=== PATIENT | female | born 1960 | race Caucasian/White ===

== ENCOUNTER 2016-05-11 08:02 | Emergency (ER) | payer BC ==
--- NOTE | 2016-05-11 08:39 | ED ---
Neck Injury/Pain HPI - General Chief Complaint: Neck Pain/Injury Stated Complaint: head injury Time Seen by Provider: 05/11/16 08:32 Source: RN notes reviewed Mode of arrival: ambulatory Limitations: no limitations - History of Present Illness Initial Comments: 55-year-old female presents to the emergency department with a chief complaint of head and neck pain. Patient states that she was getting into her trunk and she went up and hit the back of her head. Patient states that a few days ago she's getting worsening headache and worsening neck pain from this. Patient states that last day just seem to really be bothering her so she thought that she should be seen. Patient states that she hasn't had a fever chills with this. Patient states that she recently had a headache just hurts where she hit it. Patient states her neck just feels stiff to movement and it is tender to touch. Patient states that she has no other injuries in the incident. Patient denies any recent fever, chills, shortness of breath, chest pain, back pain, abdominal pain, nausea vomiting, numbness or tingling, dysuria or hematuria, constipation or diarrhea, visual changes, or any other current symptoms. - Related Data Home Medications Medication Instructions Recorded Confirmed Ascorbic Acid [Vitamin C] 500 mg PO DAILY 05/11/16 05/11/16 Aspirin 325 mg PO DAILY 05/11/16 05/11/16 Atorvastatin Calcium [Lipitor] 40 mg PO HS 05/11/16 05/11/16 Calcium Carbonate [Calcium] 600 mg PO DAILY 05/11/16 05/11/16 Cinnamon Bark [Cinnamon] 500 mg PO DAILY 05/11/16 05/11/16 Ferrous Sulfate [Feosol] 325 mg PO DAILY 05/11/16 05/11/16 Fluticasone Nasal [place] [Flonase 1 spray EA NOSTRIL DAILY PRN 05/11/16 05/11/16 Nasal [place]] Garlic 1 tab PO DAILY 05/11/16 05/11/16 Magnesium 200 mg PO DAILY 05/11/16 05/11/16 Multivitamins, Thera [Multivitamin] 1 tab PO DAILY 05/11/16 05/11/16 [place]-3 Fatty Acids/Fish Oil [Fish 1 cap PO DAILY 05/11/16 05/11/16 Oil 1,000 mg Softgel] Pioglitazone HCl/Metformin HCl 1 tab PO BID 05/11/16 05/11/16 [Pioglitazone-Metformin 15-500] Spironolact/Hydrochlorothiazid 1 tab PO DAILY 05/11/16 05/11/16 [Aldactazide 25-25 MG] Vitamin B Complex 1 cap PO DAILY 05/11/16 05/11/16 Allergies Allergy/AdvReac Type Severity Reaction Status Date / Time No Known Allergies Allergy Verified 05/11/16 08:43 Review of Systems ROS Statement: Those systems with pertinent positive or pertinent negative responses have been documented in the HPI. ROS Other: All systems not noted in ROS Statement are negative. Past Medical History Past Medical History: Diabetes Mellitus, Hyperlipidemia, Hypertension History of Any Multi-Drug Resistant Organisms: None Reported Past Surgical History: Breast Surgery, Orthopedic Surgery Past Psychological History: No Psychological Hx Reported Smoking Status: Former smoker Past Alcohol Use History: None Reported Past Drug Use History: None Reported General Exam Limitations: no limitations General appearance: alert, in no apparent distress Head exam: Present: atraumatic, normocephalic, normal inspection Eye exam: Present: normal appearance, PERRL, EOMI. Absent: scleral icterus, conjunctival injection, periorbital swelling ENT exam: Present: normal exam, mucous membranes moist Neck exam: Present: normal inspection, tenderness (Along the left lateral aspect ), full ROM. Absent: meningismus, lymphadenopathy Respiratory exam: Present: normal lung sounds bilaterally. Absent: respiratory distress, wheezes, rales, rhonchi, stridor Cardiovascular Exam: Present: regular rate, normal rhythm, normal heart sounds. Absent: systolic murmur, diastolic murmur, rubs, gallop, clicks Neurological exam: Present: alert, oriented X3, CN II-XII intact. Absent: motor sensory deficit Psychiatric exam: Present: normal affect, normal mood Skin exam: Present: warm, dry, intact, normal color. Absent: rash Course Vital Signs 05/11/16 08:29 Temperature 97.8 F Pulse Rate 73 Respiratory 20 Rate Blood Pressure 159/70 O2 Sat by Pulse 98 Oximetry Medical Decision Making - Medical Decision Making 55-year-old female presents to emergency department chief complaint of headache neck pain after hitting her head. And today she states that her pain seems to be worsening. This time CAT scans are reviewed that do not show any acute process. We discussed the case he OFF PAIN CONTROL. WE DISCUSSED RETURN PARAMETERS AND FOLLOW-UP. PATIENT STATED THAT SHE UNDERSTOOD SHE IS IN AGREEMENT PLAN ALL QUESTIONS HAVE BEEN ANSWERED. SHE WILL BE DISCHARGED. Disposition Clinical Impression: Cervical strain, acute, Contusion of head Disposition: HOME SELF-CARE Condition: Stable Instructions: Cervical Strain (ED) Additional Instructions: Please use medication as discussed. Please follow up with family doctor if symptoms have not improved over the next two days. Please return to the emergency room if your symptoms increase or worsen or for any other concerns. Referrals: Oliva Morales MD [Primary Care Provider] - 1-2 days Time of Disposition: 09:22
--- NOTE | 2016-05-11 09:15 | CT ---
EXAMINATION TYPE: CT brain cspine wo con DATE OF EXAM: 05/11/2016 9:09 AM COMPARISON: NONE HISTORY: Pt hit Lt Occipital region on trunk of car 2 days ago. Today c/o headache with Lt posterior neck pain CT DLP: Brain 1072.3, Cervical 941 mGycm. Automated Exposure Control for Dose Reduction was Utilized. TECHNIQUE: CT scan of the head and cervical spine are performed without contrast. FINDINGS: There is no acute intracranial hemorrhage or midline shift identified. There is ventricul ar and sulcal prominence consistent with mild age-related cerebral atrophy. The calvarium is intact. The globes are intact and the visualized sinuses are clear. Cervical spine is visualized in its entirety from C1 through upper thoracic levels and demonstrates s atisfactory alignment without evidence of acute fracture or dislocation. Prevertebral soft tissue ap pears within normal limits. The C1-C2 articulation is within normal limits on the coronal images. Vertebral body heights and disc space heights are maintained. No large posterior disc herniations are present on axial or sagittal images. Thyroid gland is felt within normal limits. Visualized lung api nisreen are clear. IMPRESSION: 1. There is no acute fracture or dislocation evident in the cervical spine. 2. No acute intracranial hemorrhage, mass effect, or midline shift is seen.
[2016-05-11 09:29] VITALS: BP 160/79; PULSE 68; RESP 18; TEMP 97.4
== END 2016-05-11 09:30 | disposition home or self-care (01) ==
LOC: EC 08:02
DX: S16.1XXA Strain of muscle, fascia and tendon at neck level, initial encounter (principal); S00.93XA Contusion of unspecified part of head, initial encounter; W22.09XA Striking against other stationary object, initial encounter; I10 Essential (primary) hypertension; E78.5 Hyperlipidemia, unspecified; E11.9 Type 2 diabetes mellitus without complications; Z79.82 Long term (current) use of aspirin; Z87.891 Personal history of nicotine dependence; Z79.899 Other long term (current) drug therapy; Z79.84 Long term (current) use of oral hypoglycemic drugs
CPT/HCPCS: 70450; 72125; 99283

== ENCOUNTER 2016-10-23 21:11 | Emergency (ER) | payer BC ==
[2016-10-23 21:40] VITALS: RESP 18; TEMP 96.6
--- NOTE | 2016-10-23 22:02 | ED ---
Wound/Laceration HPI - General Chief Complaint: Wound/Laceration Stated Complaint: Rt middle finger lac Time Seen by Provider: 10/23/16 21:38 Source: patient Mode of arrival: ambulatory Limitations: no limitations - History of Present Illness Initial Comments: Patient is a right-handed 55-year-old female presenting to the emergency department with chief complaint of laceration to the distal tip of her right middle finger. Onset of injury approximately 30 minutes prior to arrival. Patient states she was washing dishes when she cut herself on a broken piece of glass. Patient applied pressure to wound prior to arrival. No history of recent illness, fevers, nausea, vomiting, shortness of breath, chest pain, abdominal pain, numbness or tingling. - Related Data Home Medications Medication Instructions Recorded Confirmed Ascorbic Acid [Vitamin C] 500 mg PO DAILY 05/11/16 05/11/16 Aspirin 325 mg PO DAILY 05/11/16 05/11/16 Atorvastatin Calcium [Lipitor] 40 mg PO HS 05/11/16 05/11/16 Calcium Carbonate [Calcium] 600 mg PO DAILY 05/11/16 05/11/16 Cinnamon Bark [Cinnamon] 500 mg PO DAILY 05/11/16 05/11/16 Ferrous Sulfate [Feosol] 325 mg PO DAILY 05/11/16 05/11/16 Fluticasone Nasal [place] [Flonase 1 spray EA NOSTRIL DAILY PRN 05/11/16 05/11/16 Nasal [place]] Garlic 1 tab PO DAILY 05/11/16 05/11/16 Magnesium 200 mg PO DAILY 05/11/16 05/11/16 Multivitamins, Thera [Multivitamin] 1 tab PO DAILY 05/11/16 05/11/16 [place]-3 Fatty Acids/Fish Oil [Fish 1 cap PO DAILY 05/11/16 05/11/16 Oil 1,000 mg Softgel] Pioglitazone HCl/Metformin HCl 1 tab PO BID 05/11/16 05/11/16 [Pioglitazone-Metformin 15-500] Spironolact/Hydrochlorothiazid 1 tab PO DAILY 05/11/16 05/11/16 [Aldactazide 25-25 MG] Vitamin B Complex 1 cap PO DAILY 05/11/16 05/11/16 Allergies Allergy/AdvReac Type Severity Reaction Status Date / Time No Known Allergies Allergy Verified 10/23/16 21:40 Review of Systems ROS Statement: Those systems with pertinent positive or pertinent negative responses have been documented in the HPI. ROS Other: All systems not noted in ROS Statement are negative. Past Medical History Past Medical History: Diabetes Mellitus, Hyperlipidemia, Hypertension History of Any Multi-Drug Resistant Organisms: None Reported Past Surgical History: Breast Surgery, Orthopedic Surgery Past Psychological History: No Psychological Hx Reported Smoking Status: Former smoker Past Alcohol Use History: None Reported Past Drug Use History: None Reported General Exam Limitations: no limitations General appearance: alert, in no apparent distress Head exam: Present: atraumatic, normocephalic, normal inspection Eye exam: Present: normal appearance ENT exam: Present: normal exam, mucous membranes moist Neck exam: Present: normal inspection Respiratory exam: Present: normal lung sounds bilaterally. Absent: respiratory distress, wheezes, rales, rhonchi Cardiovascular Exam: Present: regular rate, normal rhythm, normal heart sounds. Absent: systolic murmur Extremities exam: Present: normal inspection, full ROM, normal capillary refill Back exam: Present: normal inspection Neurological exam: Present: alert, oriented X3, normal gait Psychiatric exam: Present: normal affect, normal mood Skin exam: Present: warm, dry, intact, normal color Expanded Type of lesion: Present: laceration (0.5 cm laceration to tip of third middle finger on right hand palmar side) Course Vital Signs 10/23/16 10/23/16 21:38 22:09 Temperature 96.6 F L Pulse Rate 72 78 Respiratory 18 18 Rate Blood Pressure 196/87 158/70 O2 Sat by Pulse 97 97 Oximetry Procedures - Laceration Laceration #1 Consent Obtained: verbal consent Indication: laceration Site: upper extremity (Right middle finger distal tip palmar surface 0.5 cm in length.) Description: linear Depth: simple, single layer Pre-repair: wound explored, irrigated extensively, deep structures intact Technique: other (Dermabond applied) Patient Tolerated Procedure: well, no complications Medical Decision Making - Medical Decision Making 0.5 cm laceration to distal tip of right middle finger. X-ray of right middle finger with no evidence of fracture or foreign body. Laceration irrigated extensively with sterile saline and repaired with Dermabond. Patient tolerated procedure well. Patient instructed to follow-up with primary care physician as needed. Discharge instructions and return parameters reviewed. - Radiology Data Radiology results: report reviewed X-ray of right middle finger: Mild spurring. No fracture seen. No sign of foreign body. Disposition Clinical Impression: Laceration Disposition: HOME SELF-CARE Condition: Good Instructions: Laceration (ED), Skin Adhesive Care (ED) Additional Instructions: Postop wound care: Monitor for signs and symptoms of infection such as increased redness, increased pain, red streaks going up your hand. Do not put antibiotic ointment or any type of medication on top of Dermabond. Follow-up with primary care physician for wound check. Please return to the emergency department with any new or worsening symptoms. Referrals: Cdae Elliott MD [Primary Care Provider] - 1-2 days Time of Disposition: 22:22
--- NOTE | 2016-10-23 22:03 | XR ---
History laceration. Comparison none. Technique 3 views. FINDINGS: I see no fracture nor dislocation. There is mild spurring at the PIP joint. There is no sign of a rad iopaque foreign body. CONCLUSION: Mild spurring. No fracture seen. No sign of a foreign body.
[2016-10-23] MEDS ORDERED: TOPICAL SKIN ADHESIVE 1 EACH AMP TOPICAL ONE (22:07)
[2016-10-23 22:09] VITALS: BP 158/70; PULSE 78
[2016-10-23] MEDS ORDERED: DIPH,PERTUS(ACELL)TETVAC-LF 0.5 ML VIAL IM ONE (22:13)
== END 2016-10-23 22:45 | disposition home or self-care (01) ==
LOC: EC 21:11
DX: S61.212A Laceration without foreign body of right middle finger without damage to nail, initial encounter (principal); E11.9 Type 2 diabetes mellitus without complications; E78.5 Hyperlipidemia, unspecified; I10 Essential (primary) hypertension; Z23 Encounter for immunization; Z79.82 Long term (current) use of aspirin; Z79.84 Long term (current) use of oral hypoglycemic drugs; Z79.899 Other long term (current) drug therapy; Z87.891 Personal history of nicotine dependence; W25.XXXA Contact with sharp glass, initial encounter
CPT/HCPCS: 12001; 90471; 90715; 99283

== ENCOUNTER 2017-08-29 14:27 | Observation (INO) | payer BC ==
[2017-08-29] MEDS ORDERED: MORPHINE SULFATE 4 MG/ML SYRINGE IV STA (14:38)
[2017-08-29] MEDS ORDERED: NITROGLYCERIN OINT 1 INCH/GM PACKET TOPICAL STA (14:38)
[2017-08-29] MEDS ORDERED: ONDANSETRON 4 MG/2 ML VIAL IVP STA (14:38)
[2017-08-29 14:49] LABS: Basophils % (A) 0 %; Eosinophils # (A) 0.2 k/uL (0-0.7); Eosinophils % (A) 2 %; HGB 14.6 gm/dL (11.4-16.0); Lymphocytes # (A) 1.3 k/uL (1.0-4.8); Lymphocytes % (A) 19 %; MCH 30.6 pg (25.0-35.0); MCHC 32.5 g/dL (31.0-37.0); MCV 94.1 fL (80.0-100.0); Mean Platelet Volume 7.6; Monocytes # (A) 0.3 k/uL (0-1.0); Monocytes % (A) 5 %; Neutrophils % (A) 73 %; Platelet Count 205 k/uL (150-450); RBC 4.78 m/uL (3.80-5.40); RDW 13.9 % (11.5-15.5); WBC 6.9 k/uL (3.8-10.6)
[2017-08-29 14:58] LABS: ALT 40 U/L (9-52); AST 23 U/L (14-36); Alkaline Phosphatase 65 U/L (38-126); Anion Gap 13 mmol/L; Blood Urea Nitrogen 22 mg/dL (7-17); Calcium 9.5 mg/dL (8.4-10.2); Carbon Dioxide 29 mmol/L (22-30); Chloride 102 mmol/L (98-107); Glucose 105 mg/dL (74-99); Magnesium 1.9 mg/dL (1.6-2.3); Potassium 4.2 mmol/L (3.5-5.1); Sodium 144 mmol/L (137-145); Total Bilirubin 0.6 mg/dL (0.2-1.3); Total Protein 6.3 g/dL (6.3-8.2)
[2017-08-29 14:59] LABS: Partial Thromboplastin Time 23.6 sec (22.0-30.0); Prothrombin Time 10.1 sec (9.0-12.0)
[2017-08-29 15:07] LABS: Creatine Kinase 118 U/L (30-135)
[2017-08-29 15:20] LABS: Creatine Kinase MB 1.3 ng/mL (0.0-2.4); Troponin I <0.012 ng/mL (0.000-0.034)
--- NOTE | 2017-08-29 16:02 | XR ---
EXAMINATION TYPE: XR chest 2V DATE OF EXAM: 08/29/2017 COMPARISON: 03/01/2011 INDICATION: Chest pain TECHNIQUE: Frontal and lateral views of the chest are obtained. FINDINGS: The heart size is normal. The pulmonary vasculature is normal. The lungs are clear. IMPRESSION: 1. No acute pulmonary process.
[2017-08-29] MEDS ORDERED: NITROGLYCERIN SL TABS 0.4 MG TAB SUBLINGUAL PRN (16:41)
[2017-08-29] MEDS ORDERED: MORPHINE SULFATE 4 MG/ML SYRINGE IV PRN (16:41)
--- NOTE | 2017-08-29 16:41 | ED ---
Chest Pain HPI - General Chief Complaint: Chest Pain Stated Complaint: Chest Pain Time Seen by Provider: 08/29/17 14:31 Source: patient, EMS Mode of arrival: EMS Limitations: no limitations - History of Present Illness Initial Comments: JULIETTE years O diabetic hypertensive had a palpitation yesterday evening then she had some chest pain last night he didn't last long then she had another episode of chest pain this morning and then one this afternoon she still has a chest pain on arrival to the ER and it's 06/12 she denies any shortness of breath there is no worsening of the chest pain with deep breaths she got nitro and she got aspirin area that did help her I denies any fever no chills no abdominal pain no frequency urgency dysuria no symptoms of TIA or CVA - Related Data Home Medications Medication Instructions Recorded Confirmed Ascorbic Acid [Vitamin C] 500 mg PO DAILY 05/11/16 08/29/17 Aspirin 325 mg PO DAILY 05/11/16 08/29/17 Atorvastatin Calcium [Lipitor] 40 mg PO HS 05/11/16 08/29/17 Calcium Carbonate [Calcium] 600 mg PO DAILY 05/11/16 08/29/17 Ferrous Sulfate [Feosol] 325 mg PO DAILY 05/11/16 08/29/17 Fluticasone Nasal [place] [Flonase 1 spray EA NOSTRIL DAILY PRN 05/11/16 08/29/17 Nasal [place]] Garlic 1 tab PO DAILY 05/11/16 08/29/17 Magnesium 200 mg PO DAILY 05/11/16 08/29/17 [place]-3 Fatty Acids/Fish Oil [Fish 1 cap PO DAILY 05/11/16 08/29/17 Oil 1,000 mg Softgel] Pioglitazone HCl/Metformin HCl 1 tab PO BID 05/11/16 08/29/17 [Pioglitazone-Metformin 15-500] Spironolact/Hydrochlorothiazid 1 tab PO DAILY 05/11/16 08/29/17 [Aldactazide 25-25 MG] Vitamin B Complex 1 cap PO DAILY 05/11/16 08/29/17 Allergies Allergy/AdvReac Type Severity Reaction Status Date / Time No Known Allergies Allergy Verified 10/23/16 21:40 Review of Systems ROS Statement: Those systems with pertinent positive or pertinent negative responses have been documented in the HPI. ROS Other: All systems not noted in ROS Statement are negative. EKG Findings - EKG Comments: EKG Findings:: EKG is normal sinus rhythm ventricular rate is 65 DE interval is 190 0 QRS duration is 86 QT/QTc is 436/453 review cc EKG does not reveal any ST elevation or ST depression Past Medical History Past Medical History: Diabetes Mellitus, Hyperlipidemia, Hypertension Additional Past Medical History / Comment(s): Heart murmur History of Any Multi-Drug Resistant Organisms: None Reported Past Surgical History: Breast Surgery, Orthopedic Surgery Past Psychological History: No Psychological Hx Reported Smoking Status: Former smoker Past Alcohol Use History: Rare Past Drug Use History: None Reported General Exam - General Exam Comments Initial Comments: General: The patient is awake and alert, in no distress, and does not appear acutely ill. Skin: Skin is warm and dry and no rashes or lesions are noted. Eye: Pupils are equal, round and reactive to light, extra-ocular movements are intact; there is normal conjunctiva bilaterally. Ears, nose, mouth and throat: There are moist mucous membranes and no oral lesions. Neck: The neck is supple, there is no tenderness or JVD. Cardiovascular: There is a regular rate and rhythm. No murmur, rub or gallop is appreciated. Respiratory: To auscultation bilateral, no wheezing no rhonchi no distress respiratory [place] noticed Gastrointestinal: Soft, non-distended, non-tender abdomen without masses or organomegaly noted. There is no rebound or guarding present. Bowel sounds are unremarkable. Back: There is no tenderness to palpation in the midline. There is no obvious deformity. Musculoskeletal: Normal ROM, no tenderness, There is no pedal edema. There is no calf tenderness or swelling. No cords were appreciated. Neurological: CN II-XII intact, Cranial nerves III through XII are intact. There are no obvious motor or sensory deficits. Coordination appears grossly intact. Speech is normal. Psychiatric: Cooperative, appropriate mood & affect, normal judgment. Limitations: no limitations Course Vital Signs 08/29/17 14:30 Temperature 98.4 F Pulse Rate 72 Respiratory 19 Rate Blood Pressure 176/76 O2 Sat by Pulse 96 Oximetry Upon reassessment noticed EKG is unremarkable her blood pressure is bit elevated 168 systolic CBC, INR, compressive metabolic panel, troponin, chest x- ray are unremarkable considering that her BMI is 56, she is diabetic, she is hypertensive and she has a 5 episodes lasting 10-15 minutes of chest pain since yesterday on admit observation consult cardiology she be admitted to Dr. Villa service Disposition Clinical Impression: Chest pain Disposition: ADMITTED IP TO THIS HOSP Condition: Good Referrals: Cade Elliott MD [Primary Care Provider] - 1-2 days
[2017-08-29] MEDS ORDERED: FLUTICASONE 50MCG/SPRAY NASAL 16GM EA NOSTRIL PRN (16:46)
[2017-08-29 17:45] VITALS: BMI 55.7
--- NOTE | 2017-08-29 20:59 | HP ---
HISTORY AND PHYSICAL DATE OF SERVICE: 08/29/2017 CHIEF COMPLAINTS: Chest pain and palpitations. SUMMARY OF HISTORY OF PRESENT ILLNESS: This 56-year-old woman with a past medical history of multiple medical problems, including diabetes mellitus, hypertension, hyperlipidemia, heart murmur, breast surgery being followed by Dr. Elliott in the outpatient setting had palpitations and chest pain last night. Patient had fluttering feeling and felt some some pain in the anterior part of the upper chest. Patient came to [facility], admitted for further evaluation and treatment. The basic labs were negative and the chest x- ray did not show any acute abnormality and EKG on admission showed normal sinus rhythm and the patient admitted for further evaluation and treatment. There is no history of fever, rigors. No history of headache, loss of consciousness or seizures. PAST MEDICAL HISTORY: History of diabetes, hypertension, hyperlipidemia, history of heart murmur. MEDICATIONS: Medications prior to admission include: 1. Meloxicam 50 mg p.o. daily. 2. Lipitor 40 mg q.h.s. 3. Aldactazide 20/25 p.o. daily. 4. 50/500 1 p.o. b.i.d. 5. [place]-3 fatty acids 1 p.o. daily. 6. Magnesium 200 mg. 7. Glucosamine chondroitin 500/400 1 p.o. daily. 8. Garlic 1 tab p.o. daily. 9. Flonase 1 spray daily p.r.n. 10.Iron sulfate 320 mg daily. 11.Vitamin D3 1000 daily. 12.Calcium 600 mg p.o. daily. 13.Aspirin 320 mg. 14.Vitamin C 500 mg p.o. daily. ALLERGIES: None. FAMILY HISTORY: History of leukemia, heart issues. SOCIAL HISTORY: Previous history of smoking. No history of current smoking. No alcohol intake. REVIEW OF SYSTEMS: ENT: No diminished vision. No diminished hearing. Cardiovascular system: As mentioned earlier. Respiratory: As mentioned earlier. GI no nausea or vomiting. no dysuria or hematuria. Nervous system: No numbness or weakness. ALLERGY/IMMUNOLOGY: No asthma or hayfever. Musculoskeletal: As mentioned earlier. Hematology/Oncology: No history of anemia. Endocrine: Diabetes. Constitutional : As mentioned earlier. Dermatology: Negative. Rheumatology: Negative. Psychiatry: As mentioned earlier. PHYSICAL EXAM: GENERAL: Patient is alert, oriented x3. VITAL SIGNS: Pulse 65, blood pressure 181/79, respiration 18, temp 98 degrees, pulse ox 97% on 2 L. HEENT: Conjunctivae normal. Oral mucosa moist. NECK is no jugular venous distention. No carotid bruit. No lymph node enlargement. CARDIOVASCULAR: S1, S2. RESPIRATORY: Breath sounds diminished in the bases. No rhonchi. No crackles. ABDOMEN: Soft, nontender. No mass palpable. LEGS no edema no swelling. NERVOUS SYSTEM: Higher functions as mentioned earlier. Moves all four limbs. No focal deficits. LYMPHATICS: No lymph nodes palpable in the neck, axillae or groin. SKIN: No ulcer, rash or bleeding. LAB STUDIES: CBC within normal limits. Glucose 105. Troponins are negative. EKG and chest x-ray noted. ASSESSMENT: 1. Chest pain possible unstable angina. 2. Diabetes mellitus Type 2. 3. Hypertension. 4. Hyperlipidemia. 5. Remote history of nicotine dependence. RECOMMENDATIONS AND DISCUSSION: This 56-year-old woman who presented with multiple complex medical issues, we will monitor the patient closely, continue the current medications, management and symptomatic treatment. Unstable angina protocol. Cardiology consultation. Resume the home medication. Monitor blood sugars closely. The patient possible stress test. Otherwise, guarded prognosis because of multiple complex medical issues and further recommendations to follow. Copy of dictation being forwarded to Dr. Elliott who is the primary physician. OLIVIA / JAMMIE: [id number] / MTDD
[2017-08-29] MEDS ORDERED: METFORMIN HCL PO SCH (21:00)
[2017-08-29] MEDS ORDERED: [UNRECOGNIZED DRUG - OTHER] PO SCH (21:00)
[2017-08-29] MEDS ORDERED: PIOGLITAZONE HCL PO SCH (21:00)
[2017-08-29 21:30] LABS: Creatine Kinase 108 U/L (30-135)
[2017-08-29 21:42] LABS: Creatine Kinase MB 1.2 ng/mL (0.0-2.4); Troponin I <0.012 ng/mL (0.000-0.034)
[2017-08-29 21:47] LABS: Glucose,Whole Blood 138 mg/dL (75-99)
[2017-08-29] MEDS: metFORMIN 500 MG TAB PO SCH (21:47)
[2017-08-29] MEDS: ATORVASTATIN 40 MG TAB PO SCH (21:47)
[2017-08-29] MEDS: PIOGLITAZONE 15 MG TAB PO SCH (21:47)
[2017-08-29] MEDS: INSULIN ASPART 100 UNIT/ML 1 ML 10 ML VIAL SQ SCH (21:51)
[2017-08-29 22:25] LABS: Appearance,Urine Clear (Clear); Bilirubin,Urine Negative (Negative); Blood,Urine Negative (Negative); Color,Urine Yellow; Glucose,Urine (UA) Negative (Negative); Ketones,Urine Negative (Negative); Leukocyte Esterase,Urine Negative (Negative); Nitrite,Urine Negative (Negative); PH, Urine 6.5 (5.0-8.0); Protein,Urine Negative (Negative); Urobilinogen,Urine <2.0 mg/dL (<2.0)
[2017-08-30 02:18] LABS: Basophils % (A) 0 %; Eosinophils # (A) 0.1 k/uL (0-0.7); Eosinophils % (A) 2 %; HCT 43.9 % (34.0-46.0); HGB 13.9 gm/dL (11.4-16.0); Lymphocytes # (A) 1.2 k/uL (1.0-4.8); Lymphocytes % (A) 19 %; MCH 30.5 pg (25.0-35.0); MCHC 31.7 g/dL (31.0-37.0); MCV 96.3 fL (80.0-100.0); Mean Platelet Volume 7.5; Monocytes # (A) 0.3 k/uL (0-1.0); Monocytes % (A) 5 %; Neutrophils # (A) 4.7 k/uL (1.3-7.7); Neutrophils % (A) 73 %; Platelet Count 188 k/uL (150-450); RBC 4.56 m/uL (3.80-5.40); RDW 13.9 % (11.5-15.5); WBC 6.4 k/uL (3.8-10.6)
[2017-08-30 02:28] LABS: Creatine Kinase 96 U/L (30-135)
[2017-08-30 02:37] LABS: Anion Gap 11 mmol/L; Blood Urea Nitrogen 20 mg/dL (7-17); Calcium 8.9 mg/dL (8.4-10.2); Carbon Dioxide 30 mmol/L (22-30); Chloride 100 mmol/L (98-107); Cholesterol 107 mg/dL (<200); Glucose 92 mg/dL (74-99); HDL Cholesterol 41 mg/dL (40-60); LDL Cholesterol,Calculated 53 mg/dL (0-99); Potassium 4.1 mmol/L (3.5-5.1); Sodium 141 mmol/L (137-145); Triglycerides 64 mg/dL (<150)
[2017-08-30 02:39] LABS: Creatine Kinase MB 0.9 ng/mL (0.0-2.4); Troponin I <0.012 ng/mL (0.000-0.034)
[2017-08-30 06:11] LABS: Glucose,Whole Blood 95 mg/dL (75-99)
[2017-08-30] MEDS: INSULIN ASPART 100 UNIT/ML 1 ML 10 ML VIAL SQ SCH ×4 (06:16→22:29)
[2017-08-30] MEDS ORDERED: METOPROLOL TARTRATE 25 MG TAB PO SCH (09:00)
[2017-08-30] MEDS ORDERED: NON-FORMULARY DRUG (Omega-3 Fatty Acids/Fish Oil [Fish Oil 1,000 Mg Softgel] 1 CAP) PO SCH (09:00)
[2017-08-30] MEDS ORDERED: NON-FORMULARY DRUG (Glucosamine-Chondr 500-400mg 1 TAB) PO SCH (09:00)
[2017-08-30] MEDS ORDERED: ASPIRIN 325 MG TAB PO SCH ×2 (09:00)
[2017-08-30] MEDS ORDERED: MELOXICAM 7.5 MG TAB PO SCH ×2 (09:00→21:00)
[2017-08-30] MEDS: metFORMIN 500 MG TAB PO SCH ×2 (09:24→22:29)
[2017-08-30] MEDS: PIOGLITAZONE 15 MG TAB PO SCH ×2 (09:24→22:29)
[2017-08-30] MEDS ORDERED: ASPIRIN 325 MG TAB PO STA ×2 (09:26→09:30)
[2017-08-30] MEDS: ASPIRIN 81 MG PO SCH (09:27)
[2017-08-30] MEDS: METOPROLOL TARTRATE 25 MG TAB PO SCH ×2 (09:33→22:30)
[2017-08-30] MEDS: SPIRONOLACTONE-HCTZ 25-25MG 1 EACH TAB PO SCH (09:35)
[2017-08-30] MEDS: SODIUM CHLORIDE 0.9% 1,000 ML IV SCH ×2 (10:00→14:28)
[2017-08-30 11:32] VITALS: RESP 16
[2017-08-30 11:46] LABS: Glucose,Whole Blood 103 mg/dL (75-99)
[2017-08-30] MEDS ORDERED: HEPARIN SODIUM 1,000 UN/ML (10ML VL) ONE (13:00)
[2017-08-30] MEDS ORDERED: diphenhydrAMINE 50 MG/ML 1 ML VIAL ONE (13:00)
[2017-08-30] MEDS ORDERED: LIDOCAINE 2% INJ 20 MG/ML (20 ML MDV) ONE (13:00)
[2017-08-30] MEDS ORDERED: VERAPAMIL 2.5 MG/ML 2 ML AMP ONE (13:00)
[2017-08-30] MEDS ORDERED: MIDAZOLAM 2 MG/2 ML VIAL ONE (13:00)
[2017-08-30] MEDS ORDERED: diphenhydrAMINE 50 MG/ML 1 ML VIAL IVP ONE (13:19)
[2017-08-30] MEDS ORDERED: MIDAZOLAM 2 MG/2 ML VIAL IVP ONE ×2 (13:19)
[2017-08-30] MEDS ORDERED: IV FLUID CONTINUATION 800 ML IV ONE (13:20)
[2017-08-30] MEDS ORDERED: LIDOCAINE 2% INJ 20 MG/ML SQ ONE (13:27)
[2017-08-30] MEDS: VERAPAMIL SYRINGE (5 MG/10 ML) INTRAARTER ONE ×2 (13:28→13:47)
[2017-08-30] MEDS ORDERED: HEPARIN SODIUM 1,000 UN/ML (10ML VL) IV ONE ×2 (13:31)
[2017-08-30] MEDS ORDERED: IOPAMIDOL-370 100ML BTL INJ ONE (13:47)
[2017-08-30] MEDS ORDERED: NITROGLYCERIN SL TABS 0.4 MG TAB SUBLINGUAL ONE ×2 (13:50→13:52)
[2017-08-30] MEDS ORDERED: RX INFO: IV CONTRAST WAS GIVEN 1 EACH MISC MISCELLANE PRN (14:05)
--- NOTE | 2017-08-30 15:39 | CONS ---
CONSULTATION HISTORY OF PRESENT ILLNESS: Aimee Schultz is an obese lady with a history of hypertension, type 2 diabetes and hyperlipidemia who sees Dr. Fredy Elliott in the primary care setting and also sees Dr. Arana. She apparently had a stress test more than 2 years ago and it was unremarkable. Her overall lifestyle does not reflect much activity. She does not exercise on a regular basis. However, yesterday she went to [place] and tried to walk up hill and as she walked uphill, she felt heavy pressure in the chest and shortness of breath, felt concerned, rested for a while and felt better, went home. After she went home, she had 2 such episodes, 1 of which occurred at rest and she came into the hospital and was admitted to the hospital with unstable angina. She had troponins are normal. She has had at least 1 additional episode of shortness of breath and heavy chest pressure. In view of her ongoing symptoms, she was advised coronary angiography. Risks, benefits, options and rationale were explained to the patient. She understands and wishes to proceed with the procedure. PAST MEDICAL HISTORY: 1. Type 2 diabetes mellitus. 2. Hyperlipidemia. 3. Hypertension. 4. Obesity. MEDICATIONS: At home include: Atorvastatin 40 mg daily, Aldactazide 25/25 1 tablet daily, metformin pioglitazone combination 515/500 1 tab b.i.d. She takes some nasal spray and Aspirin 325 mg daily. LABORATORY DATA: Suggested her troponins were normal. There were no other significant abnormalities. PHYSICAL EXAMINATION: On examination her blood pressure was 140/70, pulse rate was 68 per minute and regular. HEENT: Unremarkable. Fundus was not examined by me. NECK is supple. There is no JVD. I do not hear a carotid bruit. HEART exam reveals S1, S2 with somewhat distant heart sounds. No rub, murmur or gallop. LUNGS are clear. ABDOMEN is soft, nontender. EXTREMITIES: Lower extremities reveal diminished chronic diminished pulses and some chronic changes on her legs. She has had previous orthopedic surgery. EKG revealed sinus mechanism without any acute changes. IMPRESSION: 1. Chest pain syndrome, recurrent with exertion and also at rest suggestive of unstable angina. 2. Type 2 diabetes mellitus. 3. Hypertension. 4. Hyperlipidemia. 5. Obesity. RECOMMENDATIONS: I am recommending that we add a beta jack, reduce aspirin 81 mg daily. Perform coronary angiography and if this is normal, we can discharge the patient in 24 hours. However, given her symptoms of ongoing chest pressure and shortness of breath both with activity and at rest, I feel coronary angiography is advised. I explained to the patient the risks, benefits and options and she wishes to proceed. OLIVIA / JAMMIE: [id number] /
[2017-08-30 16:32] LABS: Glucose,Whole Blood 120 mg/dL (75-99)
[2017-08-30] MEDS: CALCIUM CARBONATE 500 MG CHEWABLE PO SCH (17:03)
[2017-08-30] MEDS: B COMPLEX-VIT C-VIT E-ZINC 1 EACH TAB PO SCH (17:04)
[2017-08-30] MEDS: ASCORBIC ACID 500 MG TAB PO SCH (17:04)
[2017-08-30] MEDS: MAGNESIUM OXIDE 400 MG TAB PO SCH (17:04)
[2017-08-30] MEDS: FERROUS SULFATE 325 MG TAB PO SCH (17:04)
[2017-08-30] MEDS: CHOLECALCIFEROL 1,000 UNIT TAB PO SCH (17:04)
--- NOTE | 2017-08-30 19:39 | PN ---
PROGRESS NOTE DATE OF SERVICE: 08/30/2017 This 56-year-old woman was admitted with chest pain as well as palpitation. Scheduled to have a cardiac cath by Dr. Casandra Cortez. No chest pain. No palpitations. No fever. EXAM: Alert and oriented x3. Pulse 66, blood pressure 140/60, respirations 16, temp is normal, pulse ox 94% on room air. HEENT: Conjunctivae normal. NECK: No JVD. CARDIAC: S1, S2. RESPIRATORY: Diminished breath sounds at the bases. No rhonchi, no crackles. ABDOMEN: Soft, nontender. LEGS: No swelling. NERVOUS SYSTEM: No focal deficits. LABS: CBC within normal. Accu-Cheks 103, 120. ASSESSMENT: 1. Chest pain, possible unstable angina. 2. Diabetes type 2. 3. Hypertension. 4. Hyperlipidemia. RECOMMENDATIONS: Recommend to continue current management and symptomatic treatment. Otherwise, we will continue with continue with cardiac cath. Guarded prognosis because of multiple complex medical issues. Further recommendations follow. MMODL / IJN: [id number] / MTDD
[2017-08-30 20:27] LABS: Glucose,Whole Blood 89 mg/dL (75-99)
--- NOTE | 2017-08-30 21:06 | CC ---
CARDIAC CATHETERIZATION REPORT DATE OF SERVICE: 08/30/2017 PROCEDURE: Left heart catheterization, coronary angiography and left ventriculography. PERFORMED BY: Dr. Casandra Cortez. ANESTHESIA: Moderate conscious sedation time was 24 minutes. Patient was administered Versed and Benadryl and her oxygen saturation, hemodynamics and EKG were monitored closely. CLINICAL INFORMATION: This patient is a 56-year-old lady with a known history of obesity, hypertension hypercholesterolemia and type 2 diabetes mellitus, who came into the hospital with increasing chest discomfort as she was walking up hill in [place]. These symptoms got better when she rested and when she went home the symptoms again persisted at least on 2 occasions and she came into the emergency room. I was called by the emergency room doctor regarding her symptoms. They seem to occur only with exertion, but the last episode occurred even at rest when she felt heaviness and pressure in the chest and shortness of breath. She has significant risk factors. Her troponins were negative. An EKG did not reveal any acute changes, but given her symptomatology, I recommended coronary angiography. Risks, benefits, options and rationale were explained. PROCEDURE NOTE: Under local anesthesia and strict aseptic precautions, a 6-Ukrainian introducer was placed in the right radial artery. Using an Ultimate 1 catheter, I performed selective coronary angiography of the left coronary artery. A 3.5 curve right Jonathan catheter was used to perform selective coronary angiography of the RCA. I then used a pigtail catheter to check LV gram. The sheath was taken out and TR band applied as per protocol. Saturation in the fingers of the right hand was 93%. The results were then discussed with the patient and family. There was no significant obstructive CAD noted. The patient received 2000 units of heparin intravenously. CARDIAC CATHETERIZATION FINDINGS: The left ventricle end-diastolic pressure was about 13 mmHg without any change after LV- gram. There was no gradient across aortic valve. CORONARY ANGIOGRAPHY FINDINGS: RIGHT CORONARY ARTERY: Technically this is a nondominant vessel, gives off an acute marginal distend immediately bifurcates into 2 small branches. Starts off as a good caliber vessel that has 3 small branches. No significant disease. Minor irregularities noted. LEFT MAIN CORONARY ARTERY: This is a short patent vessel free of significant disease that bifurcates into LAD and circumflex. LEFT ANTERIOR DESCENDING CORONARY ARTERY: Good caliber vessel extends along the anterior wall, supplies a sizable amount of myocardium. There is no significant disease in the LAD. Gives off septal branch and a fair sized diagonal branch in the midportion, runs all the way to the apex supplying a sizable amount of myocardium. No significant disease in the LAD system. LEFT POSTERIOR CIRCUMFLEX CORONARY ARTERY: Technically dominant vessel, gives off 2 or 3 small obtuse marginal branches, distally bifurcates into a large PDA and PLV, both of which supply a sizable amount of myocardium. No significant disease in the dominant circumflex. LEFT VENTRICULOGRAM: This was performed in 30 degree DE projection and revealed left ventricle which is of normal size with good systolic function. Ejection fraction is about 55% to 60% without mitral regurgitation. There was some ventricular ectopy noted. FINAL IMPRESSION: This patient has a left dominant system. Normal filling pressures. Good systolic function. No significant CAD. RECOMMENDATIONS: Findings were explained to the patient and her family including her brother. I agree continued medical therapy with risk factor modification including weight reduction was advised. The patient will be discharged tomorrow if she remains stable. Medications were resumed. MMTANK / IJN: [id number] /
--- NOTE | 2017-08-30 21:12 | LTR ---
DATE OF SERVICE: 08/30/[address] Elliott: Thank you for the opportunity to participate in the care of Mrs. Aimee Quintero. I am pleased to report to you that she does not have any obstructive CAD. She presented with unstable angina and because of risk factors and continued chest pain, she underwent cardiac cath, which revealed no obstructive CAD and normal systolic function with left dominant system. Continued medical therapy with risk factor modification was advised. Thank you for your referral and please call for questions. With kindest regards, Sincerely, OLIVIA / JAMMIE: [id number] /
[2017-08-30] MEDS: ATORVASTATIN 40 MG TAB PO SCH (22:29)
[2017-08-31 05:38] LABS: Glucose,Whole Blood 90 mg/dL (75-99)
[2017-08-31] MEDS: SODIUM CHLORIDE 0.9% 1,000 ML IV SCH ×3 (05:38→12:20)
[2017-08-31 06:21] LABS: Basophils % (A) 0 %; Eosinophils # (A) 0.1 k/uL (0-0.7); Eosinophils % (A) 2 %; HCT 43.2 % (34.0-46.0); HGB 13.8 gm/dL (11.4-16.0); Lymphocytes # (A) 1.3 k/uL (1.0-4.8); Lymphocytes % (A) 23 %; MCH 31.1 pg (25.0-35.0); MCHC 31.9 g/dL (31.0-37.0); MCV 97.5 fL (80.0-100.0); Mean Platelet Volume 7.1; Monocytes # (A) 0.3 k/uL (0-1.0); Monocytes % (A) 5 %; Neutrophils # (A) 3.9 k/uL (1.3-7.7); Neutrophils % (A) 69 %; Platelet Count 149 k/uL (150-450); RBC 4.43 m/uL (3.80-5.40); RDW 14.4 % (11.5-15.5); WBC 5.6 k/uL (3.8-10.6)
[2017-08-31] MEDS: INSULIN ASPART 100 UNIT/ML 1 ML 10 ML VIAL SQ SCH ×2 (06:31→12:19)
[2017-08-31 06:39] LABS: Anion Gap 8 mmol/L; Blood Urea Nitrogen 17 mg/dL (7-17); Calcium 8.9 mg/dL (8.4-10.2); Carbon Dioxide 29 mmol/L (22-30); Chloride 104 mmol/L (98-107); Glucose 92 mg/dL (74-99); Sodium 141 mmol/L (137-145)
[2017-08-31] MEDS: metFORMIN 500 MG TAB PO SCH (09:37)
[2017-08-31] MEDS: METOPROLOL TARTRATE 25 MG TAB PO SCH (09:37)
[2017-08-31] MEDS: ASPIRIN 81 MG PO SCH (09:37)
[2017-08-31] MEDS: PIOGLITAZONE 15 MG TAB PO SCH (09:38)
[2017-08-31] MEDS: SPIRONOLACTONE-HCTZ 25-25MG 1 EACH TAB PO SCH (09:38)
[2017-08-31 12:09] LABS: Glucose,Whole Blood 93 mg/dL (75-99)
[2017-08-31] MEDS: ASCORBIC ACID 500 MG TAB PO SCH (12:20)
[2017-08-31] MEDS: B COMPLEX-VIT C-VIT E-ZINC 1 EACH TAB PO SCH (12:20)
[2017-08-31] MEDS: CHOLECALCIFEROL 1,000 UNIT TAB PO SCH (12:20)
[2017-08-31] MEDS: MAGNESIUM OXIDE 400 MG TAB PO SCH (12:20)
[2017-08-31] MEDS: CALCIUM CARBONATE 500 MG CHEWABLE PO SCH (12:20)
[2017-08-31] MEDS: FERROUS SULFATE 325 MG TAB PO SCH (12:20)
[2017-08-31 13:05] VITALS: BP 148/65; PULSE 60; TEMP 96.7
[2017-08-31 13:06] LABS: Hemoglobin A1C 5.7 % (4.0-6.0)
--- NOTE | 2017-08-31 15:43 | P.PN ---
Subjective Progress Note Date: 08/31/17 Principal diagnosis: Chest pain This is a 56-year-old female with history of hypertension, diabetes, hyperlipidemia, who follows with Dr. Arana in the office. She presented to the hospital with chest heaviness and pressure and for this reason was taken to the cardiac catheterization lab by Dr. Trenton Cortez. Cardiac catheterization did not reveal any significant obstructive coronary artery disease. She was seen and examined this morning, feels well, denies any chest pain or difficulty in breathing. Right radial site is clean and dry, good distal pulse. Objective - Vital Signs Vital signs: Vital Signs Temp 96.7 F L 08/31/17 12:05 Pulse 60 08/31/17 12:05 Resp 16 08/31/17 12:05 BP 148/65 08/31/17 12:05 Pulse Ox 95 08/31/17 12:05 Intake & Output 08/30/17 08/31/17 08/31/17 18:59 06:59 18:59 Intake Total 640 600 Balance 640 600 Weight 133.1 kg Intake: IV 400 600 IV Fluid Continuation 800 300 ml As IV .STK-MED ONE Rx #:[id number] Sodium Chloride 0.9% 1, 600 000 ml @ 75 mls/hr IV . [id number] ANKUR Rx#:[id number] Oral 240 Other: Voiding Method Toilet Toilet # Voids 1 1 2 - Exam PHYSICAL EXAMINATION: GENERAL: HEENT: Head is atraumatic, normocephalic. Pupils equal, round. Sclera anicteric. Conjunctiva are clear. Mucous membranes of the mouth are moist. Neck is supple. There is no elevated jugular venous pressure.] bruit is heard. HEART EXAMINATION: Heart S1, S2 normal. No murmur or gallop heard. CHEST EXAMINATION: Lungs are clear to auscultation and precussion. No chest wall tenderness is noted on palpation or with deep breathing. ABDOMEN: Soft, obese, nontender. Bowel sounds are heard. No organomegaly noted. EXTREMITIES: 2+ peripheral pulses with no evidence of peripheral edema and no calf tenderness noted. Right radial site clean and dry, good distal pulse. NEUROLOGIC patient is awake, alert and oriented -3. . - Labs CBC & Chem 7: 08/31/17 06:02 08/31/17 06:02 Labs: Abnormal Lab Results - Last 24 Hours (Table) 08/30/17 08/31/17 Range/Units 16:28 06:02 Plt Count 149 L (150-450) k/uL POC Glucose (mg/dL) 120 H (75-99) mg/dL Assessment and Plan Plan: Assessment and plan #1 chest pain, status post cardiac catheterization which did not reveal any significant obstructive coronary artery disease. #2 hypertension #3 diabetes #4 hyperlipidemia Number 5 obesity Plan From cardiology's perspective, patient be able to be discharged home today. We will make her a follow-up appointment to see Dr. Arana in the office in one week post discharge. DNP note has been reviewed, I agree with a documented findings and plan of care. Patient was seen and examined.
[2017-08-31 17:15] LABS: Glucose,Whole Blood 95 mg/dL (75-99)
--- NOTE | 2017-09-01 07:28 | DS ---
DISCHARGE SUMMARY DATE OF ADMISSION: 08/29/2017 DATE OF DISCHARGE: 08/31/2017 FINAL DIAGNOSES: 1. Left anterior chest wall pain, could be musculoskeletal. 2. Essential hypertension. 3. Hyperlipidemia. 4. Diabetes mellitus type 2 on oral hypoglycemic. 5. Morbid obesity, body mass index 52.0. CONSULTATION: Dr. Casandra Cortez. HOSPITAL COURSE: This patient presented with chest pain. Troponins were negative. EKG is unremarkable. Did undergo cardiac catheterization by Dr. Casandra Cortez showing minimal disease. The patient is feeling well at the time of discharge. The patient had also noticed some fluttering of the chest when she had come in. If she has more symptoms, she may be considered for an outpatient event monitor. PHYSICAL EXAMINATION: On examination, lungs are clear. CARDIOVASCULAR: First and second sounds normal. DISCHARGE MEDICATIONS: 1. Vitamin C 500 mg p.o. daily. 2. Lipitor 40 mg at bedtime. 3. Iron 325 p.o. daily. 4. Magnesium 200 mg p.o. daily. 5. Actos/metformin 15/500 one tablet p.o. b.i.d. 6. Aldactazide 25/25 one tab p.o. daily. 7. Vitamin D3, 1000 units p.o. daily. 8. Glucosamine chondroitin 500/400 one tablet p.o. daily. 9. Meloxicam 15 mg p.o. daily. 10.Aspirin 81 mg p.o. daily. 11.Lopressor 25 mg p.o. b.i.d., is new. Follow up with Dr. Elliott in [facility] 09/03/[address] Arana on 09/09/2017. The patient may return to work on that is 2 days from today. MMODL / IJN: [id number] /
== END 2017-08-31 17:16 | disposition home or self-care (01) ==
LOC: EC 14:27 → 6SEL 16:41
PROVIDERS: ADMIT Hospitalist; ATTEND Hospitalist
DX: R07.89 Other chest pain (principal); I10 Essential (primary) hypertension; E78.5 Hyperlipidemia, unspecified; E11.9 Type 2 diabetes mellitus without complications; Z79.84 Long term (current) use of oral hypoglycemic drugs; Z68.43 Body mass index [BMI] 50.0-59.9, adult; E66.01 Morbid (severe) obesity due to excess calories; I49.8 Other specified cardiac arrhythmias; R00.2 Palpitations; R06.02 Shortness of breath; R01.1 Cardiac murmur, unspecified; Z79.899 Other long term (current) drug therapy; Z79.82 Long term (current) use of aspirin; Z82.49 Family history of ischemic heart disease and other diseases of the circulatory system; Z80.6 Family history of leukemia; Z87.891 Personal history of nicotine dependence
CPT/HCPCS: 99285; 96374 ×2; 96375 ×2; 96361; 36415; 93005; 93458; 85379; 80061; 80053; 80048 ×2; 82550 ×2; 82553 ×2; 83735; 84484 ×2; 85025 ×3; 85610; 85730; 81003; 83036; 71046; G0378 ×3; C1769; C1894; J2001; J2250; J2270; J1200; J2405; J1644; Q9967

== ENCOUNTER 2017-09-06 08:16 | Emergency (ER) | payer BC ==
[2017-09-06 08:20] VITALS: PULSE 55
[2017-09-06] MEDS ORDERED: NITROGLYCERIN OINT 1 INCH/GM PACKET TOPICAL STA (08:37)
[2017-09-06] MEDS ORDERED: ASPIRIN 81 MG PO STA (08:37)
[2017-09-06 08:38] VITALS: RESP 16
[2017-09-06 08:57] LABS: Basophils % (A) 0 %; Eosinophils # (A) 0.1 k/uL (0-0.7); Eosinophils % (A) 2 %; HCT 46.4 % (34.0-46.0); HGB 15.5 gm/dL (11.4-16.0); Lymphocytes # (A) 1.1 k/uL (1.0-4.8); Lymphocytes % (A) 22 %; MCH 31.1 pg (25.0-35.0); MCHC 33.4 g/dL (31.0-37.0); MCV 93.1 fL (80.0-100.0); Mean Platelet Volume 8.5; Monocytes # (A) 0.3 k/uL (0-1.0); Monocytes % (A) 6 %; Neutrophils # (A) 3.4 k/uL (1.3-7.7); Neutrophils % (A) 68 %; Platelet Count 156 k/uL (150-450); RBC 4.98 m/uL (3.80-5.40); RDW 13.5 % (11.5-15.5); WBC 5.1 k/uL (3.8-10.6)
--- NOTE | 2017-09-06 08:59 | XR ---
EXAMINATION TYPE: XR chest 2V DATE OF EXAM: 09/06/2017 COMPARISON: 08/22/1717 HISTORY: Chest pain. TECHNIQUE: Frontal and lateral views of the chest are obtained. FINDINGS: There is no focal air space opacity, pleural effusion, or pneumothorax seen. The cardiac silhouette size is within normal limits. The osseous structures are intact. Mild multilevel degener ative changes of the thoracic spine and acromioclavicular arthropathy are present. IMPRESSION: No acute cardiopulmonary process.
[2017-09-06 09:04] LABS: ALT 39 U/L (9-52); AST 31 U/L (14-36); Albumin 4.2 g/dL (3.5-5.0); Alkaline Phosphatase 63 U/L (38-126); Anion Gap 12 mmol/L; Blood Urea Nitrogen 22 mg/dL (7-17); Calcium 9.4 mg/dL (8.4-10.2); Carbon Dioxide 28 mmol/L (22-30); Chloride 100 mmol/L (98-107); Glucose 134 mg/dL (74-99); Magnesium 1.9 mg/dL (1.6-2.3); Potassium 3.7 mmol/L (3.5-5.1); Sodium 140 mmol/L (137-145); Total Bilirubin 0.9 mg/dL (0.2-1.3); Total Protein 6.6 g/dL (6.3-8.2)
[2017-09-06 09:05] LABS: INR 1.1 (<1.2); Partial Thromboplastin Time 24.6 sec (22.0-30.0); Prothrombin Time 10.9 sec (9.0-12.0)
--- NOTE | 2017-09-06 09:11 | ED ---
Chest Pain HPI - General Chief Complaint: Chest Pain Stated Complaint: chest pain Time Seen by Provider: 09/06/17 08:20 Source: patient, RN notes reviewed Mode of arrival: wheelchair Limitations: no limitations - History of Present Illness Initial Comments: This a 56-year-old female presents emergency Department complaining of chest pain patient states started last night and she also was having some jaw pain and neck pain. Patient denies any difficulty breathing however she states it was making her little bit nauseous. Patient denies any diaphoretic episodes. Patient states she recently had a catheterization and it was completely normal. Patient denies any recent fever chills or cough. Patient denies lightheadedness dizziness or near syncopal episode. Patient denies headache patient denies numbness weakness. Patient denies any abdominal pain patient denies any vomiting or diarrhea. Patient denies any recent injury. - Related Data Home Medications Medication Instructions Recorded Confirmed Ascorbic Acid [Vitamin C] 500 mg PO DAILY 05/11/16 09/09/17 Atorvastatin Calcium [Lipitor] 40 mg PO HS 05/11/16 09/09/17 Calcium Carbonate [Calcium] 600 mg PO DAILY 05/11/16 09/09/17 Ferrous Sulfate [Iron (65 MG 325 mg PO DAILY 05/11/16 09/09/17 Elemental)] Fluticasone Nasal [place] [Flonase 1 spray EA NOSTRIL DAILY PRN 05/11/16 09/09/17 Nasal [place]] Garlic 1 tab PO DAILY 05/11/16 09/09/17 Magnesium 200 mg PO DAILY 05/11/16 09/09/17 Pioglitazone HCl/Metformin HCl 1 tab PO BID 05/11/16 09/09/17 [Pioglitazone-Metformin 15-500] Spironolact/Hydrochlorothiazid 1 tab PO DAILY 05/11/16 09/09/17 [Aldactazide 25-25 MG] Cholecalciferol [Vitamin D3] 1,000 unit PO DAILY 08/29/17 09/09/17 Glucosamine-Chondr 500-400Mg 1 tab PO DAILY 08/29/17 09/09/17 Meloxicam 15 mg PO DAILY 08/29/17 09/09/17 Turmeric Root Extract [Turmeric] 500 mg PO DAILY 09/06/17 09/09/17 Previous Rx's Medication Instructions Recorded Aspirin 81 mg PO DAILY chew 08/31/17 Metoprolol Tartrate [Lopressor] 25 mg PO BID #60 tab 08/31/17 Allergies Allergy/AdvReac Type Severity Reaction Status Date / Time No Known Allergies Allergy Verified 09/06/17 09:11 Review of Systems ROS Statement: Those systems with pertinent positive or pertinent negative responses have been documented in the HPI. ROS Other: All systems not noted in ROS Statement are negative. Past Medical History Past Medical History: Diabetes Mellitus, Hyperlipidemia, Hypertension Additional Past Medical History / Comment(s): Heart murmur History of Any Multi-Drug Resistant Organisms: None Reported Past Surgical History: Breast Surgery, Heart Catheterization, Orthopedic Surgery Additional Past Surgical History / Comment(s): Breast biopsy, broken Finger, [place] Past Psychological History: No Psychological Hx Reported Smoking Status: Former smoker Past Alcohol Use History: Rare Past Drug Use History: None Reported - Past Family History Father Additional Family Medical History / Comment(s): Had leukemia and "heart issues" Mother Additional Family Medical History / Comment(s): Mother of an infection at the age of 89yrs. General Exam - General Exam Comments Initial Comments: GENERAL: Patient is well-developed and well-nourished. Patient is nontoxic and well- hydrated and is in mild distress. ENT: Neck is soft and supple. No significant lymphadenopathy is noted. Oropharynx is clear. Moist mucous membranes. Neck has full range of motion without eliciting any pain. EYES: The sclera were anicteric and conjunctiva were pink and moist. Extraocular movements were intact and pupils were equal round and reactive to light. Eyelids were unremarkable. PULMONARY: Unlabored respirations. Good breath sounds bilaterally. No audible rales rhonchi or wheezing was noted. CARDIOVASCULAR: There is a regular rate and rhythm without any murmurs gallops or rubs. ABDOMEN: Soft and nontender with normal bowel sounds. No palpable organomegaly was noted. There is no palpable pulsatile mass. SKIN: Skin is clear with no lesions or rashes and otherwise unremarkable. NEUROLOGIC: Patient is alert and oriented x3. Cranial nerves II through XII are grossly intact. Motor and sensory are also intact. Normal speech, volume and content. Symmetrical smile. MUSCULOSKELETAL: Normal extremities with adequate strength and full range of motion. No lower extremity swelling or edema. No calf tenderness. LYMPHATICS: No significant lymphadenopathy is noted PSYCHIATRIC: Normal psychiatric evaluation. Normal interpersonal interactions appears functionally intact in deals appropriately with others. No signs of depression. No signs of anxiety. Limitations: no limitations Course Vital Signs 09/06/17 09/06/17 09/06/17 08:18 08:37 12:20 Temperature 98.2 F 97.9 F Pulse Rate 55 L 55 L 55 L Respiratory 18 16 16 Rate Blood Pressure 202/90 171/72 157/70 O2 Sat by Pulse 98 97 97 Oximetry Chest Pain MDM - MDM EKG shows sinus bradycardia 54 bpm AR interval is 202 QRS is 88 QT interval 448 QTC is 424. Patient's EKG shows no ST segment elevation or depression or T wave abnormalities are noted. Chest x-ray shows no acute abnormality. CT of the chest showed no PE and no thoracic aneurysm. I spoke with Dr. Junior he did not think the patient needed to be admitted this time he wanted the patient to follow-up with outpatient. I spoke with Dr. Cortez the sales support consultant and he was in agreement with this plan. Disposition Clinical Impression: Chest pain Disposition: HOME SELF-CARE Instructions: Chest Pain (ED) Is patient prescribed a controlled substance at d/c from ED?: No Referrals: Cade Elliott MD [Primary Care Provider] - 1-2 days Time of Disposition: 12:20
[2017-09-06 09:28] LABS: Creatine Kinase MB 1.8 ng/mL (0.0-2.4); Troponin I 0.014 ng/mL (0.000-0.034)
[2017-09-06] MEDS ORDERED: NITROGLYCERIN SL TABS 0.4 MG TAB SUBLINGUAL PRN (09:45)
[2017-09-06] MEDS ORDERED: metFORMIN 500 MG TAB PO SCH (11:30)
[2017-09-06] MEDS ORDERED: SPIRONOLACTONE-HCTZ 25-25MG 1 EACH TAB PO SCH (11:30)
[2017-09-06] MEDS ORDERED: METOPROLOL TARTRATE 25 MG TAB PO SCH (11:30)
[2017-09-06] MEDS ORDERED: MAGNESIUM OXIDE 400 MG TAB PO SCH (11:30)
[2017-09-06] MEDS ORDERED: MELOXICAM 7.5 MG TAB PO SCH (11:30)
[2017-09-06] MEDS ORDERED: PIOGLITAZONE 15 MG TAB PO SCH (11:30)
[2017-09-06] MEDS ORDERED: FERROUS SULFATE 325 MG TAB PO SCH (11:30)
[2017-09-06] MEDS ORDERED: ASPIRIN 81 MG PO SCH (11:30)
[2017-09-06] MEDS ORDERED: ASCORBIC ACID 500 MG TAB PO SCH (11:30)
--- NOTE | 2017-09-06 11:38 | CT ---
EXAMINATION TYPE: CT chest angio for PE DATE OF EXAM: 09/06/2017 COMPARISON: NONE HISTORY: Chest pain today. Post op heart cath [address] DLP: 624 mGycm CONTRAST: CT chest with contrast and 3D reconstruction with MIP imaging is performed with IV Contrast, patient injected with 75 mL of Isovue 370. Contrast-enhanced CT of the chest was performed through the course of the pulmonary arteries with alexy g and mediastinal window settings submitted. 3D reconstruction with MIP imaging was also performed. PULMONARY ARTERIES: The pulmonary arteries and their major tributaries are patent. I do not see perez dence for sizable filling defect to suggest pulmonary embolic process. LUNGS: The lungs are clear and free of infiltrate. No evidence for atelectasis. No pulmonary nodule or mass is detected. No pleural effusion. MEDIASTINUM: Ascending thoracic aortic aneurysm measuring 4.1 cm. No evidence for dissection or compl icating factor at this time. Aortic arch and descending thoracic aorta are of normal caliber. The hea rt is mildly enlarged. No evidence for mediastinal mass. No mediastinal lymph nodes greater than 1cm . HILAR STRUCTURES: No evidence for mass. No hilar lymph nodes greater than 1 cm. UPPER ABDOMEN: No significant abnormality is seen. IMPRESSION: 1. No evidence for Pulmonary embolism at this time. 2. Uncomplicated ascending thoracic aortic aneurysm.
[2017-09-06] MEDS ORDERED: NITROGLYCERIN OINT 1 INCH/GM PACKET TOPICAL SCH (12:00)
[2017-09-06 12:24] VITALS: BP 157/70; TEMP 97.9
[2017-09-06] MEDS ORDERED: ATORVASTATIN 40 MG TAB PO SCH (21:00)
[2017-09-07] MEDS ORDERED: ASPIRIN 325 MG TAB PO SCH (09:00)
== END 2017-09-06 12:33 | disposition home or self-care (01) ==
LOC: EC 08:16 → 6SEL 09:45 → UNDOADMOB 09:45 → 6SEL 11:13 → EC 12:33
DX: R07.9 Chest pain, unspecified (principal); R68.84 Jaw pain; M54.2 Cervicalgia; E11.9 Type 2 diabetes mellitus without complications; E78.5 Hyperlipidemia, unspecified; I10 Essential (primary) hypertension; Z95.818 Presence of other cardiac implants and grafts; Z87.891 Personal history of nicotine dependence; Z79.51 Long term (current) use of inhaled steroids; Z79.84 Long term (current) use of oral hypoglycemic drugs; Z79.1 Long term (current) use of non-steroidal anti-inflammatories (NSAID); Z79.899 Other long term (current) drug therapy
CPT/HCPCS: 36415; 93005; 80053; 82550; 82553; 83735; 84484; 85025; 85610; 85730; 71046; 71275; 99285; Q9967

== ENCOUNTER 2017-09-09 05:04 | Emergency (ER) | payer BC ==
[2017-09-09 05:10] VITALS: TEMP 98.9
[2017-09-09] MEDS ORDERED: ENALAPRILAT 1.25 MG/ML 1 ML VIAL IVP STA (05:41)
[2017-09-09] MEDS ORDERED: LORazepam 1 MG TAB PO STA (05:42)
[2017-09-09 06:00] VITALS: RESP 16
[2017-09-09 06:06] LABS: Basophils % (A) 1 %; Eosinophils # (A) 0.1 k/uL (0-0.7); Eosinophils % (A) 2 %; HCT 46.1 % (34.0-46.0); HGB 15.5 gm/dL (11.4-16.0); Lymphocytes % (A) 20 %; MCH 31.2 pg (25.0-35.0); MCHC 33.5 g/dL (31.0-37.0); Mean Platelet Volume 8.8; Monocytes # (A) 0.3 k/uL (0-1.0); Monocytes % (A) 6 %; Neutrophils # (A) 3.6 k/uL (1.3-7.7); Neutrophils % (A) 70 %; Platelet Count 177 k/uL (150-450); RBC 4.95 m/uL (3.80-5.40); RDW 13.5 % (11.5-15.5); WBC 5.2 k/uL (3.8-10.6)
--- NOTE | 2017-09-09 06:11 | ED ---
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 No abdominal pain no frequency urgency dysuria no symptoms of TIA CVA - Related Data Home Medications Medication Instructions Recorded Confirmed Ascorbic Acid [Vitamin C] 500 mg PO DAILY 05/11/16 09/09/17 Atorvastatin Calcium [Lipitor] 40 mg PO HS 05/11/16 09/09/17 Calcium Carbonate [Calcium] 600 mg PO DAILY 05/11/16 09/09/17 Ferrous Sulfate [Iron (65 MG 325 mg PO DAILY 05/11/16 09/09/17 Elemental)] Fluticasone Nasal [place] [Flonase 1 spray EA NOSTRIL DAILY PRN 05/11/16 09/09/17 Nasal [place]] Garlic 1 tab PO DAILY 05/11/16 09/09/17 Magnesium 200 mg PO DAILY 05/11/16 09/09/17 Pioglitazone HCl/Metformin HCl 1 tab PO BID 05/11/16 09/09/17 [Pioglitazone-Metformin 15-500] Spironolact/Hydrochlorothiazid 1 tab PO DAILY 05/11/16 09/09/17 [Aldactazide 25-25 MG] Cholecalciferol [Vitamin D3] 1,000 unit PO DAILY 08/29/17 09/09/17 Glucosamine-Chondr 500-400Mg 1 tab PO DAILY 08/29/17 09/09/17 Meloxicam 15 mg PO DAILY 08/29/17 09/09/17 Turmeric Root Extract [Turmeric] 500 mg PO DAILY 09/06/17 09/09/17 Previous Rx's Medication Instructions Recorded Aspirin 81 mg PO DAILY chew 08/31/17 Metoprolol Tartrate [Lopressor] 25 mg PO BID #60 tab 08/31/17 Allergies Allergy/AdvReac Type Severity Reaction Status Date / Time No Known Allergies Allergy Verified 09/06/17 09:11 Review of Systems ROS Statement: Those systems with pertinent positive or pertinent negative responses have been documented in the HPI. ROS Other: All systems not noted in ROS Statement are negative. Past Medical History Past Medical History: Diabetes Mellitus, Hyperlipidemia, Hypertension Additional Past Medical History / Comment(s): Heart murmur History of Any Multi-Drug Resistant Organisms: None Reported Past Surgical History: Breast Surgery, Heart Catheterization, Orthopedic Surgery Additional Past Surgical History / Comment(s): Breast biopsy, broken Finger, Coloy Past Anesthesia/Blood Transfusion Reactions: No Reported Reaction Past Psychological History: No Psychological Hx Reported Smoking Status: Former smoker Past Alcohol Use History: Rare Past Drug Use History: None Reported - Past Family History Father Additional Family Medical History / Comment(s): Had leukemia and "heart issues" Mother Additional Family Medical History / Comment(s): Mother of an infection at the age of 89yrs. General Exam - General Exam Comments Initial Comments: General: The patient is awake and alert, in no distress, and does not appear acutely ill. She was not more relaxed blood pressure down to 140 systolic and she is laughing Skin: Skin is warm and dry and no rashes or lesions are noted. Eye: Pupils are equal, round and reactive to light, extra-ocular movements are intact; there is normal conjunctiva bilaterally. Ears, nose, mouth and throat: There are moist mucous membranes and no oral lesions. Neck: The neck is supple, there is no tenderness or JVD. Cardiovascular: There is a regular rate and rhythm. No murmur, rub or gallop is appreciated. Respiratory: To auscultation bilateral, no wheezing no rhonchi no distress respiratory [place] noticed Gastrointestinal: Soft, non-distended, non-tender abdomen without masses or organomegaly noted. There is no rebound or guarding present. Bowel sounds are unremarkable. Back: There is no tenderness to palpation in the midline. There is no obvious deformity. Musculoskeletal: Normal ROM, no tenderness, There is no pedal edema. There is no calf tenderness or swelling. No cords were appreciated. Neurological: CN II-XII intact, Cranial nerves III through XII are intact. There are no obvious motor or sensory deficits. Coordination appears grossly intact. Speech is normal. Psychiatric: Cooperative, appropriate mood & affect, normal judgment. Limitations: no limitations Course Vital Signs 09/09/17 09/09/17 09/09/17 05:07 05:10 05:59 Temperature 98.9 F Pulse Rate 66 59 L 66 Respiratory 20 16 Rate Blood Pressure 189/77 148/79 143/67 O2 Sat by Pulse 96 96 95 Oximetry 09/09/17 09/09/17 06:47 07:32 Temperature Pulse Rate 58 L 70 Respiratory 16 16 Rate Blood Pressure 147/66 149/71 O2 Sat by Pulse 98 99 Oximetry I had initially ordered the Vasotec considering her high blood pressure she was not a candidate for any beta blockers because she does take beta blockers at home and heart rate was only 60 but does about the timing mouth with reassessed her blood pressure was like 142 systolic is well-developed Vasotec EKG is normal sinus rhythm ventricular rate is 60 [place] interval is 178 QRS duration is 90 QT/QTc is 44 /444 review of this EKG does not reveal any ST elevation or ST depression, labs reviewed the labs CBC, INR, compressive metabolic, troponin, chest x-ray are all unremarkable 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 Pressure is fine now and she is comfortable going home Medical Decision Making - Lab Data Result diagrams: 09/09/17 05:21 09/09/17 05:21 Lab Results 09/09/17 09/09/17 09/09/17 Range/Units 05:21 05:21 05:21 WBC 5.2 (3.8-10.6) k/uL RBC 4.95 (3.80-5.40) m/uL Hgb 15.5 (11.4-16.0) gm/dL Hct 46.1 H (34.0-46.0) % MCV 93.0 (80.0-100.0) fL MCH 31.2 (25.0-35.0) pg MCHC 33.5 (31.0-37.0) g/dL RDW 13.5 (11.5-15.5) % Plt Count 177 (150-450) k/uL Neutrophils % 70 % Lymphocytes % 20 % Monocytes % 6 % Eosinophils % 2 % Basophils % 1 % Neutrophils # 3.6 (1.3-7.7) k/uL Lymphocytes # 1.0 (1.0-4.8) k/uL Monocytes # 0.3 (0-1.0) k/uL Eosinophils # 0.1 (0-0.7) k/uL Basophils # 0.0 (0-0.2) k/uL PT (9.0-12.0) sec INR (<1.2) APTT (22.0-30.0) sec Sodium 140 (137-145) mmol/L Potassium 3.7 (3.5-5.1) mmol/L Chloride 99 (98-107) mmol/L Carbon Dioxide 29 (22-30) mmol/L Anion Gap 12 mmol/L BUN 25 H (7-17) mg/dL Creatinine 0.68 (0.52-1.04) mg/dL Est GFR (CKD-EPI)AfAm >90 (>60 ml/min/1.73 sqM) Est GFR (CKD-EPI)NonAf >90 (>60 ml/min/1.73 sqM) Glucose 113 H (74-99) mg/dL Calcium 9.4 (8.4-10.2) mg/dL Magnesium 1.7 (1.6-2.3) mg/dL Total Bilirubin 0.9 (0.2-1.3) mg/dL AST 30 (14-36) U/L ALT 41 (9-52) U/L Alkaline Phosphatase 60 (38-126) U/L Total Creatine Kinase 142 H (30-135) U/L CK-MB (CK-2) 1.4 (0.0-2.4) ng/mL CK-MB (CK-2) Rel Index 1.0 Troponin I <0.012 (0.000-0.034) ng/mL Total Protein 6.4 (6.3-8.2) g/dL Albumin 4.1 (3.5-5.0) g/dL 09/09/17 Range/Units 05:21 WBC (3.8-10.6) k/uL RBC (3.80-5.40) m/uL Hgb (11.4-16.0) gm/dL Hct (34.0-46.0) % MCV (80.0-100.0) fL MCH (25.0-35.0) pg MCHC (31.0-37.0) g/dL RDW (11.5-15.5) % Plt Count (150-450) k/uL Neutrophils % % Lymphocytes % % Monocytes % % Eosinophils % % Basophils % % Neutrophils # (1.3-7.7) k/uL Lymphocytes # (1.0-4.8) k/uL Monocytes # (0-1.0) k/uL Eosinophils # (0-0.7) k/uL Basophils # (0-0.2) k/uL PT 10.6 (9.0-12.0) sec INR 1.1 (<1.2) APTT 23.9 (22.0-30.0) sec Sodium (137-145) mmol/L Potassium (3.5-5.1) mmol/L Chloride (98-107) mmol/L Carbon Dioxide (22-30) mmol/L Anion Gap mmol/L BUN (7-17) mg/dL Creatinine (0.52-1.04) mg/dL Est GFR (CKD-EPI)AfAm (>60 ml/min/1.73 sqM) Est GFR (CKD-EPI)NonAf (>60 ml/min/1.73 sqM) Glucose (74-99) mg/dL Calcium (8.4-10.2) mg/dL Magnesium (1.6-2.3) mg/dL Total Bilirubin (0.2-1.3) mg/dL AST (14-36) U/L ALT (9-52) U/L Alkaline Phosphatase (38-126) U/L Total Creatine Kinase (30-135) U/L CK-MB (CK-2) (0.0-2.4) ng/mL CK-MB (CK-2) Rel Index Troponin I (0.000-0.034) ng/mL Total Protein (6.3-8.2) g/dL Albumin (3.5-5.0) g/dL Disposition Clinical Impression: Hypertension Disposition: HOME SELF-CARE Condition: Good Is patient prescribed a controlled substance at d/c from ED?: No Referrals: Cade Elliott MD [Primary Care Provider] - 1-2 days
[2017-09-09 06:17] LABS: ALT 41 U/L (9-52); AST 30 U/L (14-36); Albumin 4.1 g/dL (3.5-5.0); Alkaline Phosphatase 60 U/L (38-126); Anion Gap 12 mmol/L; Blood Urea Nitrogen 25 mg/dL (7-17); Calcium 9.4 mg/dL (8.4-10.2); Carbon Dioxide 29 mmol/L (22-30); Chloride 99 mmol/L (98-107); Glucose 113 mg/dL (74-99); Magnesium 1.7 mg/dL (1.6-2.3); Potassium 3.7 mmol/L (3.5-5.1); Sodium 140 mmol/L (137-145); Total Bilirubin 0.9 mg/dL (0.2-1.3); Total Protein 6.4 g/dL (6.3-8.2)
[2017-09-09 06:22] LABS: INR 1.1 (<1.2); Partial Thromboplastin Time 23.9 sec (22.0-30.0); Prothrombin Time 10.6 sec (9.0-12.0)
[2017-09-09 06:32] LABS: Creatine Kinase 142 U/L (30-135)
[2017-09-09 06:45] LABS: Creatine Kinase MB 1.4 ng/mL (0.0-2.4); Troponin I <0.012 ng/mL (0.000-0.034)
--- NOTE | 2017-09-09 07:27 | XR ---
EXAM: XR Chest, 2 Views CLINICAL HISTORY: ITS.REASON XR Reason: Chest Pain TECHNIQUE: Frontal and lateral views of the chest. COMPARISON: Chest x-ray dated 09/06/2017. FINDINGS: Lungs: Unremarkable. The lungs are clear. Pleural space: Unremarkable. No pneumothorax. Heart: Mild cardiomegaly. Mediastinum: Unremarkable. Bones/joints: Unremarkable. IMPRESSION: No acute findings.
[2017-09-09 07:33] VITALS: BP 149/71; PULSE 70
== END 2017-09-09 08:01 | disposition home or self-care (01) ==
LOC: EC 05:04
DX: I10 Essential (primary) hypertension (principal); E11.9 Type 2 diabetes mellitus without complications; E78.5 Hyperlipidemia, unspecified; I25.3 Aneurysm of heart; Z87.891 Personal history of nicotine dependence; Z98.890 Other specified postprocedural states; Z79.1 Long term (current) use of non-steroidal anti-inflammatories (NSAID); Z79.84 Long term (current) use of oral hypoglycemic drugs; Z79.899 Other long term (current) drug therapy
CPT/HCPCS: 36415; 71046; 80053; 82550; 82553; 83735; 84484; 85025; 85610; 85730; 93005; 99284

== ENCOUNTER 2017-09-19 00:47 | Observation (INO) | payer BC ==
[2017-09-19] MEDS ORDERED: NITROGLYCERIN OINT 1 INCH/GM PACKET TOPICAL STA (01:01)
[2017-09-19] MEDS ORDERED: ASPIRIN 81 MG PO STA (01:01)
--- NOTE | 2017-09-19 01:04 | ED ---
General Adult HPI - General Chief complaint: Chest Pain Stated complaint: High BP, Chest Pain Time Seen by Provider: 09/19/17 00:50 Source: patient, RN notes reviewed Mode of arrival: wheelchair Limitations: no limitations - History of Present Illness Initial comments: This is a 56-year-old female presents emergency Department complaining of chest pain times one hour. Patient states she has diabetes high blood pressure and high cholesterol. Patient states she is mildly short of breath and felt pretty hot at home but was not diaphoretic. Patient denies any nausea vomiting. Patient denies radiation of the pain. Patient states she is post have a stress test in October because of previous chest pain episodes. Patient also states that she is a 4.1 thoracic aorta. Patient denies any abdominal pain. Patient denies any lightheadedness dizziness or near syncopal episode. Patient denies any numbness or weakness. Patient denies any increase in leg swelling or calf tenderness. - Related Data Home Medications Medication Instructions Recorded Confirmed Ascorbic Acid [Vitamin C] 500 mg PO DAILY 05/11/16 09/09/17 Atorvastatin Calcium [Lipitor] 40 mg PO HS 05/11/16 09/09/17 Calcium Carbonate [Calcium] 600 mg PO DAILY 05/11/16 09/09/17 Ferrous Sulfate [Iron (65 MG 325 mg PO DAILY 05/11/16 09/09/17 Elemental)] Fluticasone Nasal [place] [Flonase 1 spray EA NOSTRIL DAILY PRN 05/11/16 09/09/17 Nasal [place]] Garlic 1 tab PO DAILY 05/11/16 09/09/17 Magnesium 200 mg PO DAILY 05/11/16 09/09/17 Pioglitazone HCl/Metformin HCl 1 tab PO BID 05/11/16 09/09/17 [Pioglitazone-Metformin 15-500] Spironolact/Hydrochlorothiazid 1 tab PO DAILY 05/11/16 09/09/17 [Aldactazide 25-25 MG] Cholecalciferol [Vitamin D3] 1,000 unit PO DAILY 08/29/17 09/09/17 Glucosamine-Chondr 500-400Mg 1 tab PO DAILY 08/29/17 09/09/17 Meloxicam 15 mg PO DAILY 08/29/17 09/09/17 Turmeric Root Extract [Turmeric] 500 mg PO DAILY 06/04/18 06/07/18 Previous Rx's Medication Instructions Recorded Aspirin 81 mg PO DAILY chew 08/31/17 Metoprolol Tartrate [Lopressor] 25 mg PO BID #60 tab 08/31/17 Allergies Allergy/AdvReac Type Severity Reaction Status Date / Time No Known Allergies Allergy Verified 09/19/17 00:53 Review of Systems ROS Statement: Those systems with pertinent positive or pertinent negative responses have been documented in the HPI. ROS Other: All systems not noted in ROS Statement are negative. 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 History of Any Multi-Drug Resistant Organisms: None Reported Past Surgical History: Breast Surgery, Heart Catheterization, Orthopedic Surgery Additional Past Surgical History / Comment(s): Breast biopsy, broken Finger, Coloy Past Anesthesia/Blood Transfusion Reactions: No Reported Reaction Past Psychological History: No Psychological Hx Reported Smoking Status: Former smoker Past Alcohol Use History: Rare Past Drug Use History: None Reported - Past Family History Father Additional Family Medical History / Comment(s): Had leukemia and "heart issues" Mother Additional Family Medical History / Comment(s): Mother of an infection at the age of 89yrs. General Exam - General Exam Comments Initial Comments: GENERAL: Patient is well-developed and well-nourished. Patient is nontoxic and well- hydrated and is in mild distress. ENT: Neck is soft and supple. No significant lymphadenopathy is noted. Oropharynx is clear. Moist mucous membranes. Neck has full range of motion without eliciting any pain. EYES: The sclera were anicteric and conjunctiva were pink and moist. Extraocular movements were intact and pupils were equal round and reactive to light. Eyelids were unremarkable. PULMONARY: Unlabored respirations. Good breath sounds bilaterally. No audible rales rhonchi or wheezing was noted. CARDIOVASCULAR: There is a regular rate and rhythm without any murmurs gallops or rubs. ABDOMEN: Soft and nontender with normal bowel sounds. No palpable organomegaly was noted. There is no palpable pulsatile mass. SKIN: Skin is clear with no lesions or rashes and otherwise unremarkable. NEUROLOGIC: Patient is alert and oriented x3. Cranial nerves II through XII are grossly intact. Motor and sensory are also intact. Normal speech, volume and content. Symmetrical smile. MUSCULOSKELETAL: Normal extremities with adequate strength and full range of motion. No lower extremity swelling or edema. No calf tenderness. LYMPHATICS: No significant lymphadenopathy is noted PSYCHIATRIC: Normal psychiatric evaluation. Limitations: no limitations Course Vital Signs 09/19/17 09/19/17 00:50 00:57 Temperature 98.7 F Pulse Rate 68 Pulse Rate [ 76 Technical Spec ] Respiratory 18 Rate Blood Pressure 126/56 O2 Sat by Pulse 98 Oximetry Medical Decision Making - Medical Decision Making EKG had a very poor quality V5 however the risks EKG shows normal sinus rhythm at 60 bpm TX interval stool for QRS is 90 QT interval 396 QTC is 421. Patient' s EKG shows no ST segment elevation or depression or T wave abnormalities are noted. Disposition Referrals: Cade Elliott MD [Primary Care Provider] - 1-2 days
[2017-09-19 01:16] LABS: Basophils % (A) 1 %; Eosinophils # (A) 0.2 k/uL (0-0.7); Eosinophils % (A) 2 %; HGB 14.6 gm/dL (11.4-16.0); Lymphocytes # (A) 1.7 k/uL (1.0-4.8); Lymphocytes % (A) 25 %; MCH 30.7 pg (25.0-35.0); MCHC 33.3 g/dL (31.0-37.0); MCV 92.2 fL (80.0-100.0); Mean Platelet Volume 8.6; Monocytes # (A) 0.4 k/uL (0-1.0); Monocytes % (A) 5 %; Neutrophils # (A) 4.5 k/uL (1.3-7.7); Neutrophils % (A) 66 %; Platelet Count 174 k/uL (150-450); RBC 4.77 m/uL (3.80-5.40); RDW 13.4 % (11.5-15.5); WBC 6.9 k/uL (3.8-10.6)
[2017-09-19 01:26] LABS: INR 1.1 (<1.2); Partial Thromboplastin Time 23.5 sec (22.0-30.0); Prothrombin Time 10.5 sec (9.0-12.0)
[2017-09-19 01:28] LABS: Albumin 4.1 g/dL (3.5-5.0); Calcium 9.5 mg/dL (8.4-10.2); Magnesium 1.7 mg/dL (1.6-2.3); Potassium 4.6 mmol/L (3.5-5.1); Total Bilirubin 0.7 mg/dL (0.2-1.3); Total Protein 6.3 g/dL (6.3-8.2)
--- NOTE | 2017-09-19 01:35 | XR ---
EXAMINATION TYPE: XR chest 2V DATE OF EXAM: 09/19/2017 COMPARISON: 09/09/2017 HISTORY: Chest pain TECHNIQUE: Frontal and lateral views of the chest are obtained. FINDINGS: Heart and mediastinum are normal. Lungs are clear. Diaphragm is normal. There are chest le ads. Bony thorax is intact. IMPRESSION: Normal chest. No change.
[2017-09-19 01:44] LABS: Creatine Kinase 170 U/L (30-135)
[2017-09-19 01:57] LABS: Creatine Kinase MB 2.1 ng/mL (0.0-2.4); Troponin I <0.012 ng/mL (0.000-0.034)
[2017-09-19] MEDS ORDERED: HEPARIN SODIUM,PORCINE 5,000 UNIT/ML 1 ML VIAL IV ONE (02:05)
[2017-09-19] MEDS ORDERED: NITROGLYCERIN SL TABS 0.4 MG TAB SUBLINGUAL PRN (02:06)
[2017-09-19] MEDS ORDERED: HEPARIN SODIUM,PORCINE/D5W PMX 25,000 UNIT in DEXTROSE/WATER 1 500ML.BAG IV SCH (02:15)
[2017-09-19 03:35] VITALS: RESP 18; BMI 49.2
[2017-09-19] MEDS ORDERED: NITROGLYCERIN OINT 1 INCH/GM PACKET TOPICAL SCH (06:00)
[2017-09-19 07:44] LABS: Glucose,Whole Blood 101 mg/dL (75-99)
[2017-09-19 08:14] LABS: Creatine Kinase 137 U/L (30-135)
[2017-09-19 08:26] LABS: Creatine Kinase MB 1.4 ng/mL (0.0-2.4); Troponin I <0.012 ng/mL (0.000-0.034)
--- NOTE | 2017-09-19 10:19 | P.CRDCN ---
History of Present Illness History of present illness: Patient interviewed and examined. Admitted with atypical chest discomfort. Normal coronary arteries recently. She is scheduled for a stress test in the office we should be canceled. She does have a dilated aorta and blood pressure is mildly elevated 147 mmHg systolic. We are adding angiotensin receptor blockers in the evening and she will continue diuretics. She'll follow-up with Dr. Arana as scheduled. She may go home from a cardiac standpoint Past Medical History Past Medical History: Diabetes Mellitus, GERD/Reflux, Hyperlipidemia, Hypertension, Osteoarthritis (OA) Additional Past Medical History / Comment(s): Heart murmur, thoracic aortic anuresym on the ascending aorta, unbilical hernia History of Any Multi-Drug Resistant Organisms: None Reported Past Surgical History: Breast Surgery, Heart Catheterization, Orthopedic Surgery Additional Past Surgical History / Comment(s): Breast biopsy, broken Finger, Colonoscopy, recent tooth extraction Past Anesthesia/Blood Transfusion Reactions: No Reported Reaction Past Psychological History: No Psychological Hx Reported Additional Psychological History / Comment(s): Pt resides alone. She is independent. 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 Smoking Status: Former smoker Past Alcohol Use History: Rare Additional Past Alcohol Use History / Comment(s): Pt started smoking as a teen and quit in 1987. Past Drug Use History: None Reported - Past Family History Father Additional Family Medical History / Comment(s): Had leukemia and "heart issues" Mother Additional Family Medical History / Comment(s): Mother of an infection at the age of 89yrs. Medications and Allergies Home Medications Medication Instructions Recorded Confirmed Type Ascorbic Acid [Vitamin C] 500 mg PO DAILY 05/11/16 09/19/17 History Atorvastatin Calcium [Lipitor] 40 mg PO HS 05/11/16 09/19/17 History Calcium Carbonate [Calcium] 600 mg PO DAILY 05/11/16 09/19/17 History Ferrous Sulfate [Iron (65 MG 325 mg PO DAILY 05/11/16 09/19/17 History Elemental)] Fluticasone Nasal [place] [Flonase 1 spray EA NOSTRIL DAILY PRN 05/11/16 09/19/17 History Nasal [place]] Garlic 1 tab PO DAILY 05/11/16 09/19/17 History Magnesium 200 mg PO DAILY 05/11/16 09/19/17 History Pioglitazone HCl/Metformin HCl 1 tab PO BID 05/11/16 09/19/17 History [Pioglitazone-Metformin 15-500] Spironolact/Hydrochlorothiazid 1 tab PO DAILY 05/11/16 09/19/17 History [Aldactazide 25-25 MG] Cholecalciferol [Vitamin D3] 1,000 unit PO DAILY 08/29/17 09/19/17 History Glucosamine-Chondr 500-400Mg 1 tab PO DAILY 08/29/17 09/19/17 History Meloxicam 15 mg PO DAILY 08/29/17 09/19/17 History Aspirin 81 mg PO DAILY chew 08/31/17 09/19/17 Rx Metoprolol Tartrate [Lopressor] 25 mg PO BID #60 tab 08/31/17 09/19/17 Rx Turmeric Root Extract [Turmeric] 500 mg PO DAILY 09/06/17 09/19/17 History Allergies Allergy/AdvReac Type Severity Reaction Status Date / Time No Known Allergies Allergy Verified 09/19/17 03:18 Physical Exam Vitals: Vital Signs Temp Pulse Pulse Pulse Resp BP BP 09/19/17 08:00 18 09/19/17 07:55 97.7 F 72 18 147/67 09/19/17 04:00 62 18 09/19/17 02:39 98 F 68 18 136/60 09/19/17 02:00 67 20 118/56 09/19/17 00:57 76 09/19/17 00:50 98.7 F 68 18 126/56 Pulse Ox 09/19/17 08:00 09/19/17 07:55 98 09/19/17 04:00 09/19/17 02:39 98 09/19/17 02:00 98 09/19/17 00:57 09/19/17 00:50 98 Intake and Output 09/18/17 09/19/17 09/19/17 22:59 06:59 14:59 Intake Total 360 Balance 360 Intake: Amount of Fluid Infused ( 30 ml) Intake, IV Titration 80 Amount Heparin Sodium,Porcine/ 80 D5w Pmx 25,000 unit In Dextrose/Water 1 500ml. bag @ 8 UNITS/KG/HR 20.17 mls/hr IV .Q24H [facility] Rx#: [id number] Oral 250 Other: Voiding Method Toilet Toilet # Voids 1 Weight 126.099 kg Results 09/19/17 01:00 09/19/17 01:00 Cardiac Enzymes 09/19/17 09/19/17 09/19/17 Range/Units 01:00 01:00 07:29 AST 28 (14-36) U/L CK-MB (CK-2) 2.1 1.4 (0.0-2.4) ng/mL Troponin I <0.012 <0.012 (0.000-0.034) ng/mL Coagulation 09/19/17 09/19/17 Range/Units 01:00 07:29 PT 10.5 (9.0-12.0) sec APTT 23.5 41.2 H (22.0-30.0) sec CBC 09/19/17 Range/Units 01:00 WBC 6.9 (3.8-10.6) k/uL RBC 4.77 (3.80-5.40) m/uL Hgb 14.6 (11.4-16.0) gm/dL Hct 44.0 (34.0-46.0) % Plt Count 174 (150-450) k/uL Comprehensive Metabolic Panel 09/19/17 Range/Units 01:00 Sodium 137 (137-145) mmol/L Potassium 4.6 (3.5-5.1) mmol/L Chloride 102 (98-107) mmol/L Carbon Dioxide 24 (22-30) mmol/L BUN 48 H (7-17) mg/dL Creatinine 0.90 (0.52-1.04) mg/dL Glucose 107 H (74-99) mg/dL Calcium 9.5 (8.4-10.2) mg/dL AST 28 (14-36) U/L ALT 42 (9-52) U/L Alkaline Phosphatase 69 (38-126) U/L Total Protein 6.3 (6.3-8.2) g/dL Albumin 4.1 (3.5-5.0) g/dL Current Medications Generic Name Dose Route Start Last Admin Trade Name Freq PRN Reason Stop Dose Admin Aspirin 81 mg 09/20/17 09:00 Aspirin PO DAILY ANKUR Losartan Potassium 25 mg 09/19/17 21:00 Cozaar PO HS ANKUR Nitroglycerin 0.4 mg 09/19/17 02:06 Nitrostat SUBLINGUAL Q5M PRN Chest Pain Intake and Output 0609/19/17 09/19/17 22:59 06:59 14:59 Intake Total 360 Balance 360 Intake: Amount of Fluid Infused ( 30 ml) Intake, IV Titration 80 Amount Heparin Sodium,Porcine/ 80 D5w Pmx 25,000 unit In Dextrose/Water 1 500ml. bag @ 8 UNITS/KG/HR 20.17 mls/hr IV .Q24H [facility] Rx#: [id number] Oral 250 Other: Voiding Method Toilet Toilet # Voids 1 Weight 126.099 kg 09/19/17 01:00 09/19/17 01:00
--- NOTE | 2017-09-19 10:19 | P.CRDCN ---
History of Present Illness History of present illness: This is a pleasant 56-year-old female past medical history significant for diabetes mellitus, gastroesophageal reflux disease, dyslipidemia , hypertension and thoracic aortic aneurysm. She follows with Dr. Arana in the office. We have been asked to see her in consultation for complaints of chest discomfort. She recently went underwent heart catheterization per Dr. Cortez 08/30/2017 which revealed normal coronary artery disease with ejection fraction 55%. She states last night she started feeling really flushed and was turning very red in the face and felt a her blood pressure was elevated. She did not check her blood pressure at home when she arrived to the hospital her blood pressure was 126/56 with a heart rate of 68. She felt a mild discomfort in her chest that was described as a tight sensation. This is very intermittent in nature and not associated with any radiation to the arms, back, neck or jaw. She felt a she was mildly short of breath with exertion and felt her heart racing. She denies symptoms of nausea, vomiting, diaphoresis or dizziness. EKG shows sinus mechanism with no acute ST or T-wave abnormalities. Telemetry tracings have been unremarkable. Chest x-ray negative for an acute cardiopulmonary process. Laboratory data reviewed, hemoglobin 14.6, platelets 174, sodium 137, potassium 4.6, magnesium 1.7, cardiac enzymes negative 2. Current cardiac medications include spironolactone/hydrochlorothiazide 25/25 mg daily, Lopressor 25 mg twice a day, magnesium supplementation, aspirin 81 mg daily and atorvastatin 40 mg daily. She also takes vitamin C, vitamin D, iron supplementation, Flonase, meloxicam, metformin and pioglitazone. Most recent CT of the chest performed earlier this month reveals a stable ascending thoracic aortic aneurysm 4.1 cm. At the time of my exam: CONSTITUTIONAL: Denies fever. Denies chills. EYES: Denies blurred vision. Denies vision changes. Denies eye pain. EARS, NOSE, MOUTH & THROAT: Denies headache. Denies sore throat. Denies ear pain. CARDIOVASCULAR: Denies chest pain. Denies shortness of breath. Denies orthopnea. Denies PND. Denies palpitations. RESPIRATORY: Denies cough. GASTROINTESTINAL: Denies abdominal pain. Denies diarrhea. Denies constipation. Denies nausea. Denies vomiting. MUSCULOSKELETAL: Denies myalgias. INTEGUMENTARY: Denies pruitis. Denies rash. NEUROLOGIC: Denies numbness. Denies tingling. Denies weakness. PSYCHIATRIC: Denies anxiety. Denies depression. ENDOCRINE: Denies fatigue. Denies weight change. Denies polydipsia. Denies polyurina. GENITOURINARY: Denies burning, hematuria or urgency with micturation. HEMATOLOGIC: Denies history of anemia. Denies bleeding. Blood pressure 147/67 heart rate 72 afebrile maintaining oxygen saturation on room air GENERAL: This is a 56-year-old female in no apparent distress at the time of my examination. Obese. HEENT: Head is atraumatic, normocephalic. Pupils are equal, round. Sclerae anicteric. Conjunctivae are clear. Mucous membranes of the mouth are moist. Neck is supple. There is no jugular venous distention. No carotid bruit is heard. LUNGS: Clear to auscultation no wheezes, rales or rhonchi. No chest wall tenderness is noted on palpation or with deep breathing. HEART: Regular rate and rhythm with systolic ejection murmur at the base, no rubs or gallops. S1 and S2 heard. ABDOMEN: Soft, nontender. Bowel sounds are heard. No organomegaly noted. EXTREMITIES: No evidence of peripheral edema and no calf tenderness noted. VASCULAR: Radial and dorsalis pedis pulses palpated, no evidence of clubbing. NEUROLOGIC: Patient is awake, alert and oriented x3. ASSESSMENT 1. Chest pain, atypical. An acute coronary event has been ruled out with no EKG evidence of ischemia and normal cardiac enzymes. She also had a normal recent cardiac catheterization with no evidence of obstructive coronary artery disease. 2. Hypertension, controlled 3. Dyslipidemia 4. Diabetes mellitus 5. Ascending thoracic aortic aneurysm, 4.1 cm PLAN Discontinue heparin infusion. Add losartan 25 mg at HS. No further cardiac evaluation with normal cardiac catheterization in August. Follow up with Dr. Cevallos in 2-3 weeks. Thank you kindly for this consultation. Nurse Practitioner note has been reviewed, I agree with a documented findings and plan of care. Patient was seen and examined. Past Medical History Past Medical History: Diabetes Mellitus, GERD/Reflux, Hyperlipidemia, Hypertension, Osteoarthritis (OA) Additional Past Medical History / Comment(s): Heart murmur, thoracic aortic anuresym on the ascending aorta, unbilical hernia History of Any Multi-Drug Resistant Organisms: None Reported Past Surgical History: Breast Surgery, Heart Catheterization, Orthopedic Surgery Additional Past Surgical History / Comment(s): Breast biopsy, broken Finger, Colonoscopy, recent tooth extraction Past Anesthesia/Blood Transfusion Reactions: No Reported Reaction Past Psychological History: No Psychological Hx Reported Additional Psychological History / Comment(s): Pt resides alone. She is independent. 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 Smoking Status: Former smoker Past Alcohol Use History: Rare Additional Past Alcohol Use History / Comment(s): Pt started smoking as a teen and quit in 1987. Past Drug Use History: None Reported - Past Family History Father Additional Family Medical History / Comment(s): Had leukemia and "heart issues" Mother Additional Family Medical History / Comment(s): Mother of an infection at the age of 89yrs. Medications and Allergies Home Medications Medication Instructions Recorded Confirmed Type Ascorbic Acid [Vitamin C] 500 mg PO DAILY 05/11/16 09/19/17 History Atorvastatin Calcium [Lipitor] 40 mg PO HS 05/11/16 09/19/17 History Calcium Carbonate [Calcium] 600 mg PO DAILY 05/11/16 09/19/17 History Ferrous Sulfate [Iron (65 MG 325 mg PO DAILY 05/11/16 09/19/17 History Elemental)] Fluticasone Nasal [place] [Flonase 1 spray EA NOSTRIL DAILY PRN 05/11/16 09/19/17 History Nasal Neligh] Garlic 1 tab PO DAILY 05/11/16 09/19/17 History Magnesium 200 mg PO DAILY 05/11/16 09/19/17 History Pioglitazone HCl/Metformin HCl 1 tab PO BID 05/11/16 09/19/17 History [Pioglitazone-Metformin 15-500] Spironolact/Hydrochlorothiazid 1 tab PO DAILY 05/11/16 09/19/17 History [Aldactazide 25-25 MG] Cholecalciferol [Vitamin D3] 1,000 unit PO DAILY 08/29/17 09/19/17 History Glucosamine-Chondr 500-400Mg 1 tab PO DAILY 08/29/17 09/19/17 History Meloxicam 15 mg PO DAILY 08/29/17 09/19/17 History Aspirin 81 mg PO DAILY chew 08/31/17 09/19/17 Rx Metoprolol Tartrate [Lopressor] 25 mg PO BID #60 tab 08/31/17 09/19/17 Rx Turmeric Root Extract [Turmeric] 500 mg PO DAILY 09/06/17 09/19/17 History Allergies Allergy/AdvReac Type Severity Reaction Status Date / Time No Known Allergies Allergy Verified 09/19/17 03:18 Physical Exam Vitals: Vital Signs Temp Pulse Pulse Pulse Resp BP BP 09/19/17 07:55 97.7 F 72 18 147/67 09/19/17 04:00 62 18 09/19/17 02:39 98 F 68 18 136/60 09/19/17 02:00 67 20 118/56 09/19/17 00:57 76 09/19/17 00:50 98.7 F 68 18 126/56 Pulse Ox 09/19/17 07:55 98 09/19/17 04:00 09/19/17 02:39 98 09/19/17 02:00 98 09/19/17 00:57 09/19/17 00:50 98 Intake and Output 09/18/17 09/19/17 09/19/17 22:59 06:59 14:59 Intake Total 360 Balance 360 Intake: Amount of Fluid Infused ( 30 ml) Intake, IV Titration 80 Amount Heparin Sodium,Porcine/ 80 D5w Pmx 25,000 unit In Dextrose/Water 1 500ml. bag @ 8 UNITS/KG/HR 20.17 mls/hr IV .Q[facility]H [facility] Rx#: [id number] Oral 250 Other: Voiding Method Toilet # Voids 1 Weight 126.099 kg Results 09/19/17 01:00 09/19/17 01:00 Cardiac Enzymes 09/19/17 09/19/17 09/19/17 Range/Units 01:00 01:00 07:29 AST 28 (14-36) U/L CK-MB (CK-2) 2.1 1.4 (0.0-2.4) ng/mL Troponin I <0.012 <0.012 (0.000-0.034) ng/mL Coagulation 09/19/17 09/19/17 Range/Units 01:00 07:29 PT 10.5 (9.0-12.0) sec APTT 23.5 41.2 H (22.0-30.0) sec CBC 09/19/17 Range/Units 01:00 WBC 6.9 (3.8-10.6) k/uL RBC 4.77 (3.80-5.40) m/uL Hgb 14.6 (11.4-16.0) gm/dL Hct 44.0 (34.0-46.0) % Plt Count 174 (150-450) k/uL Comprehensive Metabolic Panel 09/19/17 Range/Units 01:00 Sodium 137 (137-145) mmol/L Potassium 4.6 (3.5-5.1) mmol/L Chloride 102 (98-107) mmol/L Carbon Dioxide 24 (22-30) mmol/L BUN 48 H (7-17) mg/dL Creatinine 0.90 (0.52-1.04) mg/dL Glucose 107 H (74-99) mg/dL Calcium 9.5 (8.4-10.2) mg/dL AST 28 (14-36) U/L ALT 42 (9-52) U/L Alkaline Phosphatase 69 (38-126) U/L Total Protein 6.3 (6.3-8.2) g/dL Albumin 4.1 (3.5-5.0) g/dL Current Medications Generic Name Dose Route Start Last Admin Trade Name Freq PRN Reason Stop Dose Admin Aspirin 325 mg 09/20/17 09:00 Aspirin PO DAILY [facility] Heparin Sodium/Dextrose 25,000 500 mls @ 20.17 mls/hr 09/19/17 02:15 02:22 unit/ IV Solution IV 7.93 units/kg/hr .Q24H [facility] 19.99 mls/hr Protocol Administration 8 UNITS/KG/HR Nitroglycerin 1 inch 09/19/17 06:00 Nitro-Bid Oint TOPICAL Q6HR [facility] Nitroglycerin 0.4 mg 09/19/17 02:06 Nitrostat SUBLINGUAL Q5M PRN Chest Pain Intake and Output 09/18/17 09/19/17 09/19/17 22:59 06:59 14:59 Intake Total 360 Balance 360 Intake: Amount of Fluid Infused ( 30 ml) Intake, IV Titration 80 Amount Heparin Sodium,Porcine/ 80 D5w Pmx 25,000 unit In Dextrose/Water 1 500ml. bag @ 8 UNITS/KG/HR 20.17 mls/hr IV .Q24H [facility] Rx#: [id number] Oral 250 Other: Voiding Method Toilet # Voids 1 Weight 126.099 kg 09/19/17 01:00 09/19/17 01:00
[2017-09-19 11:26] VITALS: BP 142/58; PULSE 68; TEMP 98
[2017-09-19] MEDS ORDERED: METOPROLOL TARTRATE 25 MG TAB PO SCH (11:30)
[2017-09-19] MEDS ORDERED: SPIRONOLACTONE-HCTZ 25-25MG 1 EACH TAB PO SCH (11:30)
[2017-09-19] MEDS ORDERED: MAGNESIUM OXIDE 400 MG TAB PO SCH (11:30)
[2017-09-19] MEDS ORDERED: PIOGLITAZONE 15 MG TAB PO SCH (11:30)
[2017-09-19] MEDS ORDERED: ASCORBIC ACID 500 MG TAB PO SCH (11:30)
[2017-09-19] MEDS ORDERED: metFORMIN 500 MG TAB PO SCH (11:30)
[2017-09-19 11:55] LABS: Glucose,Whole Blood 102 mg/dL (75-99)
[2017-09-19 13:15] LABS: Creatine Kinase 130 U/L (30-135)
[2017-09-19 13:28] LABS: Creatine Kinase MB 1.4 ng/mL (0.0-2.4); Troponin I <0.012 ng/mL (0.000-0.034)
[2017-09-19] MEDS ORDERED: LOSARTAN 25 MG TAB PO SCH (21:00)
[2017-09-19] MEDS ORDERED: ATORVASTATIN 40 MG TAB PO SCH (21:00)
--- NOTE | 2017-09-19 21:24 | DS ---
DISCHARGE SUMMARY HISTORY PHYSICAL AND DISCHARGE SUMMARY: DATE OF ADMISSION: September 19, 2017. DATE OF DISCHARGE: September 19, 2017. PRESENTING COMPLAINT: Chest discomfort, feeling hot. HISTORY OF PRESENTING COMPLAINT: This is a 56-year-old patient of Dr. Elliott who was here in the hospital about 3 weeks ago and had chest pain, did undergo cardiac catheterization by Dr. Casandra Evangelista Diego was found to have minimal disease. The patient's chronic stable medical conditions include hypertension, hyperlipidemia, diabetes mellitus type 2, and morbid obesity. Last night around midnight, she felt hot all over, slight discomfort in the chest for a very short time. There was no radiation, no shortness of breath. No dizziness. No lightheadedness. The upstairs of the house is rather hot and patient decided to come in to rule out a cardiac cause. Otherwise she is rather active. REVIEW OF SYSTEMS: CONSTITUTIONAL: Reva hot. HEENT: None. RESPIRATORY: None. CARDIOVASCULAR: As above. GASTROINTESTINAL: None. MUSCULOSKELETAL: None. DERMATOLOGICAL: None. HEMATOLOGIC: None. LYMPHATIC: None. PSYCHIATRY none. NEUROLOGICAL none. PAST MEDICAL HISTORY: Morbid obesity, diabetes type 2, hyperlipidemia, hypertension, thoracic aortic aneurysm on ascending aorta, umbilical hernia. PAST SURGICAL HISTORY: Breast surgery, cardiac cath with minimal disease, orthopedic surgery, breast biopsy, broken finger, recent tooth extraction. 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 The patient started smoking as a teen, quit in 1987, alcohol rarely. FAMILY HISTORY: Leukemia and heart disease. HOME MEDICATIONS: 1. Turmeric 500 mg p.o. daily. 2. Aldactazide 20/25 1 tab p.o. daily. 3. Pioglitazone/Metformin 50/500 1 tab p.o. b.i.d. 4. Lopressor 25 mg p.o. b.i.d. 5. Meloxicam 50 mg p.o. daily. 6. Magnesium 200 mg p.o. daily. 7. Cozaar 25 mg p.o. q.h.s. 8. Glucosamine chondroitin 500/100 one tablet p.o. daily. 9. Garlic 1 tablet p.o. daily. 10.Iron 325 p.o. daily. 11.Vitamin D3 1000 units p.o. daily. 12.Calcium 600 mg p.o. daily. 13.Lipitor 40 mg q.h.s. 14.Aspirin 81 mg p.o. daily. 15.Vitamin C 500 mg p.o. daily. ALLERGIES: None. PHYSICAL EXAMINATION: VITAL SIGNS: Temperature 98, pulse 62, respiratory 18, blood pressure 142/58, pulse ox 98% on room air. GENERAL APPEARANCE: Well built, BMI 49.2, lying in bed comfortable. EYES: Pupils equal. Conjunctivae normal. HEENT: External appearance of nose and ears normal. NECK: JVD not raised. Mass not palpable. RESPIRATORY: Effort normal. LUNGS: Fair air entry. CARDIOVASCULAR: First and second sounds normal. No edema. ABDOMEN: Soft, nontender. Liver and spleen not palpable. LYMPHATICS: No lymph nodes palpable in neck or axillae. PSYCHIATRY: Alert and oriented x3. Mood and affect normal. NEUROLOGICAL: Pupils equal. Cranial nerves grossly intact. Power and sensation grossly intact. INVESTIGATIONS: White count 6.9, hemoglobin 14.6, potassium 4.6, BUN 42, creatinine 0.90, troponin times 3 negative. EKG normal sinus rhythm. IMPRESSION: 1. Episode of feeling severely hot, perspiration, could be autonomic dysfunction from diabetes, doubt cardiac cause. 2. Gastroesophageal reflux disease. 3. Hyperlipidemia. 4. Essential hypertension. 5. Primary osteoarthritis. 6. Morbid obesity BMI 49.2. PLAN: Cardiology was consulted. Seen by Dr. Morris who okayed the patient to be discharged. I told patient that presentation was not really compatible with cardiac, likely from diabetes. The patient should follow with the family doctor. Follow up with Dr. Fredy Elliott in 2 days. Follow up with Dr. Arana in 2 weeks. This is a history and physical and discharge summary. Copy to Dr. Elliott . MMODL / IJN: [id number] /
[2017-09-20] MEDS ORDERED: ASPIRIN 81 MG PO SCH (09:00)
[2017-09-20] MEDS ORDERED: ASPIRIN 325 MG TAB PO SCH (09:00)
[2017-09-20] MEDS ORDERED: NON-FORMULARY DRUG (Glucosamine-Chondr 500-400mg 1 TAB) PO SCH (09:00)
[2017-09-20 10:40] LABS: Hemoglobin A1C 5.7 % (4.0-6.0)
== END 2017-09-19 15:17 | disposition home or self-care (01) ==
LOC: EC 00:47 → 3SUR 02:06
PROVIDERS: ADMIT Hospitalist; ATTEND Hospitalist
DX: R07.89 Other chest pain (principal); I10 Essential (primary) hypertension; E78.5 Hyperlipidemia, unspecified; E11.9 Type 2 diabetes mellitus without complications; E66.01 Morbid (severe) obesity due to excess calories; Z68.42 Body mass index [BMI] 45.0-49.9, adult; I71.2 Thoracic aortic aneurysm, without rupture; K21.9 Gastro-esophageal reflux disease without esophagitis; M19.91 Primary osteoarthritis, unspecified site; R01.1 Cardiac murmur, unspecified; R23.2 Flushing; R06.02 Shortness of breath; R00.0 Tachycardia, unspecified; Z82.49 Family history of ischemic heart disease and other diseases of the circulatory system; Z80.6 Family history of leukemia; Z87.891 Personal history of nicotine dependence; Z79.84 Long term (current) use of oral hypoglycemic drugs; Z79.899 Other long term (current) drug therapy; Z79.82 Long term (current) use of aspirin
CPT/HCPCS: 99285; 96376 ×2; 96365 ×2; 96366; 36415; 93005; 85379; 80053; 82550; 82553; 83735; 84484; 85025; 85610; 85730; 83036; 71046; G0378; J1644 ×2

== ENCOUNTER → 2017-10-14 | Outpatient (CLI) | payer BC ==
--- NOTE | 2017-10-15 10:34 | MM ---
Reason for exam: screening (asymptomatic). Last mammogram was performed 2 years and 1 month ago. History: Patient is postmenopausal and is nulliparous. Family history of breast cancer in paternal aunt at age 70, breast cancer in maternal cousin at age 40, and breast cancer in maternal aunt at age 45. Benign right mammotome panel of the right breast, October 15, 2010. Took hormonal contraceptives for 5 years beginning at age 18. Physical Findings: A clinical breast exam by your physician is recommended on an annual basis and results should be correlated with mammographic findings. MG 3D Screening Mammo W/Cad Bilateral CC and MLO view(s) were taken. Prior study comparison: September 13, 2015, bilateral MG screening mammo w CAD. May 28, 2014, bilateral MG screening mammo w CAD. There are scattered fibroglandular densities. There is no discrete abnormality. No significant changes when compared with prior studies. ASSESSMENT: Negative, BI-RAD 1 RECOMMENDATION: Routine screening mammogram of both breasts in 1 year.
== END | disposition home or self-care (01) ==
LOC: RADMAMWWP 10:46
PROVIDERS: ATTEND Family Medicine
DX: Z12.31 Encounter for screening mammogram for malignant neoplasm of breast (principal)
CPT/HCPCS: 77063; 77067

== ENCOUNTER 2017-11-01 02:27 | Emergency (ER) | payer BC ==
[2017-11-01 03:00] LABS: Basophils % (A) 0 %; Eosinophils # (A) 0.2 k/uL (0-0.7); Eosinophils % (A) 3 %; HCT 39.6 % (34.0-46.0); HGB 12.9 gm/dL (11.4-16.0); Lymphocytes # (A) 0.8 k/uL (1.0-4.8); Lymphocytes % (A) 16 %; MCH 30.5 pg (25.0-35.0); MCHC 32.7 g/dL (31.0-37.0); MCV 93.4 fL (80.0-100.0); Mean Platelet Volume 8.7; Monocytes # (A) 0.2 k/uL (0-1.0); Monocytes % (A) 4 %; Neutrophils % (A) 75 %; Platelet Count 142 k/uL (150-450); RBC 4.24 m/uL (3.80-5.40); RDW 13.9 % (11.5-15.5); WBC 5.3 k/uL (3.8-10.6)
--- NOTE | 2017-11-01 03:16 | XR ---
EXAMINATION TYPE: XR chest 1V portable DATE OF EXAM: 11/01/2017 COMPARISON: 09/19/2017 HISTORY: Heart murmur. Hypertension TECHNIQUE: Single frontal view of the chest is obtained. FINDINGS: There is no heart failure nor confluent pneumonic infiltrate. Costophrenic angles are sandra r. There are chest leads. IMPRESSION: No active cardiopulmonary disease. No change.
[2017-11-01 03:17] LABS: ALT 35 U/L (9-52); AST 24 U/L (14-36); Albumin 3.9 g/dL (3.5-5.0); Alkaline Phosphatase 66 U/L (38-126); Amylase 135 U/L (30-110); Anion Gap 9 mmol/L; Blood Urea Nitrogen 25 mg/dL (7-17); Calcium 9.2 mg/dL (8.4-10.2); Carbon Dioxide 25 mmol/L (22-30); Chloride 104 mmol/L (98-107); Glucose 112 mg/dL (74-99); Lipase 1146 U/L (23-300); Magnesium 1.7 mg/dL (1.6-2.3); Potassium 4.1 mmol/L (3.5-5.1); Sodium 138 mmol/L (137-145); Total Bilirubin 0.6 mg/dL (0.2-1.3); Total Protein 6.2 g/dL (6.3-8.2)
[2017-11-01 03:21] LABS: Creatine Kinase 78 U/L (30-135)
[2017-11-01 03:26] LABS: INR 1.1 (<1.2); Partial Thromboplastin Time 23.8 sec (22.0-30.0); Prothrombin Time 10.9 sec (9.0-12.0)
[2017-11-01 03:35] LABS: Creatine Kinase MB 0.6 ng/mL (0.0-2.4); Troponin I <0.012 ng/mL (0.000-0.034)
--- NOTE | 2017-11-01 03:36 | ED ---
Chest Pain HPI - General Chief Complaint: Chest Pain Stated Complaint: Chest Pain Time Seen by Provider: 11/01/17 02:39 Source: patient Mode of arrival: wheelchair Limitations: no limitations - History of Present Illness Initial Comments: This patient is a 56-year-old woman who presents to be evaluated for epigastric pain. She states that she was in her usual state of health until yesterday in the morning when she started having vomiting and diarrhea. She relates that she thought she had some food poisoning after she had eaten what she felt was a bad egg. She states that later in the evening started having some epigastric pain. She describes as feeling "like there is a baby kicking." She does note that it has improved somewhat. She also feels like the diarrhea has resolved. MD Complaint: chest pain -: hour(s) Onset: during rest Pain Location: epigastric Pain Radiation: none Severity: moderate Quality: other (Like the baby is in there kicking) Consistency: intermittent, now resolved Improves With: nothing Worsens With: nothing - Related Data Home Medications Medication Instructions Recorded Confirmed Ascorbic Acid [Vitamin C] 500 mg PO DAILY 05/11/16 11/01/17 Atorvastatin Calcium [Lipitor] 40 mg PO HS 05/11/16 11/01/17 Calcium Carbonate [Calcium] 600 mg PO DAILY 05/11/16 11/01/17 Ferrous Sulfate [Iron (65 MG 325 mg PO DAILY 05/11/16 11/01/17 Elemental)] Garlic 1 tab PO DAILY 05/11/16 11/01/17 Magnesium 200 mg PO DAILY 05/11/16 11/01/17 Pioglitazone HCl/Metformin HCl 1 tab PO BID 05/11/16 11/01/17 [Pioglitazone-Metformin 15-500] Spironolact/Hydrochlorothiazid 1 tab PO DAILY 05/11/16 11/01/17 [Aldactazide 25-25 MG] Cholecalciferol [Vitamin D3] 1,000 unit PO DAILY 08/29/17 11/01/17 Glucosamine-Chondr 500-400Mg 1 tab PO DAILY 08/29/17 11/01/17 Meloxicam 15 mg PO DAILY 08/29/17 11/01/17 Turmeric Root Extract [Turmeric] 500 mg PO DAILY 09/06/17 11/01/17 Previous Rx's Medication Instructions Recorded Aspirin 81 mg PO DAILY chew 08/31/17 Metoprolol Tartrate [Lopressor] 25 mg PO BID #60 tab 08/31/17 Allergies Allergy/AdvReac Type Severity Reaction Status Date / Time No Known Allergies Allergy Verified 11/01/17 02:37 Review of Systems ROS Statement: Those systems with pertinent positive or pertinent negative responses have been documented in the HPI. ROS Other: All systems not noted in ROS Statement are negative. Constitutional: Denies: fever, chills, weakness Respiratory: Denies: cough, dyspnea Cardiovascular: Reports: chest pain. Denies: palpitations, edema, syncope Gastrointestinal: Reports: nausea, diarrhea. Denies: abdominal pain, vomiting, melena, hematochezia Genitourinary: Denies: dysuria, hematuria Musculoskeletal: Denies: back pain Skin: Denies: rash Neurological: Denies: headache EKG Findings - EKG Results: EKG: interpreted by ANATOLIY, sinus rhythm (Rate 60 bpm), normal axis, normal QRS, normal ST/T, no acute changes 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 History of Any Multi-Drug Resistant Organisms: None Reported Past Surgical History: Breast Surgery, Heart Catheterization, Orthopedic Surgery Additional Past Surgical History / Comment(s): Breast biopsy, broken Finger, [place] Past Anesthesia/Blood Transfusion Reactions: No Reported Reaction Past Psychological History: No Psychological Hx Reported Smoking Status: Former smoker Past Alcohol Use History: Rare Past Drug Use History: None Reported - Past Family History Father Additional Family Medical History / Comment(s): Had leukemia and "heart issues" Mother Additional Family Medical History / Comment(s): Mother of an infection at the age of 89yrs. General Exam Limitations: no limitations General appearance: alert, in no apparent distress, obese Head exam: Present: atraumatic, normocephalic Eye exam: Present: normal appearance. Absent: scleral icterus, conjunctival injection ENT exam: Present: normal oropharynx Respiratory exam: Present: normal lung sounds bilaterally. Absent: respiratory distress, wheezes, rales, rhonchi, stridor Cardiovascular Exam: Present: regular rate, normal rhythm, normal heart sounds. Absent: systolic murmur, diastolic murmur, rubs, gallop GI/Abdominal exam: Present: soft, normal bowel sounds. Absent: distended, tenderness, guarding, rebound, rigid, mass Extremities exam: Present: normal inspection, normal capillary refill. Absent: pedal edema, calf tenderness Back exam: Present: normal inspection. Absent: CVA tenderness (R), CVA tenderness (L) Skin exam: Present: warm, dry, intact, normal color. Absent: rash Course Vital Signs 11/01/17 11/01/17 02:35 03:50 Temperature 98.5 F Pulse Rate 67 61 Respiratory 16 18 Rate Blood Pressure 121/76 109/53 O2 Sat by Pulse 97 100 Oximetry Disposition Clinical Impression: Pancreatitis Disposition: HOME SELF-CARE Condition: Good Instructions: Pancreatitis (ED) Is patient prescribed a controlled substance at d/c from ED?: No Referrals: Cade Elliott MD [Primary Care Provider] - 1-2 days Justine Santiago MD [STAFF PHYSICIAN] - 1-2 days
[2017-11-01 03:45] LABS: D-Dimer 0.69 mg/L FEU (<0.60)
--- NOTE | 2017-11-01 06:45 | CT ---
EXAM: CT Abdomen and Pelvis Without Intravenous Contrast CLINICAL HISTORY: Reason: Pain TECHNIQUE: Axial computed tomography images of the abdomen and pelvis without intravenous contrast. CTDI is 33 mGy and DLP is 1618.9 mGy-cm. This CT exam was performed using one or more of the following dose reduction techniques: automated exposure control, adjustment of the mA and/or kV according to patient size, and/or use of iterative reconstruction technique. Coronal and sagittal reformatted images were created and reviewed. COMPARISON: No relevant prior studies available. FINDINGS: Lung bases: Unremarkable. No mass. No consolidation. Mediastinum: Small hiatal hernia. ABDOMEN: Liver: Unremarkable. Gallbladder and bile ducts: Unremarkable. No calcified stones. No ductal dilation. Pancreas: Unremarkable. No ductal dilation. Spleen: Unremarkable. No splenomegaly. Adrenals: Left adrenal 9 mm nodule, possible adenoma. Kidneys and ureters: Unremarkable. No obstructing stones. No hydronephrosis. Stomach and bowel: No evidence of bowel obstruction or colitis. PELVIS: Appendix: Appendix is not visualized. Bladder: Unremarkable. No stones. Reproductive: Unremarkable as visualized. ABDOMEN and PELVIS: Intraperitoneal space: Unremarkable. No free air. No significant fluid collection. Bones/joints: Bilateral facet disease of the lower lumbar spine. No acute fracture. No dislocation. Soft tissues: Unremarkable. Vasculature: Unremarkable. No abdominal aortic aneurysm. Lymph nodes: Multiple small lymph nodes are seen adjacent to the right cecum and descending colon measuring up to 11.8 mm. IMPRESSION: 1. No evidence of bowel obstruction or colitis. 2. Left adrenal 9 mm nodule, possible adenoma. 3. Multiple small lymph nodes are seen adjacent to the right cecum and descending colon measuring up to 11.8 mm.
[2017-11-01 07:44] VITALS: BP 115/69; PULSE 56; RESP 20; TEMP 97.2
== END 2017-11-01 07:44 | disposition home or self-care (01) ==
LOC: EC 02:27
DX: K85.90 Acute pancreatitis without necrosis or infection, unspecified (principal); E11.9 Type 2 diabetes mellitus without complications; E78.5 Hyperlipidemia, unspecified; Z87.891 Personal history of nicotine dependence; Z98.890 Other specified postprocedural states; Z79.1 Long term (current) use of non-steroidal anti-inflammatories (NSAID); Z79.84 Long term (current) use of oral hypoglycemic drugs; Z79.899 Other long term (current) drug therapy
CPT/HCPCS: 36415; 71045; 74176; 80053; 82150; 82550; 82553; 83690; 83735; 84484; 85025; 85379; 85610; 85730; 93005; 99285

== ENCOUNTER 2017-11-12 20:11 | Observation (INO) | payer BC ==
--- NOTE | 2017-11-12 20:57 | ED ---
General Adult HPI - General Chief complaint: Chest Pain Stated complaint: Chest Pain Time Seen by Provider: 11/12/17 20:20 Source: patient, RN notes reviewed, old records reviewed Mode of arrival: ambulatory Limitations: no limitations - History of Present Illness Initial comments: 56-year-old female presenting for evaluation of intermittent upper chest pain. Pain was associated with some right arm pain as well. Patient denies any diaphoresis. Denies nausea vomiting. She has no known history of coronary artery disease. She is a nonsmoker. She does have history diabetes. Denies abdominal pain. Denies nausea vomiting. She has history of thoracic aortic aneurysm which is being followed as an outpatient. This has not been operated on yet. States her pain was quite mild in nature. She has no pain at the time of my evaluation. - Related Data Home Medications Medication Instructions Recorded Confirmed Ascorbic Acid [Vitamin C] 500 mg PO DAILY 05/11/16 11/12/17 Atorvastatin Calcium [Lipitor] 40 mg PO HS 05/11/16 11/12/17 Calcium Carbonate [Calcium] 600 mg PO DAILY 05/11/16 11/12/17 Ferrous Sulfate [Iron (65 MG 325 mg PO DAILY 05/11/16 11/12/17 Elemental)] Garlic 1 tab PO DAILY 05/11/16 11/12/17 Magnesium 200 mg PO DAILY 05/11/16 11/12/17 Pioglitazone HCl/Metformin HCl 1 tab PO BID 05/11/16 11/12/17 [Pioglitazone-Metformin 15-500] Spironolact/Hydrochlorothiazid 1 tab PO DAILY 05/11/16 11/12/17 [Aldactazide 25-25 MG] Cholecalciferol [Vitamin D3] 1,000 unit PO DAILY 08/29/17 11/12/17 Glucosamine-Chondr 500-400Mg 1 tab PO DAILY 08/29/17 11/12/17 Meloxicam 15 mg PO DAILY 08/29/17 11/12/17 Turmeric Root Extract [Turmeric] 500 mg PO DAILY 09/06/17 11/12/17 Fluticasone Nasal [place] [Flonase 2 spr EA NOSTRIL DAILY 11/12/17 11/12/17 Nasal [place]] Lisinopril [Zestril] 10 mg PO DAILY 11/12/17 11/12/17 [place]-3 Fatty Acids [[place]-3] 1,000 mg PO DAILY 11/12/17 11/12/17 Previous Rx's Medication Instructions Recorded Aspirin 81 mg PO DAILY chew 08/31/17 Metoprolol Tartrate [Lopressor] 25 mg PO BID #60 tab 08/31/17 Allergies Allergy/AdvReac Type Severity Reaction Status Date / Time No Known Allergies Allergy Verified 11/12/17 20:40 Review of Systems ROS Statement: Those systems with pertinent positive or pertinent negative responses have been documented in the HPI. ROS Other: All systems not noted in ROS Statement are negative. 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 History of Any Multi-Drug Resistant Organisms: None Reported Past Surgical History: Breast Surgery, Heart Catheterization, Orthopedic Surgery Additional Past Surgical History / Comment(s): Breast biopsy, broken Finger, Coloy Past Anesthesia/Blood Transfusion Reactions: No Reported Reaction Past Psychological History: No Psychological Hx Reported Smoking Status: Former smoker Past Alcohol Use History: Rare Past Drug Use History: None Reported - Past Family History Father Additional Family Medical History / Comment(s): Had leukemia and "heart issues" Mother Additional Family Medical History / Comment(s): Mother of an infection at the age of 89yrs. General Exam Limitations: no limitations General appearance: alert, in no apparent distress Head exam: Present: atraumatic, normocephalic Eye exam: Present: normal appearance, PERRL ENT exam: Present: normal exam Neck exam: Present: normal inspection. Absent: tenderness, meningismus Respiratory exam: Present: normal lung sounds bilaterally. Absent: respiratory distress, wheezes Cardiovascular Exam: Present: regular rate, normal rhythm GI/Abdominal exam: Present: soft. Absent: distended, tenderness Extremities exam: Present: normal inspection, normal capillary refill. Absent: pedal edema Back exam: Present: normal inspection, full ROM Neurological exam: Present: alert, oriented X3, CN II-XII intact. Absent: motor sensory deficit Psychiatric exam: Present: normal affect, normal mood Skin exam: Present: warm, dry, intact. Absent: cyanosis, diaphoretic Course Vital Signs 11/12/17 11/12/17 11/12/17 20:27 21:27 22:40 Temperature 97.5 F L Pulse Rate 69 59 L 66 Respiratory 18 18 18 Rate Blood Pressure 153/68 93/51 115/54 O2 Sat by Pulse 96 99 100 Oximetry EKG Findings - EKG Comments: EKG Findings:: EKG: Normal sinus rhythm, rate of 70, NH interval 172, QRS duration 88, QTC 419 Medical Decision Making - Medical Decision Making 56-year-old female presenting with mild upper chest pain. Patient is chest pain -free at the time my evaluation. EKG is nonischemic. Chest x-ray obtained shows no acute cardiothoracic process. Patient has history of a thoracic aneurysm. CT from previous evaluation on September 06 shows 4.1 cm aneurysm with no complication. Patient is found on laboratory studies have a creatinine 1.29 from baseline of 0.8. Troponin is negative. She isgiven IV hydration, she will be kept in observation for serial cardiac enzymes. If patient's pain increases or worsens she may require repeat CT of chest for evaluation of her aneurysm. Cardiology will be placed on consult. Case discussed with Dr. Calderón who will accept admission. - Lab Data Result diagrams: 11/12/17 20:41 11/12/17 20:41 Lab Results 11/12/17 11/12/17 11/12/17 Range/Units 20:41 20:41 20:41 WBC 7.1 (3.8-10.6) k/uL RBC 4.07 (3.80-5.40) m/uL Hgb 12.7 (11.4-16.0) gm/dL Hct 37.6 (34.0-46.0) % MCV 92.4 (80.0-100.0) fL MCH 31.3 (25.0-35.0) pg MCHC 33.9 (31.0-37.0) g/dL RDW 13.6 (11.5-15.5) % Plt Count 232 (150-450) k/uL Neutrophils % 66 % Lymphocytes % 25 % Monocytes % 5 % Eosinophils % 3 % Basophils % 0 % Neutrophils # 4.7 (1.3-7.7) k/uL Lymphocytes # 1.8 (1.0-4.8) k/uL Monocytes # 0.4 (0-1.0) k/uL Eosinophils # 0.2 (0-0.7) k/uL Basophils # 0.0 (0-0.2) k/uL PT (9.0-12.0) sec INR (<1.2) APTT (22.0-30.0) sec Sodium 135 L (137-145) mmol/L Potassium 4.9 (3.5-5.1) mmol/L Chloride 100 (98-107) mmol/L Carbon Dioxide 25 (22-30) mmol/L Anion Gap 10 mmol/L BUN 62 H (7-17) mg/dL Creatinine 1.29 H (0.52-1.04) mg/dL Est GFR (CKD-EPI)AfAm 53 (>60 ml/min/1.73 sqM) Est GFR (CKD-EPI)NonAf 46 (>60 ml/min/1.73 sqM) Glucose 141 H (74-99) mg/dL Calcium 9.6 (8.4-10.2) mg/dL Magnesium 2.0 (1.6-2.3) mg/dL Total Bilirubin 0.5 (0.2-1.3) mg/dL AST 24 (14-36) U/L ALT 33 (9-52) U/L Alkaline Phosphatase 59 (38-126) U/L Total Creatine Kinase 97 (30-135) U/L CK-MB (CK-2) 0.8 (0.0-2.4) ng/mL CK-MB (CK-2) Rel Index 0.8 Troponin I <0.012 (0.000-0.034) ng/mL NT-Pro-B Natriuret Pep pg/mL Total Protein 6.2 L (6.3-8.2) g/dL Albumin 4.0 (3.5-5.0) g/dL 11/12/17 11/12/17 Range/Units 20:41 20:41 WBC (3.8-10.6) k/uL RBC (3.80-5.40) m/uL Hgb (11.4-16.0) gm/dL Hct (34.0-46.0) % MCV (80.0-100.0) fL MCH (25.0-35.0) pg MCHC (31.0-37.0) g/dL RDW (11.5-15.5) % Plt Count (150-450) k/uL Neutrophils % % Lymphocytes % % Monocytes % % Eosinophils % % Basophils % % Neutrophils # (1.3-7.7) k/uL Lymphocytes # (1.0-4.8) k/uL Monocytes # (0-1.0) k/uL Eosinophils # (0-0.7) k/uL Basophils # (0-0.2) k/uL PT 10.4 (9.0-12.0) sec INR 1.1 (<1.2) APTT 23.0 (22.0-30.0) sec Sodium (137-145) mmol/L Potassium (3.5-5.1) mmol/L Chloride (98-107) mmol/L Carbon Dioxide (22-30) mmol/L Anion Gap mmol/L BUN (7-17) mg/dL Creatinine (0.52-1.04) mg/dL Est GFR (CKD-EPI)AfAm (>60 ml/min/1.73 sqM) Est GFR (CKD-EPI)NonAf (>60 ml/min/1.73 sqM) Glucose (74-99) mg/dL Calcium (8.4-10.2) mg/dL Magnesium (1.6-2.3) mg/dL Total Bilirubin (0.2-1.3) mg/dL AST (14-36) U/L ALT (9-52) U/L Alkaline Phosphatase (38-126) U/L Total Creatine Kinase (30-135) U/L CK-MB (CK-2) (0.0-2.4) ng/mL CK-MB (CK-2) Rel Index Troponin I (0.000-0.034) ng/mL NT-Pro-B Natriuret Pep 391 pg/mL Total Protein (6.3-8.2) g/dL Albumin (3.5-5.0) g/dL Disposition Clinical Impression: Chest pain Disposition: ADMITTED IP TO THIS [facility] Condition: Stable Is patient prescribed a controlled substance at d/c from ED?: No Referrals: Cade Elliott MD [Primary Care Provider] - 1-2 days Time of Disposition: 22:46 Decision to Admit Reason: Admit from EC Decision Date: 11/12/17 Decision Time: 22:46
[2017-11-12 21:00] LABS: Basophils % (A) 0 %; Eosinophils # (A) 0.2 k/uL (0-0.7); Eosinophils % (A) 3 %; HCT 37.6 % (34.0-46.0); HGB 12.7 gm/dL (11.4-16.0); Lymphocytes # (A) 1.8 k/uL (1.0-4.8); Lymphocytes % (A) 25 %; MCH 31.3 pg (25.0-35.0); MCHC 33.9 g/dL (31.0-37.0); MCV 92.4 fL (80.0-100.0); Mean Platelet Volume 8.4; Monocytes # (A) 0.4 k/uL (0-1.0); Monocytes % (A) 5 %; Neutrophils # (A) 4.7 k/uL (1.3-7.7); Neutrophils % (A) 66 %; Platelet Count 232 k/uL (150-450); RBC 4.07 m/uL (3.80-5.40); RDW 13.6 % (11.5-15.5); WBC 7.1 k/uL (3.8-10.6)
[2017-11-12 21:08] LABS: INR 1.1 (<1.2); Prothrombin Time 10.4 sec (9.0-12.0)
[2017-11-12 21:11] LABS: Calcium 9.6 mg/dL (8.4-10.2); Potassium 4.9 mmol/L (3.5-5.1); Total Bilirubin 0.5 mg/dL (0.2-1.3); Total Protein 6.2 g/dL (6.3-8.2)
[2017-11-12 21:17] LABS: Creatine Kinase 97 U/L (30-135)
--- NOTE | 2017-11-12 21:17 | XR ---
EXAMINATION TYPE: XR chest 2V DATE OF EXAM: 11/12/2017 COMPARISON: 11/01/2017 HISTORY: Chest pain TECHNIQUE: Frontal and lateral views of the chest are obtained. FINDINGS: Heart and mediastinum are normal. Lungs are clear of consolidation. There is some widening of the mediastinum related to lipomatosis. There is no pleural effusion. Bony thorax is intact. IMPRESSION: No active cardiopulmonary disease. No change.
[2017-11-12] MEDS ORDERED: SODIUM CHLORIDE 0.9% 500 ML IV ONE ×2 (21:29→22:17)
[2017-11-12 21:30] LABS: Creatine Kinase MB 0.8 ng/mL (0.0-2.4); Troponin I <0.012 ng/mL (0.000-0.034)
[2017-11-12] MEDS: SODIUM CHLORIDE 0.9% 1,000 ML IV SCH (21:39)
[2017-11-12] MEDS ORDERED: ACETAMINOPHEN TAB 325 MG TAB PO PRN (22:40)
[2017-11-12] MEDS ORDERED: NALOXONE 0.4 MG/ML 1 ML VIAL IV PRN (22:40)
[2017-11-13 00:02] VITALS: BMI 46.0
--- NOTE | 2017-11-13 00:08 | P.HPIM ---
History of Present Illness H&P Date: 11/12/17 Chief Complaint: Chest pain heart racing The patient is a obese 56-year-old female with a past medical history of type 2 diabetes with peripheral neuropathy, GERD, essential hypertension dyslipidemia and a thoracic aortic aneurysm who presents to the ER with chief complaint of chest discomfort. Apparently the patient was shopping in a department store and began having chest discomfort and feeling like her heart was racing, she reported the pain as mild on the left side of her chest with some noted radiation into her left upper extremity, the patient denied any associated nausea vomiting diaphoresis or shortness of breath. The patient denies any coughing, URI symptoms or lower extremity swelling, or lightheadedness or dizziness. The patient denies starting any new medications other than lisinopril that was started approximately 2 months ago. In the ER the patient received a comprehensive workup and was noted to be in acute kidney injury with a serum creatinine of 1.3, EKG showed sinus mechanism without any suggestion of ischemia and her troponin was less than 0.012. Review of her records indicates that CT in September shows a 4.1 cm aneurysm with no complication. It also appears that the patient had a left heart catheterization 08/[address] Cortez that showed normal coronaries with ejection fraction of 55%. 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 History of Any Multi-Drug Resistant Organisms: None Reported Past Surgical History: Breast Surgery, Heart Catheterization, Orthopedic Surgery Additional Past Surgical History / Comment(s): Breast biopsy, broken Finger, Coloy Past Anesthesia/Blood Transfusion Reactions: No Reported Reaction Past Psychological History: No Psychological Hx Reported Smoking Status: Former smoker Past Alcohol Use History: Rare Past Drug Use History: None Reported - Past Family History Father Additional Family Medical History / Comment(s): Had leukemia and "heart issues" Mother Additional Family Medical History / Comment(s): Mother of an infection at the age of 89yrs. Medications and Allergies Home Medications Medication Instructions Recorded Confirmed Type Ascorbic Acid [Vitamin C] 500 mg PO DAILY 05/11/16 11/12/17 History Atorvastatin Calcium [Lipitor] 40 mg PO HS 05/11/16 11/12/17 History Calcium Carbonate [Calcium] 600 mg PO DAILY 05/11/16 11/12/17 History Ferrous Sulfate [Iron (65 MG 325 mg PO DAILY 05/11/16 11/12/17 History Elemental)] Garlic 1 tab PO DAILY 05/11/16 11/12/17 History Magnesium 200 mg PO DAILY 05/11/16 11/12/17 History Pioglitazone HCl/Metformin HCl 1 tab PO BID 05/11/16 11/12/17 History [Pioglitazone-Metformin 15-500] Spironolact/Hydrochlorothiazid 1 tab PO DAILY 05/11/16 11/12/17 History [Aldactazide 25-25 MG] Cholecalciferol [Vitamin D3] 1,000 unit PO DAILY 08/29/17 11/12/17 History Glucosamine-Chondr 500-400Mg 1 tab PO DAILY 08/29/17 11/12/17 History Meloxicam 15 mg PO DAILY 08/29/17 11/12/17 History Aspirin 81 mg PO DAILY chew 08/31/17 11/12/17 Rx Metoprolol Tartrate [Lopressor] 25 mg PO BID #60 tab 08/31/17 11/12/17 Rx Turmeric Root Extract [Turmeric] 500 mg PO DAILY 09/06/17 11/12/17 History Fluticasone Nasal [place] [Flonase 2 spr EA NOSTRIL DAILY 11/12/17 11/12/17 History Nasal [place]] Lisinopril [Zestril] 10 mg PO DAILY 11/12/17 11/12/17 History Norman-3 Fatty Acids [Norman-3] 1,000 mg PO DAILY 11/12/17 11/12/17 History Allergies Allergy/AdvReac Type Severity Reaction Status Date / Time No Known Allergies Allergy Verified 11/12/17 20:40 Physical Exam Vitals: Vital Signs Temp Pulse Pulse Resp BP BP Pulse Ox 11/12/17 23:20 97.6 F 64 16 129/56 99 11/12/17 23:01 97.9 F 11/12/17 22:40 66 18 115/54 100 11/12/17 21:27 59 L 18 93/51 99 11/12/17 20:27 97.5 F L 69 18 153/68 96 Intake and Output 11/12/17 11/12/17 11/13/17 14:59 22:59 06:59 Other: Weight 117.934 kg 120 kg Constitutional: No acute distress, conversant, pleasant Eyes: Anicteric sclerae, moist conjunctiva, no lid-lag, PERRLA ENMT: NC/AT,Oropharynx clear, no erythema, exudates, dry mucous membranes Neck:Supple, FROM, no masses, or JVD, No carotid bruits; No thyromegaly Lungs: Clear to auscultation, Clear to percussion, Normal respiratory effort, no accessory muscle use Cardiovascular: Heart regular in rate and rhythm with systolic ejection murmur at base, No murmurs, gallops, or rubs no peripheral edema Abdominal: Soft Nontender, nom distended, no guarding, no rebound or rigidity, Normoactive bowel sounds No hepatomegaly, No splenomegaly, No palpable mass No abdominal wall hernia noted Skin: Normal temperature, tone, texture, turgor, No induration No subcutaneous nodules, No rash, lesions, No ulcers Extremities:No digital cyanosis No clubbing, Pedal pulses intact and symmetrical Radial pulses intact and symmetrical Normal gait and station, No calf tenderness Psychiatric: Alert and oriented to person, place and time, Appropriate affect Intact judgement Neuro: Muscles Strength 5/5 in all 4 extremities, Sensation to light touch grossly present throughout, Cranial nerves II-XII grossly intact. No focal sensory deficits Results CBC & Chem 7: 11/12/17 20:41 11/12/17 20:41 Labs: Abnormal Lab Results - Last 24 Hours (Table) 11/12/17 Range/Units 20:41 Sodium 135 L (137-145) mmol/L BUN 62 H (7-17) mg/dL Creatinine 1.29 H (0.52-1.04) mg/dL Glucose 141 H (74-99) mg/dL Total Protein 6.2 L (6.3-8.2) g/dL Assessment and Plan Assessment: Chronic medical conditions Thoracic aortic aneurysm 4.1 cm and stable on CT in (1) Chest pain Current Visit: Yes Status: Acute Code(s): R07.9 - CHEST PAIN, UNSPECIFIED SNOMED Code(s): 30329231 (2) Acute kidney injury Current Visit: Yes Status: Acute Code(s): N17.9 - ACUTE KIDNEY FAILURE, UNSPECIFIED SNOMED Code(s): 95813508 (3) Type 2 diabetes mellitus with peripheral neuropathy Current Visit: Yes Status: Acute Code(s): E11.42 - TYPE 2 DIABETES MELLITUS WITH DIABETIC POLYNEUROPATHY SNOMED Code(s): 6226965236304 (4) Dyslipidemia Current Visit: Yes Status: Acute Code(s): E78.5 - HYPERLIPIDEMIA, UNSPECIFIED SNOMED Code(s): 292096451 Plan: The patient is placed in observation anticipate a less than 2 midnight stay with chest pain with ongoing coronary risk factors and recent negative ( catheterization in August 2017. EKG and troponins are negative for any suggestion of acute ischemia, she is continued on routine chest pain orders, home beta blockers, aspirin and statin therapy is continued. In light of her acute kidney injury all nephrotoxic medications are held including lisinopril, NSAIDs meloxicam, diuretics spironolactone/HCTZ and diabetic medications metformin/ Actos. Agree with hydrating other patient and continue to monitor her kidney function. Cardiology is consulted from the ER for further recommendations. We' ll check her A1c and initiated correctional scale insulin per protocol. We'll continue to follow her clinical course. The patient is initiated on renally dosed Lovenox for DVT prophylaxis
[2017-11-13 03:45] LABS: Basophils % (A) 0 %; Eosinophils # (A) 0.2 k/uL (0-0.7); Eosinophils % (A) 3 %; HCT 35.6 % (34.0-46.0); HGB 11.7 gm/dL (11.4-16.0); Lymphocytes # (A) 1.8 k/uL (1.0-4.8); Lymphocytes % (A) 29 %; MCH 30.8 pg (25.0-35.0); MCHC 32.7 g/dL (31.0-37.0); MCV 94.2 fL (80.0-100.0); Mean Platelet Volume 8.5; Monocytes # (A) 0.3 k/uL (0-1.0); Monocytes % (A) 5 %; Neutrophils # (A) 3.8 k/uL (1.3-7.7); Neutrophils % (A) 61 %; Platelet Count 180 k/uL (150-450); RBC 3.78 m/uL (3.80-5.40); RDW 13.6 % (11.5-15.5); WBC 6.3 k/uL (3.8-10.6)
[2017-11-13 03:51] LABS: Albumin 3.2 g/dL (3.5-5.0); Calcium 8.8 mg/dL (8.4-10.2); Potassium 4.9 mmol/L (3.5-5.1); Total Bilirubin 0.2 mg/dL (0.2-1.3); Total Protein 5.2 g/dL (6.3-8.2)
[2017-11-13 04:02] LABS: Creatine Kinase 86 U/L (30-135)
[2017-11-13 04:15] LABS: Creatine Kinase MB 0.7 ng/mL (0.0-2.4); Troponin I <0.012 ng/mL (0.000-0.034)
[2017-11-13 07:25] LABS: Glucose,Whole Blood 99 mg/dL (75-99)
[2017-11-13 08:29] LABS: Creatine Kinase 78 U/L (30-135)
[2017-11-13 08:30] VITALS: RESP 18
[2017-11-13 08:42] LABS: Creatine Kinase MB 0.8 ng/mL (0.0-2.4); Troponin I <0.012 ng/mL (0.000-0.034)
[2017-11-13] MEDS ORDERED: MAGNESIUM OXIDE 400 MG TAB PO SCH (09:00)
[2017-11-13] MEDS ORDERED: CHOLECALCIFEROL 1,000 UNIT TAB PO SCH (09:00)
[2017-11-13] MEDS ORDERED: FERROUS SULFATE 325 MG TAB PO SCH (09:00)
[2017-11-13] MEDS ORDERED: FLUTICASONE 50MCG/SPRAY NASAL 16GM EA NOSTRIL SCH (09:00)
[2017-11-13] MEDS ORDERED: METOPROLOL TARTRATE 25 MG TAB PO SCH (09:00)
[2017-11-13] MEDS ORDERED: CALCIUM CARBONATE 500 MG CHEWABLE PO SCH (09:00)
[2017-11-13] MEDS ORDERED: NON-FORMULARY DRUG (Omega-3 Fatty Acids [Omega-3] 1,000 MG) PO SCH (09:00)
[2017-11-13] MEDS ORDERED: ENOXAPARIN 30 MG/0.3 ML SYRINGE SQ SCH (09:00)
[2017-11-13] MEDS: INSULIN ASPART 100 UNIT/ML 1 ML 10 ML VIAL SQ SCH ×2 (09:36→13:03)
--- NOTE | 2017-11-13 09:53 | P.PN ---
Subjective Progress Note Date: 11/13/17 Principal diagnosis: Chest pain rule out ACS. 56 year old F with PMH of DM, GERD, HTN, HLDA, thoracic AAA presents to the ED for chest pain and palpitations. She is admitted for chest pain, rule out acute coronary syndrome. A review of her chart shows CTA Chest 09/2017 shows 4.1 cm thoracic AAA. Coronary cath in 08/2017 shows no CAD and EF of 55%. Troponins < 0.012 x 3 with EKG showing NSR. Morning labs show a BUN of 56. Patient was seen and examined. No acute events overnight. No currently chest pain. No SOB or palpitations. States it started on , weird feeling BL chest with RUE radiation as she was walking. Lasted for 30-40 minutes, intermittent, throbbing in nature. Endorses 3-4 block exercise endurance without and orthopnea or LE edema. Objective - Vital Signs Vital signs: Vital Signs Temp 97.8 F 11/13/17 08:00 Pulse 56 L 11/13/17 08:00 Resp 18 11/13/17 08:00 BP 105/69 11/13/17 08:00 Pulse Ox 99 11/13/17 08:00 Intake & Output 11/12/17 11/13/17 11/13/17 18:59 06:59 18:59 Weight 120 kg Other: Voiding Method Toilet # Voids 1 - Exam General: non toxic, no distress, appears at stated age Derm: warm, dry Head: atraumatic, normocephalic, symmetric Eyes: EOMI, no lid lag, anicteric sclera Mouth: no lip lesion, mucus membranes moist Cardiovascular: S1S2 reg, + systolic murmur, positive posterior tibial pulse bilateral, no JVD Lungs: CTA bilateral, no rhonchi, no rales , no accessory muscle use Abdominal: soft, nontender to palpation, no guarding, no appreciable organomegaly Ext: no gross muscle atrophy, no LE edema, no contractures Neuro: CN II-XI grossly intact, no focal neuro deficits Psych: Alert, oriented, appropriate affect - Labs CBC & Chem 7: 11/13/17 03:08 11/13/17 03:08 Labs: Abnormal Lab Results - Last 24 Hours (Table) 11/12/17 11/13/17 11/13/17 Range/Units 20:41 03:08 03:08 RBC 3.78 L (3.80-5.40) m/uL Sodium 135 L 136 L (137-145) mmol/L BUN 62 H 56 H (7-17) mg/dL Creatinine 1.29 H (0.52-1.04) mg/dL Glucose 141 H 105 H (74-99) mg/dL Total Protein 6.2 L 5.2 L (6.3-8.2) g/dL Albumin 3.2 L (3.5-5.0) g/dL Assessment and Plan Assessment: Assessment 56 year old F with PMH of DM, GERD, HTN, HLDA, thoracic AAA presents to the ED for chest pain and palpitations. She is admitted for chest pain, rule out acute coronary syndrome. Plan Active 1. Chest pain: Non pleuritic, non tender. Atypical but + risk factors for ACS. CXR negative. RUQ US negative. Tylenol PRN for pain. Trop < 0.012 x 3, EKG shows NSR. Cath 08/[address] Cardiology [address]. Helotn, no further cardiac workup, cleared from cardiac perspective. 2. Pre-renal azotemia: Likely from dehydration, ACEi and HCTZ. BUN 56 Cr 1.00. LEON resolved, will restart ACEi + HCTZ. Encourage PO hydration. FU BMP in 1 week with PCP. Stable 3. Thoracic AAA: Seen on CTA in 09/2017. States she sees CT Sx outPT with yearly follow-up. Continue Metoprolol. Continue to monitor. 4. DM: POC glucose 105. A1c 5.7 09/2017. ISS. Hypoglycemic precautions with accuchecks QID. DC Pioglizaone-Metformin on discharge. 5. HTN: BP 129/56. Continue Metoprolol 25 mg PO BID. Restart Lisinopril 10 mg PO QD, Aldactone/HCTZ 20-25 mg PO QD. Monitor vitals, adjust medications as necessary. 6. HLDA: Lipid panel unremarkable 08/2017. Continue Lipitor 40 mg PO QHS. 7. GERD: Tums PRN. 8. DVT/GI Prophylaxis: Lovenox 30mg SUBCUT QD, Tums PRN.
--- NOTE | 2017-11-13 11:25 | CONS ---
CONSULTATION Mrs. Quintero is a 56-year-old female who is admitted through the emergency room with complaint of palpitations and vague chest discomfort. The patient gives a history that she was shopping in [place] and she felt that she was having some palpitations and then she felt that her heart was racing and she had a mild chest discomfort on the left side. The patient denied any nausea or vomiting. This patient was recently in the emergency room with abdominal pain. Patient had a CT scan of the abdomen done which did not show any abnormality however patient's lipase was elevated suggestive of acute pancreatitis. The patient had a cardiac catheterization done in August which did not reveal any significant coronary artery disease. This patient has a known history of heart murmur and minimal aneurysm of the ascending aorta measuring 4.1 cm. PAST MEDICAL HISTORY: Past medical history includes heart catheterization, orthopedic surgery, breast surgery, history of a heart murmur. Patient recently had a stress test and echocardiogram done in our office, which was normal. MEDICATIONS: Patient's home medications include vitamin C, Lipitor 40 mg daily, calcium, ferrous sulfate once a day, magnesium, metformin and pioglitazone, spironolactone, Aldactazide once a day, Lopressor 25 mg b.i.d. and omega-3. PHYSICAL EXAMINATION: Physical examination at present reveals a 56-year-old, obesely built female who does not appear to be in any acute distress. Patient's heart rate is 66 per minute, blood pressure is 115/54 mmHg. Head/ENT examination is negative. Neck is supple. There is no increase in jugular venous pressure. Both the carotid pulses are felt. There is no bruit. Chest is symmetrical. HEART: The PMI is not felt. First and second heart sounds are normal. There is a grade 3/6 ejection systolic murmur noted over the left sternal border. Lungs are clinically clear to auscultation and percussion. Abdomen is negative. EXTREMITIES: Peripheral pulsations are 2+. EKG shows normal sinus rhythm without any acute ischemic changes. The patient's BUN is 62, and creatinine is 1.29. Cardiac enzymes are normal. FINAL IMPRESSION: This patient is admitted with atypical chest pain. Her EKGs and cardiac enzymes are normal. The patient has evidence of acute kidney injury with an initial BUN of 62 and creatinine 1.9, which this could be secondary to recent pancreatitis and CAT scan. The patient's recent stress test and echocardiogram were normal. In view of that, the patient does not need further cardiac workup. I would recommend to continue the patient on hydration until the BUN improves and a ultrasound of the gallbladder may be done because patient's lipase was elevated during the previous admission. OLIVIA / JAMMIE: [id number] /
[2017-11-13 11:52] LABS: Glucose,Whole Blood 96 mg/dL (75-99)
[2017-11-13 12:31] LABS: Hemoglobin A1C 5.9 % (4.0-6.0)
--- NOTE | 2017-11-13 12:50 | US ---
EXAMINATION TYPE: US gallbladder DATE OF EXAM: 11/13/2017 COMPARISON: NONE CLINICAL HISTORY: epigastric pain. EXAM MEASUREMENTS: Liver Length: 18.0 cm Gallbladder Wall: 0.2 cm CBD: 0.4 cm Right Kidney: 12.0 x 4.6 x 5.1 cm Limited due to bowel gas and pt ability to hold breathe. Pancreas: Tail obscured by overlying bowel gas Liver: Increased attenuation Gallbladder: wnl Evidence for sonographic Arango's sign: No CBD: wnl Right Kidney: wnl Limited views of the pancreas are unremarkable. The liver is mildly prominent measuring 18 cm. It is echogenic and may be fatty infiltrated. The gallbladder is unremarkable without evidence of cholelithiasis. The gallbladder wall is not thick ened measuring 2 mm. The distal common hepatic duct measures 4 mm. There is no sonographic Arango's s ign. The right kidney is normal. IMPRESSION: Mild hepatomegaly and fatty infiltration of the liver.
[2017-11-13] MEDS: SODIUM CHLORIDE 0.9% 1,000 ML IV SCH (13:02)
[2017-11-13 13:03] VITALS: BP 138/79; PULSE 61; TEMP 97.6
[2017-11-13] MEDS ORDERED: ATORVASTATIN 40 MG TAB PO SCH (21:00)
[2017-11-14] MEDS ORDERED: LISINOPRIL 10 MG TAB PO SCH (09:00)
== END 2017-11-13 14:30 | disposition home or self-care (01) ==
LOC: EC 20:11 → 3OBS 22:41
PROVIDERS: ADMIT Family Medicine; ATTEND Family Medicine
DX: R07.89 Other chest pain (principal); I71.2 Thoracic aortic aneurysm, without rupture; N17.9 Acute kidney failure, unspecified; E11.42 Type 2 diabetes mellitus with diabetic polyneuropathy; K21.9 Gastro-esophageal reflux disease without esophagitis; I10 Essential (primary) hypertension; E78.5 Hyperlipidemia, unspecified; R00.2 Palpitations; R79.89 Other specified abnormal findings of blood chemistry; E66.9 Obesity, unspecified; Z68.42 Body mass index [BMI] 45.0-49.9, adult; K76.0 Fatty (change of) liver, not elsewhere classified; R01.1 Cardiac murmur, unspecified; Z79.82 Long term (current) use of aspirin; Z79.1 Long term (current) use of non-steroidal anti-inflammatories (NSAID); Z79.84 Long term (current) use of oral hypoglycemic drugs; Z79.51 Long term (current) use of inhaled steroids; Z79.899 Other long term (current) drug therapy; Z83.1 Family history of other infectious and parasitic diseases; Z87.891 Personal history of nicotine dependence; Z80.6 Family history of leukemia; Z82.49 Family history of ischemic heart disease and other diseases of the circulatory system
CPT/HCPCS: 99285 ×2; 96360 ×2; 96361; 96372; 36415; 93005; 83880; 80053 ×2; 82550 ×2; 82553 ×2; 83735; 84484 ×2; 85025 ×2; 85610; 85730; 83036; 71046; 76705; G0378 ×2; J1650

== ENCOUNTER 2018-01-28 06:46 | Day surgery (SDC) | payer BC ==
[2018-01-26 13:26] VITALS: BMI 43.5
[~2018-01-28 06:46] MED LIST: LACTATED RINGERS 1,000 ML IV SCH; LIDOCAINE 1% 20 ML VIAL (10MG/ML) FOR IV START INTRADERMA PRN
[2018-01-28 07:09] VITALS: RESP 18; TEMP 98.4
[2018-01-28] MEDS ORDERED: LACTATED RINGERS 1,000 ML IV ONE ×2 (07:13)
[2018-01-28 07:30] LABS: Glucose,Whole Blood 108 mg/dL (75-99)
[2018-01-28] MEDS ORDERED: PROPOFOL 10 MG/ML 20 ML VIAL IV ONE (07:33)
--- NOTE | 2018-01-28 08:04 | P.PCN ---
Date of Procedure: 01/28/18 Procedure(s) Performed: BRIEF HISTORY: Patient is a 57-year-old pleasant white female , scheduled for an elective colonoscopy as a part of screening for colonic neoplasia. PROCEDURE PERFORMED: Colonoscopy. PREOPERATIVE DIAGNOSIS: Screening for colon cancer. IV sedation per Anesthesia. PROCEDURE: After informed consent was obtained, the patient, was brought into the endoscopy unit. IV sedation was administered by Anesthesia under continuous monitoring. Digital rectal examination was normal. Initially the Olympus CF- 160 flexible video colonoscope was then inserted in the rectum, gradually advanced into the cecum without any difficulty. Careful examination was performed as the scope was gradually being withdrawn. Ileocecal valve and the appendiceal orifice were visualized and appeared normal. Prep was excellent. Mucosa of the cecum, ascending colon, transverse colon, descending colon, sigmoid colon, and rectum appeared normal. Retroflexion was performed in the rectum and no lesions were seen. The patient tolerated the procedure well. IMPRESSION: Normal-appearing colon from rectum to cecum with no evidence of colorectal neoplasia. RECOMMENDATIONS: Findings of this examination were discussed with the patient well as her family. She was advised to have a repeat screening colonoscopy in 10 years.
[2018-01-28 08:18] VITALS: BP 132/71; PULSE 53
== END 2018-01-28 09:02 | disposition home or self-care (01) ==
LOC: ORWHC2ENDO 06:46
PROVIDERS: ATTEND Internal Medicine Gastroenterology
DX: Z12.11 Encounter for screening for malignant neoplasm of colon (principal); I10 Essential (primary) hypertension; E78.5 Hyperlipidemia, unspecified; I71.2 Thoracic aortic aneurysm, without rupture; Z87.891 Personal history of nicotine dependence; E11.9 Type 2 diabetes mellitus without complications; Z79.82 Long term (current) use of aspirin; Z79.899 Other long term (current) drug therapy
CPT/HCPCS: J2704; G0121

== ENCOUNTER 2018-05-06 20:12 | Emergency (ER) | payer BC ==
--- NOTE | 2018-05-06 20:45 | ED ---
Arrhythmia/Palpitations HPI - General Chief Complaint: Arrhythmia/Palpitations Stated Complaint: Heart racing, arm tingling Source: patient, RN notes reviewed, old records reviewed Mode of arrival: wheelchair Limitations: no limitations - History of Present Illness Initial Comments: This is a 57-year-old female the ER for evaluation. Patient complaint palpitations mild anxiety no chest pain or shortness of breath. Patient states she has history of an aneurysm, and has palpitations and anxiety tonight to now arrival to ER she feels fine. No chest pain or shortness of breath currently. No recent change in medications no drug or alcohol abuse MD Complaint: palpitations -: hour(s) Context: occurred during rest Associated Symptoms: shortness of breath, anxiety Treatments Prior to Arrival: other (none) - Related Data Home Medications Medication Instructions Recorded Confirmed Atorvastatin Calcium [Lipitor] 40 mg PO HS 05/11/16 05/06/18 Calcium Carbonate [Calcium] 2,000 mg PO DAILY 05/11/16 05/06/18 Ferrous Sulfate [Iron (65 MG 325 mg PO DAILY 05/11/16 05/06/18 Elemental)] Magnesium 400 mg PO DAILY 05/11/16 05/06/18 Spironolact/Hydrochlorothiazid 1 tab PO DAILY 05/11/16 05/06/18 [Aldactazide 25-25 MG] Cholecalciferol [Vitamin D3] 1,000 unit PO DAILY 08/29/17 05/06/18 Fluticasone Nasal [place] [Flonase 2 spr EA NOSTRIL DAILY 11/12/17 05/06/18 Nasal [place]] Lisinopril [Zestril] 10 mg PO HS 11/12/17 05/06/18 [place]-3 Fatty Acids [[place]-3] 5,000 mg PO DAILY 11/12/17 05/06/18 Previous Rx's Medication Instructions Recorded Aspirin 81 mg PO DAILY chew 08/31/17 Metoprolol Tartrate [Lopressor] 25 mg PO BID #60 tab 08/31/17 Allergies Allergy/AdvReac Type Severity Reaction Status Date / Time No Known Allergies Allergy Verified 05/06/18 21:09 Review of Systems ROS Statement: Those systems with pertinent positive or pertinent negative responses have been documented in the HPI. ROS Other: All systems not noted in ROS Statement are negative. 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, fatty liver, diet controlled diabetic History of Any Multi-Drug Resistant Organisms: None Reported Past Surgical History: Breast Surgery, Heart Catheterization, Orthopedic Surgery Additional Past Surgical History / Comment(s): rt Breast biopsy, broken Finger, colonoscopy, dental Past Anesthesia/Blood Transfusion Reactions: No Reported Reaction, Motion Sickness Past Psychological History: No Psychological Hx Reported Smoking Status: Former smoker Past Alcohol Use History: None Reported Past Drug Use History: None Reported - Past Family History Father Family Medical History: Deep Vein Thrombosis (DVT) Additional Family Medical History / Comment(s): Had leukemia and "heart issues" Mother Additional Family Medical History / Comment(s): Mother of an infection at the age of 89yrs. General Exam Limitations: no limitations General appearance: alert, in no apparent distress, anxious Head exam: Present: atraumatic, normocephalic, normal inspection Eye exam: Present: normal appearance, PERRL, EOMI. Absent: scleral icterus, conjunctival injection, periorbital swelling ENT exam: Present: normal exam, mucous membranes moist Neck exam: Present: normal inspection. Absent: tenderness, meningismus, lymphadenopathy Respiratory exam: Present: normal lung sounds bilaterally. Absent: respiratory distress, wheezes, rales, rhonchi, stridor Cardiovascular Exam: Present: regular rate, normal rhythm, normal heart sounds. Absent: systolic murmur, diastolic murmur, rubs, gallop, clicks GI/Abdominal exam: Present: soft, normal bowel sounds. Absent: distended, tenderness, guarding, rebound, rigid Extremities exam: Present: normal inspection, full ROM, normal capillary refill. Absent: tenderness, pedal edema, joint swelling, calf tenderness Back exam: Present: normal inspection Neurological exam: Present: alert, oriented X3, CN II-XII intact Psychiatric exam: Present: normal affect, normal mood Skin exam: Present: warm, dry, intact, normal color. Absent: rash Course Vital Signs 05/06/18 05/06/18 05/06/18 20:21 21:45 22:50 Temperature 98.3 F 98.2 F Pulse Rate 61 62 56 L Respiratory 20 18 16 Rate Blood Pressure 124/69 116/63 134/75 O2 Sat by Pulse 98 97 96 Oximetry - Reevaluation(s) Reevaluation #1: Medical records reviewed Patient's asymptomatic throughout ER stay EKG Findings - EKG Comments: EKG Findings:: EKG shows sinus pericarditis 55, MT 184, QRS 80, QTC 420 Medical Decision Making - Medical Decision Making 57 female the ER for evaluation of palpitations. History of present illness which is unchanged on CT. Patient otherwise states she feels well, will like to be discharged home - Lab Data Result diagrams: 05/06/18 20:42 05/06/18 20:42 Lab Results 05/06/18 05/06/18 05/06/18 Range/Units 20:42 20:42 20:42 WBC 7.8 (3.8-10.6) k/uL RBC 4.76 (3.80-5.40) m/uL Hgb 14.8 (11.4-16.0) gm/dL Hct 44.5 (34.0-46.0) % MCV 93.4 (80.0-100.0) fL MCH 31.0 (25.0-35.0) pg MCHC 33.2 (31.0-37.0) g/dL RDW 12.8 (11.5-15.5) % Plt Count 212 (150-450) k/uL Neutrophils % 67 % Lymphocytes % 25 % Monocytes % 4 % Eosinophils % 4 % Basophils % 0 % Neutrophils # 5.2 (1.3-7.7) k/uL Lymphocytes # 1.9 (1.0-4.8) k/uL Monocytes # 0.3 (0-1.0) k/uL Eosinophils # 0.3 (0-0.7) k/uL Basophils # 0.0 (0-0.2) k/uL PT (9.0-12.0) sec INR (<1.2) APTT (22.0-30.0) sec D-Dimer (<0.60) mg/L FEU Sodium 138 (137-145) mmol/L Potassium 3.8 (3.5-5.1) mmol/L Chloride 101 (98-107) mmol/L Carbon Dioxide 29 (22-30) mmol/L Anion Gap 8 mmol/L BUN 30 H (7-17) mg/dL Creatinine 0.97 (0.52-1.04) mg/dL Est GFR (CKD-EPI)AfAm 74 (>60 ml/min/1.73 sqM) Est GFR (CKD-EPI)NonAf 64 (>60 ml/min/1.73 sqM) Glucose 139 H (74-99) mg/dL Calcium 9.3 (8.4-10.2) mg/dL Phosphorus 3.8 (2.5-4.5) mg/dL Magnesium 1.8 (1.6-2.3) mg/dL Total Bilirubin 0.9 (0.2-1.3) mg/dL AST 28 (14-36) U/L ALT 39 (9-52) U/L Alkaline Phosphatase 79 (38-126) U/L Total Creatine Kinase 94 (30-135) U/L CK-MB (CK-2) 1.3 (0.0-2.4) ng/mL CK-MB (CK-2) Rel Index 1.4 Troponin I <0.012 (0.000-0.034) ng/mL NT-Pro-B Natriuret Pep pg/mL Total Protein 6.9 (6.3-8.2) g/dL Albumin 4.3 (3.5-5.0) g/dL TSH 2.760 (0.465-4.680) mIU/L 05/06/18 05/06/18 Range/Units 20:42 20:42 WBC (3.8-10.6) k/uL RBC (3.80-5.40) m/uL Hgb (11.4-16.0) gm/dL Hct (34.0-46.0) % MCV (80.0-100.0) fL MCH (25.0-35.0) pg MCHC (31.0-37.0) g/dL RDW (11.5-15.5) % Plt Count (150-450) k/uL Neutrophils % % Lymphocytes % % Monocytes % % Eosinophils % % Basophils % % Neutrophils # (1.3-7.7) k/uL Lymphocytes # (1.0-4.8) k/uL Monocytes # (0-1.0) k/uL Eosinophils # (0-0.7) k/uL Basophils # (0-0.2) k/uL PT 10.3 (9.0-12.0) sec INR 1.0 (<1.2) APTT 25.6 (22.0-30.0) sec D-Dimer 0.31 (<0.60) mg/L FEU Sodium (137-145) mmol/L Potassium (3.5-5.1) mmol/L Chloride (98-107) mmol/L Carbon Dioxide (22-30) mmol/L Anion Gap mmol/L BUN (7-17) mg/dL Creatinine (0.52-1.04) mg/dL Est GFR (CKD-EPI)AfAm (>60 ml/min/1.73 sqM) Est GFR (CKD-EPI)NonAf (>60 ml/min/1.73 sqM) Glucose (74-99) mg/dL Calcium (8.4-10.2) mg/dL Phosphorus (2.5-4.5) mg/dL Magnesium (1.6-2.3) mg/dL Total Bilirubin (0.2-1.3) mg/dL AST (14-36) U/L ALT (9-52) U/L Alkaline Phosphatase (38-126) U/L Total Creatine Kinase (30-135) U/L CK-MB (CK-2) (0.0-2.4) ng/mL CK-MB (CK-2) Rel Index Troponin I (0.000-0.034) ng/mL NT-Pro-B Natriuret Pep 211 pg/mL Total Protein (6.3-8.2) g/dL Albumin (3.5-5.0) g/dL TSH (0.465-4.680) mIU/L - Radiology Data Radiology results: report reviewed (CTA chest x-rays negative for acute disease) , image reviewed Disposition Clinical Impression: Palpitations Disposition: HOME SELF-CARE Condition: Good Instructions (If sedation given, give patient instructions): Heart Palpitations (ED) Is patient prescribed a controlled substance at d/c from ED?: No Referrals: Cade Elliott MD [Primary Care Provider] - 1-2 days
[2018-05-06 20:57] LABS: Basophils % (A) 0 %; Eosinophils # (A) 0.3 k/uL (0-0.7); Eosinophils % (A) 4 %; HCT 44.5 % (34.0-46.0); HGB 14.8 gm/dL (11.4-16.0); Lymphocytes # (A) 1.9 k/uL (1.0-4.8); Lymphocytes % (A) 25 %; MCHC 33.2 g/dL (31.0-37.0); MCV 93.4 fL (80.0-100.0); Mean Platelet Volume 7.9; Monocytes # (A) 0.3 k/uL (0-1.0); Monocytes % (A) 4 %; Neutrophils # (A) 5.2 k/uL (1.3-7.7); Neutrophils % (A) 67 %; Platelet Count 212 k/uL (150-450); RBC 4.76 m/uL (3.80-5.40); RDW 12.8 % (11.5-15.5); WBC 7.8 k/uL (3.8-10.6)
[2018-05-06 21:04] LABS: Albumin 4.3 g/dL (3.5-5.0); Calcium 9.3 mg/dL (8.4-10.2); Magnesium 1.8 mg/dL (1.6-2.3); Phosphorus 3.8 mg/dL (2.5-4.5); Potassium 3.8 mmol/L (3.5-5.1); Total Bilirubin 0.9 mg/dL (0.2-1.3); Total Protein 6.9 g/dL (6.3-8.2)
[2018-05-06 21:08] LABS: Creatine Kinase 94 U/L (30-135)
[2018-05-06 21:11] LABS: D-Dimer 0.31 mg/L FEU (<0.60); Partial Thromboplastin Time 25.6 sec (22.0-30.0); Prothrombin Time 10.3 sec (9.0-12.0)
[2018-05-06 21:21] LABS: Creatine Kinase MB 1.3 ng/mL (0.0-2.4); Troponin I <0.012 ng/mL (0.000-0.034)
--- NOTE | 2018-05-06 21:22 | XR ---
EXAMINATION TYPE: XR chest 2V DATE OF EXAM: 05/06/2018 COMPARISON: 11/12/2017 HISTORY: Weakness TECHNIQUE: Frontal and lateral views of the chest are obtained. FINDINGS: There is no heart failure nor confluent pneumonic infiltrate. Costophrenic angles are sandra r. There are chest leads. Bony thorax is intact. IMPRESSION: Normal chest. No change.
--- NOTE | 2018-05-06 21:55 | CT ---
EXAMINATION TYPE: CT angio chest DATE OF EXAM: 05/06/2018 9:39 PM COMPARISON: 09/06/2017 HISTORY: PT c/o racing heart, tingling extremities CT DLP: 559.1 mGycm Automated exposure control for dose reduction was used. CONTRAST: CTA scan of the thorax is performed with IV Contrast, patient injected with 100 mL of Isovue 300, pul monary embolism protocol. There are 3-D post processed images.. FINDINGS: There is some mediastinal lipomatosis and anterior mediastinal lymph nodes that measure up to 1.5 cm. There are no hilar masses. There is no pericardial effusion. There is normal contrast opacification of the pulmonary arteries. There are no filling defects. The lungs are clear of consolidation. There is no pleural effusion. There is no evidence of a pulmona ry mass. There is bilateral adrenal hyperplasia. There is some spurring in the thoracic spine. I see no bony destructive process. IMPRESSION: NO EVIDENCE OF PULMONARY EMBOLISM. NONSPECIFIC MULTIPLE MEDIASTINAL LYMPH NODES. NO SIGNIFICANT ISAACS E COMPARED TO OLD EXAM.
[2018-05-06 22:51] VITALS: BP 134/75; PULSE 56; RESP 16; TEMP 98.2
== END 2018-05-06 22:58 | disposition home or self-care (01) ==
LOC: EC 20:12
DX: R00.2 Palpitations (principal); R20.2 Paresthesia of skin; R06.02 Shortness of breath; E78.5 Hyperlipidemia, unspecified; I10 Essential (primary) hypertension; E11.9 Type 2 diabetes mellitus without complications; Z79.51 Long term (current) use of inhaled steroids; Z79.899 Other long term (current) drug therapy; Z87.891 Personal history of nicotine dependence; Z95.5 Presence of coronary angioplasty implant and graft
CPT/HCPCS: 36415; 93005; 85379; 83880; 80053; 82550; 82553; 83735; 84100; 84443; 84484; 85025; 85610; 85730; 71046; 71275; 99285; Q9967

== ENCOUNTER 2018-05-13 07:31 | Emergency (ER) | payer BC ==
--- NOTE | 2018-05-13 08:25 | ED ---
Chest Pain HPI - General Chief Complaint: Chest Pain Stated Complaint: CHEST PAIN, RT ARM/SHOULDER TINGLING Time Seen by Provider: 05/13/18 07:49 Source: patient Mode of arrival: ambulatory Limitations: no limitations - History of Present Illness MD Complaint: chest pain (funny feeling in shoulder) -: hour(s) Onset: during rest, awoke with symptoms Pain Location: right chest Pain Radiation: RUE Severity: mild Severity scale (1-10): 2 Quality: other (tingling) Consistency: intermittent Improves With: nothing Worsens With: nothing Anginal Symptoms: other (none) Other Symptoms: other (none) - Related Data Home Medications Medication Instructions Recorded Confirmed Atorvastatin Calcium [Lipitor] 40 mg PO HS 05/11/16 05/13/18 Calcium Carbonate [Calcium] 2,000 mg PO DAILY 05/11/16 05/13/18 Ferrous Sulfate [Iron (65 MG 325 mg PO DAILY 05/11/16 05/13/18 Elemental)] Magnesium 400 mg PO DAILY 05/11/16 05/13/18 Spironolact/Hydrochlorothiazid 1 tab PO DAILY 05/11/16 05/13/18 [Aldactazide 25-25 MG] Cholecalciferol [Vitamin D3] 1,000 unit PO DAILY 08/29/17 05/13/18 Fluticasone Nasal [place] [Flonase 2 spr EA NOSTRIL DAILY 11/12/17 05/13/18 Nasal [place]] Lisinopril [Zestril] 10 mg PO HS 11/12/17 05/13/18 [place]-3 Fatty Acids [[place]-3] 5,000 mg PO DAILY 11/12/17 05/13/18 Previous Rx's Medication Instructions Recorded Aspirin 81 mg PO DAILY chew 08/31/17 Metoprolol Tartrate [Lopressor] 25 mg PO BID #60 tab 08/31/17 Allergies Allergy/AdvReac Type Severity Reaction Status Date / Time No Known Allergies Allergy Verified 05/13/18 07:58 Review of Systems ROS Statement: Those systems with pertinent positive or pertinent negative responses have been documented in the HPI. ROS Other: All systems not noted in ROS Statement are negative. 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, fatty liver, diet controlled diabetic History of Any Multi-Drug Resistant Organisms: None Reported Past Surgical History: Breast Surgery, Heart Catheterization, Orthopedic Surgery Additional Past Surgical History / Comment(s): rt Breast biopsy, broken Finger, colonoscopy, dental Past Anesthesia/Blood Transfusion Reactions: No Reported Reaction, Motion Sickness Past Psychological History: No Psychological Hx Reported Smoking Status: Former smoker Past Alcohol Use History: None Reported Past Drug Use History: None Reported - Past Family History Father Family Medical History: Deep Vein Thrombosis (DVT) Additional Family Medical History / Comment(s): Had leukemia and "heart issues" Mother Additional Family Medical History / Comment(s): Mother of an infection at the age of 89yrs. General Exam Limitations: no limitations General appearance: alert, in no apparent distress Head exam: Present: atraumatic, normocephalic, normal inspection Eye exam: Present: normal appearance, PERRL, EOMI. Absent: scleral icterus, conjunctival injection, periorbital swelling ENT exam: Present: normal exam, mucous membranes moist Neck exam: Present: normal inspection. Absent: tenderness, meningismus, lymphadenopathy Respiratory exam: Present: normal lung sounds bilaterally. Absent: respiratory distress, wheezes, rales, rhonchi, stridor Cardiovascular Exam: Present: regular rate, normal rhythm, normal heart sounds. Absent: systolic murmur, diastolic murmur, rubs, gallop, clicks GI/Abdominal exam: Present: soft, normal bowel sounds. Absent: distended, tenderness, guarding, rebound, rigid Extremities exam: Present: normal inspection, full ROM, normal capillary refill. Absent: tenderness, pedal edema, joint swelling, calf tenderness Back exam: Present: normal inspection Neurological exam: Present: alert, oriented X3, CN II-XII intact Psychiatric exam: Present: normal affect, normal mood Skin exam: Present: warm, dry, intact, normal color. Absent: rash Course Vital Signs 05/13/18 05/13/18 07:33 09:00 Temperature 97.9 F Pulse Rate 63 50 L Respiratory 18 19 Rate Blood Pressure 135/86 138/57 O2 Sat by Pulse 97 96 Oximetry - Reevaluation(s) Reevaluation #1: 05/13/18 09:18 Medical record including prior ER visit last week for same is reviewed Disposition Clinical Impression: Palpitations, Atypical chest pain, Chest pain Disposition: HOME SELF-CARE Condition: Fair Instructions (If sedation given, give patient instructions): Chest Pain (ED), Heart Palpitations (ED) Is patient prescribed a controlled substance at d/c from ED?: No Referrals: Cade Elliott MD [Primary Care Provider] - 1-2 days
--- NOTE | 2018-05-13 08:45 | XR ---
EXAMINATION TYPE: XR chest 2V DATE OF EXAM: 05/13/2018 COMPARISON: Chest x-ray and CTA chest May 06, 2018 HISTORY: Chest pain into left shoulder. TECHNIQUE: Frontal and lateral views of the chest are obtained. FINDINGS: There is no focal air space opacity, pleural effusion, or pneumothorax seen. The cardiac silhouette size is enlarged. Underlying scoliosis is redemonstrated. IMPRESSION: Cardiomegaly without acute pulmonary process.
[2018-05-13 08:53] LABS: Basophils % (A) 1 %; Eosinophils # (A) 0.2 k/uL (0-0.7); Eosinophils % (A) 3 %; HCT 44.1 % (34.0-46.0); HGB 14.5 gm/dL (11.4-16.0); Lymphocytes # (A) 1.2 k/uL (1.0-4.8); Lymphocytes % (A) 18 %; MCH 30.8 pg (25.0-35.0); MCHC 32.9 g/dL (31.0-37.0); MCV 93.8 fL (80.0-100.0); Mean Platelet Volume 8.5; Monocytes # (A) 0.3 k/uL (0-1.0); Monocytes % (A) 4 %; Neutrophils % (A) 74 %; Platelet Count 211 k/uL (150-450); RDW 13.1 % (11.5-15.5); WBC 6.7 k/uL (3.8-10.6)
[2018-05-13 09:05] LABS: Albumin 4.4 g/dL (3.5-5.0); Calcium 9.7 mg/dL (8.4-10.2); Magnesium 1.9 mg/dL (1.6-2.3); Potassium 4.5 mmol/L (3.5-5.1); Total Bilirubin 0.8 mg/dL (0.2-1.3)
[2018-05-13 09:07] LABS: INR 0.9 (<1.2); Prothrombin Time 9.9 sec (9.0-12.0)
[2018-05-13 09:10] VITALS: PULSE 50
[2018-05-13 09:24] LABS: Creatine Kinase 92 U/L (30-135)
[2018-05-13 09:35] LABS: Creatine Kinase MB 1.1 ng/mL (0.0-2.4); Troponin I <0.012 ng/mL (0.000-0.034)
[2018-05-13 10:07] VITALS: BP 101/50; RESP 18; TEMP 98.3
== END 2018-05-13 10:08 | disposition home or self-care (01) ==
LOC: EC 07:31
DX: R07.89 Other chest pain (principal); R00.2 Palpitations; R20.2 Paresthesia of skin; E78.5 Hyperlipidemia, unspecified; I10 Essential (primary) hypertension; Z95.818 Presence of other cardiac implants and grafts; Z87.891 Personal history of nicotine dependence; Z79.899 Other long term (current) drug therapy
CPT/HCPCS: 36415; 71046; 80053; 82550; 82553; 83690; 83735; 83880; 84484; 85025; 85610; 85730; 93005; 99285

== ENCOUNTER → 2018-05-27 | Outpatient (CLI) | payer BC ==
--- NOTE | 2018-05-27 17:27 | NM ---
Nuclear medicine hepatobiliary scan. HISTORY: Pain. DOSAGE: The patient received 8 ounces of ensure plus and 0.4 mCi of Technetium 99m Choletec. FINDINGS: There is normal hepatic extraction. The gallbladder is seen by 25 minutes. There is bilia ry to bowel clearance by 30 minutes. Ejection fraction is 72%. IMPRESSION: 1. Normal hepatobiliary exam
== END | disposition home or self-care (01) ==
LOC: RADNMMAIN 14:47
PROVIDERS: ATTEND Family Medicine
DX: R10.9 Unspecified abdominal pain (principal)
CPT/HCPCS: 78226; A9537

== ENCOUNTER → 2018-09-13 | Outpatient (CLI) | payer BC ==
[2018-09-13 06:55] LABS: African American GFR (CKD) >90 (>60 ml/min/1.73 sqM); Blood Urea Nitrogen 24 mg/dL (7-17)
--- NOTE | 2018-09-13 09:24 | CT ---
EXAMINATION TYPE: CT angio chest DATE OF EXAM: 09/13/2018 COMPARISON: CTA chest May 06, 2018. HISTORY: Thoracic Aortic Aneurysm CT DLP: 543.1 mGycm. Automated Exposure Control for Dose Reduction was Utilized. CONTRAST: CTA scan of the thorax is performed with IV Contrast, patient injected with 100 mL of Isovue 370, pul monary embolism protocol. Three-D reconstructed images are created on independent workstation and rev iewed. FINDINGS: LUNGS: Slightly suboptimal due to respiratory motion artifact degradation limiting evaluation for sub centimeter nodularity. The lungs are grossly clear, there is no concerning parenchymal mass or nodule identified. There is no pleural effusion or pneumothorax seen. The tracheobronchial tree is paten t. MEDIASTINUM: There is satisfactory enhancement of the central pulmonary arteries. Main pulmonary chelly ry measures 2.6 cm at bifurcation axial image 17. Adjacent ascending aorta measures up to 3.6 cm in d iameter on same image. There are stable prominent but felt subcentimeter prevascular lymph nodes axi al image 15. No significant pericardial effusion is seen. Stable mild cardiomegaly. OTHER: Low dense thickening to left adrenal gland is consistent with benign lipid rich hyperplasia. M oderate multilevel spurring in the thoracic spine is present. IMPRESSION: Stable ectasia of the ascending aorta up to 3.6 cm.
== END | disposition home or self-care (01) ==
LOC: RADCTMAIN 06:13
PROVIDERS: ATTEND Family Medicine
DX: I71.2 Thoracic aortic aneurysm, without rupture (principal); R73.01 Impaired fasting glucose
CPT/HCPCS: 82565; 84520; 71275; 36415; Q9967

== ENCOUNTER → 2018-09-30 | Outpatient (CLI) | payer BC ==
[2018-09-30 15:52] LABS: African American GFR (CKD) 93.5 (60.0-200.0); Albumin 4.3 g/dL (3.80-4.90); Albumin/Globulin Ratio 2.39 (1.60-3.17); Anion Gap 7.7 mmol/L (4.00-12.00); BUN/Creat Ratio 28.75 Ratio (12.00-20.00); Calcium 9.6 mg/dL (8.7-10.3); Carbon Dioxide 27.3 mmol/L (21.6-31.8); Globulin 1.8 g/dL (1.6-3.3); Potassium 4.3 mmol/L (3.5-5.5); Total Bilirubin 0.9 mg/dL (0.2-1.2); Total Protein 6.1 g/dL (6.2-8.2)
[2018-09-30 16:46] LABS: Hemoglobin A1C 5.6 % (4.0-6.0)
== END | disposition home or self-care (01) ==
LOC: LABWHC1 09:34
PROVIDERS: ATTEND Family Medicine
DX: E78.5 Hyperlipidemia, unspecified (principal); E28.2 Polycystic ovarian syndrome
CPT/HCPCS: 36415; 80053; 80061; 83036; 83525

== ENCOUNTER 2018-12-04 07:55 | Emergency (ER) | payer BC ==
[2018-12-04 08:02] VITALS: RESP 18
--- NOTE | 2018-12-04 08:21 | ED ---
General Adult HPI - General Chief complaint: Arrhythmia/Palpitations Stated complaint: racing heart Time Seen by Provider: 12/04/18 08:02 Source: patient, RN notes reviewed Mode of arrival: wheelchair Limitations: no limitations - History of Present Illness Initial comments: Patient is a pleasant 57-year-old female presenting to the emergency Department with complaints of palpitations. Onset of symptoms was last night. Patient has had several episodes. Patient is currently symptom-free. Patient does have a history of similar episodes 2 or 3 times previously. Patient has had Holter monitor that has not identified any arrhythmia. No chest pain. No dyspnea. Patient describes palpitations as racing. - Related Data Home Medications Medication Instructions Recorded Confirmed Atorvastatin Calcium [Lipitor] 40 mg PO HS 05/11/16 12/04/18 Calcium Carbonate [Calcium] 2,000 mg PO DAILY 05/11/16 12/04/18 Ferrous Sulfate [Iron (65 MG 325 mg PO DAILY 05/11/16 12/04/18 Elemental)] Magnesium 400 mg PO DAILY 05/11/16 12/04/18 Spironolact/Hydrochlorothiazid 1 tab PO DAILY 05/11/16 12/04/18 [Aldactazide 25-25 MG] Fluticasone Nasal [place] [Flonase 2 spr EA NOSTRIL DAILY 11/12/17 12/04/18 Nasal [place]] Lisinopril [Zestril] 10 mg PO HS 11/12/17 12/04/18 Ascorbic Acid [Vitamin C] 500 mg PO DAILY 12/04/18 12/04/18 Previous Rx's Medication Instructions Recorded Aspirin 81 mg PO DAILY chew 08/31/17 Metoprolol Tartrate [Lopressor] 25 mg PO BID #60 tab 08/31/17 Allergies Allergy/AdvReac Type Severity Reaction Status Date / Time No Known Allergies Allergy Verified 12/04/18 08:32 Review of Systems ROS Statement: Those systems with pertinent positive or pertinent negative responses have been documented in the HPI. ROS Other: All systems not noted in ROS Statement are negative. Constitutional: Denies: fever Eyes: Denies: eye pain ENT: Denies: ear pain Respiratory: Denies: cough, dyspnea Cardiovascular: Reports: palpitations. 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, fatty liver, diet controlled diabetic History of Any Multi-Drug Resistant Organisms: None Reported Past Surgical History: Breast Surgery, Heart Catheterization, Orthopedic Surgery Additional Past Surgical History / Comment(s): rt Breast biopsy, broken Finger, colonoscopy, dental Past Anesthesia/Blood Transfusion Reactions: No Reported Reaction, Motion Sickness Past Psychological History: No Psychological Hx Reported Smoking Status: Former smoker Past Alcohol Use History: None Reported Past Drug Use History: None Reported - Past Family History Father Family Medical History: Deep Vein Thrombosis (DVT) Additional Family Medical History / Comment(s): Had leukemia and "heart issues" Mother Additional Family Medical History / Comment(s): Mother of an infection at the age of 89yrs. General Exam Limitations: no limitations General appearance: alert, in no apparent distress Head exam: Present: atraumatic Eye exam: Present: normal appearance Neck exam: Present: normal inspection Respiratory exam: Present: normal lung sounds bilaterally Cardiovascular Exam: Present: regular rate, normal rhythm, normal heart sounds. Absent: irregular rhythm Expanded Peripheral pulses: 2+: Radial (R), Radial (L), Posterior Tibialis (R), Posterior Tibialis (L) GI/Abdominal exam: Present: soft. Absent: tenderness Extremities exam: Present: normal inspection. Absent: pedal edema, calf tenderness Neurological exam: Present: alert Psychiatric exam: Present: normal affect, normal mood Skin exam: Present: normal color Course Vital Signs 12/04/18 12/04/18 12/04/18 07:58 08:28 08:30 Temperature 98.5 F Pulse Rate 61 52 L Pulse Rate [ 54 L Wet Process Head [place] ] Respiratory 18 18 Rate Blood Pressure 125/78 96/70 O2 Sat by Pulse 97 98 Oximetry EKG Findings - EKG Comments: EKG Findings:: Normal sinus rhythm 60. MN 184. QRS 82. QT 420. QTc 420. Normal axis. Normal QRS. No acute ST change. Medical Decision Making - Medical Decision Making Patient reevaluated and resting comfortably in bed, symptom-free. Patient updated on results and need for follow-up. - Lab Data Result diagrams: 12/04/18 08:25 12/04/18 08:25 Lab Results 12/04/18 12/04/18 12/04/18 Range/Units 08:25 08:25 08:25 WBC 5.5 (3.8-10.6) k/uL RBC 4.66 (3.80-5.40) m/uL Hgb 14.1 (11.4-16.0) gm/dL Hct 42.9 (34.0-46.0) % MCV 92.1 (80.0-100.0) fL MCH 30.2 (25.0-35.0) pg MCHC 32.8 (31.0-37.0) g/dL RDW 14.5 (11.5-15.5) % Plt Count 185 (150-450) k/uL Neutrophils % 66 % Lymphocytes % 25 % Monocytes % 4 % Eosinophils % 4 % Basophils % 1 % Neutrophils # 3.6 (1.3-7.7) k/uL Lymphocytes # 1.3 (1.0-4.8) k/uL Monocytes # 0.2 (0-1.0) k/uL Eosinophils # 0.2 (0-0.7) k/uL Basophils # 0.0 (0-0.2) k/uL PT 9.9 (9.0-12.0) sec INR 0.9 (<1.2) APTT 24.8 (22.0-30.0) sec Sodium 139 (137-145) mmol/L Potassium 4.4 (3.5-5.1) mmol/L Chloride 104 (98-107) mmol/L Carbon Dioxide 26 (22-30) mmol/L Anion Gap 9 mmol/L BUN 23 H (7-17) mg/dL Creatinine 0.78 (0.52-1.04) mg/dL Est GFR (CKD-EPI)AfAm >90 (>60 ml/min/1.73 sqM) Est GFR (CKD-EPI)NonAf 84 (>60 ml/min/1.73 sqM) Glucose 111 H (74-99) mg/dL Calcium 9.2 (8.4-10.2) mg/dL Magnesium 2.0 (1.6-2.3) mg/dL Total Bilirubin 0.8 (0.2-1.3) mg/dL AST 22 (14-36) U/L ALT 24 (9-52) U/L Alkaline Phosphatase 59 (38-126) U/L Troponin I (0.000-0.034) ng/mL Total Protein 6.7 (6.3-8.2) g/dL Albumin 4.1 (3.5-5.0) g/dL TSH 1.620 (0.465-4.680) mIU/L Free T4 0.87 (0.78-2.19) ng/dL 12/04/18 Range/Units 08:25 WBC (3.8-10.6) k/uL RBC (3.80-5.40) m/uL Hgb (11.4-16.0) gm/dL Hct (34.0-46.0) % MCV (80.0-100.0) fL MCH (25.0-35.0) pg MCHC (31.0-37.0) g/dL RDW (11.5-15.5) % Plt Count (150-450) k/uL Neutrophils % % Lymphocytes % % Monocytes % % Eosinophils % % Basophils % % Neutrophils # (1.3-7.7) k/uL Lymphocytes # (1.0-4.8) k/uL Monocytes # (0-1.0) k/uL Eosinophils # (0-0.7) k/uL Basophils # (0-0.2) k/uL PT (9.0-12.0) sec INR (<1.2) APTT (22.0-30.0) sec Sodium (137-145) mmol/L Potassium (3.5-5.1) mmol/L Chloride (98-107) mmol/L Carbon Dioxide (22-30) mmol/L Anion Gap mmol/L BUN (7-17) mg/dL Creatinine (0.52-1.04) mg/dL Est GFR (CKD-EPI)AfAm (>60 ml/min/1.73 sqM) Est GFR (CKD-EPI)NonAf (>60 ml/min/1.73 sqM) Glucose (74-99) mg/dL Calcium (8.4-10.2) mg/dL Magnesium (1.6-2.3) mg/dL Total Bilirubin (0.2-1.3) mg/dL AST (14-36) U/L ALT (9-52) U/L Alkaline Phosphatase (38-126) U/L Troponin I <0.012 (0.000-0.034) ng/mL Total Protein (6.3-8.2) g/dL Albumin (3.5-5.0) g/dL TSH (0.465-4.680) mIU/L Free T4 (0.78-2.19) ng/dL - Radiology Data Radiology results: image reviewed (Chest x-ray shows no acute process) Disposition Clinical Impression: Palpitations Disposition: HOME SELF-CARE Condition: Stable Instructions (If sedation given, give patient instructions): Heart Palpitations (ED) Additional Instructions: Please follow-up with primary care physician in the next day or 2 for recheck. Return for increased heart rate, chest pain, difficulty breathing, worsening symptoms or other concerns. Please monitor your heart rate. Is patient prescribed a controlled substance at d/c from ED?: No Referrals: Cade Elliott MD [Primary Care Provider] - 1-2 days Time of Disposition: 10:01
[2018-12-04 08:40] LABS: Basophils % (A) 1 %; Eosinophils # (A) 0.2 k/uL (0-0.7); Eosinophils % (A) 4 %; HCT 42.9 % (34.0-46.0); HGB 14.1 gm/dL (11.4-16.0); Lymphocytes # (A) 1.3 k/uL (1.0-4.8); Lymphocytes % (A) 25 %; MCH 30.2 pg (25.0-35.0); MCHC 32.8 g/dL (31.0-37.0); MCV 92.1 fL (80.0-100.0); Mean Platelet Volume 8.3; Monocytes # (A) 0.2 k/uL (0-1.0); Monocytes % (A) 4 %; Neutrophils # (A) 3.6 k/uL (1.3-7.7); Neutrophils % (A) 66 %; Platelet Count 185 k/uL (150-450); RBC 4.66 m/uL (3.80-5.40); RDW 14.5 % (11.5-15.5); WBC 5.5 k/uL (3.8-10.6)
[2018-12-04 08:47] LABS: INR 0.9 (<1.2); Partial Thromboplastin Time 24.8 sec (22.0-30.0); Prothrombin Time 9.9 sec (9.0-12.0)
[2018-12-04 08:50] LABS: ALT 24 U/L (9-52); AST 22 U/L (14-36); African American GFR (CKD) >90 (>60 ml/min/1.73 sqM); Albumin 4.1 g/dL (3.5-5.0); Alkaline Phosphatase 59 U/L (38-126); Anion Gap 9 mmol/L; Blood Urea Nitrogen 23 mg/dL (7-17); Calcium 9.2 mg/dL (8.4-10.2); Carbon Dioxide 26 mmol/L (22-30); Chloride 104 mmol/L (98-107); Glucose 111 mg/dL (74-99); Potassium 4.4 mmol/L (3.5-5.1); Sodium 139 mmol/L (137-145); Total Bilirubin 0.8 mg/dL (0.2-1.3); Total Protein 6.7 g/dL (6.3-8.2)
[2018-12-04 09:06] LABS: T4, Free (Free Thyroxine) 0.87 ng/dL (0.78-2.19)
--- NOTE | 2018-12-04 09:43 | XR ---
EXAMINATION TYPE: XR chest 1V portable DATE OF EXAM: 12/04/2018 COMPARISON: Chest radiograph 05/13/2018 HISTORY: Dysrhythmia TECHNIQUE: Single frontal view of the chest is obtained. FINDINGS: Mildly enlarged cardiac silhouette. No pulmonary vascular congestion. No focal airspace op acification. No sizable pleural effusion or discrete pneumothorax. Osseous structures are intact. IMPRESSION: No acute process.
[2018-12-04 10:08] VITALS: BP 116/66; PULSE 53; TEMP 98
== END 2018-12-04 10:06 | disposition home or self-care (01) ==
LOC: EC 07:55
DX: R00.2 Palpitations (principal); R00.0 Tachycardia, unspecified; E78.5 Hyperlipidemia, unspecified; E11.9 Type 2 diabetes mellitus without complications; I10 Essential (primary) hypertension; Z79.899 Other long term (current) drug therapy; Z95.5 Presence of coronary angioplasty implant and graft; Z87.891 Personal history of nicotine dependence; Z87.19 Personal history of other diseases of the digestive system
CPT/HCPCS: 36415; 71045; 80053; 83735; 84439; 84443; 84481; 84484; 85025; 85610; 85730; 99285

== ENCOUNTER 2018-12-09 08:20 | Emergency (ER) | payer BC ==
[2018-12-09 08:29] VITALS: RESP 18; TEMP 97.8
--- NOTE | 2018-12-09 08:37 | ED ---
General Adult HPI - General Chief complaint: Recheck/Abnormal Lab/Rx Stated complaint: CHEST PAIN Time Seen by Provider: 12/09/18 08:25 Source: patient, RN notes reviewed Mode of arrival: ambulatory Limitations: no limitations - History of Present Illness Initial comments: This is a 57-year-old female who presents to the emergency department with a past medical history significant for diabetes hypertension high cholesterol. Patient states she was recently in the emergency department a week ago for palpitations and she was told to return if anything was different. Patient states she woke up this morning had a little tingling in her right arm and because of that she came into the emergency department. Patient states that tingling is always gone away completely. Patient denies any loss of sensation or any weakness in the arm or hand. Patient states she's had no chest pain no palpitations no difficulty breathing. Patient denies any diaphoresis. Patient denies any nausea or vomiting. Patient states she just wanted to be checked out hopefully she can go home quickly. Patient denies any leg swelling or calf tenderness. Patient denies any recent injury or trauma. - Related Data Home Medications Medication Instructions Recorded Confirmed Atorvastatin Calcium [Lipitor] 40 mg PO HS 05/11/16 12/09/18 Ferrous Sulfate [Iron (65 MG 325 mg PO DAILY 05/11/16 12/09/18 Elemental)] Magnesium 400 mg PO DAILY 05/11/16 12/09/18 Spironolact/Hydrochlorothiazid 1 tab PO DAILY 05/11/16 12/09/18 [Aldactazide 25-25 MG] Fluticasone Nasal [place] [Flonase 2 spr EA NOSTRIL DAILY 11/12/17 12/09/18 Nasal [place]] Lisinopril [Zestril] 10 mg PO HS 11/12/17 12/09/18 Ascorbic Acid [Vitamin C] 500 mg PO DAILY 12/04/18 12/09/18 Calcium Carbonate 2,000 mg PO DAILY 12/09/18 12/09/18 Previous Rx's Medication Instructions Recorded Aspirin 81 mg PO DAILY chew 08/31/17 Metoprolol Tartrate [Lopressor] 25 mg PO BID #60 tab 08/31/17 Allergies Allergy/AdvReac Type Severity Reaction Status Date / Time No Known Allergies Allergy Verified 12/09/18 08:57 Review of Systems ROS Statement: Those systems with pertinent positive or pertinent negative responses have been documented in the HPI. ROS Other: All systems not noted in ROS Statement are negative. 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, fatty liver, diet controlled diabetic History of Any Multi-Drug Resistant Organisms: None Reported Past Surgical History: Breast Surgery, Heart Catheterization, Orthopedic Surgery Additional Past Surgical History / Comment(s): rt Breast biopsy, broken Finger, colonoscopy, dental Past Anesthesia/Blood Transfusion Reactions: No Reported Reaction, Motion Sickness Past Psychological History: No Psychological Hx Reported Smoking Status: Former smoker Past Alcohol Use History: None Reported Past Drug Use History: None Reported - Past Family History Father Family Medical History: Deep Vein Thrombosis (DVT) Additional Family Medical History / Comment(s): Had leukemia and "heart issues" Mother Additional Family Medical History / Comment(s): Mother of an infection at the age of 89yrs. General Exam - General Exam Comments Initial Comments: GENERAL: Patient is well-developed and well-nourished. Patient is nontoxic and well- hydrated and is in no acute distress. ENT: Neck is soft and supple. No significant lymphadenopathy is noted. Oropharynx is clear. Moist mucous membranes. Neck has full range of motion without eliciting any pain. EYES: The sclera were anicteric and conjunctiva were pink and moist. Extraocular movements were intact and pupils were equal round and reactive to light. Eyelids were unremarkable. PULMONARY: Unlabored respirations. Good breath sounds bilaterally. No audible rales rhonchi or wheezing was noted. CARDIOVASCULAR: Patient is bradycardic and regular at about 50 beats a minute ABDOMEN: Soft and nontender with normal bowel sounds. SKIN: Skin is clear with no lesions or rashes and otherwise unremarkable. NEUROLOGIC: Patient is alert and oriented x3. Cranial nerves II through XII are grossly intact. Motor and sensory are also intact. Normal speech, volume and content. Symmetrical smile. MUSCULOSKELETAL: Normal extremities with adequate strength and full range of motion. LYMPHATICS: No significant lymphadenopathy is noted PSYCHIATRIC: Patient appears mildly anxious Limitations: no limitations Course Vital Signs 12/09/18 12/09/18 08:25 08:59 Temperature 97.8 F Pulse Rate 54 L 50 L Respiratory 18 18 Rate Blood Pressure 140/83 113/75 O2 Sat by Pulse 99 96 Oximetry Medical Decision Making - Medical Decision Making EKG shows sinus bradycardia at 48 bpm TX interval is 218 QRS is 96 QT interval is 448 QTC is 400. Patient's EKG shows no ST segment elevation or depression or T wave abnormalities are noted. I went back into the room and reevaluated the patient she stated her symptoms had completely resolved. Patient states she always has a slow heart beat. Disposition Clinical Impression: Paresthesias, Anxiety Disposition: HOME SELF-CARE Condition: Good Instructions (If sedation given, give patient instructions): Paresthesia (ED) Is patient prescribed a controlled substance at d/c from ED?: No Referrals: Cade Elliott MD [Primary Care Provider] - 1-2 days Time of Disposition: 08:59
[2018-12-09 09:00] VITALS: BP 113/75; PULSE 50
== END 2018-12-09 09:35 | disposition home or self-care (01) ==
LOC: EC 08:20
DX: F41.9 Anxiety disorder, unspecified (principal); R20.2 Paresthesia of skin; R00.1 Bradycardia, unspecified; E11.9 Type 2 diabetes mellitus without complications; E78.00 Pure hypercholesterolemia, unspecified; E78.5 Hyperlipidemia, unspecified; I10 Essential (primary) hypertension; Z87.891 Personal history of nicotine dependence; Z79.51 Long term (current) use of inhaled steroids; Z79.899 Other long term (current) drug therapy; Z86.79 Personal history of other diseases of the circulatory system; Z95.818 Presence of other cardiac implants and grafts; Z82.49 Family history of ischemic heart disease and other diseases of the circulatory system
CPT/HCPCS: 93005; 99284

== ENCOUNTER → 2018-12-16 | Outpatient (CLI) | payer BC ==
[~2018-12-16] MED LIST changes: -LACTATED RINGERS 1,000 ML IV SCH; -LIDOCAINE 1% 20 ML VIAL (10MG/ML) FOR IV START INTRADERMA PRN; +REGADENOSON 0.4 MG/5 ML SYRINGE IV ONE
--- NOTE | 2018-12-16 12:53 | EST ---
EXERCISE STRESS AGE: 57 SEX: F HT: 5'3" WT: 228 PROTOCOL: Lexiscan Cardiolite Stress Test HEART RATE REST: 52 BLOOD PRESSURE REST: 119/62 MAXIMUM HEART RATE ACHIEVED: 78 MAXIMUM BLOOD PRESSURE: 119/62 85% MPHR: 137 100% MPHR: 161 INDICATIONS: Chest pain, dyspnea. CLINICAL INFORMATION: Heart rate 52, pressure is 119/62 mmHg. Baseline EKG showed sinus mechanism with sinus bradycardia, 0.4 mg of Lexiscan given per protocol. Max heart rate was 78 and max pressure was 119/62. Clinically, the patient did not have any symptoms and the EKG did not show any significant ST or T-wave abnormalities concerning for ischemia. CONCLUSION: 1. Nondiagnostic electrocardiogram stress testing in response to Lexiscan. 2. Please follow up on the Cardiolite portion on a separate report. MMODL / IJN: [id number] /
--- NOTE | 2018-12-16 13:22 | NM ---
EXAMINATION TYPE: NM stress lexiscan cardiolite DATE OF EXAM: 12/16/2018 COMPARISON: NONE HISTORY: Dyspnea TECHNIQUE: After the intravenous administration of 10.5 mCi Tc 99m Sestamibi - Cardiolite resting SP ECT images acquired 45 minutes post injection. The patient received 0.4mg Lexiscan, 26.6 mCi Tc 99m Sestamibi - Stress images obtained [address] injection FINDINGS: Review of stress and rest SPECT images demonstrates no focal reversible perfusion abnormality. Subopt imal radiotracer uptake on rest imaging multiple artifactual defects present that are not seen on str ess imaging in the anterolateral wall and septal wall. Mild septal wall defect in the base is seen on both stress and rest imaging although no dyskinesis is seen of the septal wall, therefore findings a re also artifactual. Gated analysis shows normal wall motion with an estimated left ventricular eject ion fraction of 55 %. TID is mildly elevated at 1.25. IMPRESSION: 1. Mildly elevated TID of 1.25, which can be seen in balanced 3 vessel ischemia or cardiomyopathy. 2. Estimated left ventricular ejection fraction of 55%.
== END | disposition home or self-care (01) ==
LOC: RADNMMAIN 08:35
PROVIDERS: ATTEND Nurse Practitioner Family
DX: R94.39 Abnormal result of other cardiovascular function study (principal); R06.09 Other forms of dyspnea
CPT/HCPCS: 93017; 78452; A9500; J2785

== ENCOUNTER → 2018-12-23 | Outpatient (CLI) | payer BC ==
[2018-12-23 09:24] LABS: Basophils % (A) 1 %; Eosinophils # (A) 0.2 k/uL (0-0.7); Eosinophils % (A) 4 %; HCT 42.9 % (34.0-46.0); HGB 14.6 gm/dL (11.4-16.0); Lymphocytes # (A) 1.7 k/uL (1.0-4.8); Lymphocytes % (A) 29 %; MCH 31.5 pg (25.0-35.0); MCHC 33.9 g/dL (31.0-37.0); MCV 92.7 fL (80.0-100.0); Monocytes # (A) 0.2 k/uL (0-1.0); Monocytes % (A) 4 %; Neutrophils # (A) 3.6 k/uL (1.3-7.7); Neutrophils % (A) 61 %; Platelet Count 192 k/uL (150-450); RBC 4.63 m/uL (3.80-5.40); RDW 12.9 % (11.5-15.5); WBC 5.8 k/uL (3.8-10.6)
[2018-12-23 17:07] LABS: African American GFR (CKD) 109.9 (60.0-200.0); Albumin 4.3 g/dL (3.80-4.90); Albumin/Globulin Ratio 2.26 (1.60-3.17); Anion Gap 10.6 mmol/L (4.00-12.00); Calcium 9.3 mg/dL (8.7-10.3); Carbon Dioxide 27.4 mmol/L (21.6-31.8); Chol/HDL Ratio 2.97; Globulin 1.9 g/dL (1.6-3.3); LDL Cholesterol,Calculated 55.4 mg/dL (0.0-131.0); Potassium 4.2 mmol/L (3.5-5.5); Total Bilirubin 0.7 mg/dL (0.2-1.2); Total Protein 6.2 g/dL (6.2-8.2); VLDL Calculation 13.6 mg/dL (5.00-40.00)
[2018-12-23 18:51] LABS: Hemoglobin A1C 5.5 % (4.0-6.0)
== END | disposition home or self-care (01) ==
LOC: LABWHC1 08:18
PROVIDERS: ATTEND Family Medicine
DX: I10 Essential (primary) hypertension (principal); E78.5 Hyperlipidemia, unspecified; R73.01 Impaired fasting glucose
CPT/HCPCS: 36415; 80053; 80061; 83036; 83525; 84439; 84443; 85025

== ENCOUNTER 2019-01-01 23:03 | Observation (INO) | payer BC ==
--- NOTE | 2019-01-01 23:25 | ED ---
Chest Pain HPI - General Chief Complaint: Chest Pain Stated Complaint: Chest Pain Time Seen by Provider: 01/01/19 23:24 Source: patient, family, RN notes reviewed, old records reviewed Mode of arrival: wheelchair Limitations: no limitations - History of Present Illness Initial Comments: This is a 4-year-old female the ER for evaluation chest pain history of high blood pressure cholesterol diabetes coming in with chest pain today. Patient also had a recent stress test on admission which may have been abnormal. Patient states she was driving home and started having chest pain right-sided chest pain right-sided back pain anterior epigastric chest pain. Some tingling in is not feeling overall well. Patient states she is feeling better denying an y shortness of breath no diaphoresis during the event. No recent cough congestion, no recent travel history no known sick contacts. Patient was at a alliance party tonight had no symptoms throughout the alliance party. Patient's symptoms started she was driving home MD Complaint: chest pain -: minutes(s) Onset: during rest Pain Location: right chest Pain Radiation: none Severity: mild Severity scale (1-10): 3 Quality: tightness, heaviness Consistency: intermittent Improves With: nothing Worsens With: nothing Other Symptoms: palpitations Treatments Prior to Arrival: none - Related Data Home Medications Medication Instructions Recorded Confirmed Atorvastatin Calcium [Lipitor] 40 mg PO HS 05/11/16 01/01/19 Ferrous Sulfate [Iron (65 MG 325 mg PO DAILY 05/11/16 01/01/19 Elemental)] Magnesium 400 mg PO DAILY 05/11/16 01/01/19 Spironolact/Hydrochlorothiazid 1 tab PO DAILY 05/11/16 01/01/19 [Aldactazide 25-25 MG] Fluticasone Nasal [place] [Flonase 2 spr EA NOSTRIL DAILY 11/12/17 01/01/19 Nasal [place]] Lisinopril [Zestril] 10 mg PO HS 11/12/17 01/01/19 Ascorbic Acid [Vitamin C] 500 mg PO DAILY 12/04/18 01/01/19 Calcium Carbonate 2,000 mg PO DAILY 12/09/18 01/01/19 Cholecalciferol (Vitamin D3) 2,000 unit PO DAILY 01/01/19 01/01/19 [Vitamin D3] Fish Oil/Dha/Epa [Fish Oil 1,200 1 cap PO DAILY 01/01/19 01/01/19 mg Fish Oil] Previous Rx's Medication Instructions Recorded Aspirin 81 mg PO DAILY chew 08/31/17 Metoprolol Tartrate [Lopressor] 25 mg PO BID #60 tab 08/31/17 Allergies Allergy/AdvReac Type Severity Reaction Status Date / Time No Known Allergies Allergy Verified 01/01/19 23:40 Review of Systems ROS Statement: Those systems with pertinent positive or pertinent negative responses have been documented in the HPI. ROS Other: All systems not noted in ROS Statement are negative. 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, fatty liver, diet controlled diabetic History of Any Multi-Drug Resistant Organisms: None Reported Past Surgical History: Breast Surgery, Heart Catheterization, Orthopedic Surgery Additional Past Surgical History / Comment(s): rt Breast biopsy, broken Finger, colonoscopy, dental Past Anesthesia/Blood Transfusion Reactions: No Reported Reaction, Motion Sickness Past Psychological History: No Psychological Hx Reported Smoking Status: Former smoker Past Alcohol Use History: None Reported Past Drug Use History: None Reported - Past Family History Father Family Medical History: Deep Vein Thrombosis (DVT) Additional Family Medical History / Comment(s): Had leukemia and "heart issues" Mother Additional Family Medical History / Comment(s): Mother of an infection at the age of 89yrs. General Exam Limitations: no limitations General appearance: alert, in no apparent distress Head exam: Present: atraumatic, normocephalic, normal inspection Eye exam: Present: normal appearance, EOMI. Absent: scleral icterus, conjunctival injection, periorbital swelling ENT exam: Present: normal exam, mucous membranes moist Neck exam: Present: normal inspection. Absent: tenderness, meningismus, lymphadenopathy Respiratory exam: Present: normal lung sounds bilaterally. Absent: respiratory distress, wheezes, rales, rhonchi, stridor Cardiovascular Exam: Present: regular rate, normal rhythm, normal heart sounds. Absent: systolic murmur, diastolic murmur, rubs, gallop, clicks GI/Abdominal exam: Present: soft, normal bowel sounds. Absent: distended, tenderness, guarding, rebound, rigid Extremities exam: Present: normal inspection, full ROM, normal capillary refill. Absent: tenderness, pedal edema, joint swelling, calf tenderness Back exam: Present: normal inspection Neurological exam: Present: alert, oriented X3, CN II-XII intact Psychiatric exam: Present: normal affect, normal mood Skin exam: Present: warm, dry, intact, normal color. Absent: rash Course Vital Signs 01/01/19 23:11 Temperature 98.1 F Pulse Rate 63 Respiratory 20 Rate Blood Pressure 122/66 O2 Sat by Pulse 100 Oximetry - Reevaluation(s) Reevaluation #1: 01/02/19 00:21 Medical records reviewed Reevaluation #2: 01/02/19 00:31 Patient's in no acute distress no shortness of breath Chest Pain MDM - MDM 58-year-old female the ER for evaluation patient presents with severe chest pain. Patient be admitted for chest pain observation history of abnormal stress test Critical Care Time Critical Care Time: Yes Total Critical Care Time: 31 Disposition Clinical Impression: Chest pain Disposition: ADMITTED IP TO THIS HOSP Condition: Undetermined Instructions (If sedation given, give patient instructions): Chest Pain (ED) Is patient prescribed a controlled substance at d/c from ED?: No Referrals: Cade Elliott MD [Primary Care Provider] - 1-2 days
[2019-01-01] MEDS ORDERED: SODIUM CHLORIDE 0.9% 1,000 ML IV STA (23:31)
[2019-01-01 23:52] LABS: Basophils % (A) 1 %; Eosinophils # (A) 0.3 k/uL (0-0.7); Eosinophils % (A) 4 %; HCT 40.9 % (34.0-46.0); HGB 14.3 gm/dL (11.4-16.0); Lymphocytes # (A) 2.2 k/uL (1.0-4.8); Lymphocytes % (A) 27 %; MCH 31.2 pg (25.0-35.0); MCHC 34.8 g/dL (31.0-37.0); MCV 89.6 fL (80.0-100.0); Mean Platelet Volume 7.2; Monocytes # (A) 0.4 k/uL (0-1.0); Monocytes % (A) 4 %; Neutrophils # (A) 5.3 k/uL (1.3-7.7); Neutrophils % (A) 64 %; Platelet Count 198 k/uL (150-450); RBC 4.57 m/uL (3.80-5.40); RDW 12.8 % (11.5-15.5); WBC 8.3 k/uL (3.8-10.6)
[2019-01-02 00:01] LABS: INR 0.9 (<1.2); Partial Thromboplastin Time 23.7 sec (22.0-30.0); Prothrombin Time 9.7 sec (9.0-12.0)
[2019-01-02 00:04] LABS: ALT 22 U/L (9-52); AST 23 U/L (14-36); African American GFR (CKD) >90 (>60 ml/min/1.73 sqM); Albumin 4.1 g/dL (3.5-5.0); Alkaline Phosphatase 87 U/L (38-126); Anion Gap 11 mmol/L; Blood Urea Nitrogen 25 mg/dL (7-17); Calcium 9.1 mg/dL (8.4-10.2); Carbon Dioxide 25 mmol/L (22-30); Chloride 102 mmol/L (98-107); Creatine Kinase 120 U/L (30-135); Glucose 113 mg/dL (74-99); Potassium 3.9 mmol/L (3.5-5.1); Sodium 138 mmol/L (137-145); Total Bilirubin 0.3 mg/dL (0.2-1.3); Total Protein 6.7 g/dL (6.3-8.2)
[2019-01-02] MEDS ORDERED: NITROGLYCERIN SL TABS 0.4 MG TAB SUBLINGUAL PRN (00:27)
[2019-01-02] MEDS ORDERED: HEPARIN SODIUM,PORCINE 5,000 UNIT/ML 1 ML VIAL IV ONE (00:27)
[2019-01-02] MEDS ORDERED: HEPARIN SODIUM,PORCINE 5,000 UNIT/ML 1 ML VIAL IV PRN (00:27)
[2019-01-02] MEDS ORDERED: ASPIRIN 81 MG PO STA (00:27)
[2019-01-02] MEDS ORDERED: HEPARIN SOD,PORK IN 0.45% NACL 25,000 UNIT in 0.45% NACL 1 250ML.BAG IV SCH (00:30)
[2019-01-02] MEDS ORDERED: SODIUM CHLORIDE 0.9% 1,000 ML IV SCH (00:30)
--- NOTE | 2019-01-02 01:04 | CT ---
EXAMINATION TYPE: CT abdomen pelvis w con DATE OF EXAM: 01/02/2019 COMPARISON: 11/01/2017 HISTORY: abd pain CT DLP: 1014 mGycm Automated exposure control for dose reduction was used. TECHNIQUE: Helical acquisition of images was performed from the lung bases through the pelvis. CONTRAST: Performed and with IV Contrast, patient injected with 100 mL of Isovue 370. FINDINGS: Lung bases are clear. There is no pleural effusion. Heart is normal. Liver spleen pancreas appear normal. Bile ducts are not dilated. Gallbladder appears normal. Stomach appears normal. There is no adrenal mass. Kidneys show satisfactory contrast opacification. There is no hydronephrosi s. Ureters are not dilated. There is no retroperitoneal adenopathy. Bladder distends smoothly. There is no inguinal hernia. Uterus is anteverted. There is no free fluid in the pelvis. Appendix is not se en. There is no sign of thickened appendix. There is no mesenteric edema. There is no sign of a bowel obstruction. There is subcutaneous edema ov er the lumbar spine. There is no ascites or free air. Lumbar spine is intact. Bony pelvis appears int act. IMPRESSION: NEGATIVE CT SCAN OF THE ABDOMEN PELVIS. 9 MM LOW-DENSITY LEFT ADRENAL NODULE UNCHANGED.
--- NOTE | 2019-01-02 01:18 | CT ---
EXAMINATION TYPE: CT angio chest DATE OF EXAM: 01/02/2019 1:07 AM COMPARISON: 09/13/2018 HISTORY: abd pain SOB CT DLP: 1318.3 mGycm Automated exposure control for dose reduction was used. CONTRAST: CTA scan of the thorax is performed with IV Contrast, patient injected with 100 mL of Isovue 370, pul monary embolism protocol. There are 3-D post processed images.. FINDINGS: The lungs are clear of infiltrate. There is no evidence of a pulmonary mass. There is no pleural effu jose j. There are multiple enlarged or tracheal and anterior mediastinal lymph nodes that measure up to 1.5 cm. There are no hilar masses. There is no pleural effusion. I see no filling defects in the pulmonary arteries. Thoracic aorta appears intact without evidence of aneurysm or dissection. The bony thorax is intact. IMPRESSION: NO EVIDENCE OF PULMONARY EMBOLISM. MULTIPLE NONSPECIFIC MEDIASTINAL LYMPH NODES UNCHANGED COMPARED TO OLD EXAM. NO OTHER SIGNIFICANT ALENA NOPATHY SEEN.
[2019-01-02 02:49] VITALS: BMI 40.4
[2019-01-02 05:48] LABS: Platelet Count 178 k/uL (150-450)
[2019-01-02 07:15] VITALS: PULSE 66; RESP 18
[2019-01-02] MEDS ORDERED: DOBUTamine DRIP for NUC MED 500 MG in DEXTROSE/WATER 1 250ML.BAG IV ONE (08:00)
--- NOTE | 2019-01-02 08:13 | CONS ---
CONSULTATION Mrs. Quintero is a 58-year-old female with known history of hypertension, hyperlipidemia, who presented with tingling in the right arm, abdominal and lower chest discomfort while driving. Her symptoms were not associated with any other complaints. She is not very active physically but has no exertional chest discomfort or significant change in her breathing. She has no PND, orthopnea, or peripheral edema. She recently underwent a myocardial perfusion imaging that showed a transient ischemic dilatation and a question of 3 vessel disease. She was evaluated by Dr. Arana, who was planning to do a dobutamine stress echocardiogram because of the fact that the findings are most likely related to an artifact. The patient has no peripheral edema. No dizziness. She has occasional palpitation. No syncope. Her coronary risk factors are remarkable for hypertension, hyperlipidemia. She is nonsmoker, nondiabetic. MEDICATION: Her medications at home include aspirin 81 mg daily, Lipitor 40 mg daily, calcium carbonate, vitamin D, iron, fish oil, Flonase, lisinopril 10 mg daily, magnesium, metoprolol tartrate 25 mg twice a day, and Aldactazide 25/25 mg daily. REVIEW OF SYSTEMS: RESPIRATORY SYSTEM: She has no documented history of asthma, emphysema or bronchitis. GI SYSTEM: No recent GI bleed, no peptic ulcer disease. SYSTEM: No dysuria or hematuria. NERVOUS SYSTEM: No history of stroke or seizure. PHYSICAL EXAMINATION: She is a 58-year-old female, alert, oriented, in no apparent distress. Blood pressure 102/60 with a heart rate in the 60s. HEAD: Normocephalic. EYES: Sclerae nonicteric. NECK: Good upstroke, no bruit, no venous distention. LUNGS: Clear to auscultation. HEART: Regular rate and rhythm, S1, S2. No S3 with systolic murmur heard at the base. No diastolic murmur, no rub. ABDOMEN: Soft, nontender. Positive bowel sounds, no organomegaly. EXTREMITIES: No edema, intact pulses. LAB DATA: Revealed troponin less than 0.012. BUN and creatinine 25 and 0.73, potassium 3.9, hemoglobin 14.3. Chest CT angiogram revealed a no evidence of pulmonary embolism with nonspecific mediastinal lymph node changes. Her abdominal and pelvis CT revealed no evidence of significant abnormalities. EKG revealed a sinus mechanism, normal axis, intervals. No acute changes. IMPRESSION: 1. Chest discomfort atypical for ischemic heart disease 2 history of hypertension. 2. Hyperlipidemia recommendation I will stop the heparin. Proceed with dobutamine stress echocardiogram. The patient has a history of aortic aneurysm and has been followed at [facility] and has been stable. Depending on results of testing, further recommendation will be made. Thank you for this consult. Will follow with you.. OLIVIA / IJN: [id number] /
[2019-01-02] MEDS ORDERED: SPIRONOLACTONE-HCTZ 25-25MG 1 EACH TAB PO SCH (09:00)
[2019-01-02] MEDS ORDERED: METOPROLOL TARTRATE 25 MG TAB PO SCH (09:00)
[2019-01-02 11:58] VITALS: BP 118/56; TEMP 98.1
--- NOTE | 2019-01-02 12:09 | ECHOS ---
STRESS ECHOCARDIOGRAM INDICATIONS: Chest pain. BASELINE HEART RATE: 55 BASELINE BLOOD PRESSURE: 101/59 MAXIMUM HEART RATE: 136 MAXIMUM BLOOD PRESSURE: 131/61 85% MPHR: 136 100% MPHR: 160 MAXIMUM STAGE REACHED: 4 TOTAL EXERCISE TIME: 11:45 CLINICAL INFORMATION: Baseline rhythm sinus mechanism, rate 55, normal axis, intervals, normal echocardiogram. Baseline blood pressure 101/59 mmHg. Patient received an infusion of dobutamine per protocol, peak rate 136 beats per minute which is equal to 85% maximum predicted heart rate. Peak blood pressure 131/61 mmHg. Electrocardiograph monitoring revealed no evidence of diagnostic ischemic ST deviation, single PVCs and couplets were noted. FINDINGS: Baseline echocardiogram revealed normal wall thickening and motion. At peak infusion, there was normal wall thickening and augmentation without any hypokinesis or dyskinesis. CONCLUSION: 1. Normal echocardiograph response to dobutamine infusion with single premature ventricular contractions and couplets. 2. Normal stress echocardiogram with no evidence of stress-induced ischemia. MMODL / IJN: [id number] /
[2019-01-02] MEDS ORDERED: LISINOPRIL 10 MG TAB PO SCH (21:00)
[2019-01-02] MEDS ORDERED: ATORVASTATIN 40 MG TAB PO SCH (21:00)
--- NOTE | 2019-01-02 22:56 | P.HPIM ---
History of Present Illness H&P Date: 01/02/19 Chief Complaint: chest tightness history of presenting complaint: This is a very pleasant [address] bryant. Chronic stable medical conditions include hypertension, hyperlipidemia, diabetes. Yesterday was then had gone to spend time with a friend. She had pizza and some soda. It in the evening wishes coming home she just felt uptight tingling in the legs slight tightness in the chest. She felt it could be from her pizza. No dizziness no lightheadedness. No fever no chills. No cough. No radiation of the arm. Decided to come into the ER to get checked out. No prior cardiac history. Admitted for the same.put on telemetry. Review of systems: GEN.: [tirede] EYES: [None] HEENT: [None] NECK: [None] RESPIRATORY: [None] CARDIOVASCULAR: [as above] GASTROINTESTINAL: [None] GENITOURINARY: [None] MUSCULOSKELETAL: [None] LYMPHATICS: [None] HEMATOLOGICAL: [None] PSYCHIATRY: [slightly anxiouse] NEUROLOGICAL: [None Social history: Does not smoke. 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 No alcohol. Physical examination: VITAL SIGNS: [98.1, 63, 20, 122/66, 100% room air] GENERAL: [BMI 40.4, sitting up, awake]. EYES: [Pupils equal. Conjunctiva elias]l. HEENT: [External appearance of nose and ears normal, oral cavity grossly normal]. NECK: [JVD not raised; masses not palpable]. HEART: [First and second heart sounds are normal; no edema]. LUNGS:[ Respiratory rate normal; clear to auscultation]. ABDOMEN: [Soft, nontender, liver spleen not palpable, no masses palpable]. PSYCH: [Alert and oriented x3; mood and affect elias]l. NEUROLOGICAL: [Cranial nerves grossly intact; no facial asymmetry, power and sensation grossly intact]. LYMPHATICS: [No lymph nodes palpable in the axilla and neck] Investigations: -white count 8.3 hemoglobin 14.3 platelets 198 potassium 3.9 creatinine 0.73 EKG tracing personally reviewed by me-Normal sinus rhythm Chest CTA-negative for PE Assessment: -This is a patient was coming home following due to get together with a friend where she at Pizza , soda pop had no digital symptoms including chest tightness tingling in the arms tingling in the legs just unwell and rest. Plan is to get the cardiac cause ruled out. -Obesity BMI 40.4 -Diabetes mellitus type 2 -Essential hypertension -Hyperlipidemia Plan: serial cardiac enzymes are negative. Cardiology was consulted. They ordered stress test. ] Past Medical History Past Medical History: Hyperlipidemia, Hypertension, Liver Disease, Osteoarthritis (OA) Additional Past Medical History / Comment(s): Heart murmur, aneursym on the ascending aorta, fatty liver, diet controlled diabetic History of Any Multi-Drug Resistant Organisms: None Reported Past Surgical History: Breast Surgery, Heart Catheterization, Orthopedic Surgery Additional Past Surgical History / Comment(s): rt Breast biopsy, broken Finger, colonoscopy, dental Past Anesthesia/Blood Transfusion Reactions: No Reported Reaction, Motion Sickness Past Psychological History: No Psychological Hx Reported Additional Psychological History / Comment(s): Pt resides alone. She is independent. 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 Smoking Status: Former smoker Past Alcohol Use History: None Reported Additional Past Alcohol Use History / Comment(s): Pt started smoking as a teen and quit in 1987. Past Drug Use History: None Reported - Past Family History Father Family Medical History: Deep Vein Thrombosis (DVT) Additional Family Medical History / Comment(s): Had leukemia and "heart issues" Mother Additional Family Medical History / Comment(s): Mother of an infection at the age of 89yrs. Medications and Allergies Home Medications Medication Instructions Recorded Confirmed Type Atorvastatin Calcium [Lipitor] 40 mg PO HS 05/11/16 01/01/19 History Ferrous Sulfate [Iron (65 MG 325 mg PO DAILY 05/11/16 01/01/19 History Elemental)] Magnesium 400 mg PO DAILY 05/11/16 01/01/19 History Spironolact/Hydrochlorothiazid 1 tab PO DAILY 05/11/16 01/01/19 History [Aldactazide 25-25 MG] Aspirin 81 mg PO DAILY chew 08/31/17 01/01/19 Rx Metoprolol Tartrate [Lopressor] 25 mg PO BID #60 tab 08/31/17 01/01/19 Rx Fluticasone Nasal [place] [Flonase 2 spr EA NOSTRIL DAILY 11/12/17 01/01/19 History Nasal [place]] Lisinopril [Zestril] 10 mg PO HS 11/12/17 01/01/19 History Ascorbic Acid [Vitamin C] 500 mg PO DAILY 12/04/18 01/01/19 History Calcium Carbonate 2,000 mg PO DAILY 12/09/18 01/01/19 History Cholecalciferol (Vitamin D3) 2,000 unit PO DAILY 01/01/19 01/01/19 History [Vitamin D3] Fish Oil/Dha/Epa [Fish Oil 1,200 1 cap PO DAILY 01/01/19 01/01/19 History mg Fish Oil] Allergies Allergy/AdvReac Type Severity Reaction Status Date / Time No Known Allergies Allergy Verified 01/01/19 23:40 Physical Exam Vitals: Vital Signs Temp Pulse Pulse Resp BP BP BP 01/02/19 07:48 66 18 01/02/19 07:14 97.6 F 66 18 102/67 01/02/19 04:00 98.2 F 59 L 16 142/78 01/02/19 02:35 18 01/02/19 01:28 98.6 F 64 18 107/96 01/01/19 23:11 98.1 F 63 20 122/66 Pulse Ox 01/02/19 07:48 01/02/19 07:14 98 01/02/19 04:00 97 01/02/19 02:35 01/02/19 01:28 98 01/01/19 23:11 100 Intake and Output 01/01/19 01/02/19 01/02/19 22:59 06:59 14:59 Intake Total 45.299 Balance 45.299 Intake: Intake, IV Titration 45.299 Amount Heparin Sod,Pork in 0.45% 45.299 NaCl 25,000 unit In 0.45 % NaCl 1 250ml.bag @ 9 UNITS/KG/HR 9.308 mls/hr IV .Q24H [facility] Rx#: [id number] Other: Voiding Method Toilet # Voids 1 Weight 103.419 kg Results CBC & Chem 7: 01/02/19 05:29 01/01/19 23:41 Labs: Abnormal Lab Results - Last 24 Hours (Table) 01/01/19 01/02/19 Range/Units 23:41 05:29 APTT 43.4 H (22.0-30.0) sec BUN 25 H (7-17) mg/dL Glucose 113 H (74-99) mg/dL Thrombosis Risk Factor Assmnt - Choose All That Apply Any of the Below Risk Factors Present?: Yes Each Factor Represents 1 point: Acute [place], Age 41-60 years, Obesity (BMI >25) Other Risk Factors: No Other congenital or acquired thrombophilia - If yes, enter type in comment: No Thrombosis Risk Factor Assessment Total Risk Factor Score: 3 Thrombosis Risk Factor Assessment Level: Moderate Risk
--- NOTE | 2019-01-02 23:00 | P.DS ---
Providers Date of admission: 01/02/19 00:27 Expected date of discharge: 01/02/19 Attending physician: Jeff Junior Consults: 01/02/19 00:27 Consult Physician Urgent Consulting Provider: Carlos Simpson Consult Reason/Comments: cp Do you want consulting provider notified?: Yes Primary care physician: Cade Elliott [facility] Course: Chief Complaint: chest tightness Hospital course: This is a very pleasant [address] elliott. Chronic stable medical conditions include hypertension, hyperlipidemia, diabetes. Yesterday was then had gone to spend time with a friend. She had pizza and some soda. It in the evening wishes coming home she just felt uptight tingling in the legs slight tightness in the chest. She felt it could be from her pizza. No dizziness no lightheadedness. No fever no chills. No cough. No radiation of the arm. Decided to come into the ER to get checked out. No prior cardiac history. Admitted for the same.put on telemetry. patient presentation was felt to be rather atypical.dobutamine echocardiogram stress test was negative. Chest CT was negative for PE. Consultation: Dr. Simpson from cardiology Physical examination: VITAL SIGNS: [97.6, 66, 18, 1 or 2 x 6 27, 98% room air] GENERAL: [BMI 40.4, sitting up, awake]. EYES: [Pupils equal. Conjunctiva elias]l. HEENT: [External appearance of nose and ears normal, oral cavity grossly normal]. NECK: [JVD not raised; masses not palpable]. HEART: [First and second heart sounds are normal; no edema]. LUNGS:[ Respiratory rate normal; clear to auscultation]. ABDOMEN: [Soft, nontender, liver spleen not palpable, no masses palpable]. PSYCH: [Alert and oriented x3; mood and affect elias]l. Investigations: -white count 8.3 hemoglobin 14.3 platelets 198 potassium 3.9 creatinine 0.73 EKG tracing personally reviewed by me-Normal sinus rhythm Chest CTA-negative for PE stress test negative discharge diagnosis: -anterior chest wall tightness possibly GERD after eating pizza.. -Obesity BMI 40.4 -Diabetes mellitus type 2 -Essential hypertension -Hyperlipidemia disposition: Home ] Patient Condition at Discharge: Stable Plan - Discharge Summary Discharge Rx Participant: No New Discharge Prescriptions: Continue Spironolact/Hydrochlorothiazid [Aldactazide 25-25 MG] 1 tab PO DAILY Atorvastatin Calcium [Lipitor] 40 mg PO HS Ferrous Sulfate [Iron (65 MG Elemental)] 325 mg PO DAILY Magnesium 400 mg PO DAILY Aspirin 81 mg PO DAILY chew Metoprolol Tartrate [Lopressor] 25 mg PO BID #60 tab Lisinopril [Zestril] 10 mg PO HS Fluticasone Nasal [place] [Flonase Nasal [place]] 2 spr EA NOSTRIL DAILY Ascorbic Acid [Vitamin C] 500 mg PO DAILY Calcium Carbonate 2,000 mg PO DAILY Cholecalciferol (Vitamin D3) [Vitamin D3] 2,000 unit PO DAILY Fish Oil/Dha/Epa [Fish Oil 1,200 mg Fish Oil] 1 cap PO DAILY Discharge Medication List Atorvastatin Calcium [Lipitor] 40 mg PO HS 05/11/16 [History] Ferrous Sulfate [Iron (65 MG Elemental)] 325 mg PO DAILY 05/11/16 [History] Magnesium 400 mg PO DAILY 05/11/16 [History] Spironolact/Hydrochlorothiazid [Aldactazide 25-25 MG] 1 tab PO DAILY 05/11/16 [History] Aspirin 81 mg PO DAILY chew 08/31/17 [Rx] Metoprolol Tartrate [Lopressor] 25 mg PO BID #60 tab 08/31/17 [Rx] Fluticasone Nasal [place] [Flonase Nasal [place]] 2 spr EA NOSTRIL DAILY 11/12/17 [History] Lisinopril [Zestril] 10 mg PO HS 11/12/17 [History] Ascorbic Acid [Vitamin C] 500 mg PO DAILY 12/04/18 [History] Calcium Carbonate 2,000 mg PO DAILY 12/09/18 [History] Cholecalciferol (Vitamin D3) [Vitamin D3] 2,000 unit PO DAILY 01/01/19 [History] Fish Oil/Dha/Epa [Fish Oil 1,200 mg Fish Oil] 1 cap PO DAILY 01/01/19 [History] Follow up Appointment(s)/Referral(s): Cade Elliott MD [Primary Care Provider] - 1 Week Patient Instructions/Handouts: Chest Pain (ED) Discharge Disposition: HOME SELF-CARE
[2019-01-03] MEDS ORDERED: ASPIRIN 325 MG TAB PO SCH (09:00)
== END 2019-01-02 13:40 | disposition home or self-care (01) ==
LOC: EC 23:03 → 1SOBS 01-02 00:27
PROVIDERS: ADMIT Hospitalist; ATTEND Hospitalist
DX: R07.89 Other chest pain (principal); R00.2 Palpitations; E78.00 Pure hypercholesterolemia, unspecified; R10.13 Epigastric pain; M54.9 Dorsalgia, unspecified; R94.39 Abnormal result of other cardiovascular function study; R20.2 Paresthesia of skin; E11.9 Type 2 diabetes mellitus without complications; I10 Essential (primary) hypertension; E78.5 Hyperlipidemia, unspecified; E66.9 Obesity, unspecified; Z68.41 Body mass index [BMI] 40.0-44.9, adult; M19.90 Unspecified osteoarthritis, unspecified site; K76.0 Fatty (change of) liver, not elsewhere classified; R01.1 Cardiac murmur, unspecified; I71.2 Thoracic aortic aneurysm, without rupture; Z87.891 Personal history of nicotine dependence; Z79.899 Other long term (current) drug therapy; Z79.82 Long term (current) use of aspirin; Z80.6 Family history of leukemia; Z82.49 Family history of ischemic heart disease and other diseases of the circulatory system; Z83.2 Family history of diseases of the blood and blood-forming organs and certain disorders involving the immune mechanism; Z83.1 Family history of other infectious and parasitic diseases
CPT/HCPCS: 96366 ×2; 96376; 96365; 99291; 36415; 93005; 93351; 83880; 80053; 82550; 83690; 83735; 84484 ×2; 85025; 85049; 85610; 85730 ×2; 71275; 74177; G0378; J1250; J1644 ×2; Q9967

== ENCOUNTER → 2019-01-21 | Outpatient (CLI) | payer BC ==
--- NOTE | 2019-01-24 08:12 | MM ---
Reason for exam: screening (asymptomatic). Last mammogram was performed 1 year and 3 months ago. History: Patient is postmenopausal and is nulliparous. Family history of breast cancer in paternal aunt at age 70, breast cancer in maternal cousin at age 40, and breast cancer in maternal aunt at age 45. Benign right mammotome panel of the right breast, October 15, 2010. Took hormonal contraceptives for 5 years beginning at age 18. Physical Findings: A clinical breast exam by your physician is recommended on an annual basis and results should be correlated with mammographic findings. MG Screening Mammo w CAD Bilateral CC and MLO view(s) were taken. Prior study comparison: October 14, 2017, bilateral MG 3d screening mammo w/cad. September 13, 2015, bilateral MG screening mammo w CAD. There are scattered fibroglandular densities. There is chronic nodularity in the right breast. Scattered punctate calcifications are unchanged. No significant changes when compared with prior studies. ASSESSMENT: Benign, BI-RAD 2 RECOMMENDATION: Routine screening mammogram of both breasts in 1 year.
== END | disposition home or self-care (01) ==
LOC: RADMAMWWP 08:58
PROVIDERS: ATTEND Family Medicine
DX: Z12.31 Encounter for screening mammogram for malignant neoplasm of breast (principal)
CPT/HCPCS: 77067

== ENCOUNTER 2019-04-10 22:07 | Emergency (ER) | payer BC ==
[2019-04-10 23:08] LABS: Basophils # (A) 0.1 k/uL (0-0.2); Basophils % (A) 2 %; Eosinophils # (A) 0.3 k/uL (0-0.7); Eosinophils % (A) 5 %; HGB 14.4 gm/dL (11.4-16.0); Lymphocytes # (A) 2.3 k/uL (1.0-4.8); Lymphocytes % (A) 32 %; MCH 30.6 pg (25.0-35.0); MCHC 32.1 g/dL (31.0-37.0); MCV 95.5 fL (80.0-100.0); Mean Platelet Volume 8.7; Monocytes # (A) 0.4 k/uL (0-1.0); Monocytes % (A) 6 %; Neutrophils # (A) 3.9 k/uL (1.3-7.7); Neutrophils % (A) 54 %; Platelet Count 163 k/uL (150-450); RBC 4.71 m/uL (3.80-5.40); RDW 12.9 % (11.5-15.5); WBC 7.2 k/uL (3.8-10.6)
--- NOTE | 2019-04-10 23:08 | XR ---
EXAMINATION TYPE: XR chest 2V DATE OF EXAM: 04/10/2019 COMPARISON: NONE HISTORY: 12/04/2018 TECHNIQUE: 2 views FINDINGS: Heart is normal. Lungs are clear of consolidation. There are no hilar masses. Costophrenic angles are clear. There are chest leads. Bony thorax is intact. IMPRESSION: No active cardiopulmonary disease. Normal heart. No change.
[2019-04-10 23:12] LABS: Albumin 4.3 g/dL (3.5-5.0); Calcium 9.6 mg/dL (8.4-10.2); Magnesium 1.9 mg/dL (1.6-2.3); Potassium 4.2 mmol/L (3.5-5.1); Total Bilirubin 0.8 mg/dL (0.2-1.3); Total Protein 6.9 g/dL (6.3-8.2)
[2019-04-10 23:19] LABS: INR 0.9 (<1.2); Partial Thromboplastin Time 24.3 sec (22.0-30.0)
--- NOTE | 2019-04-10 23:34 | ED ---
General Adult HPI - General Chief complaint: Arrhythmia/Palpitations Stated complaint: chest pain Time Seen by Provider: 04/10/19 22:29 Source: patient Mode of arrival: ambulatory Limitations: no limitations - History of Present Illness Initial comments: This patient is a 58-year-old woman who complains of epigastric abdominal pain. She states that it had started this afternoon after she had climbed a ladder. The patient states that it was mainly epigastric though there was a substernal and also right upper quadrant component. She felt like it may have gone towards her right arm. The patient did not notice any worsening or relieving factors. The pain was an aching. It has resolved. Patient denies any associated symptoms. -: hour(s) Location: abdomen Radiation: non-radiation Quality: dull Consistency: now resolved Improves with: none Worsens with: none Associated Symptoms: denies other symptoms Treatments Prior to Arrival: none - Related Data Home Medications Medication Instructions Recorded Confirmed Atorvastatin Calcium [Lipitor] 40 mg PO HS 05/11/16 04/10/19 Ferrous Sulfate [Iron (65 MG 325 mg PO DAILY 05/11/16 04/10/19 Elemental)] Magnesium 400 mg PO DAILY 05/11/16 04/10/19 Spironolact/Hydrochlorothiazid 1 tab PO DAILY 05/11/16 04/10/19 [Aldactazide 25-25 MG] Fluticasone Nasal [place] [Flonase 1 spr EA NOSTRIL DAILY 11/12/17 04/10/19 Nasal [place]] Lisinopril [Zestril] 10 mg PO HS 11/12/17 04/10/19 Ascorbic Acid [Vitamin C] 500 mg PO DAILY 12/04/18 04/10/19 Calcium Carbonate 2,000 mg PO DAILY 12/09/18 04/10/19 Cholecalciferol (Vitamin D3) 2,000 unit PO DAILY 01/01/19 04/10/19 [Vitamin D3] Fish Oil/Dha/Epa [Fish Oil 1,200 1 cap PO DAILY 01/01/19 04/10/19 mg Fish Oil] Previous Rx's Medication Instructions Recorded Aspirin 81 mg PO DAILY chew 08/31/17 Metoprolol Tartrate [Lopressor] 25 mg PO BID #60 tab 08/31/17 Allergies Allergy/AdvReac Type Severity Reaction Status Date / Time No Known Allergies Allergy Verified 04/10/19 23:04 Review of Systems ROS Statement: Those systems with pertinent positive or pertinent negative responses have been documented in the HPI. ROS Other: All systems not noted in ROS Statement are negative. Constitutional: Denies: fever, chills Respiratory: Denies: cough, dyspnea Cardiovascular: Reports: as per HPI, chest pain. Denies: palpitations, orthopnea, edema, syncope Gastrointestinal: Reports: as per HPI, abdominal pain. Denies: nausea, v omiting, diarrhea Genitourinary: Denies: dysuria, hematuria Musculoskeletal: Denies: back pain Skin: Denies: rash Neurological: Denies: headache Past Medical History Past Medical History: Hyperlipidemia, Hypertension, Liver Disease, Osteoarthritis (OA) Additional Past Medical History / Comment(s): Heart murmur, aneursym on the ascending aorta, fatty liver, diet controlled diabetic History of Any Multi-Drug Resistant Organisms: None Reported Past Surgical History: Breast Surgery, Heart Catheterization, Orthopedic Surgery Additional Past Surgical History / Comment(s): rt Breast biopsy, broken Finger, colonoscopy, dental Past Anesthesia/Blood Transfusion Reactions: No Reported Reaction, Motion Sickness Past Psychological History: No Psychological Hx Reported Smoking Status: Former smoker Past Alcohol Use History: None Reported Past Drug Use History: None Reported - Past Family History Father Family Medical History: Deep Vein Thrombosis (DVT) Additional Family Medical History / Comment(s): Had leukemia and "heart issues" Mother Additional Family Medical History / Comment(s): Mother of an infection at the age of 89yrs. General Exam Limitations: no limitations General appearance: alert, in no apparent distress Head exam: Present: atraumatic, normocephalic Eye exam: Present: normal appearance. Absent: scleral icterus, conjunctival injection ENT exam: Present: normal oropharynx Neck exam: Present: normal inspection Respiratory exam: Present: normal lung sounds bilaterally. Absent: respiratory distress, wheezes, rales, rhonchi, stridor Cardiovascular Exam: Present: normal rhythm, bradycardia (Rate 56 at my exam), normal heart sounds. Absent: systolic murmur, diastolic murmur, rubs, gallop GI/Abdominal exam: Present: soft, tenderness (Mild epigastric tenderness. No rebound or guarding). Absent: distended, guarding, rebound, rigid, mass, pulsatile mass, hernia Extremities exam: Present: normal inspection, normal capillary refill. Absent: pedal edema, calf tenderness Back exam: Present: normal inspection. Absent: CVA tenderness (R), CVA tenderness (L) Neurological exam: Present: alert Skin exam: Present: warm, dry, intact, normal color. Absent: rash Course Vital Signs 04/10/19 04/10/19 04/11/19 22:10 23:53 01:02 Temperature 98.1 F 98.3 F Pulse Rate 50 L 54 L 63 Respiratory 16 18 17 Rate Blood Pressure 132/82 104/54 124/61 O2 Sat by Pulse 97 97 97 Oximetry Medical Decision Making - Lab Data Result diagrams: 04/10/19 22:30 04/10/19 22:30 Lab Results 04/10/19 04/10/19 04/10/19 Range/Units 22:30 22:30 22:30 WBC 7.2 (3.8-10.6) k/uL RBC 4.71 (3.80-5.40) m/uL Hgb 14.4 (11.4-16.0) gm/dL Hct 45.0 (34.0-46.0) % MCV 95.5 (80.0-100.0) fL MCH 30.6 (25.0-35.0) pg MCHC 32.1 (31.0-37.0) g/dL RDW 12.9 (11.5-15.5) % Plt Count 163 (150-450) k/uL Neutrophils % 54 % Lymphocytes % 32 % Monocytes % 6 % Eosinophils % 5 % Basophils % 2 % Neutrophils # 3.9 (1.3-7.7) k/uL Lymphocytes # 2.3 (1.0-4.8) k/uL Monocytes # 0.4 (0-1.0) k/uL Eosinophils # 0.3 (0-0.7) k/uL Basophils # 0.1 (0-0.2) k/uL PT 10.0 (9.0-12.0) sec INR 0.9 (<1.2) APTT 24.3 (22.0-30.0) sec Sodium 138 (137-145) mmol/L Potassium 4.2 (3.5-5.1) mmol/L Chloride 104 (98-107) mmol/L Carbon Dioxide 25 (22-30) mmol/L Anion Gap 9 mmol/L BUN 30 H (7-17) mg/dL Creatinine 0.93 (0.52-1.04) mg/dL Est GFR (CKD-EPI)AfAm 78 (>60 ml/min/1.73 sqM) Est GFR (CKD-EPI)NonAf 68 (>60 ml/min/1.73 sqM) Glucose 105 H (74-99) mg/dL Calcium 9.6 (8.4-10.2) mg/dL Magnesium 1.9 (1.6-2.3) mg/dL Total Bilirubin 0.8 (0.2-1.3) mg/dL AST 30 (14-36) U/L ALT 22 (4-34) U/L Alkaline Phosphatase 65 (38-126) U/L Troponin I (0.000-0.034) ng/mL Total Protein 6.9 (6.3-8.2) g/dL Albumin 4.3 (3.5-5.0) g/dL 04/10/19 04/11/19 Range/Units 22:30 01:03 WBC (3.8-10.6) k/uL RBC (3.80-5.40) m/uL Hgb (11.4-16.0) gm/dL Hct (34.0-46.0) % MCV (80.0-100.0) fL MCH (25.0-35.0) pg MCHC (31.0-37.0) g/dL RDW (11.5-15.5) % Plt Count (150-450) k/uL Neutrophils % % Lymphocytes % % Monocytes % % Eosinophils % % Basophils % % Neutrophils # (1.3-7.7) k/uL Lymphocytes # (1.0-4.8) k/uL Monocytes # (0-1.0) k/uL Eosinophils # (0-0.7) k/uL Basophils # (0-0.2) k/uL PT (9.0-12.0) sec INR (<1.2) APTT (22.0-30.0) sec Sodium (137-145) mmol/L Potassium (3.5-5.1) mmol/L Chloride (98-107) mmol/L Carbon Dioxide (22-30) mmol/L Anion Gap mmol/L BUN (7-17) mg/dL Creatinine (0.52-1.04) mg/dL Est GFR (CKD-EPI)AfAm (>60 ml/min/1.73 sqM) Est GFR (CKD-EPI)NonAf (>60 ml/min/1.73 sqM) Glucose (74-99) mg/dL Calcium (8.4-10.2) mg/dL Magnesium (1.6-2.3) mg/dL Total Bilirubin (0.2-1.3) mg/dL AST (14-36) U/L ALT (4-34) U/L Alkaline Phosphatase (38-126) U/L Troponin I <0.012 <0.012 (0.000-0.034) ng/mL Total Protein (6.3-8.2) g/dL Albumin (3.5-5.0) g/dL Disposition Clinical Impression: Chest pain Disposition: HOME SELF-CARE Condition: Good Instructions (If sedation given, give patient instructions): Chest Pain (DC) Is patient prescribed a controlled substance at d/c from ED?: No Referrals: Cade Elliott MD [Primary Care Provider] - 1-2 days
--- NOTE | 2019-04-10 23:46 | US ---
EXAMINATION TYPE: US abdomen limited DATE OF EXAM: 04/10/2019 COMPARISON: CT, US CLINICAL HISTORY: attention RUQ. Attention RUQ. Abdominal pain x 4 hours. Hx fatty liver. EXAM MEASUREMENTS: Liver Length: 17.8 cm Gallbladder Wall: 0.27 cm CBD: 0.76 cm Right Kidney: 11.8 x 6.2 x 4.7 cm *Limited due to body habitus and gas. Pancreas: Not well visualized due to overlying bowel gas. Liver: Increased attenuation. Increased echogenicity. Measures upper limits of normal. Gallbladder: Folds seen. Appears to be anechoic. Evidence for sonographic Arango's sign: No CBD: Appears to be dilated. Right Kidney: No hydronephrosis or masses seen IMPRESSION: No gallstones or dilated ducts. Common bile duct is large that could relate to some degre e of gallbladder dysfunction.
[2019-04-11 01:03] VITALS: PULSE 63; TEMP 98.3
[2019-04-11 02:50] VITALS: BP 119/65; RESP 16
== END 2019-04-11 02:56 | disposition home or self-care (01) ==
LOC: EC 22:07
DX: R07.9 Chest pain, unspecified (principal); R00.2 Palpitations; R10.13 Epigastric pain; E78.5 Hyperlipidemia, unspecified; E11.9 Type 2 diabetes mellitus without complications; I10 Essential (primary) hypertension; Z79.899 Other long term (current) drug therapy; Z79.51 Long term (current) use of inhaled steroids; Z87.891 Personal history of nicotine dependence
CPT/HCPCS: 36415; 71046; 76705; 80053; 83735; 84484; 85025; 85610; 85730; 93005; 99285

== ENCOUNTER → 2019-04-21 | Outpatient (CLI) | payer BC ==
--- NOTE | 2019-04-21 15:28 | NM ---
EXAMINATION TYPE: NM hepatobiliary w EF DATE OF EXAM: 04/21/2019 COMPARISON: Abdominal ultrasound dated 04/10/2019 HISTORY: Right upper quadrant pain TECHNIQUE: After the intravenous administration of 4.98 mCi Tc 99m Mebrofenin hepatobiliary scintigra phy is performed. Immediate images post injection. FINDINGS: There is satisfactory initial accumulation of tracer by the liver. The gallbladder is visualized wit hin 10 minutes. The small bowel activity is noted within 20 minutes. At one hour 8 ounces of oral e nsure plus is given to mimic CCK and gallbladder ejection fraction is calculated at 84 %, abnormally elevated. Therefore there is no scintigraphic evidence of cystic or common bile duct obstruction to suggest acute cholecystitis or gallbladder dyskinesia. IMPRESSION: 1. Biliary hyperkinesia with abnormally elevated biliary ejection fraction. 2. No scintigraphic evidence of acute or chronic cholecystitis.
== END | disposition home or self-care (01) ==
LOC: RADNMMAIN 12:48
PROVIDERS: ATTEND Family Medicine
DX: K83.8 Other specified diseases of biliary tract (principal); R10.11 Right upper quadrant pain
CPT/HCPCS: 78226; A9537

== ENCOUNTER 2019-08-05 00:47 | Emergency (ER) | payer BC ==
--- NOTE | 2019-08-05 01:23 | ED ---
Arrhythmia/Palpitations HPI - General Chief Complaint: Arrhythmia/Palpitations Stated Complaint: Heart racing Time Seen by Provider: 08/05/19 01:13 Source: patient Mode of arrival: wheelchair Limitations: no limitations - History of Present Illness Initial Comments: This patient is a 58-year-old woman who presents to be evaluated for palpitations and dyspnea. She states that the symptoms were first noticed around 7 PM while she was just sitting and relaxing. She states that it felt like her heart was skipping around. She states that also when she would get up to move around the house she was feeling short of breath and it was mainly exertional. No chest pain, diaphoresis, nausea or vomiting. The patient states she has intermittently had this before but it seemed to be persisting so she decided to be seen here today. MD Complaint: palpitations Onset/Timin -: hour(s) Context: occurred during rest Associated Symptoms: shortness of breath - Related Data Home Medications Medication Instructions Recorded Confirmed Atorvastatin Calcium [Lipitor] 40 mg PO HS 05/11/16 04/10/19 Ferrous Sulfate [Iron (65 MG 325 mg PO DAILY 05/11/16 04/10/19 Elemental)] Magnesium 400 mg PO DAILY 05/11/16 04/10/19 Spironolact/Hydrochlorothiazid 1 tab PO DAILY 05/11/16 04/10/19 [Aldactazide 25-25 MG] Fluticasone Nasal [place] [Flonase 1 spr EA NOSTRIL DAILY 11/12/17 04/10/19 Nasal [place]] Lisinopril [Zestril] 10 mg PO HS 11/12/17 04/10/19 Ascorbic Acid [Vitamin C] 500 mg PO DAILY 12/04/18 04/10/19 Calcium Carbonate 2,000 mg PO DAILY 12/09/18 04/10/19 Cholecalciferol (Vitamin D3) 2,000 unit PO DAILY 01/01/19 04/10/19 [Vitamin D3] Fish Oil/Dha/Epa [Fish Oil 1,200 1 cap PO DAILY 01/01/19 04/10/19 mg Fish Oil] Previous Rx's Medication Instructions Recorded Aspirin 81 mg PO DAILY chew 08/31/17 Metoprolol Tartrate [Lopressor] 25 mg PO BID #60 tab 08/31/17 Allergies Allergy/AdvReac Type Severity Reaction Status Date / Time No Known Allergies Allergy Verified 05/02/20 01:02 Review of Systems ROS Statement: Those systems with pertinent positive or pertinent negative responses have been documented in the HPI. ROS Other: All systems not noted in ROS Statement are negative. Constitutional: Denies: fever, chills Respiratory: Reports: dyspnea. Denies: cough, wheezes Cardiovascular: Reports: palpitations, dyspnea on exertion. 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, fatty liver, diet controlled diabetic History of Any Multi-Drug Resistant Organisms: None Reported Past Surgical History: Breast Surgery, Heart Catheterization, Orthopedic Surgery Additional Past Surgical History / Comment(s): rt Breast biopsy, broken Finger, colonoscopy, dental Past Anesthesia/Blood Transfusion Reactions: No Reported Reaction, Motion Sickness Past Psychological History: No Psychological Hx Reported Smoking Status: Former smoker Past Alcohol Use History: None Reported Past Drug Use History: None Reported - Past Family History Father Family Medical History: Deep Vein Thrombosis (DVT) Additional Family Medical History / Comment(s): Had leukemia and "heart issues" Mother Additional Family Medical History / Comment(s): Mother of an infection at the age of 89yrs. General Exam Limitations: no limitations General appearance: alert, in no apparent distress Head exam: Present: atraumatic, normocephalic Eye exam: Present: normal appearance. Absent: scleral icterus, conjunctival injection ENT exam: Present: normal oropharynx Neck exam: Present: normal inspection Respiratory exam: Present: normal lung sounds bilaterally. Absent: respiratory distress, wheezes, rales, rhonchi, stridor Cardiovascular Exam: Present: regular rate, normal rhythm, normal heart sounds, systolic murmur. Absent: diastolic murmur, rubs, gallop GI/Abdominal exam: Present: soft. Absent: distended, tenderness, guarding, rebound, rigid, mass Extremities exam: Present: normal inspection, normal capillary refill. Absent: pedal edema, calf tenderness Back exam: Present: normal inspection. Absent: CVA tenderness (R), CVA tenderness (L) Neurological exam: Present: alert Skin exam: Present: warm, dry, intact, normal color. Absent: rash Course Vital Signs 08/05/19 08/05/19 00:59 02:03 Temperature 97.7 F 98.1 F Pulse Rate 67 80 Respiratory 16 18 Rate Blood Pressure 154/86 138/70 O2 Sat by Pulse 97 100 Oximetry EKG Findings - EKG Results: EKG: interpreted by DORIS COPEL, sinus rhythm (Rate 65 bpm), normal axis, normal QRS, normal ST/T, no acute changes - VT, Pacemaker, Normal: Normal tracing: normal tracing Medical Decision Making - Lab Data Result diagrams: 08/05/19 01:11 08/05/19 01:11 Lab Results 08/05/19 08/05/19 08/05/19 Range/Units 01:11 01:11 01:11 WBC 6.6 (3.8-10.6) k/uL RBC 4.78 (3.80-5.40) m/uL Hgb 15.3 (11.4-16.0) gm/dL Hct 46.6 H (34.0-46.0) % MCV 97.5 (80.0-100.0) fL MCH 32.0 (25.0-35.0) pg MCHC 32.8 (31.0-37.0) g/dL RDW 12.6 (11.5-15.5) % Plt Count 182 (150-450) k/uL Neutrophils % 57 % Lymphocytes % 29 % Monocytes % 4 % Eosinophils % 5 % Basophils % 1 % Neutrophils # 3.8 (1.3-7.7) k/uL Lymphocytes # 2.0 (1.0-4.8) k/uL Monocytes # 0.2 (0-1.0) k/uL Eosinophils # 0.3 (0-0.7) k/uL Basophils # 0.1 (0-0.2) k/uL PT 9.8 (9.0-12.0) sec INR 0.9 (<1.2) APTT 22.9 (22.0-30.0) sec D-Dimer 0.20 (<0.60) mg/L FEU Sodium 137 (137-145) mmol/L Potassium 4.1 (3.5-5.1) mmol/L Chloride 100 (98-107) mmol/L Carbon Dioxide 28 (22-30) mmol/L Anion Gap 9 mmol/L BUN 34 H (7-17) mg/dL Creatinine 0.86 (0.52-1.04) mg/dL Est GFR (CKD-EPI)AfAm 86 (>60 ml/min/1.73 sqM) Est GFR (CKD-EPI)NonAf 74 (>60 ml/min/1.73 sqM) Glucose 151 H (74-99) mg/dL Calcium 9.7 (8.4-10.2) mg/dL Magnesium 1.8 (1.6-2.3) mg/dL Total Bilirubin 0.5 (0.2-1.3) mg/dL AST 28 (14-36) U/L ALT 21 (4-34) U/L Alkaline Phosphatase 78 (38-126) U/L Troponin I (0.000-0.034) ng/mL NT-Pro-B Natriuret Pep pg/mL Total Protein 6.9 (6.3-8.2) g/dL Albumin 4.2 (3.5-5.0) g/dL 08/05/19 08/05/19 Range/Units 01:11 01:11 WBC (3.8-10.6) k/uL RBC (3.80-5.40) m/uL Hgb (11.4-16.0) gm/dL Hct (34.0-46.0) % MCV (80.0-100.0) fL MCH (25.0-35.0) pg MCHC (31.0-37.0) g/dL RDW (11.5-15.5) % Plt Count (150-450) k/uL Neutrophils % % Lymphocytes % % Monocytes % % Eosinophils % % Basophils % % Neutrophils # (1.3-7.7) k/uL Lymphocytes # (1.0-4.8) k/uL Monocytes # (0-1.0) k/uL Eosinophils # (0-0.7) k/uL Basophils # (0-0.2) k/uL PT (9.0-12.0) sec INR (<1.2) APTT (22.0-30.0) sec D-Dimer (<0.60) mg/L FEU Sodium (137-145) mmol/L Potassium (3.5-5.1) mmol/L Chloride (98-107) mmol/L Carbon Dioxide (22-30) mmol/L Anion Gap mmol/L BUN (7-17) mg/dL Creatinine (0.52-1.04) mg/dL Est GFR (CKD-EPI)AfAm (>60 ml/min/1.73 sqM) Est GFR (CKD-EPI)NonAf (>60 ml/min/1.73 sqM) Glucose (74-99) mg/dL Calcium (8.4-10.2) mg/dL Magnesium (1.6-2.3) mg/dL Total Bilirubin (0.2-1.3) mg/dL AST (14-36) U/L ALT (4-34) U/L Alkaline Phosphatase (38-126) U/L Troponin I <0.012 (0.000-0.034) ng/mL NT-Pro-B Natriuret Pep 168 pg/mL Total Protein (6.3-8.2) g/dL Albumin (3.5-5.0) g/dL Disposition Clinical Impression: Palpitations Disposition: HOME SELF-CARE Condition: Good Instructions (If sedation given, give patient instructions): Heart Palpitations (ED) Is patient prescribed a controlled substance at d/c from ED?: No Referrals: Cade Elliott MD [Primary Care Provider] - 1-2 days
--- NOTE | 2019-08-05 01:40 | XR ---
EXAMINATION TYPE: XR chest 2V DATE OF EXAM: 08/05/2019 COMPARISON: 04/10/2019 HISTORY: Difficulty breathing TECHNIQUE: 2 views FINDINGS: Heart and mediastinum are normal. Lungs are clear. Diaphragm is normal. Bony thorax appears normal. IMPRESSION: Normal chest. Normal heart. No change.
[2019-08-05 01:42] LABS: Basophils # (A) 0.1 k/uL (0-0.2); Basophils % (A) 1 %; Eosinophils # (A) 0.3 k/uL (0-0.7); Eosinophils % (A) 5 %; HCT 46.6 % (34.0-46.0); HGB 15.3 gm/dL (11.4-16.0); Lymphocytes % (A) 29 %; MCHC 32.8 g/dL (31.0-37.0); MCV 97.5 fL (80.0-100.0); Mean Platelet Volume 9.3; Monocytes # (A) 0.2 k/uL (0-1.0); Monocytes % (A) 4 %; Neutrophils # (A) 3.8 k/uL (1.3-7.7); Neutrophils % (A) 57 %; Platelet Count 182 k/uL (150-450); RBC 4.78 m/uL (3.80-5.40); RDW 12.6 % (11.5-15.5); WBC 6.6 k/uL (3.8-10.6)
[2019-08-05 01:50] LABS: Albumin 4.2 g/dL (3.5-5.0); Calcium 9.7 mg/dL (8.4-10.2); Magnesium 1.8 mg/dL (1.6-2.3); Potassium 4.1 mmol/L (3.5-5.1); Total Bilirubin 0.5 mg/dL (0.2-1.3); Total Protein 6.9 g/dL (6.3-8.2)
[2019-08-05 01:51] LABS: D-Dimer 0.2 mg/L FEU (<0.60); INR 0.9 (<1.2); Partial Thromboplastin Time 22.9 sec (22.0-30.0); Prothrombin Time 9.8 sec (9.0-12.0)
[2019-08-05 02:04] VITALS: BP 138/70; PULSE 80; RESP 18; TEMP 98.1
== END 2019-08-05 02:49 | disposition home or self-care (01) ==
LOC: EC 00:47
DX: R00.2 Palpitations (principal); R06.02 Shortness of breath; I10 Essential (primary) hypertension; E11.9 Type 2 diabetes mellitus without complications; E78.5 Hyperlipidemia, unspecified; Z79.51 Long term (current) use of inhaled steroids; Z79.899 Other long term (current) drug therapy; Z87.891 Personal history of nicotine dependence
CPT/HCPCS: 36415; 71046; 80053; 83735; 83880; 84484; 85025; 85379; 85610; 85730; 93005; 99285

== ENCOUNTER → 2019-11-15 | Outpatient (CLI) | payer BC ==
[2019-11-15 09:14] LABS: Basophils # (A) 0.1 k/uL (0-0.2); Basophils % (A) 1 %; Eosinophils # (A) 0.3 k/uL (0-0.7); Eosinophils % (A) 5 %; HCT 44.6 % (34.0-46.0); HGB 14.1 gm/dL (11.4-16.0); Lymphocytes # (A) 1.8 k/uL (1.0-4.8); Lymphocytes % (A) 28 %; MCH 30.3 pg (25.0-35.0); MCHC 31.6 g/dL (31.0-37.0); MCV 95.7 fL (80.0-100.0); Mean Platelet Volume 8.9; Monocytes # (A) 0.3 k/uL (0-1.0); Monocytes % (A) 5 %; Neutrophils # (A) 3.7 k/uL (1.3-7.7); Neutrophils % (A) 59 %; Platelet Count 167 k/uL (150-450); RBC 4.66 m/uL (3.80-5.40); RDW 12.9 % (11.5-15.5); WBC 6.3 k/uL (3.8-10.6)
[2019-11-15 16:47] LABS: African American GFR (CKD) 80.5 (60.0-200.0); Albumin 4.4 g/dL (3.80-4.90); Albumin/Globulin Ratio 2.1 (1.60-3.17); Anion Gap 8.5 mmol/L (4.00-12.00); BUN/Creat Ratio 33.33 Ratio (12.00-20.00); Calcium 9.4 mg/dL (8.7-10.3); Carbon Dioxide 26.5 mmol/L (21.6-31.8); Chol/HDL Ratio 3.85; Globulin 2.1 g/dL (1.6-3.3); LDL Cholesterol,Calculated 75.2 mg/dL (0.0-131.0); Non-African American GFR(CKD) 69.5 (60.0-200.0); Potassium 4.2 mmol/L (3.5-5.5); Total Bilirubin 1.2 mg/dL (0.2-1.2); Total Protein 6.5 g/dL (6.2-8.2); VLDL Calculation 21.8 mg/dL (5.00-40.00)
== END | disposition home or self-care (01) ==
LOC: LABWHC1 08:11
PROVIDERS: ATTEND Family Medicine
DX: E78.5 Hyperlipidemia, unspecified (principal)
CPT/HCPCS: 36415; 80053; 80061; 85025

== ENCOUNTER 2019-11-17 06:24 | Day surgery (SDC) | payer BC ==
[2019-11-14 08:21] VITALS: BMI 46.9
--- NOTE | 2019-11-16 19:48 | P.GSHP ---
History of Present Illness H&P Date: 11/17/19 CHIEF COMPLAINT: Cholecystitis HISTORY OF PRESENT ILLNESS: The patient is a 30-year-old female who presents with history of epigastric including right upper quadrant abdominal pain. She underwent diagnostic studies for her gallbladder. Separately her clinical picture was consistent with cholecystitis. Now she presents for surgical intervention. PAST MEDICAL HISTORY: Please see list PAST SURGICAL HISTORY: Please see list MEDICATIONS: Please see list ALLERGIES: Please see list SOCIAL HISTORY: Please see list FAMILY HISTORY: Please see list REVIEW OF ORGAN SYSTEMS: CONSTITUTIONAL: No reports of fevers or chills. HEENT: Denies any troubles with the vision or hearing. ENDOCRINE: No reports of hypothyroidism. Has diabetes. RESPIRATORY: No recent pneumonias. CARDIOVASCULAR: Denies chest pain or palpitations. Has aneurysm of the aorta. Has heart murmur GI: No blood in stools or constipation. MUSCULOSKELETAL: Has occasional joint pain including back pain. NEURO: No seizure disorders or headaches. No recent stroke. PSYCH: No depression or suicidal ideation. GENITOURINARY: No active blood in urine. No urinary hesitancy. HEMATOLOGIC: No personal or family history of DVTs or pulmonary emboli. SKIN: No skin cancer. PHYSICAL EXAM: VITAL SIGNS: Afebrile vital signs stable GENERAL: Well-developed pleasant in no acute distress. HEENT: No scleral icterus. Extraocular movements grossly intact. Moist buccal mucosa. NECK: Supple without lymphadenopathy. CHEST: Unlabored respirations. Equal bilateral excursions. CARDIOVASCULAR: Regular rate regular rhythm rhythm. Distal 2+ pulses. ABDOMEN: Soft, nondistended. Tender along the epigastrium and right upper qu adrant. MUSCULOSKELETAL: No clubbing, cyanosis, or edema. NEURO: Cranial nerves II to XII within normal limits. No focal or lateralizing signs. PSYCH: Alert and oriented to person, place and time. SKIN: Well-perfused good skin turgor. ASSESSMENT: 1. Epigastric and right upper quadrant abdominal pain 2. Chronic cholecystitis PLAN: 1. Will need a robotic cholecystectomy possible open. Benefits and risks were described. 2. Heparin for DVT prophylaxis 5000 units. 3. Antibiotic prophylaxis. 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, fatty liver, diet controlled diabetic, POSSIBLE HERNIA, GALLBLADDER DISORDER History of Any Multi-Drug Resistant Organisms: None Reported Past Surgical History: Breast Surgery, Heart Catheterization, Orthopedic Surgery Additional Past Surgical History / Comment(s): rt Breast biopsy, broken Finger, colonoscopy, dental SX, Past Anesthesia/Blood Transfusion Reactions: No Reported Reaction, Motion Sickness Smoking Status: Former smoker - Past Family History Father Family Medical History: Cancer, Deep Vein Thrombosis (DVT) Additional Family Medical History / Comment(s): Had leukemia and "heart issues" Mother Additional Family Medical History / Comment(s): Mother of an infection at the age of 89yrs. Medications and Allergies Home Medications Medication Instructions Recorded Confirmed Type Atorvastatin Calcium [Lipitor] 40 mg PO HS 05/11/16 11/14/19 History Magnesium 400 mg PO DAILY 05/11/16 11/14/19 History Spironolact/Hydrochlorothiazid 1 tab PO DAILY 05/11/16 11/14/19 History [Aldactazide 25-25 MG] Aspirin 81 mg PO DAILY chew 08/31/17 11/14/19 Rx Metoprolol Tartrate [Lopressor] 25 mg PO BID #60 tab 08/31/17 11/14/19 Rx Fluticasone Nasal [place] [Flonase 1 spr EA NOSTRIL DAILY 11/12/17 11/14/19 History Nasal [place]] lisinopriL [Zestril] 10 mg PO HS 11/12/17 11/14/19 History Ascorbic Acid [Vitamin C] 500 mg PO DAILY 12/04/18 11/14/19 History Calcium Carbonate 2,000 mg PO DAILY 12/09/18 11/14/19 History Cholecalciferol (Vitamin D3) 2,000 unit PO DAILY 01/01/19 11/14/19 History [Vitamin D3] Fish Oil/Dha/Epa [Fish Oil 1,200 1 cap PO DAILY 01/01/19 11/14/19 History mg Fish Oil] Glucosamine Sulfate 2,000 mg PO DAILY 11/14/19 11/14/19 History Allergies Allergy/AdvReac Type Severity Reaction Status Date / Time No Known Allergies Allergy Verified 11/14/19 08:04
[~2019-11-17 06:24] MED LIST changes: +ACETAMINOPHEN TAB 500 MG TAB PO STA; +DEXAMETHASONE SOD PHOSPHATE 10 MG/ML 1 ML VIAL IV ONE; +GABAPENTIN 300 MG CAP PO STA; +HEPARIN SODIUM,PORCINE 5,000 UNIT/ML 1 ML VIAL SQ ONE; +HYDROmorphone 0.5 MG/0.5 ML SYRINGE IVP PRN; +INDOCYANINE GREEN 25 MG VIAL IV STA; +LACTATED RINGERS 1,000 ML IV SCH; +LIDOCAINE 1% (10MG/ML) FOR IV START INTRADERMA PRN; +ONDANSETRON 4 MG/2 ML VIAL IVP ONE; -REGADENOSON 0.4 MG/5 ML SYRINGE IV ONE; +SCOPOLAMINE 1.5MG/72HR PATCH TRANSDERM ONE; +SCOPOLAMINE 1.5MG/72HR PATCH TRANSDERM STA; +ceFAZolin 3 GM in SODIUM CHLORIDE 0.9% 100 ML IVPB ONE
[2019-11-17 06:51] VITALS: RESP 16
[2019-11-17 07:02] LABS: Glucose,Whole Blood 113 mg/dL (75-99)
[2019-11-17] MEDS ORDERED: ONDANSETRON 4 MG/2 ML VIAL ONE ×2 (07:06→09:43)
[2019-11-17] MEDS ORDERED: ACETAMINOPHEN TAB 500 MG TAB ONE ×2 (07:06→09:41)
[2019-11-17] MEDS ORDERED: HEPARIN SODIUM,PORCINE 5,000 UNIT/ML 1 ML VIAL ONE (07:06)
[2019-11-17] MEDS ORDERED: MIDAZOLAM 2 MG/2 ML VIAL ONE (07:35)
[2019-11-17] MEDS ORDERED: fentaNYL (PF) 50 MCG/ML 2 ML AMP ONE (07:35)
[2019-11-17] MEDS ORDERED: ePHEDrine SULFATE/0.9% NACL/PF 50 MG/5 ML SYRINGE IV ONE (07:35)
[2019-11-17] MEDS ORDERED: GLYCOPYRROLATE 0.2 MG/ML 2 ML VIAL ONE (07:35)
[2019-11-17] MEDS ORDERED: HYDROmorphone (PF) 1 MG/ML ONE (07:35)
[2019-11-17] MEDS ORDERED: PROPOFOL 10 MG/ML 20 ML VIAL IV ONE (07:35)
[2019-11-17] MEDS ORDERED: SUCCINYLCHOLINE CHLORIDE 100 MG/5 ML SYR IV ONE (07:35)
[2019-11-17] MEDS ORDERED: ROCURONIUM 10 MG/ML (5 ML VIAL) IV ONE (07:35)
[2019-11-17] MEDS ORDERED: NEOSTIGMINE 1 MG/ML 10 ML VIAL ONE (07:35)
[2019-11-17] MEDS ORDERED: LIDOCAINE 1% INJ 10MG/ML (20 ML MDV) ONE (07:35)
[2019-11-17] MEDS ORDERED: KETOROLAC 30 MG/ML 1 ML VIAL ONE (07:35)
[2019-11-17] MEDS ORDERED: LIDOCAINE 1%-EPI 1:100,000 20 ML VIAL SQ ONE ×3 (07:38→07:58)
[2019-11-17] MEDS ORDERED: LACTATED RINGERS 1,000 ML IV ONE (08:29)
--- NOTE | 2019-11-17 08:40 | P.OP ---
Date of Procedure: 11/17/19 Description of Procedure: SURGEON: SIMA ROSA MD PREOPERATIVE DIAGNOSES: 1. Chronic cholecystitis 2. Hypertensive heart disease 3. Hyperlipidemia 4. Diabetes type 2, [id number], controlled 5. Hepatomegaly due to fatty liver disease 6. Morbid obesity due to excess calories, BMI 46.1 POSTOPERATIVE DIAGNOSES: 1. Chronic cholecystitis 2. Hypertensive heart disease 3. Hyperlipidemia 4. Diabetes type 2, [id number], controlled 5. Hepatomegaly due to fatty liver disease 6. Morbid obesity due to excess calories, BMI 46.1 OPERATION: Robotic-assisted da Lupe Xi laparoscopic cholecystectomy, multiport with FIREFLY ESTIMATED BLOOD LOSS: 5 mL. SPECIMENS REMOVED: Gallbladder. COMPLICATIONS: None. OPERATIVE FINDINGS: 1. Chronic cholecystitis 2. Console time 16 minutes INDICATIONS: The patient is a 58-year-old female who presents with epigastric right upper quadrant dull pain with gallbladder disorder. Surgical intervention with a laparoscopic cholecystectomy was described. Robotic assisted laparoscopic approach was described. Benefits and risks of the procedure including but not limited to bleeding, infection, injury to the biliary tree was described. Informed consent was obtained. DESCRIPTION OF PROCEDURE: Patient was brought to the operating room, placed in supine position. After general induction, the abdomen had been prepped and draped in standard sterile fashion. The robotic da Lupe XI system was primed. After a timeout protocol was performed, the patient had been prepped and draped in standard sterile fashion. The patient was injected with indocyanine green. A 5 mm 0 degrees laparoscopic trocar entry was performed along the left upper quadrant. The abdomen insufflated to 15 mmHg pressure which was tolerated well. Diagnostic laparoscopy demonstrated no injury to bowel viscera or mesentery. The liver surface was unremarkable. Next, two 8 mm robotic ports were placed along the right upper abdomen. The camera 8-mm port was maintained along the epigastrium. Another 8 mm port was placed along the left upper abdominal wall after exchanging the 5 mm port. Please note that the ports were placed at least 10 to 15 cm away from the target anatomy of the gallbladder. The robot was docked along the left lateral abdomen. The patient was repositioned in reverse Trendelenburg position. Using a grasper for arm 3, a grasper for arm 4, including hook cautery for arm 1, the robotic system was docked and primed as described. Instruments were interchanged by the field assistant including hook cautery, Bovie cautery and clip appliers. I had sat at the console. The gallbladder fundus was retracted over the dome of the liver. Initial attention was brought to the infundibulum including cystic lymph node. Initial dissection was performed over the cystic lymph node at the infundibulum using hook cautery. The infundibulum was retracted laterally to expose the cystic duct away from the common bile duct. The cystic duct including the cystic artery were dissected free from its surrounding tissue. FIREFLY was used to identify the cystic artery and cystic structures. A critical view of safety was obtained. Large PLASTIC clips were used throughout the entire case. Using a clip costume technician, 2 clips were placed at the junction of the infundibulum and cystic duct. The cystic duct was divided between clips. Next, the cystic artery was similarly clipped and cauterized. Electro-Bovie cautery was used to remove the gallbladder from the hepatic fossa. Hemostasis was checked and found to be adequate. The robot was undocked. I re-scrubbed into the case. Using a 10 mm Endo Catch bag via the left upper quadrant incision, the specimen was removed from the abdominal cavity. All pneumoperitoneum instruments were evacuated from the abdominal cavity. The incisions were reapproximated using 4-0 Monocryl in an interrupted subcuticular fashion. Fascial defects were less than 8 mm in size. Please note along the trocar sites, local anesthetic was placed as a field block prior to insertion of all instruments. Liquid glue was applied to the skin. At the end of the procedure needle, sponge, and instrument count had been verified correct by the surgical supplies sterilizer. The patient was transferred to postanesthesia care unit in stable condition. Intraoperative films were shared with the patient's family who were pleased with the level of care. Plan - Discharge Summary Discharge Rx Participant: Yes New Discharge Prescriptions: New Naproxen [Naprosyn] 250 mg PO TID PRN #30 tab PRN Reason: Pain Acetaminophen Tab [Tylenol Tab] 1,000 mg PO Q6HR PRN #30 tablet Continue Spironolact/Hydrochlorothiazid [Aldactazide 25-25 MG] 1 tab PO DAILY Atorvastatin Calcium [Lipitor] 40 mg PO HS Magnesium 400 mg PO DAILY Aspirin 81 mg PO DAILY chew Metoprolol Tartrate [Lopressor] 25 mg PO BID #60 tab lisinopriL [Zestril] 10 mg PO HS Fluticasone Nasal [place] [Flonase Nasal [place]] 1 spr EA NOSTRIL DAILY Ascorbic Acid [Vitamin C] 500 mg PO DAILY Calcium Carbonate 2,000 mg PO DAILY Cholecalciferol (Vitamin D3) [Vitamin D3] 2,000 unit PO DAILY Fish Oil/Dha/Epa [Fish Oil 1,200 mg Fish Oil] 1 cap PO DAILY Glucosamine Sulfate 2,000 mg PO DAILY Discharge Medication List Atorvastatin Calcium [Lipitor] 40 mg PO HS 05/11/16 [History] Magnesium 400 mg PO DAILY 05/11/16 [History] Spironolact/Hydrochlorothiazid [Aldactazide 25-25 MG] 1 tab PO DAILY 05/11/16 [History] Aspirin 81 mg PO DAILY chew 08/31/17 [Rx] Metoprolol Tartrate [Lopressor] 25 mg PO BID #60 tab 08/31/17 [Rx] Fluticasone Nasal [place] [Flonase Nasal [place]] 1 spr EA NOSTRIL DAILY 11/12/17 [History] lisinopriL [Zestril] 10 mg PO HS 11/12/17 [History] Ascorbic Acid [Vitamin C] 500 mg PO DAILY 12/04/18 [History] Calcium Carbonate 2,000 mg PO DAILY 12/09/18 [History] Cholecalciferol (Vitamin D3) [Vitamin D3] 2,000 unit PO DAILY 01/01/19 [History] Fish Oil/Dha/Epa [Fish Oil 1,200 mg Fish Oil] 1 cap PO DAILY 01/01/19 [History] Glucosamine Sulfate 2,000 mg PO DAILY 11/14/19 [History] Acetaminophen Tab [Tylenol Tab] 1,000 mg PO Q6HR PRN #30 tablet 11/17/19 [Rx] Naproxen [Naprosyn] 250 mg PO TID PRN #30 tab 11/17/19 [Rx] Follow up Appointment(s)/Referral(s): Sima Rosa MD [STAFF PHYSICIAN] - 11/23/19 Patient Instructions/Handouts: Laparoscopic Cholecystectomy (DC), Low Fat Diet (DC) Activity/Diet/Wound Care/Special Instructions: No lifting over 10 pounds in 2 weeks until Nov 30. August shower. No bath tub soaks for two weeks until Nov 30. Diet as tolerated. No driving while on narcotics. Use Tylenol and ibuprofen/Aleve scheduled for the next 24-48 hours for best pain relief. Use ice along incisions for the today to prevent swelling. Discharge Disposition: HOME SELF-CARE
[2019-11-17] MEDS ORDERED: KETOROLAC 15 MG/ML 1 ML VIAL IVP PRN (08:51)
[2019-11-17] MEDS ORDERED: SIMETHICONE 80 MG CHEWABLE PO SCH (08:51)
[2019-11-17 09:03] VITALS: TEMP 97
[2019-11-17] MEDS ORDERED: ONDANSETRON 4 MG/2 ML VIAL IVP ONE (09:44)
[2019-11-17 10:19] VITALS: PULSE 54
[2019-11-17 10:35] VITALS: BP 115/60
== END 2019-11-17 10:49 | disposition home or self-care (01) ==
LOC: OR 06:24
PROVIDERS: ATTEND Surgery Plastic and Reconstructive Surgery
DX: K81.1 Chronic cholecystitis (principal); K76.0 Fatty (change of) liver, not elsewhere classified; R16.0 Hepatomegaly, not elsewhere classified; I11.9 Hypertensive heart disease without heart failure; E78.5 Hyperlipidemia, unspecified; E11.9 Type 2 diabetes mellitus without complications; E66.01 Morbid (severe) obesity due to excess calories; I71.2 Thoracic aortic aneurysm, without rupture; M19.90 Unspecified osteoarthritis, unspecified site; Z79.82 Long term (current) use of aspirin; Z68.42 Body mass index [BMI] 45.0-49.9, adult; Z79.899 Other long term (current) drug therapy; Z98.890 Other specified postprocedural states; Z87.891 Personal history of nicotine dependence; Z82.49 Family history of ischemic heart disease and other diseases of the circulatory system; Z80.6 Family history of leukemia
CPT/HCPCS: 88304; 47562; J2250; J1644; J1100; J2710; J0690; J2405; J2001; J3010; J1885; J1170; J0330; J2704

== ENCOUNTER → 2020-02-13 | Outpatient (CLI) | payer BC ==
[2020-02-13 08:42] LABS: Basophils % (A) 1 %; Eosinophils # (A) 0.2 k/uL (0-0.7); Eosinophils % (A) 4 %; HCT 44.9 % (34.0-46.0); HGB 14.8 gm/dL (11.4-16.0); Lymphocytes # (A) 1.5 k/uL (1.0-4.8); Lymphocytes % (A) 27 %; MCH 31.9 pg (25.0-35.0); MCV 96.4 fL (80.0-100.0); Monocytes # (A) 0.3 k/uL (0-1.0); Monocytes % (A) 5 %; Neutrophils # (A) 3.4 k/uL (1.3-7.7); Neutrophils % (A) 62 %; Platelet Count 142 k/uL (150-450); RBC 4.66 m/uL (3.80-5.40); RDW 12.3 % (11.5-15.5); WBC 5.5 k/uL (3.8-10.6)
[2020-02-13 15:20] LABS: Albumin 4.4 g/dL (3.80-4.90); Albumin/Globulin Ratio 2.2 (1.60-3.17); Anion Gap 7.8 mmol/L (4.00-12.00); BUN/Creat Ratio 24.44 Ratio (12.00-20.00); Calcium 9.3 mg/dL (8.7-10.3); Carbon Dioxide 28.2 mmol/L (21.6-31.8); Chol/HDL Ratio 3.44; LDL Cholesterol,Calculated 63.4 mg/dL (0.0-131.0); Potassium 4.1 mmol/L (3.5-5.5); Total Bilirubin 0.9 mg/dL (0.3-1.2); Total Protein 6.4 g/dL (6.2-8.2); VLDL Calculation 14.6 mg/dL (5.00-40.00)
== END | disposition home or self-care (01) ==
LOC: LABWHC1 08:08
PROVIDERS: ATTEND Family Medicine
DX: Z00.01 Encounter for general adult medical examination with abnormal findings (principal); E78.5 Hyperlipidemia, unspecified
CPT/HCPCS: 36415; 80053; 80061; 84443; 85025

== ENCOUNTER 2020-05-01 20:03 | Observation (INO) | payer BC ==
[2020-05-01] MEDS ORDERED: SODIUM CHLORIDE 0.9% 500 ML 500 ML IV STA (20:20)
[2020-05-01] MEDS ORDERED: ASPIRIN 81 MG PO STA (20:20)
--- NOTE | 2020-05-01 20:23 | ED ---
General Adult HPI - General Source: patient Mode of arrival: wheelchair Limitations: no limitations <Sonya Gray - Last Filed: 05/01/20 22:56> <Marisa Pizano - Last Filed: 05/04/20 11:45> - General Chief complaint: Chest Pain Stated complaint: SOB/Chest Pain Time Seen by Provider: 05/01/20 20:17 - History of Present Illness Initial comments: 59-year-old female patient presents to the emergency department today for evaluation of shortness of breath, racing heart, chest pain. Patient states symptoms started a couple of hours ago while at home. States that she noticed her heart was racing and she became slightly short of breath. States she started to have sharp stabbing pains in the right side of her chest especially with taking a deep breath. Patient states that she did have a coughing episode before the symptoms started. States she had COVID-19 in March, but was recovering well. She denies any fever or chills. Denies any nausea or vomiting. States that she does have aortic aneurysm that they're monitoring. Denies history of cardiac disease or chronic lung disease. States she did previously smoke for 10 years when she was younger. Patient denies any recent rash, abdominal pain, diarrhea, constipation, back pain, numbness, tingling, dizziness, weakness, hematuria, dysuria, urinary urgency, urinary frequency, headache, visual changes, or any other complaints. She did take 2 aspirin prior to arrival. (Sonya Gray) - Related Data Home Medications Medication Instructions Recorded Confirmed Atorvastatin Calcium [Lipitor] 40 mg PO HS 05/11/16 05/01/20 Magnesium 400 mg PO DAILY 05/11/16 05/01/20 Spironolact/Hydrochlorothiazid 1 tab PO DAILY 05/11/16 05/01/20 [Aldactazide 25-25 MG] Fluticasone Nasal [place] [Flonase 1 spr EA NOSTRIL DAILY 11/12/17 05/01/20 Nasal [place]] lisinopriL [Zestril] 10 mg PO DAILY 11/12/17 05/01/20 Ascorbic Acid [Vitamin C] 500 mg PO DAILY 12/04/18 05/01/20 Calcium Carbonate 2,000 mg PO DAILY 12/09/18 05/01/20 Cholecalciferol (Vitamin D3) 2,000 unit PO DAILY 01/01/19 05/01/20 [Vitamin D3] Fish Oil/Dha/Epa [Fish Oil 1,200 1 cap PO DAILY 01/01/19 05/01/20 mg Fish Oil] Glucosamine Sulfate 2,000 mg PO DAILY 11/14/19 05/01/20 Loratadine [Claritin] 10 mg PO DAILY 05/01/20 05/01/20 Metoprolol Tartrate [Lopressor] 12.5 mg PO BID 05/01/20 05/01/20 Zinc 50 mg PO DAILY 05/01/20 05/01/20 Previous Rx's Medication Instructions Recorded Aspirin 81 mg PO DAILY #1 chewable 05/02/20 Naproxen 250 mg PO BID #6 tablet 05/02/20 Allergies Allergy/AdvReac Type Severity Reaction Status Date / Time No Known Allergies Allergy Verified 05/01/20 20:59 Review of Systems ROS Other: All systems not noted in ROS Statement are negative. <Sonya Gray - Last Filed: 05/01/20 22:56> ROS Other: All systems not noted in ROS Statement are negative. <Marisa Pizano - Last Filed: 05/04/20 11:45> ROS Statement: Those systems with pertinent positive or pertinent negative responses have been documented in the HPI. 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, fatty liver, diet controlled diabetic, POSSIBLE HERNIA, GALLBLADDER DISORDER History of Any Multi-Drug Resistant Organisms: None Reported Past Surgical History: Breast Surgery, Heart Catheterization, Orthopedic Surgery Additional Past Surgical History / Comment(s): rt Breast biopsy, broken Finger, colonoscopy, dental SX, Past Anesthesia/Blood Transfusion Reactions: No Reported Reaction, Motion Sickness Past Psychological History: No Psychological Hx Reported Smoking Status: Former smoker - Past Family History Father Family Medical History: Cancer, Deep Vein Thrombosis (DVT) Additional Family Medical History / Comment(s): Had leukemia and "heart issues" Mother Additional Family Medical History / Comment(s): Mother of an infection at the age of 89yrs. <Sonya Gray - Last Filed: 05/01/20 22:56> General Exam Limitations: no limitations General appearance: alert, in no apparent distress, other (This is a well- developed, well-nourished adult female patient in no acute distress. Vital signs upon presentation are temperature 98.8F, pulse 74, respirations 18, blood pressure 141/61, pulse ox 97% on room air.) Eye exam: Present: normal appearance, PERRL, EOMI. Absent: scleral icterus, conjunctival injection, periorbital swelling ENT exam: Present: normal exam, normal oropharynx, mucous membranes moist Respiratory exam: Present: normal lung sounds bilaterally. Absent: respiratory distress, wheezes, rales, rhonchi, stridor Cardiovascular Exam: Present: regular rate, normal rhythm, normal heart sounds. Absent: systolic murmur, diastolic murmur, rubs, gallop, clicks GI/Abdominal exam: Present: soft, normal bowel sounds. Absent: distended, tenderness, guarding, rebound, rigid Neurological exam: Present: alert, oriented X3, CN II-XII intact Psychiatric exam: Present: normal affect, normal mood Skin exam: Present: warm, dry, intact, normal color. Absent: rash <Sonya Gray - Last Filed: 05/01/20 22:56> Course Vital Signs 05/01/20 05/01/20 20:12 21:26 Temperature 98.8 F Pulse Rate 74 67 Respiratory 18 20 Rate Blood Pressure 141/61 122/77 O2 Sat by Pulse 97 97 Oximetry EKG Findings - EKG Comments: EKG Findings:: EKG obtained at 2024 shows normal sinus rhythm with a degree AV block, ventricular rate of 69, [place] interval 200, QRS duration 86, QT 404, QTC 432. No evidence of ST elevation or depression. <Sonya Gray - Last Filed: 05/01/20 22:56> Medical Decision Making - Lab Data Result diagrams: 05/01/20 20:34 05/01/20 20:34 - Radiology Data Radiology results: report reviewed, image reviewed <Sonya Gray - Last Filed: 05/01/20 22:56> - Lab Data Result diagrams: 05/01/20 20:34 05/01/20 20:34 <Marisa Pizano - Last Filed: 05/04/20 11:45> - Medical Decision Making 59-year-old female patient percents to the emergency department today for evaluation after having an episode of shortness of breath, palpitations, and chest pain. Physical examination did reveal clear equal lung sounds. Vital signs were within normal ranges. EKG showed normal sinus rhythm with no ST elevation or depression. Chest x-ray was negative. Labs reviewed and did reveal negative troponin and d-dimer. Upon reevaluation patient still reports some mild right-sided chest pain. She was given aspirin. She'll be admitted to the hospital for serial troponins and further evaluation by cardiology tomorrow. Echo was ordered for the morning. She agrees with this plan (Sonya Gray) I was available for consultation in the emergency department. The history and physical exam were done by the midlevel provider. I was consulted for this patients care. I reviewed the case with the midlevel provider and based on their presentation of the patient, I agree with the assessment, medical decision making and plan of care as documented. Chart was dictated using [employer] dictation software. Attempts were made to suha ect any dictation errors however some typographical errors may persist. Patient was seen during a national state of emergency due to the Covid-19 pandemic. (Marisa Pizano) - Lab Data Lab Results 05/01/20 05/01/20 05/01/20 Range/Units 20:34 20:34 20:34 WBC 9.4 (3.8-10.6) k/uL RBC 4.70 (3.80-5.40) m/uL Hgb 15.2 (11.4-16.0) gm/dL Hct 43.8 (34.0-46.0) % MCV 93.1 (80.0-100.0) fL MCH 32.3 (25.0-35.0) pg MCHC 34.7 (31.0-37.0) g/dL RDW 12.2 (11.5-15.5) % Plt Count 169 (150-450) k/uL MPV 8.7 Neutrophils % 65 % Lymphocytes % 24 % Monocytes % 4 % Eosinophils % 4 % Basophils % 1 % Neutrophils # 6.1 (1.3-7.7) k/uL Lymphocytes # 2.3 (1.0-4.8) k/uL Monocytes # 0.4 (0-1.0) k/uL Eosinophils # 0.4 (0-0.7) k/uL Basophils # 0.1 (0-0.2) k/uL PT 10.3 (9.0-12.0) sec INR 1.0 (<1.2) APTT 23.2 (22.0-30.0) sec D-Dimer <0.17 (<0.60) mg/L FEU Sodium 138 (137-145) mmol/L Potassium 4.3 (3.5-5.1) mmol/L Chloride 100 (98-107) mmol/L Carbon Dioxide 27 (22-30) mmol/L Anion Gap 11 mmol/L BUN 29 H (7-17) mg/dL Creatinine 1.17 H (0.52-1.04) mg/dL Est GFR (CKD-EPI)AfAm 58 (>60 ml/min/1.73 sqM) Est GFR (CKD-EPI)NonAf 50 (>60 ml/min/1.73 sqM) Glucose 124 H (74-99) mg/dL Calcium 9.4 (8.4-10.2) mg/dL Magnesium 1.8 (1.6-2.3) mg/dL Total Bilirubin 0.6 (0.2-1.3) mg/dL AST 29 (14-36) U/L ALT 21 (4-34) U/L Alkaline Phosphatase 66 (38-126) U/L Troponin I (0.000-0.034) ng/mL Total Protein 7.2 (6.3-8.2) g/dL Albumin 4.5 (3.5-5.0) g/dL TSH 2.430 (0.465-4.680) mIU/L 05/01/20 Range/Units 20:34 WBC (3.8-10.6) k/uL RBC (3.80-5.40) m/uL Hgb (11.4-16.0) gm/dL Hct (34.0-46.0) % MCV (80.0-100.0) fL MCH (25.0-35.0) pg MCHC (31.0-37.0) g/dL RDW (11.5-15.5) % Plt Count (150-450) k/uL MPV Neutrophils % % Lymphocytes % % Monocytes % % Eosinophils % % Basophils % % Neutrophils # (1.3-7.7) k/uL Lymphocytes # (1.0-4.8) k/uL Monocytes # (0-1.0) k/uL Eosinophils # (0-0.7) k/uL Basophils # (0-0.2) k/uL PT (9.0-12.0) sec INR (<1.2) APTT (22.0-30.0) sec D-Dimer (<0.60) mg/L FEU Sodium (137-145) mmol/L Potassium (3.5-5.1) mmol/L Chloride (98-107) mmol/L Carbon Dioxide (22-30) mmol/L Anion Gap mmol/L BUN (7-17) mg/dL Creatinine (0.52-1.04) mg/dL Est GFR (CKD-EPI)AfAm (>60 ml/min/1.73 sqM) Est GFR (CKD-EPI)NonAf (>60 ml/min/1.73 sqM) Glucose (74-99) mg/dL Calcium (8.4-10.2) mg/dL Magnesium (1.6-2.3) mg/dL Total Bilirubin (0.2-1.3) mg/dL AST (14-36) U/L ALT (4-34) U/L Alkaline Phosphatase (38-126) U/L Troponin I <0.012 (0.000-0.034) ng/mL Total Protein (6.3-8.2) g/dL Albumin (3.5-5.0) g/dL TSH (0.465-4.680) mIU/L - Radiology Data Two-view x-ray of the chest is obtained. Report is reviewed in its entirety. Impression by Dr. Christine shows no active cardiopulmonary disease. No change. (Sonya Gray) Disposition Decision to Admit Reason: Admit from EC Decision Date: 05/01/20 Decision Time: 21:53 <Sonya Gray - Last Filed: 05/01/20 22:56> <Marisa Pizano - Last Filed: 05/04/20 11:45> Clinical Impression: Chest pain, Palpitations Disposition: ADMITTED IP TO THIS [facility] Condition: Good
[2020-05-01 20:42] LABS: Basophils # (A) 0.1 k/uL (0-0.2); Basophils % (A) 1 %; Eosinophils # (A) 0.4 k/uL (0-0.7); Eosinophils % (A) 4 %; HCT 43.8 % (34.0-46.0); HGB 15.2 gm/dL (11.4-16.0); Lymphocytes # (A) 2.3 k/uL (1.0-4.8); Lymphocytes % (A) 24 %; MCH 32.3 pg (25.0-35.0); MCHC 34.7 g/dL (31.0-37.0); MCV 93.1 fL (80.0-100.0); Mean Platelet Volume 8.7; Monocytes # (A) 0.4 k/uL (0-1.0); Monocytes % (A) 4 %; Neutrophils # (A) 6.1 k/uL (1.3-7.7); Neutrophils % (A) 65 %; Platelet Count 169 k/uL (150-450); RDW 12.2 % (11.5-15.5); WBC 9.4 k/uL (3.8-10.6)
[2020-05-01 20:52] LABS: Albumin 4.5 g/dL (3.5-5.0); Calcium 9.4 mg/dL (8.4-10.2); Magnesium 1.8 mg/dL (1.6-2.3); Potassium 4.3 mmol/L (3.5-5.1); Total Bilirubin 0.6 mg/dL (0.2-1.3); Total Protein 7.2 g/dL (6.3-8.2)
[2020-05-01 20:54] LABS: D-Dimer <0.17 mg/L FEU (<0.60); Partial Thromboplastin Time 23.2 sec (22.0-30.0); Prothrombin Time 10.3 sec (9.0-12.0)
--- NOTE | 2020-05-01 20:59 | XR ---
EXAMINATION TYPE: XR chest 2V DATE OF EXAM: 05/01/2020 COMPARISON: 08/05/2019 HISTORY: Chest pain TECHNIQUE: FINDINGS: There is no heart failure nor confluent pneumonic infiltrate. Costophrenic angles are clear . There are no hilar masses. There are chest leads. Bony thorax is intact. IMPRESSION: No active cardiopulmonary disease. No change.
[2020-05-01] MEDS ORDERED: NALOXONE 0.4 MG/ML 1 ML VIAL IV PRN (21:51)
[2020-05-01] MEDS ORDERED: MORPHINE SULFATE 4 MG/ML SYRINGE IVP PRN (21:52)
[2020-05-01] MEDS ORDERED: ONDANSETRON 4 MG/2 ML VIAL IVP PRN (21:52)
[2020-05-01 22:39] VITALS: RESP 18
[2020-05-01] MEDS ORDERED: ATORVASTATIN 40 MG TAB PO SCH (23:15)
[2020-05-02 02:28] VITALS: TEMP 98
[2020-05-02] MEDS ORDERED: ASCORBIC ACID 500 MG TAB PO SCH (09:00)
[2020-05-02] MEDS ORDERED: LORATADINE 10 MG TAB PO SCH (09:00)
[2020-05-02] MEDS ORDERED: SPIRONOLACTONE-HCTZ 25-25MG 1 EACH TAB PO SCH (09:00)
[2020-05-02] MEDS ORDERED: FLUTICASONE 50MCG/SPRAY NASAL 16GM EA NOSTRIL SCH (09:00)
[2020-05-02] MEDS ORDERED: METOPROLOL TARTRATE 25 MG TAB PO SCH (09:00)
[2020-05-02] MEDS ORDERED: lisinopriL 10 MG TAB PO SCH (09:00)
--- NOTE | 2020-05-02 09:53 | CONS ---
CONSULTATION Mrs. Quintero 59-year-old female with a history of hypertension and hyperlipidemia who followed by Dr. Arana. As a matter of fact, she saw him yesterday for palpitation and she had a monitor placed. After she left the office, she felt some right-sided chest discomfort and some dyspnea and came into the emergency room and subsequently admitted. The patient is average in her exercise tolerance. She has mild dyspnea on exertion, but no exertional chest discomfort. She has no dizziness. She has some palpitation but no syncope. No PND. No orthopnea. No peripheral edema. She was in the hospital in 2019 for chest discomfort and at that time underwent a stress echocardiogram that showed no evidence of inducible ischemia. Her left ventricular systolic function at that time was normal. She has underwent cardiac catheterization in August of 2017 that showed no evidence of obstructive coronary artery disease. The patient has no history of myocardial infarction or congestive heart failure. She has no history of malignant arrhythmia. Her coronary risk factors are remarkable for history of hypertension, hyperlipidemia. She is a nonsmoker, nondiabetic. MEDICATION: Her medications at home include aspirin once a day, Zestril 10 mg daily, Aldactazide 25/25 mg daily, metoprolol tartrate 12.5 mg twice a day, Lipitor 40 mg daily. REVIEW OF SYSTEMS: RESPIRATORY SYSTEM: She has no documented history of asthma or emphysema. No recent wheezing or cough. GI SYSTEM: No recent GI bleeding. No peptic ulcer disease. SYSTEM: No dysuria or hematuria. NERVOUS SYSTEM: No stroke or seizure. PHYSICAL EXAMINATION: She is a 59-year-old female, alert, oriented, in no apparent distress. Blood pressure 105/69 with the heart in the 60s. HEAD: Normocephalic. EYES: Sclerae anicteric. NECK: Good carotid upstroke. No bruit. No jugular venous distention. LUNGS: Clear to auscultation. HEART: Regular rate and rhythm. S1, S2. No S3. No S4. No murmur or rub. CHEST WALL: With chest wall tenderness on the right side reproducing the pain. ABDOMEN: Soft, nontender. EXTREMITIES: No edema. LAB DATA: Lab data revealed BUN and creatinine 29 and 1.17. Troponin less than 0.012 for 3 samples. Potassium 4.3. Hemoglobin 15.2. Chest x-ray shows no acute infiltrate. IMPRESSION: 1. Chest discomfort atypical for ischemic heart disease, right-sided reproducible by palpation in a patient with a normal stress test about a year and a half ago and normal cardiac catheterization 2 years ago. 2. History of hypertension. 3. Hyperlipidemia. 4. History of aortic aneurysm that is stable. 5. History of arrhythmia, but no evidence of malignant arrhythmia. RECOMMENDATION: From the cardiac standpoint, I will stop her heparin. Increase her level activity. I will obtain a transthoracic echo. If there is no evidence of segmental wall motion abnormality, I would expect she should be able to be discharged home today and followed as an outpatient. Thank you for this consult. We will follow with you. MMARIEL / IJN: [id number] /
[2020-05-02 10:39] VITALS: BP 118/82; PULSE 64
[2020-05-02] MEDS ORDERED: NAPROXEN 250 MG TAB PO SCH (11:30)
--- NOTE | 2020-05-02 14:00 | ECHOF ---
Referral Reason:Chest pain; palpitations MEASUREMENTS -------- HEIGHT: 160.0 cm WEIGHT: 110.2 kg BP: RVIDd: 3.2 cm (< 3.3) IVSd: 1.4 cm (0.6 - 1.1) LVIDd: 4.1 cm (3.9 - 5.3) LVPWd: 1.3 cm (0.6 - 1.1) IVSs: 2.0 cm LVIDs: 2.2 cm LVPWs: 1.7 cm Ao Diam: 2.5 cm (2.0 - 3.7) AV Cusp: 1.9 cm (1.5 - 2.6) LA Diam: 3.6 cm (2.7 - 3.8) MV EXCURSION: 12.842 mm (> 18.000) MV EF SLOPE: 75 mm/s (70 - 150) EPSS: 0.7 cm MV E Alessio: 0.74 m/s MV DecT: 235 ms MV A Alessio: 0.75 m/s MV E/A Ratio: 0.99 RAP: 5.00 mmHg RVSP: 9.79 mmHg FINDINGS -------- Sinus rhythm. This was a technically difficult study with suboptimal views. The left ventricular size is normal. There is moderate concentric left ventricular hypertrophy. O verall left ventricular systolic function is normal with, an EF between 55 - 60 %. The right ventricle is normal in size. The left atrial size is normal. The right atrial size is normal. Lumason used Aortic valve is trileaflet and is mildly thickened. The mitral valve is normal. There is trace mitral regurgitation. The tricuspid valve appears structurally normal. Trace tricuspid regurgitation present. Right maeve tricular systolic pressure is normal at < 35 mmHg. The pulmonic valve was not well visualized. There is no pulmonic regurgitation present. The aortic root size is normal. IVC Not well visulized. There is no pericardial effusion. CONCLUSIONS -------- 1. This was a technically difficult study with suboptimal views. 2. There is moderate concentric left ventricular hypertrophy. 3. Overall left ventricular systolic function is normal with, an EF between 55 - 60 %. 4. Aortic valve is trileaflet and is mildly thickened. 5. There is trace mitral regurgitation. 6. Trace tricuspid regurgitation present. 7. There is no pericardial effusion. [employer] COORDINATOR: Tasia Brody RDCS
--- NOTE | 2020-05-02 23:40 | P.HPIM ---
History of Present Illness H&P Date: 05/02/20 Chief Complaint: Sharp chest pain History of presenting complaint: This is a pleasant 59-year-old patient of Dr. bryant from [place]. Also follows with Dr. Bridges from cardiology. Chronic stable medical conditions include diabetes, hypertension, hyperlipidemia, osteoarthritis, aneurysm of the ascending aorta, fatty liver, complicated disorder. Last week patient had an episodes of some racing heart. Day before presentation here she noticed some constant sharp pain on the right site. More so with breathing. No edema. No fever no chills. No cough. Patient had a negative cardiac catheterization 2 years ago. Patient had COVID infection on 03/08/2020. That time she had some chest congestion respiratory symptoms. Otherwise, fair excess tolerance. Review of systems: GEN.: None EYES: None HEENT: None NECK: None RESPIRATORY: As above CARDIOVASCULAR: None GASTROINTESTINAL: None GENITOURINARY: None MUSCULOSKELETAL: None LYMPHATICS: None HEMATOLOGICAL: None PSYCHIATRY: None NEUROLOGICAL: None Past medical history to include: Diabetes, hypertension, hyperlipidemia, liver disease, osteoarthritis, aneurysm of the ascending aorta, fatty liver, Social history: Lives alone. Liability and. Patient started smoking as a teen and stopped in 1987. No alcohol. Physical examination: VITAL SIGNS: 98.8, 74, 18, 141/61, 97% room air-on presentation GENERAL: BMI 43, sitting on bed, comfortable. EYES: Pupils equal. Conjunctiva normal. HEENT: External appearance of nose and ears normal, oral cavity grossly normal. NECK: JVD not raised; masses not palpable. HEART: First and second heart sounds are normal; no edema. LUNGS: Respiratory rate normal; clear to auscultation. ABDOMEN: Soft, nontender, liver spleen not palpable, no masses palpable. PSYCH: Alert and oriented x3; mood and affect normal. NEUROLOGICAL: Cranial nerves grossly intact; no facial asymmetry, power and sensation grossly intact. LYMPHATICS: No lymph nodes palpable in the axilla and neck INVESTIGATIONS, reviewed in the clinical context: White count 9.4 hemoglobin 13.2 platelets 169 potassium 4.3 bun 29 creatinine 1.17 Troponin I 3 negative TSH 2.4 EKG tracing personally reviewed by me-normal sinus rhythm Chest x-ray film personally reviewed by me-lung tran clear Assessment: -This is a patient who presents with right-sided of chest pain other Sharp worse with deep breath. No lower extremity swelling. No fever no chills. No sputum production. Most likely mild pleurisy. -Admitted to rule out a cardiac cause -Diabetes mellitus type 2 -Hyperlipidemia -Essential hypertension -Hepatic steatosis -Ascending aorta aneurysm -Primary osteoarthritis Plan: Cartilage was consulted. Home medications and continue. Care was discussed with the patient. Questions answered. If cardiac workup negative bili was short course of naproxen for pleurisy. 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, fatty liver, diet controlled diabetic, POSSIBLE HERNIA, GALLBLADDER DISORDER History of Any Multi-Drug Resistant Organisms: None Reported Past Surgical History: Breast Surgery, Heart Catheterization, Orthopedic Surgery Additional Past Surgical History / Comment(s): rt Breast biopsy, broken Finger, colonoscopy, dental SX, Past Anesthesia/Blood Transfusion Reactions: No Reported Reaction, Motion Sickness Past Psychological History: No Psychological Hx Reported Smoking Status: Former smoker - Past Family History Father Family Medical History: Cancer, Deep Vein Thrombosis (DVT) Additional Family Medical History / Comment(s): Had leukemia and "heart issues" Mother Additional Family Medical History / Comment(s): Mother of an infection at the age of 89yrs. Medications and Allergies Home Medications Medication Instructions Recorded Confirmed Type Atorvastatin Calcium [Lipitor] 40 mg PO HS 05/11/16 05/01/20 History Magnesium 400 mg PO DAILY 05/11/16 05/01/20 History Spironolact/Hydrochlorothiazid 1 tab PO DAILY 05/11/16 05/01/20 History [Aldactazide 25-25 MG] Fluticasone Nasal [place] [Flonase 1 spr EA NOSTRIL DAILY 11/12/17 05/01/20 History Nasal [place]] lisinopriL [Zestril] 10 mg PO DAILY 11/12/17 05/01/20 History Ascorbic Acid [Vitamin C] 500 mg PO DAILY 12/04/18 05/01/20 History Calcium Carbonate 2,000 mg PO DAILY 12/09/18 05/01/20 History Cholecalciferol (Vitamin D3) 2,000 unit PO DAILY 01/01/19 05/01/20 History [Vitamin D3] Fish Oil/Dha/Epa [Fish Oil 1,200 1 cap PO DAILY 01/01/19 05/01/20 History mg Fish Oil] Glucosamine Sulfate 2,000 mg PO DAILY 11/14/19 05/01/20 History Loratadine [Claritin] 10 mg PO DAILY 05/01/20 05/01/20 History Metoprolol Tartrate [Lopressor] 12.5 mg PO BID 05/01/20 05/01/20 History Zinc 50 mg PO DAILY 05/01/20 05/01/20 History Aspirin 81 mg PO DAILY #1 chewable 05/02/20 Rx Naproxen 250 mg PO BID #6 tablet 05/02/20 Rx Allergies Allergy/AdvReac Type Severity Reaction Status Date / Time No Known Allergies Allergy Verified 05/01/20 20:59 Physical Exam Vitals: Vital Signs Temp Pulse Pulse Resp BP BP Pulse Ox 05/02/20 02:00 98 F 65 18 105/69 97 05/01/20 22:38 97.7 F 63 18 137/79 96 05/01/20 22:06 99 F 63 14 109/59 97 05/01/20 21:26 67 20 122/77 97 05/01/20 20:12 98.8 F 74 18 141/61 97 Intake and Output 05/01/20 05/02/20 05/02/20 22:59 06:59 14:59 Intake Total 540 Balance 540 Intake: Oral 540 Other: # Voids 3 Weight 110.223 kg Results CBC & Chem 7: 05/01/20 20:34 05/01/20 20:34 Labs: Abnormal Lab Results - Last 24 Hours (Table) 05/01/20 Range/Units 20:34 BUN 29 H (7-17) mg/dL Creatinine 1.17 H (0.52-1.04) mg/dL Glucose 124 H (74-99) mg/dL Thrombosis Risk Factor Assmnt - Choose All That Apply Any of the Below Risk Factors Present?: Yes Each Factor Represents 1 point: Obesity (BMI >25) Other Risk Factors: Yes Each Risk Factor Represents 2 Points: Age 61-74 years Other congenital or acquired thrombophilia - If yes, enter type in comment: No Thrombosis Risk Factor Assessment Total Risk Factor Score: 3 Thrombosis Risk Factor Assessment Level: Moderate Risk
--- NOTE | 2020-05-02 23:43 | P.DS ---
Providers Date of admission: 05/01/20 21:36 Expected date of discharge: 05/02/20 Attending physician: Jeff Junior Consults: 05/01/20 21:51 Consult Physician Routine Consulting Provider: [facility] Consult Reason/Comments: Chest pain; Palpitations Do you want consulting provider notified?: Yes Primary care physician: Cade [facility] Course: Chief Complaint: Sharp chest pain History of presenting complaint: This is a pleasant 59-year-old patient of Dr. elliott from [place]. Also follows with Dr. Bridges from cardiology. Chronic stable medical conditions include diabetes, hypertension, hyperlipidemia, osteoarthritis, aneurysm of the ascending aorta, fatty liver, complicated disorder. Last week patient had an episodes of some racing heart. Day before presentation here she noticed some constant sharp pain on the right site. More so with breathing. No edema. No fever no chills. No cough. Patient had a negative cardiac catheterization 2 years ago. Patient had COVID infection on 03/08/2020. That time she had some chest congestion respiratory symptoms. Otherwise, fair excess tolerance. Patient is felt to have mild pleurisy. We'll give a short course of NSAID. Seen by currently. Patient is negative cardiac catheterization 2 years ago. Had a negative stress test few months ago. Consultation: Dr. Simpson from cardiology Past medical history to include: Diabetes, hypertension, hyperlipidemia, liver disease, osteoarthritis, aneurysm of the ascending aorta, fatty liver, Social history: Lives alone. Liability and. Patient started smoking as a teen and stopped in 1987. No alcohol. Physical examination: VITAL SIGNS: 97.7, 63, 18, 137/79, 96% room air GENERAL: BMI 43, sitting on bed, comfortable. EYES: Pupils equal. Conjunctiva normal. HEENT: External appearance of nose and ears normal, oral cavity grossly normal. NECK: JVD not raised; masses not palpable. HEART: First and second heart sounds are normal; no edema. LUNGS: Respiratory rate normal; clear to auscultation. ABDOMEN: Soft, nontender, liver spleen not palpable, no masses palpable. PSYCH: Alert and oriented x3; mood and affect normal. INVESTIGATIONS, reviewed in the clinical context: White count 9.4 hemoglobin 13.2 platelets 169 potassium 4.3 bun 29 creatinine 1.17 Troponin I 3 negative TSH 2.4 EKG tracing personally reviewed by me-normal sinus rhythm Chest x-ray film personally reviewed by me-lung tran clear 2-D echocardiogram-a 55-60%. Moderate concentric LVH Assessment: -Most likely right-sided while pleurisy. -Diabetes mellitus type 2 -Hyperlipidemia -Essential hypertension -Hepatic steatosis -Ascending aorta aneurysm -Primary osteoarthritis . Disposition: Home Patient Condition at Discharge: Good Plan - Discharge Summary Discharge Rx Participant: No New Discharge Prescriptions: New Aspirin 81 mg PO DAILY #1 chewable Naproxen 250 mg PO BID #6 tablet Continue Spironolact/Hydrochlorothiazid [Aldactazide 25-25 MG] 1 tab PO DAILY Atorvastatin Calcium [Lipitor] 40 mg PO HS Magnesium 400 mg PO DAILY lisinopriL [Zestril] 10 mg PO DAILY Fluticasone Nasal [place] [Flonase Nasal [place]] 1 spr EA NOSTRIL DAILY Ascorbic Acid [Vitamin C] 500 mg PO DAILY Calcium Carbonate 2,000 mg PO DAILY Cholecalciferol (Vitamin D3) [Vitamin D3] 2,000 unit PO DAILY Fish Oil/Dha/Epa [Fish Oil 1,200 mg Fish Oil] 1 cap PO DAILY Glucosamine Sulfate 2,000 mg PO DAILY Loratadine [Claritin] 10 mg PO DAILY Zinc 50 mg PO DAILY Metoprolol Tartrate [Lopressor] 12.5 mg PO BID Discontinued Aspirin EC [Ecotrin] 325 mg PO DAILY Discharge Medication List Atorvastatin Calcium [Lipitor] 40 mg PO HS 05/11/16 [History] Magnesium 400 mg PO DAILY 05/11/16 [History] Spironolact/Hydrochlorothiazid [Aldactazide 25-25 MG] 1 tab PO DAILY 05/11/16 [History] Fluticasone Nasal [place] [Flonase Nasal [place]] 1 spr EA NOSTRIL DAILY 11/12/17 [History] lisinopriL [Zestril] 10 mg PO DAILY 11/12/17 [History] Ascorbic Acid [Vitamin C] 500 mg PO DAILY 12/04/18 [History] Calcium Carbonate 2,000 mg PO DAILY 12/09/18 [History] Cholecalciferol (Vitamin D3) [Vitamin D3] 2,000 unit PO DAILY 01/01/19 [History] Fish Oil/Dha/Epa [Fish Oil 1,200 mg Fish Oil] 1 cap PO DAILY 01/01/19 [History] Glucosamine Sulfate 2,000 mg PO DAILY 11/14/19 [History] Loratadine [Claritin] 10 mg PO DAILY 05/01/20 [History] Metoprolol Tartrate [Lopressor] 12.5 mg PO BID 05/01/20 [History] Zinc 50 mg PO DAILY 05/01/20 [History] Aspirin 81 mg PO DAILY #1 chewable 05/02/20 [Rx] Naproxen 250 mg PO BID #6 tablet 05/02/20 [Rx] Follow up Appointment(s)/Referral(s): Cade Elliott MD [Primary Care Provider] - 05/08/20 2:00 pm Mesfin Arana MD [STAFF PHYSICIAN] - 2 Weeks Patient Instructions/Handouts: Heart Palpitations (DC) Activity/Diet/Wound Care/Special Instructions: dc when ok with cardiology
== END 2020-05-02 11:52 | disposition home or self-care (01) ==
LOC: EC 20:03 → 6NMEDSUR 21:36
PROVIDERS: ADMIT Hospitalist; ATTEND Hospitalist
DX: R07.89 Other chest pain (principal); R00.2 Palpitations; E11.9 Type 2 diabetes mellitus without complications; E78.5 Hyperlipidemia, unspecified; F17.200 Nicotine dependence, unspecified, uncomplicated; Z86.16 Personal history of COVID-19; I10 Essential (primary) hypertension; I71.2 Thoracic aortic aneurysm, without rupture; K76.0 Fatty (change of) liver, not elsewhere classified; M19.91 Primary osteoarthritis, unspecified site; Z79.82 Long term (current) use of aspirin; Z79.899 Other long term (current) drug therapy; Z80.6 Family history of leukemia; Z86.79 Personal history of other diseases of the circulatory system
CPT/HCPCS: 93005 ×2; 99285; 36415; 93306; 85379; 80053; 84443; 83735; 84484 ×2; 85025; 85610; 85730; 71046; G0378 ×2; Q9950

== ENCOUNTER → 2020-05-08 | Outpatient (CLI) | payer BC ==
--- NOTE | 2020-05-08 11:58 | BD ---
EXAMINATION TYPE: Axial Bone Density DATE OF EXAM: 05/08/2020 COMPARISON: NONE CLINICAL HISTORY: Height: 5 FT 3 IN Weight: FRAX RISK QUESTIONS: Alcohol (3 or more units per day): NO Family History (Parent hip fracture): NO Glucocorticoids (More than 3mos): NO (Ex: prednisone, prednisolone, methylprednisolone, dexamethasone, and hydrocortisone). History of Fracture in Adulthood: YES Secondary Osteoporosis: 1. Type 1 Diabetes: NO 2. Hyperthyroidism: NO 3. Menopause before 45: NO 4. Malnutrition: NO 5. Chronic liver disease: FATTY Rheumatoid Arthritis: NO Current Tobacco Use: NO RISK FACTORS HISTORY OF: Family History of Osteoporosis: NO Active: YES Diet low in dairy products/other sources of calcium: NO Postmenopausal woman: AGE 52 Take estrogen and/or progesterone medications: NONE Lost more than 2 inches in height since high school: NO MEDICATIONS: Additional Medications: ALLERGY MEDS, ATORVASTATIN, METOPROLOL, LISINOPRIL Additional History: EXAM MEASUREMENTS: Bone mineral densitometry was performed using the [employer] System. Bone mineral density as measured about the Lumbar spine is: ----- L1-L4(G/cm2): 1.173 T Score Values are as follows: ----- L2: -0.7 ----- L3: 0.2 ----- L4: 0.5 ----- L1-L4: -0.1 BASELINE Bone mineral density about the R hip (g/cm2): 0.865 Bone mineral density about the L hip (g/cm2): 0.689 T Score values are as follows: -----R Neck: -2.5 -----L Neck: -1.2 -----R Total: -0.9 -----L Total: -2.2 BASELINE IMPRESSION: Osteopenia (T Score between -2.5 and -1). There is slightly increased risk of fracture and the patient may be considered for treatment. Re-Screen 2-5 years. NOTE: T-SCORE=SD OF THE YOUNG ADULT MEAN.
--- NOTE | 2020-05-13 09:25 | MM ---
Reason for exam: screening (asymptomatic). Last mammogram was performed 1 year and 3 months ago. History: Patient is postmenopausal and is nulliparous. Family history of breast cancer in paternal aunt at age 70, breast cancer in maternal cousin at age 40, and breast cancer in maternal aunt at age 45. Benign right mammotome panel of the right breast, October 15, 2010. Took hormonal contraceptives for 5 years beginning at age 18. Physical Findings: A clinical breast exam by your physician is recommended on an annual basis and results should be correlated with mammographic findings. MG Screening Mammo w CAD Bilateral CC and MLO view(s) were taken. Prior study comparison: January 21, 2019, bilateral MG screening mammo w CAD. October 14, 2017, bilateral MG 3d screening mammo w/cad. There are scattered fibroglandular densities. There are benign appearing round calcifications bilaterally. Previous mammotome biopsy in the right breast. There is no discrete abnormality. ASSESSMENT: Benign, BI-RAD 2 RECOMMENDATION: Routine screening mammogram of both breasts in 1 year.
== END | disposition home or self-care (01) ==
LOC: RADMAMWWP 07:54
PROVIDERS: ATTEND Family Medicine
DX: Z12.31 Encounter for screening mammogram for malignant neoplasm of breast (principal); M85.80 Other specified disorders of bone density and structure, unspecified site; Z78.0 Asymptomatic menopausal state
CPT/HCPCS: 77067; 77080

== ENCOUNTER → 2020-05-17 | Outpatient (CLI) | payer BC ==
[2020-05-17 14:07] LABS: Chol/HDL Ratio 3.33; LDL Cholesterol,Calculated 68.6 mg/dL (0.0-131.0); VLDL Calculation 15.4 mg/dL (5.00-40.00)
[2020-05-17 17:17] LABS: Hemoglobin A1C 5.8 % (4.0-6.0)
== END | disposition home or self-care (01) ==
LOC: LABWHC1 08:12
PROVIDERS: ATTEND Family Medicine
DX: E78.5 Hyperlipidemia, unspecified (principal)
CPT/HCPCS: 36415; 80061; 83036

== ENCOUNTER → 2020-08-15 | Outpatient (CLI) | payer BC ==
[2020-08-15 19:34] LABS: African American GFR (CKD) 92.2 (60.0-200.0); Albumin 4.5 g/dL (3.80-4.90); Albumin/Globulin Ratio 2.25 (1.60-3.17); Anion Gap 12.9 mmol/L (4.00-12.00); BUN/Creat Ratio 26.25 Ratio (12.00-20.00); Calcium 8.9 mg/dL (8.7-10.3); Carbon Dioxide 25.1 mmol/L (21.6-31.8); Chol/HDL Ratio 3.63; LDL Cholesterol,Calculated 65.8 mg/dL (0.0-131.0); Non-African American GFR(CKD) 79.6 (60.0-200.0); Potassium 4.2 mmol/L (3.5-5.5); Total Bilirubin 1.1 mg/dL (0.2-1.2); Total Protein 6.5 g/dL (6.2-8.2); VLDL Calculation 18.2 mg/dL (5.00-40.00)
== END | disposition home or self-care (01) ==
LOC: LABWHC1 09:18
PROVIDERS: ATTEND Family Medicine
DX: E78.5 Hyperlipidemia, unspecified (principal)
CPT/HCPCS: 36415; 80053; 80061

== ENCOUNTER → 2020-09-04 | Outpatient (CLI) | payer BC ==
[2020-09-04 15:14] LABS: Basophils # (A) 0.04 X 10*3/uL (0.00-0.10); Basophils % (A) 0.5 %; Eosinophils # (A) 0.15 X 10*3/uL (0.04-0.35); Eosinophils % (A) 1.9 %; HCT 45.7 % (37.2-46.3); HGB 14.7 g/dL (12.0-15.0); Lymphocytes # (A) 1.84 X 10*3/uL (0.90-5.00); Lymphocytes % (A) 22.8 %; MCH 31.2 pg (27.0-32.0); MCHC 32.2 g/dL (32.0-37.0); Mean Platelet Volume 12.9 fL (9.5-12.2); Monocytes # (A) 0.43 X 10*3/uL (0.20-1.00); Monocytes % (A) 5.3 %; Neutrophils # (A) 5.59 X 10*3/uL (1.80-7.70); Neutrophils % (A) 69.1 %; Platelet Count 197 X 10*3/uL (140-440); RBC 4.71 X 10*6/uL (4.10-5.20); RDW 11.9 % (11.5-14.5); WBC 8.08 X 10*3/uL (4.50-10.00)
[2020-09-05 00:43] LABS: Albumin 4.3 g/dL (3.80-4.90); Albumin/Globulin Ratio 1.87 (1.60-3.17); Anion Gap 12.6 mmol/L (4.00-12.00); BUN/Creat Ratio 21.11 Ratio (12.00-20.00); Calcium 10.2 mg/dL (8.7-10.3); Carbon Dioxide 27.4 mmol/L (21.6-31.8); Globulin 2.3 g/dL (1.6-3.3); Potassium 4.2 mmol/L (3.5-5.5); Total Bilirubin 0.9 mg/dL (0.2-1.2); Total Protein 6.6 g/dL (6.2-8.2)
== END | disposition home or self-care (01) ==
LOC: LABWHC1 08:12
PROVIDERS: ATTEND Family Medicine
DX: R10.9 Unspecified abdominal pain (principal)
CPT/HCPCS: 36415; 80053; 82150; 83690; 85025

== ENCOUNTER → 2020-11-20 | Outpatient (CLI) | payer BC ==
[2020-11-20 15:20] LABS: Basophils # (A) 0.05 X 10*3/uL (0.00-0.10); Basophils % (A) 0.8 %; Eosinophils # (A) 0.17 X 10*3/uL (0.04-0.35); Eosinophils % (A) 2.8 %; HCT 45.3 % (37.2-46.3); HGB 14.5 g/dL (12.0-15.0); Lymphocytes # (A) 1.69 X 10*3/uL (0.90-5.00); Lymphocytes % (A) 27.5 %; MCV 96.8 fL (80.0-97.0); Mean Platelet Volume 12.8 fL (9.5-12.2); Monocytes # (A) 0.47 X 10*3/uL (0.20-1.00); Monocytes % (A) 7.7 %; Neutrophils # (A) 3.74 X 10*3/uL (1.80-7.70); Neutrophils % (A) 60.9 %; Platelet Count 172 X 10*3/uL (140-440); RBC 4.68 X 10*6/uL (4.10-5.20); RDW 12.5 % (11.5-14.5); WBC 6.14 X 10*3/uL (4.50-10.00)
[2020-11-20 18:44] LABS: Albumin 4.3 g/dL (3.80-4.90); Albumin/Globulin Ratio 1.95 (1.60-3.17); Anion Gap 11.5 mmol/L (4.00-12.00); BUN/Creat Ratio 22.22 Ratio (12.00-20.00); Calcium 9.2 mg/dL (8.7-10.3); Carbon Dioxide 24.5 mmol/L (21.6-31.8); Chol/HDL Ratio 3.18; Globulin 2.2 g/dL (1.6-3.3); LDL Cholesterol,Calculated 59.8 mg/dL (0.0-131.0); Potassium 4.2 mmol/L (3.5-5.5); Total Bilirubin 0.9 mg/dL (0.3-1.2); Total Protein 6.5 g/dL (6.2-8.2); VLDL Calculation 14.2 mg/dL (5.00-40.00)
== END | disposition home or self-care (01) ==
LOC: LABWHC1 07:20
PROVIDERS: ATTEND Nurse Practitioner Family
DX: E78.5 Hyperlipidemia, unspecified (principal)
CPT/HCPCS: 36415; 80053; 80061; 85025

== ENCOUNTER 2021-01-05 11:36 | Emergency (ER) | payer BC ==
[2021-01-05 11:55] VITALS: RESP 18; TEMP 98.8
[2021-01-05] MEDS ORDERED: MAG HYDROX/AL HYDROX/SIMETH 30 ML, HYOSCYAMINE ELIXIR 10 ML, LIDOCAINE VISCOUS 2% 10 ML PO STA ×3 (12:45)
--- NOTE | 2021-01-05 13:15 | XR ---
EXAMINATION TYPE: XR chest 2V DATE OF EXAM: 01/05/2021 COMPARISON: Chest x-ray May 01, 2020 HISTORY: Right-sided chest pain TECHNIQUE: Frontal and lateral views of the chest are obtained. FINDINGS: There is no suspicious new focal air space opacity, pleural effusion, or pneumothorax seen . The cardiac silhouette size is stable and upper limits of normal. Underlying scoliotic curvature r edemonstrated. IMPRESSION: No acute process. No significant change from prior.
--- NOTE | 2021-01-05 13:16 | XR ---
EXAMINATION TYPE: XR KUB DATE OF EXAM: 01/05/2021 12:59 PM CLINICAL HISTORY: Right-sided pain. TECHNIQUE: Two Upright KUB images of the abdomen are obtained. COMPARISON: CT abdomen and pelvis January 02, 2019 FINDINGS: Scattered gas is seen in non-distended small and large bowel loops. There is no visceromega ly, pneumoperitoneum, or abnormal calcification appreciated. The lung bases are clear and the osseous structures are intact. IMPRESSION: Overall nonobstructive bowel gas pattern.
--- NOTE | 2021-01-05 13:37 | ED ---
General Adult HPI - General Chief complaint: Extremity Problem,Nontraumatic Stated complaint: right arm tingling Time Seen by Provider: 01/05/21 11:58 Source: patient Mode of arrival: wheelchair Limitations: no limitations - History of Present Illness Initial comments: 60 year-old female patient presents to the emergency department for evaluation of right arm tingling x2 days. State it is intermittent. She is also reporting right upper quadrant abdominal pain. Started yesterday as well. States it is mild. She denies any nausea or vomiting. Denies any back pain. Denies chest pain or shortness of breath. Denies hematuria, dysuria, urinary frequency, urinary urgency. Denies any headache, blurred vision, double vision. Denies dizziness. Denies history of CVA. Has had cholecystectomy in the past. - Related Data Home Medications Medication Instructions Recorded Confirmed Atorvastatin Calcium [Lipitor] 40 mg PO HS 05/11/16 05/01/20 Magnesium 400 mg PO DAILY 05/11/16 05/01/20 Spironolact/Hydrochlorothiazid 1 tab PO DAILY 05/11/16 05/01/20 [Aldactazide 25-25 MG] Fluticasone Nasal [place] [Flonase 1 spr EA NOSTRIL DAILY 11/12/17 05/01/20 Nasal [place]] lisinopriL [Zestril] 10 mg PO DAILY 11/12/17 05/01/20 Ascorbic Acid [Vitamin C] 500 mg PO DAILY 12/04/18 05/01/20 Calcium Carbonate 2,000 mg PO DAILY 12/09/18 05/01/20 Cholecalciferol (Vitamin D3) 2,000 unit PO DAILY 01/01/19 05/01/20 [Vitamin D3] Fish Oil/Dha/Epa [Fish Oil 1,200 1 cap PO DAILY 01/01/19 05/01/20 mg Fish Oil] Glucosamine Sulfate 2,000 mg PO DAILY 11/14/19 05/01/20 Loratadine [Claritin] 10 mg PO DAILY 05/01/20 05/01/20 Metoprolol Tartrate [Lopressor] 12.5 mg PO BID 05/01/20 05/01/20 Zinc 50 mg PO DAILY 05/01/20 05/01/20 Previous Rx's Medication Instructions Recorded Aspirin 81 mg PO DAILY #1 chewable 05/02/20 Naproxen 250 mg PO BID #6 tablet 05/02/20 Allergies Allergy/AdvReac Type Severity Reaction Status Date / Time No Known Allergies Allergy Verified 01/05/21 11:55 Review of Systems ROS Statement: Those systems with pertinent positive or pertinent negative responses have been documented in the HPI. ROS Other: All systems not noted in ROS Statement are negative. 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, fatty liver, diet controlled diabetic, POSSIBLE HERNIA, GALLBLADDER DISORDER History of Any Multi-Drug Resistant Organisms: None Reported Past Surgical History: Breast Surgery, Heart Catheterization, Orthopedic Surgery Additional Past Surgical History / Comment(s): rt Breast biopsy, broken Finger, colonoscopy, dental SX, Past Anesthesia/Blood Transfusion Reactions: No Reported Reaction, Motion Sickness Past Psychological History: No Psychological Hx Reported Smoking Status: Former smoker Past Alcohol Use History: None Reported Past Drug Use History: None Reported - Past Family History Father Family Medical History: Cancer, Deep Vein Thrombosis (DVT) Additional Family Medical History / Comment(s): Had leukemia and "heart issues" Mother Additional Family Medical History / Comment(s): Mother of an infection at the age of 89yrs. General Exam Limitations: no limitations General appearance: alert, in no apparent distress, other (This is a well- developed, well-nourished adult female patient in no acute distress. Vital signs upon presentation are temperature 98.8F, pulse 64, respirations 18, blood pressure 137/75, pulse ox 98% on room air.) Eye exam: Present: normal appearance, PERRL, EOMI. Absent: scleral icterus, conjunctival injection, periorbital swelling ENT exam: Present: normal exam, normal oropharynx, mucous membranes moist Respiratory exam: Present: normal lung sounds bilaterally. Absent: respiratory distress, wheezes, rales, rhonchi, stridor Cardiovascular Exam: Present: regular rate, normal rhythm, normal heart sounds. Absent: systolic murmur, diastolic murmur, rubs, gallop, clicks GI/Abdominal exam: Present: soft, tenderness (Right upper quadrant tenderness), normal bowel sounds. Absent: distended, guarding, rebound, rigid Neurological exam: Present: alert, oriented X3, CN II-XII intact Expanded Speech: Present: fluid speech Cranial nerves: EOM's Intact: Normal, Tongue Deviation: Normal, Nystagmus: Normal Motor strength exam: RUE: 5, LUE: 5, RLE: 5, LLE: 5 Psychiatric exam: Present: normal affect, normal mood Skin exam: Present: warm, dry, intact, normal color. Absent: rash Course Vital Signs 01/05/21 01/05/21 11:53 16:18 Temperature 98.8 F Pulse Rate 64 60 Respiratory 18 18 Rate Blood Pressure 137/75 125/70 O2 Sat by Pulse 98 98 Oximetry EKG Findings - EKG Comments: EKG Findings:: EKG obtained at 1355 shows sinus bradycardia with a first-degree AV block. Ventricular rate is 59, WY interval 210, QRS duration 78, QT 440, QTC 435. No evidence of ST elevation or depression. Medical Decision Making - Medical Decision Making 60-year-old female patient presented to the emergency department today for evaluation of right upper quadrant abdominal pain right arm tingling. Physical examination did reveal mild right upper quadrant tenderness. She is neurologically intact with no focal deficits. She is afebrile normal vital signs. Labs reviewed and are unremarkable. CT brain negative. Chest x-ray KUB negative. She was given GI cocktail. Upon reevaluation states she is feeling better. She'll be discharged follow up with her primary care physician for recheck tomorrow. Return parameters were discussed in detail. She verbalizes understanding and agrees with this plan. Case discussed in my attending Dr. Rodriguez. - Lab Data Result diagrams: 01/05/21 13:30 01/05/21 13:30 Lab Results 01/05/21 01/05/21 01/05/21 Range/Units 13:30 13:30 13:30 WBC 6.3 (3.8-10.6) k/uL RBC 4.68 (3.80-5.40) m/uL Hgb 15.0 (11.4-16.0) gm/dL Hct 45.3 (34.0-46.0) % MCV 96.8 (80.0-100.0) fL MCH 32.0 (25.0-35.0) pg MCHC 33.1 (31.0-37.0) g/dL RDW 12.4 (11.5-15.5) % Plt Count 166 (150-450) k/uL MPV 9.0 Neutrophils % 68 % Lymphocytes % 24 % Monocytes % 4 % Eosinophils % 3 % Basophils % 1 % Neutrophils # 4.2 (1.3-7.7) k/uL Lymphocytes # 1.5 (1.0-4.8) k/uL Monocytes # 0.2 (0-1.0) k/uL Eosinophils # 0.2 (0-0.7) k/uL Basophils # 0.0 (0-0.2) k/uL Sodium 138 (137-145) mmol/L Potassium 4.2 (3.5-5.1) mmol/L Chloride 102 (98-107) mmol/L Carbon Dioxide 29 (22-30) mmol/L Anion Gap 7 mmol/L BUN 18 H (7-17) mg/dL Creatinine 0.77 (0.52-1.04) mg/dL Est GFR (CKD-EPI)AfAm >90 (>60 ml/min/1.73 sqM) Est GFR (CKD-EPI)NonAf 83 (>60 ml/min/1.73 sqM) Glucose 106 H (74-99) mg/dL Plasma Lactic Acid James (0.7-2.0) mmol/L Calcium 9.3 (8.4-10.2) mg/dL Total Bilirubin 0.8 (0.2-1.3) mg/dL AST 26 (14-36) U/L ALT 18 (4-34) U/L Alkaline Phosphatase 72 (38-126) U/L Troponin I (0.000-0.034) ng/mL Total Protein 6.5 (6.3-8.2) g/dL Albumin 3.8 (3.5-5.0) g/dL Lipase 56 (23-300) U/L Urine Color Colorless Urine Appearance Clear (Clear) Urine pH 5.5 (5.0-8.0) Ur Specific [place] 1.008 (1.001-1.035) Urine Protein Negative (Negative) Urine Glucose (UA) Negative (Negative) Urine Ketones Negative (Negative) Urine Blood Negative (Negative) Urine Nitrite Negative (Negative) Urine Bilirubin Negative (Negative) Urine Urobilinogen <2.0 (<2.0) mg/dL Ur Leukocyte Esterase Negative (Negative) 01/05/21 01/05/21 Range/Units 13:30 13:30 WBC (3.8-10.6) k/uL RBC (3.80-5.40) m/uL Hgb (11.4-16.0) gm/dL Hct (34.0-46.0) % MCV (80.0-100.0) fL MCH (25.0-35.0) pg MCHC (31.0-37.0) g/dL RDW (11.5-15.5) % Plt Count (150-450) k/uL MPV Neutrophils % % Lymphocytes % % Monocytes % % Eosinophils % % Basophils % % Neutrophils # (1.3-7.7) k/uL Lymphocytes # (1.0-4.8) k/uL Monocytes # (0-1.0) k/uL Eosinophils # (0-0.7) k/uL Basophils # (0-0.2) k/uL Sodium (137-145) mmol/L Potassium (3.5-5.1) mmol/L Chloride (98-107) mmol/L Carbon Dioxide (22-30) mmol/L Anion Gap mmol/L BUN (7-17) mg/dL Creatinine (0.52-1.04) mg/dL Est GFR (CKD-EPI)AfAm (>60 ml/min/1.73 sqM) Est GFR (CKD-EPI)NonAf (>60 ml/min/1.73 sqM) Glucose (74-99) mg/dL Plasma Lactic Acid James 0.7 (0.7-2.0) mmol/L Calcium (8.4-10.2) mg/dL Total Bilirubin (0.2-1.3) mg/dL AST (14-36) U/L ALT (4-34) U/L Alkaline Phosphatase (38-126) U/L Troponin I <0.012 (0.000-0.034) ng/mL Total Protein (6.3-8.2) g/dL Albumin (3.5-5.0) g/dL Lipase (23-300) U/L Urine Color Urine Appearance (Clear) Urine pH (5.0-8.0) Ur Specific [place] (1.001-1.035) Urine Protein (Negative) Urine Glucose (UA) (Negative) Urine Ketones (Negative) Urine Blood (Negative) Urine Nitrite (Negative) Urine Bilirubin (Negative) Urine Urobilinogen (<2.0) mg/dL Ur Leukocyte Esterase (Negative) - Radiology Data Radiology results: report reviewed, image reviewed Two-view x-ray of the chest is obtained. Report was reviewed in its entirety. Impression by Dr. Tapia shows no acute process. No significant change from prior. KUB x-ray was obtained. Report was reviewed in its entirety. Impression by Dr. Tapia shows overall nonobstructive bowel gas pattern. CT brain without contrast was obtained. Report was reviewed in its entirety. Impression by Dr. Christine shows negative unenhanced head computed tomography scan. No change. Disposition Clinical Impression: Arm paresthesia, right, Abdominal pain Disposition: HOME SELF-CARE Condition: Good Instructions (If sedation given, give patient instructions): Paresthesia (ED), Cervical Radiculopathy (ED), Abdominal Pain (ED) Additional Instructions: Follow-up with your primary care physician for recheck tomorrow. Return to the emergency department for any new, worsening, or concerning symptoms. Is patient prescribed a controlled substance at d/c from ED?: No Referrals: Cade Elliott MD [Primary Care Provider] - 1-2 days Time of Disposition: 15:51
--- NOTE | 2021-01-05 14:32 | CT ---
EXAMINATION TYPE: CT brain wo con DATE OF EXAM: 01/05/2021 COMPARISON: 05/11/2016 HISTORY: Rt arm tingling CT DLP: 1106.4 mGycm Automated exposure control for dose reduction was used. Ventricles have normal size. There is no mass effect nor midline shift. There is no sign of intracran ial hemorrhage. Calvarium is intact. There is normal aeration of the mastoid sinuses. Skull base is i ntact. IMPRESSION: Negative unenhanced head CT scan. No change.
[2021-01-05 14:41] LABS: Basophils % (A) 1 %; Eosinophils # (A) 0.2 k/uL (0-0.7); Eosinophils % (A) 3 %; HCT 45.3 % (34.0-46.0); Lymphocytes # (A) 1.5 k/uL (1.0-4.8); Lymphocytes % (A) 24 %; MCHC 33.1 g/dL (31.0-37.0); MCV 96.8 fL (80.0-100.0); Monocytes # (A) 0.2 k/uL (0-1.0); Monocytes % (A) 4 %; Neutrophils # (A) 4.2 k/uL (1.3-7.7); Neutrophils % (A) 68 %; Platelet Count 166 k/uL (150-450); RBC 4.68 m/uL (3.80-5.40); RDW 12.4 % (11.5-15.5); WBC 6.3 k/uL (3.8-10.6)
[2021-01-05 14:51] LABS: Appearance,Urine Clear (Clear); Bilirubin,Urine Negative (Negative); Blood,Urine Negative (Negative); Color,Urine Colorless; Glucose,Urine (UA) Negative (Negative); Ketones,Urine Negative (Negative); Leukocyte Esterase,Urine Negative (Negative); Nitrite,Urine Negative (Negative); PH, Urine 5.5 (5.0-8.0); Protein,Urine Negative (Negative); Specific Gravity,Urine 1.008 (1.001-1.035); Urobilinogen,Urine <2.0 mg/dL (<2.0)
[2021-01-05 14:56] LABS: ALT 18 U/L (4-34); AST 26 U/L (14-36); African American GFR (CKD) >90 (>60 ml/min/1.73 sqM); Albumin 3.8 g/dL (3.5-5.0); Alkaline Phosphatase 72 U/L (38-126); Anion Gap 7 mmol/L; Blood Urea Nitrogen 18 mg/dL (7-17); Calcium 9.3 mg/dL (8.4-10.2); Carbon Dioxide 29 mmol/L (22-30); Chloride 102 mmol/L (98-107); Glucose 106 mg/dL (74-99); Lipase 56 U/L (23-300); Non-African American GFR(CKD) 83 (>60 ml/min/1.73 sqM); Potassium 4.2 mmol/L (3.5-5.1); Sodium 138 mmol/L (137-145); Total Bilirubin 0.8 mg/dL (0.2-1.3); Total Protein 6.5 g/dL (6.3-8.2)
[2021-01-05 16:21] VITALS: BP 125/70; PULSE 60
== END 2021-01-05 16:18 | disposition home or self-care (01) ==
LOC: EC 11:36
DX: R20.2 Paresthesia of skin (principal); R10.11 Right upper quadrant pain; E11.9 Type 2 diabetes mellitus without complications; E78.5 Hyperlipidemia, unspecified; I10 Essential (primary) hypertension; Z87.891 Personal history of nicotine dependence; Z79.899 Other long term (current) drug therapy
CPT/HCPCS: 36415; 70450; 71046; 74018; 80053; 81003; 83605; 83690; 84484; 85025; 93005; 99284

== ENCOUNTER → 2021-03-19 | Outpatient (CLI) | payer BC ==
[2021-03-19 12:25] LABS: Basophils # (A) 0.06 X 10*3/uL (0.00-0.10); Basophils % (A) 0.7 %; Eosinophils % (A) 3.6 %; HCT 43.4 % (37.2-46.3); HGB 13.8 g/dL (12.0-15.0); Lymphocytes # (A) 1.76 X 10*3/uL (0.90-5.00); Lymphocytes % (A) 20.9 %; MCH 30.6 pg (27.0-32.0); MCHC 31.8 g/dL (32.0-37.0); MCV 96.2 fL (80.0-97.0); Mean Platelet Volume 12.6 fL (9.5-12.2); Monocytes % (A) 4.8 %; Neutrophils # (A) 5.87 X 10*3/uL (1.80-7.70); Neutrophils % (A) 69.8 %; Platelet Count 186 X 10*3/uL (140-440); RBC 4.51 X 10*6/uL (4.10-5.20); RDW 12.7 % (11.5-14.5); WBC 8.41 X 10*3/uL (4.50-10.00)
[2021-03-19 12:41] LABS: ALT 17 U/L (8-44); AST 19 U/L (13-35); African American GFR (CKD) 78.7 (60.0-200.0); Albumin 4.1 g/dL (3.8-4.9); Albumin/Globulin Ratio 1.94 (1.60-3.17); Alkaline Phosphatase 80 U/L (41-126); BUN/Creat Ratio 23.81 Ratio (12.00-20.00); Blood Urea Nitrogen 21.6 mg/dL (9.0-27.0); Carbon Dioxide 23.9 mmol/L (20.0-27.5); Chloride 103 mmol/L (96-109); Chol/HDL Ratio 3.15 Ratio; Globulin 2.1 g/dL (1.6-3.3); Glucose 116 mg/dL (70-110); LDL Cholesterol,Calculated 62.5 mg/dL (0.0-131.0); Non-African American GFR(CKD) 67.9 (60.0-200.0); Potassium 4.3 mmol/L (3.5-5.5); Sodium 141 mmol/L (135-145); Total Protein 6.2 g/dL (6.2-8.2); VLDL Calculation 14.62 mg/dL (5.00-40.00)
== END | disposition home or self-care (01) ==
LOC: LABWHC1 07:17
PROVIDERS: ATTEND Family Medicine
DX: E78.5 Hyperlipidemia, unspecified (principal); R09.81 Nasal congestion
CPT/HCPCS: 36415; 80053; 80061; 85025

== ENCOUNTER → 2021-06-12 | Outpatient (CLI) | payer BC ==
[2021-06-12 10:36] LABS: Basophils # (A) 0.04 X 10*3/uL (0.00-0.10); Basophils % (A) 0.6 %; Eosinophils # (A) 0.37 X 10*3/uL (0.04-0.35); Eosinophils % (A) 5.1 %; HCT 43.7 % (37.2-46.3); HGB 14.3 g/dL (12.0-15.0); Immature Grans, Automated 0.3 %; Lymphocytes % (A) 23.4 %; MCH 30.9 pg (27.0-32.0); MCHC 32.7 g/dL (32.0-37.0); MCV 94.4 fL (80.0-97.0); Mean Platelet Volume 12.5 fL (9.5-12.2); Monocytes # (A) 0.45 X 10*3/uL (0.20-1.00); Monocytes % (A) 6.2 %; NRBC Per 100 WBC 0 /100 WBCS (0.0-0.0); Neutrophils # (A) 4.68 X 10*3/uL (1.80-7.70); Neutrophils % (A) 64.4 %; Platelet Count 170 X 10*3/uL (140-440); RBC 4.63 X 10*6/uL (4.10-5.20); RDW 12.7 % (11.5-14.5); WBC 7.26 X 10*3/uL (4.50-10.00)
[2021-06-12 11:08] LABS: ALT 15 U/L (8-44); AST 22 U/L (13-35); African American GFR (CKD) 86.2 (60.0-200.0); Albumin 4.3 g/dL (3.8-4.9); Albumin/Globulin Ratio 1.58 (1.60-3.17); Alkaline Phosphatase 79 U/L (41-126); BUN/Creat Ratio 27.82 Ratio (12.00-20.00); Blood Urea Nitrogen 23.4 mg/dL (9.0-27.0); Calcium 9.2 mg/dL (8.7-10.3); Chloride 101 mmol/L (96-109); Globulin 2.7 g/dL (1.6-3.3); Glucose 107 mg/dL (70-110); LDL Cholesterol,Calculated 61.2 mg/dL (0.0-131.0); Non-African American GFR(CKD) 74.4 (60.0-200.0); Potassium 4.1 mmol/L (3.5-5.5); Sodium 137 mmol/L (135-145); VLDL Calculation 18.58 mg/dL (5.00-40.00)
== END | disposition home or self-care (01) ==
LOC: LABWHC1 07:15
PROVIDERS: ATTEND Nurse Practitioner Family
DX: Z00.01 Encounter for general adult medical examination with abnormal findings (principal); E78.5 Hyperlipidemia, unspecified; E55.9 Vitamin D deficiency, unspecified
CPT/HCPCS: 36415; 80053; 80061; 82306; 84439; 84443; 85025

== ENCOUNTER → 2021-07-21 | Outpatient (CLI) | payer BC ==
--- NOTE | 2021-07-23 10:30 | MM ---
Reason for exam: screening (asymptomatic). Last mammogram was performed 1 year and 2 months ago. History: Patient is postmenopausal and is nulliparous. Family history of breast cancer in paternal aunt at age 70, breast cancer in maternal cousin at age 40, and breast cancer in maternal aunt at age 45. Benign right mammotome panel of the right breast, October 15, 2010. Took hormonal contraceptives for 5 years beginning at age 18. Physical Findings: A clinical breast exam by your physician is recommended on an annual basis and results should be correlated with mammographic findings. MG Screening Mammo w CAD Bilateral CC, MLO, and XCCL view(s) were taken. Prior study comparison: May 08, 2020, bilateral MG screening mammo w CAD. January 21, 2019, bilateral MG screening mammo w CAD. October 14, 2017, bilateral MG 3d screening mammo w/cad. Previous mammotome biopsy in the right breast. No significant changes when compared with prior studies. ASSESSMENT: Benign, BI-RAD 2 RECOMMENDATION: Routine screening mammogram of both breasts in 1 year.
== END | disposition home or self-care (01) ==
LOC: RADMAMWWP 15:44
PROVIDERS: ATTEND Family Medicine
DX: Z12.31 Encounter for screening mammogram for malignant neoplasm of breast (principal); Z78.0 Asymptomatic menopausal state; Z80.3 Family history of malignant neoplasm of breast
CPT/HCPCS: 77067

== ENCOUNTER 2021-08-03 11:30 | Emergency (ER) | payer BC ==
[2021-08-03 11:41] VITALS: RESP 18
[2021-08-03] MEDS ORDERED: SODIUM CHLORIDE 0.9% 500 ML 500 ML IV STA (11:57)
--- NOTE | 2021-08-03 12:04 | ED ---
Arrhythmia/Palpitations HPI - General Chief Complaint: Arrhythmia/Palpitations Stated Complaint: Heart palpations Time Seen by Provider: 08/03/21 11:43 Source: patient, RN notes reviewed Mode of arrival: wheelchair Limitations: no limitations - History of Present Illness Initial Comments: This a 60-year-old female presents emergency Department with chief complaint of heart racing. Patient states that she was getting ready to leave the house when she fell like her heart was racing, she became lightheaded. Patient states symptoms are resolved she has no symptoms. She did complain of some left-sided abdominal pain but that has also resolved. Patient denies any nausea vomiting diarrhea constipation patient offers no complaints. Patient denies any history of chronic issues including A. fib, prior [place]. - Related Data Home Medications Medication Instructions Recorded Confirmed Atorvastatin Calcium [Lipitor] 40 mg PO HS 05/11/16 05/01/20 Magnesium 400 mg PO DAILY 05/11/16 05/01/20 Spironolact/Hydrochlorothiazid 1 tab PO DAILY 05/11/16 05/01/20 [Aldactazide 25-25 MG] Fluticasone Nasal [place] [Flonase 1 spr EA NOSTRIL DAILY 11/12/17 05/01/20 Nasal [place]] lisinopriL [Zestril] 10 mg PO DAILY 11/12/17 05/01/20 Ascorbic Acid [Vitamin C] 500 mg PO DAILY 12/04/18 05/01/20 Calcium Carbonate 2,000 mg PO DAILY 12/09/18 05/01/20 Cholecalciferol (Vitamin D3) 2,000 unit PO DAILY 01/01/19 05/01/20 [Vitamin D3] Fish Oil/Dha/Epa [Fish Oil 1,200 1 cap PO DAILY 01/01/19 05/01/20 mg Fish Oil] Glucosamine Sulfate 2,000 mg PO DAILY 11/14/19 05/01/20 Loratadine [Claritin] 10 mg PO DAILY 05/01/20 05/01/20 Metoprolol Tartrate [Lopressor] 12.5 mg PO BID 05/01/20 05/01/20 Zinc 50 mg PO DAILY 05/01/20 05/01/20 Previous Rx's Medication Instructions Recorded Aspirin 81 mg PO DAILY #1 chewable 05/02/20 Naproxen 250 mg PO BID #6 tablet 05/02/20 Allergies Allergy/AdvReac Type Severity Reaction Status Date / Time No Known Allergies Allergy Verified 08/03/21 11:41 Review of Systems ROS Statement: Those systems with pertinent positive or pertinent negative responses have been documented in the HPI. ROS Other: All systems not noted in ROS Statement are negative. 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, fatty liver, diet controlled diabetic, POSSIBLE HERNIA, GALLBLADDER DISORDER History of Any Multi-Drug Resistant Organisms: None Reported Past Surgical History: Breast Surgery, Heart Catheterization, Orthopedic Surgery Additional Past Surgical History / Comment(s): rt Breast biopsy, broken Finger, colonoscopy, dental SX, Past Anesthesia/Blood Transfusion Reactions: No Reported Reaction, Motion Sickness Past Psychological History: No Psychological Hx Reported Smoking Status: Former smoker Past Alcohol Use History: None Reported Past Drug Use History: None Reported - Past Family History Father Family Medical History: Cancer, Deep Vein Thrombosis (DVT) Additional Family Medical History / Comment(s): Had leukemia and "heart issues" Mother Additional Family Medical History / Comment(s): Mother of an infection at the age of 89yrs. General Exam Limitations: no limitations General appearance: alert, in no apparent distress Head exam: Present: atraumatic, normocephalic, normal inspection Eye exam: Present: normal appearance, PERRL, EOMI. Absent: scleral icterus, conjunctival injection, periorbital swelling ENT exam: Present: normal exam, normal oropharynx, mucous membranes moist Neck exam: Present: normal inspection, full ROM. Absent: tenderness, meningismus, lymphadenopathy Respiratory exam: Present: normal lung sounds bilaterally. Absent: respiratory distress, wheezes, rales, rhonchi, stridor Cardiovascular Exam: Present: regular rate, normal rhythm, normal heart sounds. Absent: systolic murmur, diastolic murmur, rubs, gallop, clicks GI/Abdominal exam: Present: soft, normal bowel sounds. Absent: distended, t enderness, guarding, rebound, rigid Back exam: Absent: CVA tenderness (R), CVA tenderness (L) Neurological exam: Present: alert, oriented X3 Skin exam: Present: warm, dry, intact, normal color. Absent: rash Course Vital Signs 08/03/21 11:37 Temperature 97.7 F Pulse Rate 65 Respiratory 18 Rate Blood Pressure 110/72 O2 Sat by Pulse 97 Oximetry EKG Findings - EKG Comments: EKG Findings:: EKG performed at 11.6 respiratory rate of 59 ID 195 QRS 82 QT/QTC 413/412 Medical Decision Making - Medical Decision Making 60-year-old presented from for episode of palpitations, heart racing. Patient hadn't normally EKG upon arrival. Patient's remained asymptomatic. 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 Patient lab work is unremarkable including negative troponin, negative x-ray. Patient was discharged patient with follow-up return parameters were discussed. - Lab Data Result diagrams: 08/03/21 11:46 08/03/21 11:46 Lab Results 08/03/21 08/03/21 08/03/21 Range/Units 11:46 11:46 11:46 WBC 6.2 (3.8-10.6) k/uL RBC 4.55 (3.80-5.40) m/uL Hgb 14.2 (11.4-16.0) gm/dL Hct 43.6 (34.0-46.0) % MCV 95.7 (80.0-100.0) fL MCH 31.3 (25.0-35.0) pg MCHC 32.7 (31.0-37.0) g/dL RDW 12.8 (11.5-15.5) % Plt Count 146 L (150-450) k/uL MPV 9.2 Neutrophils % 61 % Lymphocytes % 27 % Monocytes % 4 % Eosinophils % 4 % Basophils % 1 % Neutrophils # 3.8 (1.3-7.7) k/uL Lymphocytes # 1.7 (1.0-4.8) k/uL Monocytes # 0.3 (0-1.0) k/uL Eosinophils # 0.3 (0-0.7) k/uL Basophils # 0.0 (0-0.2) k/uL PT 10.5 (9.0-12.0) sec INR 1.0 (<1.2) APTT 23.9 (22.0-30.0) sec Sodium 139 (137-145) mmol/L Potassium 4.1 (3.5-5.1) mmol/L Chloride 104 (98-107) mmol/L Carbon Dioxide 26 (22-30) mmol/L Anion Gap 9 mmol/L BUN 22 H (7-17) mg/dL Creatinine 0.73 (0.52-1.04) mg/dL Est GFR (CKD-EPI)AfAm >90 (>60 ml/min/1.73 sqM) Est GFR (CKD-EPI)NonAf 89 (>60 ml/min/1.73 sqM) Glucose 109 H (74-99) mg/dL Calcium 8.9 (8.4-10.2) mg/dL Magnesium 1.8 (1.6-2.3) mg/dL Total Bilirubin 1.1 (0.2-1.3) mg/dL AST 29 (14-36) U/L ALT 22 (4-34) U/L Alkaline Phosphatase 66 (38-126) U/L Troponin I (0.000-0.034) ng/mL Total Protein 6.7 (6.3-8.2) g/dL Albumin 4.0 (3.5-5.0) g/dL Urine Color Urine Appearance (Clear) Urine pH (5.0-8.0) Ur Specific [place] (1.001-1.035) Urine Protein (Negative) Urine Glucose (UA) (Negative) Urine Ketones (Negative) Urine Blood (Negative) Urine Nitrite (Negative) Urine Bilirubin (Negative) Urine Urobilinogen (<2.0) mg/dL Ur Leukocyte Esterase (Negative) 08/03/21 08/03/21 Range/Units 11:46 12:19 WBC (3.8-10.6) k/uL RBC (3.80-5.40) m/uL Hgb (11.4-16.0) gm/dL Hct (34.0-46.0) % MCV (80.0-100.0) fL MCH (25.0-35.0) pg MCHC (31.0-37.0) g/dL RDW (11.5-15.5) % Plt Count (150-450) k/uL MPV Neutrophils % % Lymphocytes % % Monocytes % % Eosinophils % % Basophils % % Neutrophils # (1.3-7.7) k/uL Lymphocytes # (1.0-4.8) k/uL Monocytes # (0-1.0) k/uL Eosinophils # (0-0.7) k/uL Basophils # (0-0.2) k/uL PT (9.0-12.0) sec INR (<1.2) APTT (22.0-30.0) sec Sodium (137-145) mmol/L Potassium (3.5-5.1) mmol/L Chloride (98-107) mmol/L Carbon Dioxide (22-30) mmol/L Anion Gap mmol/L BUN (7-17) mg/dL Creatinine (0.52-1.04) mg/dL Est GFR (CKD-EPI)AfAm (>60 ml/min/1.73 sqM) Est GFR (CKD-EPI)NonAf (>60 ml/min/1.73 sqM) Glucose (74-99) mg/dL Calcium (8.4-10.2) mg/dL Magnesium (1.6-2.3) mg/dL Total Bilirubin (0.2-1.3) mg/dL AST (14-36) U/L ALT (4-34) U/L Alkaline Phosphatase (38-126) U/L Troponin I <0.012 (0.000-0.034) ng/mL Total Protein (6.3-8.2) g/dL Albumin (3.5-5.0) g/dL Urine Color Yellow Urine Appearance Clear (Clear) Urine pH 5.5 (5.0-8.0) Ur Specific [place] 1.021 (1.001-1.035) Urine Protein Negative (Negative) Urine Glucose (UA) Negative (Negative) Urine Ketones Negative (Negative) Urine Blood Negative (Negative) Urine Nitrite Negative (Negative) Urine Bilirubin Negative (Negative) Urine Urobilinogen <2.0 (<2.0) mg/dL Ur Leukocyte Esterase Negative (Negative) Disposition Clinical Impression: Palpitations Disposition: HOME SELF-CARE Condition: Stable Instructions (If sedation given, give patient instructions): Heart Palpitations (ED) Additional Instructions: Please return to the Emergency Department if symptoms worsen or any other concerns. Is patient prescribed a controlled substance at d/c from ED?: No Referrals: Cade Elliott MD [Primary Care Provider] - 1-2 days Time of Disposition: 13:12
[2021-08-03 12:20] LABS: Basophils % (A) 1 %; Eosinophils # (A) 0.3 k/uL (0-0.7); Eosinophils % (A) 4 %; HCT 43.6 % (34.0-46.0); HGB 14.2 gm/dL (11.4-16.0); Lymphocytes # (A) 1.7 k/uL (1.0-4.8); Lymphocytes % (A) 27 %; MCH 31.3 pg (25.0-35.0); MCHC 32.7 g/dL (31.0-37.0); MCV 95.7 fL (80.0-100.0); Mean Platelet Volume 9.2; Monocytes # (A) 0.3 k/uL (0-1.0); Monocytes % (A) 4 %; Neutrophils # (A) 3.8 k/uL (1.3-7.7); Neutrophils % (A) 61 %; Platelet Count 146 k/uL (150-450); RBC 4.55 m/uL (3.80-5.40); RDW 12.8 % (11.5-15.5); WBC 6.2 k/uL (3.8-10.6)
[2021-08-03 12:26] LABS: Appearance,Urine Clear (Clear); Bilirubin,Urine Negative (Negative); Blood,Urine Negative (Negative); Color,Urine Yellow; Glucose,Urine (UA) Negative (Negative); Ketones,Urine Negative (Negative); Leukocyte Esterase,Urine Negative (Negative); Nitrite,Urine Negative (Negative); PH, Urine 5.5 (5.0-8.0); Protein,Urine Negative (Negative); Specific Gravity,Urine 1.021 (1.001-1.035); Urobilinogen,Urine <2.0 mg/dL (<2.0)
[2021-08-03 12:29] LABS: Partial Thromboplastin Time 23.9 sec (22.0-30.0); Prothrombin Time 10.5 sec (9.0-12.0)
[2021-08-03 12:36] LABS: ALT 22 U/L (4-34); AST 29 U/L (14-36); African American GFR (CKD) >90 (>60 ml/min/1.73 sqM); Alkaline Phosphatase 66 U/L (38-126); Anion Gap 9 mmol/L; Blood Urea Nitrogen 22 mg/dL (7-17); Calcium 8.9 mg/dL (8.4-10.2); Carbon Dioxide 26 mmol/L (22-30); Chloride 104 mmol/L (98-107); Glucose 109 mg/dL (74-99); Magnesium 1.8 mg/dL (1.6-2.3); Non-African American GFR(CKD) 89 (>60 ml/min/1.73 sqM); Potassium 4.1 mmol/L (3.5-5.1); Sodium 139 mmol/L (137-145); Total Bilirubin 1.1 mg/dL (0.2-1.3); Total Protein 6.7 g/dL (6.3-8.2)
--- NOTE | 2021-08-03 13:06 | XR ---
EXAMINATION TYPE: XR chest 2V DATE OF EXAM: 08/03/2021 COMPARISON: 01/05/2021 INDICATION: Dysrhythmia left-sided chest pain TECHNIQUE: Frontal and lateral views of the chest are obtained. FINDINGS: The heart size is normal. The pulmonary vasculature is normal. The lungs are clear. IMPRESSION: 1. No acute pulmonary process.
[2021-08-03 13:23] VITALS: BP 102/68; PULSE 89; TEMP 98.6
== END 2021-08-03 13:23 | disposition home or self-care (01) ==
LOC: EC 11:30
DX: R00.2 Palpitations (principal); E11.9 Type 2 diabetes mellitus without complications; I10 Essential (primary) hypertension; Z87.891 Personal history of nicotine dependence
CPT/HCPCS: 36415; 71046; 80053; 81003; 83735; 84484; 85025; 85610; 85730; 93005; 96360; 99285

== ENCOUNTER → 2021-09-18 | Outpatient (CLI) | payer BC ==
[2021-09-18 10:39] LABS: Basophils # (A) 0.05 X 10*3/uL (0.00-0.10); Basophils % (A) 0.7 %; HCT 43.8 % (37.2-46.3); HGB 14.1 g/dL (12.0-15.0); Immature Grans, Automated 0.3 %; Lymphocytes # (A) 1.78 X 10*3/uL (0.90-5.00); Lymphocytes % (A) 26.6 %; MCH 30.5 pg (27.0-32.0); MCHC 32.2 g/dL (32.0-37.0); MCV 94.6 fL (80.0-97.0); Mean Platelet Volume 12.3 fL (9.5-12.2); Monocytes # (A) 0.37 X 10*3/uL (0.20-1.00); Monocytes % (A) 5.5 %; NRBC Per 100 WBC 0 /100 WBCS (0.0-0.0); Neutrophils # (A) 4.27 X 10*3/uL (1.80-7.70); Neutrophils % (A) 63.9 %; Platelet Count 164 X 10*3/uL (140-440); RBC 4.63 X 10*6/uL (4.10-5.20); RDW 12.7 % (11.5-14.5); WBC 6.69 X 10*3/uL (4.50-10.00)
[2021-09-18 11:01] LABS: ALT 22 U/L (8-44); AST 20 U/L (13-35); African American GFR (CKD) 82.1 (60.0-200.0); Albumin 4.3 g/dL (3.8-4.9); Albumin/Globulin Ratio 1.96 (1.60-3.17); Alkaline Phosphatase 68 U/L (41-126); BUN/Creat Ratio 27.63 Ratio (12.00-20.00); Blood Urea Nitrogen 24.2 mg/dL (9.0-27.0); Calcium 9.3 mg/dL (8.7-10.3); Chloride 101 mmol/L (96-109); Globulin 2.2 g/dL (1.6-3.3); Glucose 111 mg/dL (70-110); LDL Cholesterol,Calculated 63.2 mg/dL (0.0-131.0); Non-African American GFR(CKD) 70.8 (60.0-200.0); Potassium 4.3 mmol/L (3.5-5.5); Sodium 140 mmol/L (135-145); Total Protein 6.5 g/dL (6.2-8.2)
== END | disposition home or self-care (01) ==
LOC: LABWHC1 07:29
PROVIDERS: ATTEND Nurse Practitioner Family
DX: E11.9 Type 2 diabetes mellitus without complications (principal); E78.5 Hyperlipidemia, unspecified
CPT/HCPCS: 36415; 80053; 80061; 83036; 85025

== ENCOUNTER → 2021-12-18 | Outpatient (CLI) | payer BC ==
[2021-12-18 11:01] LABS: Basophils # (A) 0.05 X 10*3/uL (0.00-0.10); Basophils % (A) 0.8 %; Eosinophils # (A) 0.39 X 10*3/uL (0.04-0.35); Eosinophils % (A) 6.1 %; HCT 44.1 % (37.2-46.3); HGB 14.6 g/dL (12.0-15.0); Immature Grans, Automated 0.3 %; Lymphocytes # (A) 2.03 X 10*3/uL (0.90-5.00); Lymphocytes % (A) 31.7 %; MCHC 33.1 g/dL (32.0-37.0); MCV 93.6 fL (80.0-97.0); Mean Platelet Volume 12.4 fL (9.5-12.2); Monocytes # (A) 0.37 X 10*3/uL (0.20-1.00); Monocytes % (A) 5.8 %; NRBC Per 100 WBC 0 /100 WBCS (0.0-0.0); Neutrophils # (A) 3.55 X 10*3/uL (1.80-7.70); Neutrophils % (A) 55.3 %; Platelet Count 169 X 10*3/uL (140-440); RBC 4.71 X 10*6/uL (4.10-5.20); RDW 12.5 % (11.5-14.5); WBC 6.41 X 10*3/uL (4.50-10.00)
[2021-12-18 11:14] LABS: ALT 17 U/L (8-44); AST 24 U/L (13-35); African American GFR (CKD) 86.1 (60.0-200.0); Albumin 4.2 g/dL (3.8-4.9); Albumin/Globulin Ratio 1.64 (1.60-3.17); Alkaline Phosphatase 85 U/L (41-126); BUN/Creat Ratio 22.33 Ratio (12.00-20.00); Blood Urea Nitrogen 18.8 mg/dL (9.0-27.0); Calcium 9.2 mg/dL (8.7-10.3); Carbon Dioxide 26.4 mmol/L (20.0-27.5); Chloride 100 mmol/L (96-109); Chol/HDL Ratio 2.83 Ratio; Globulin 2.6 g/dL (1.6-3.3); Glucose 118 mg/dL (70-110); LDL Cholesterol,Calculated 64.9 mg/dL (0.0-131.0); Non-African American GFR(CKD) 74.3 (60.0-200.0); Potassium 4.4 mmol/L (3.5-5.5); Sodium 138 mmol/L (135-145); Total Protein 6.8 g/dL (6.2-8.2); VLDL Calculation 16.46 mg/dL (5.00-40.00)
== END | disposition home or self-care (01) ==
LOC: LABWHC1 07:37
PROVIDERS: ATTEND Nurse Practitioner Family
DX: E78.5 Hyperlipidemia, unspecified (principal); R06.09 Other forms of dyspnea
CPT/HCPCS: 36415; 80053; 80061; 83880; 85025

== ENCOUNTER → 2022-03-23 | Outpatient (CLI) | payer BC ==
[2022-03-23 14:26] LABS: Basophils # (A) 0.06 X 10*3/uL (0.00-0.10); Basophils % (A) 0.9 %; Eosinophils # (A) 0.71 X 10*3/uL (0.04-0.35); Eosinophils % (A) 11.2 %; HCT 46.5 % (37.2-46.3); HGB 14.5 g/dL (12.0-15.0); Immature Grans, Automated 0.3 %; Lymphocytes # (A) 1.88 X 10*3/uL (0.90-5.00); Lymphocytes % (A) 29.7 %; MCH 30.5 pg (27.0-32.0); MCHC 31.2 g/dL (32.0-37.0); MCV 97.7 fL (80.0-97.0); Mean Platelet Volume 11.8 fL (9.5-12.2); Monocytes # (A) 0.43 X 10*3/uL (0.20-1.00); Monocytes % (A) 6.8 %; NRBC Per 100 WBC 0 /100 WBCS (0.0-0.0); Neutrophils # (A) 3.23 X 10*3/uL (1.80-7.70); Neutrophils % (A) 51.1 %; Platelet Count 179 X 10*3/uL (140-440); RBC 4.76 X 10*6/uL (4.10-5.20); RDW 12.8 % (11.5-14.5); WBC 6.33 X 10*3/uL (4.50-10.00)
[2022-03-23 14:42] LABS: ALT 15 U/L (8-44); AST 28 U/L (13-35); African American GFR (CKD) 90.9 (60.0-200.0); Albumin 4.2 g/dL (3.8-4.9); Albumin/Globulin Ratio 1.45 (1.60-3.17); Alkaline Phosphatase 62 U/L (41-126); BUN/Creat Ratio 24.13 Ratio (12.00-20.00); Blood Urea Nitrogen 19.3 mg/dL (9.0-27.0); Calcium 9.3 mg/dL (8.7-10.3); Carbon Dioxide 24.5 mmol/L (20.0-27.5); Chloride 103 mmol/L (96-109); Chol/HDL Ratio 3.38 Ratio; Globulin 2.9 g/dL (1.6-3.3); Glucose 113 mg/dL (70-110); LDL Cholesterol,Calculated 77.1 mg/dL (0.0-131.0); Non-African American GFR(CKD) 78.5 (60.0-200.0); Potassium 4.2 mmol/L (3.5-5.5); Sodium 139 mmol/L (135-145); Total Protein 7.1 g/dL (6.2-8.2)
== END | disposition home or self-care (01) ==
LOC: LABWHC1 08:22
PROVIDERS: ATTEND Nurse Practitioner Family
DX: E78.5 Hyperlipidemia, unspecified (principal)
CPT/HCPCS: 36415; 80053; 80061; 85025

== ENCOUNTER → 2022-06-25 | Outpatient (CLI) | payer BC ==
[2022-06-25 10:39] LABS: Basophils # (A) 0.04 X 10*3/uL (0.00-0.10); Basophils % (A) 0.6 %; Eosinophils # (A) 0.34 X 10*3/uL (0.04-0.35); HCT 44.5 % (37.2-46.3); HGB 14.5 g/dL (12.0-15.0); Immature Grans, Automated 0.4 %; Lymphocytes # (A) 1.83 X 10*3/uL (0.90-5.00); MCH 30.9 pg (27.0-32.0); MCHC 32.6 g/dL (32.0-37.0); MCV 94.9 fL (80.0-97.0); Mean Platelet Volume 12.9 fL (9.5-12.2); Monocytes % (A) 5.9 %; NRBC Per 100 WBC 0 /100 WBCS (0.0-0.0); Neutrophils # (A) 4.15 X 10*3/uL (1.80-7.70); Neutrophils % (A) 61.1 %; Platelet Count 164 X 10*3/uL (140-440); RBC 4.69 X 10*6/uL (4.10-5.20); RDW 12.6 % (11.5-14.5); WBC 6.79 X 10*3/uL (4.50-10.00)
[2022-06-25 10:52] LABS: ALT 30 U/L (8-44); AST 25 U/L (13-35); African American GFR (CKD) 90.9 (60.0-200.0); Albumin 4.3 g/dL (3.8-4.9); Albumin/Globulin Ratio 1.87 (1.60-3.17); Alkaline Phosphatase 72 U/L (41-126); BUN/Creat Ratio 27.13 Ratio (12.00-20.00); Blood Urea Nitrogen 21.7 mg/dL (9.0-27.0); Calcium 9.5 mg/dL (8.7-10.3); Carbon Dioxide 27.5 mmol/L (20.0-27.5); Chloride 102 mmol/L (96-109); Chol/HDL Ratio 3.47 Ratio; Globulin 2.3 g/dL (1.6-3.3); Glucose 108 mg/dL (70-110); LDL Cholesterol,Calculated 60.2 mg/dL (0.0-131.0); Non-African American GFR(CKD) 78.5 (60.0-200.0); Potassium 4.2 mmol/L (3.5-5.5); Sodium 139 mmol/L (135-145); Total Protein 6.6 g/dL (6.2-8.2)
== END | disposition home or self-care (01) ==
LOC: LABWHC1 07:17
PROVIDERS: ATTEND Nurse Practitioner Family
DX: Z00.01 Encounter for general adult medical examination with abnormal findings (principal); E11.9 Type 2 diabetes mellitus without complications; E78.5 Hyperlipidemia, unspecified
CPT/HCPCS: 36415; 80053; 80061; 82306; 83036; 84439; 84443; 85025

== ENCOUNTER → 2022-07-22 | Outpatient (CLI) | payer BC ==
--- NOTE | 2022-07-22 10:40 | BD ---
EXAMINATION TYPE: Axial Bone Density DATE OF EXAM: 07/22/2022 CLINICAL HISTORY: 61 years old Female. ICD-10 CODE: M85.80 DISORDER OF BONE DENSITY Height: 5 ft 3 in Weight: 255 FRAX RISK QUESTIONS: Alcohol (3 or more units per day): no Family History (Parent hip fracture): no Glucocorticoids (More than 3mos): no (Ex: prednisone, prednisolone, methylprednisolone, dexamethasone, and hydrocortisone). History of Fracture in Adulthood: yes Secondary Osteoporosis: 1. Type 1 Diabetes: no 2. Hyperthyroidism: no 3. Menopause before 45: no 4. Malnutrition: no 5. Chronic liver disease: fatty Rheumatoid Arthritis: no Current Tobacco Use: no RISK FACTORS HISTORY OF: Surgery to Spine/Hip(right/left)/Wrist (right/left): no Family History of Osteoporosis: unsure Active: no Diet low in dairy products/other sources of calcium: no Postmenopausal woman: yes Take estrogen and/or progesterone medications: no Lost more than 2 inches in height since high school: no Frequent falls: no Poor Health: good Hyperparathyroidism: no Adrenal Insufficiency: no MEDICATIONS: Additional Medications: Atorvastatin, metoprolol, h2o pill, lisinopril, omeprazole Additional History: EXAM MEASUREMENTS: Bone mineral densitometry was performed using the Zones System. Bone mineral density as measured about the Lumbar spine is: ----- L1-L4(G/cm2): 1.141 T Score Values are as follows: ----- L1: -0.7 ----- L2: -0.9 ----- L3: -0.6 ----- L4: 0.3 ----- L1-L4: -0.3 Z Score Values are as follows: ----- L1: -0.4 ----- L2: -0.6 ----- L3: -0.3 ----- L4: 0.6 ----- L1-L4: 0.0 Bone mineral density has: decreased -2.7 % since study of: 2020 Bone mineral density about the R hip (g/cm2): 0.775 Bone mineral density about the L hip (g/cm2): 0.575 T Score values are as follows: -----R Neck: -1.9 -----L Neck: -3.3 -----R Total: -1.3 -----L Total: -2.3 Z Score values are as follows: -----R Neck: -1.3 -----L Neck: -2.7 -----R Total: -1.1 -----L Total: -2.0 Bone mineral density has: decreased -4.1 % since study of: 2020 FRAX%s: The graph provided illustrates a 25.3% chance for a major osteoporotic fx and a 8.3% chance f or the hips probability for fx in 10 years time. IMPRESSION: Osteoporosis (T Score less than -2.5). There is increased fracture risk and therapy is usually indicated based on age. Re-Screen 1-2 years. NOTE: T-SCORE=SD OF THE YOUNG ADULT MEAN.
--- NOTE | 2022-07-22 11:45 | MM ---
Reason for Exam: Screening (asymptomatic). Last screening mammogram was performed 12 month(s) ago. Patient History: Menarche at age 10. Patient has no children. Postmenopausal. Hormonal Contraceptives, starting at age 18 for 5 years. 10/15/2010, Benign Core Biopsy on the right side. Maternal cousin had breast cancer, age 40. Paternal aunt had breast cancer, age 70. Maternal aunt had breast cancer, age 45. Risk Values: Yaneth 5 year model risk: 2.1%. NCI Lifetime model risk: 8.7%. Prior Study Comparison: 10/14/2017 Bilateral Screening Mammogram, [facility]. 01/21/2019 Bilateral Screening Mammogram, [facility]. 05/08/2020 Bilateral Screening Mammogram, [facility]. 07/21/2021 Bilateral Screening Mammogram, [facility]. Tissue Density: There are scattered fibroglandular densities. Findings: Analyzed By CAD. There is no suspicious group of microcalcifications or new suspicious mass in either breast. Benign-appearing round calcifications bilaterally. Previous mammotome biopsy in the right breast. Overall Assessment: Benign, BI-RAD 2 Management: Screening Mammogram of both breasts in 1 year. A clinical breast exam by your physician is recommended on an annual basis and results should be correlated with mammographic findings. Electronically signed and approved by: Landry Angel D.O.
== END | disposition home or self-care (01) ==
LOC: RADMAMWWP 07:02
PROVIDERS: ATTEND Family Medicine
DX: Z12.31 Encounter for screening mammogram for malignant neoplasm of breast (principal); M81.0 Age-related osteoporosis without current pathological fracture; M85.89 Other specified disorders of bone density and structure, multiple sites; Z78.0 Asymptomatic menopausal state; Z80.3 Family history of malignant neoplasm of breast
CPT/HCPCS: 77067; 77080

== ENCOUNTER → 2022-09-24 | Outpatient (CLI) | payer BC ==
[2022-09-24 15:46] LABS: ALT 20 U/L (8-44); AST 22 U/L (13-35); Albumin 4.2 d/dL (3.8-4.9); Albumin/Globulin Ratio 1.91 Ratio (1.60-3.17); Alkaline Phosphatase 75 U/L (41-126); Blood Urea Nitrogen 18.4 mg/dL (9.0-27.0); Calcium 9.4 mg/dL (8.7-10.3); Carbon Dioxide 25.7 mmol/L (21.6-31.8); Chloride 102 mmol/L (96-109); Chol/HDL Ratio 3.12 Ratio; Globulin 2.2 d/dL (1.6-3.3); Glucose 113 mg/dL (70-110); LDL Cholesterol,Calculated 66.1 mg/dL (0.0-131.0); Potassium 4.5 mmol/L (3.5-5.5); Sodium 140 mmol/L (135-145); Total Bilirubin 0.5 mg/dL (0.3-1.2); Total Protein 6.4 d/dL (6.2-8.2)
[2022-09-24 16:32] LABS: Basophils # (A) 0.04 X 10*3/uL (0.00-0.10); Basophils % (A) 0.6 %; Eosinophils # (A) 0.35 X 10*3/uL (0.04-0.35); Eosinophils % (A) 4.8 %; HCT 44.7 % (37.2-46.3); Lymphocytes # (A) 2.14 X 10*3/uL (0.90-5.00); Lymphocytes % (A) 29.4 %; MCH 30.3 pg (27.0-32.0); MCHC 31.3 d/dL (32.0-37.0); MCV 96.8 FL (80.0-97.0); Mean Platelet Volume 12.4 FL (9.5-12.2); Monocytes # (A) 0.45 X 10*3/uL (0.20-1.00); Monocytes % (A) 6.2 %; NRBC Per 100 WBC 0 X 10*3/uL (0.00-0.01); Neutrophils # (A) 4.27 X 10*3/uL (1.80-7.70); Neutrophils % (A) 58.7 %; Platelet Count 171 X 10*3/uL (140-440); RBC 4.62 X 10*6/uL (4.10-5.20); RDW 12.5 % (11.5-14.5); WBC 7.27 X 10*3/uL (4.50-10.00)
== END | disposition home or self-care (01) ==
LOC: LABWHC1 08:27
PROVIDERS: ATTEND Nurse Practitioner Family
DX: E11.9 Type 2 diabetes mellitus without complications (principal); E78.5 Hyperlipidemia, unspecified
CPT/HCPCS: 36415; 80053; 80061; 83036; 85025

== ENCOUNTER → 2023-01-20 | Outpatient (CLI) | payer BC ==
[2023-01-20 10:57] LABS: Basophils # (A) 0.07 X 10*3/uL (0.00-0.10); Eosinophils # (A) 0.27 X 10*3/uL (0.04-0.35); HCT 44.3 % (37.2-46.3); HGB 14.4 d/dL (12.0-15.0); Lymphocytes # (A) 1.77 X 10*3/uL (0.90-5.00); Lymphocytes % (A) 26.3 %; MCH 30.9 pg (27.0-32.0); MCHC 32.5 d/dL (32.0-37.0); MCV 95.1 FL (80.0-97.0); Mean Platelet Volume 11.4 FL (9.5-12.2); Monocytes # (A) 0.37 X 10*3/uL (0.20-1.00); Monocytes % (A) 5.5 %; NRBC Per 100 WBC 0 X 10*3/uL (0.00-0.01); Neutrophils # (A) 4.23 X 10*3/uL (1.80-7.70); Neutrophils % (A) 63.1 %; Platelet Count 197 X 10*3/uL (140-440); RBC 4.66 X 10*6/uL (4.10-5.20); RDW 12.6 % (11.5-14.5); WBC 6.72 X 10*3/uL (4.50-10.00)
[2023-01-20 11:11] LABS: ALT 18 U/L (8-44); AST 19 U/L (13-35); Albumin 4.2 d/dL (3.8-4.9); Albumin/Globulin Ratio 1.91 Ratio (1.60-3.17); Alkaline Phosphatase 74 U/L (41-126); BUN/Creat Ratio 26.25 Ratio (12.00-20.00); Calcium 9.4 mg/dL (8.7-10.3); Carbon Dioxide 25.4 mmol/L (21.6-31.8); Chloride 103 mmol/L (96-109); Chol/HDL Ratio 3.25 Ratio; Globulin 2.2 d/dL (1.6-3.3); Glucose 118 mg/dL (70-110); Potassium 4.3 mmol/L (3.5-5.5); Sodium 139 mmol/L (135-145); Total Bilirubin 0.5 mg/dL (0.3-1.2); Total Protein 6.4 d/dL (6.2-8.2); VLDL Calculation 17.24 mg/dL (5.00-40.00)
== END | disposition home or self-care (01) ==
LOC: LABWHC1 07:33
PROVIDERS: ATTEND Family Medicine
DX: E11.9 Type 2 diabetes mellitus without complications (principal); E78.5 Hyperlipidemia, unspecified
CPT/HCPCS: 36415; 80053; 80061; 83036; 85025

== ENCOUNTER → 2023-04-15 | Outpatient (CLI) | payer BC ==
[2023-04-15 10:51] LABS: Basophils # (A) 0.04 X 10*3/uL (0.00-0.10); Basophils % (A) 0.6 %; Eosinophils % (A) 3.2 %; HCT 45.6 % (37.2-46.3); HGB 14.8 g/dL (12.0-15.0); Lymphocytes # (A) 2.07 X 10*3/uL (0.90-5.00); Lymphocytes % (A) 32.6 %; MCH 30.8 pg (27.0-32.0); MCHC 32.5 g/dL (32.0-37.0); MCV 94.8 FL (80.0-97.0); Mean Platelet Volume 12.7 FL (9.5-12.2); Monocytes # (A) 0.41 X 10*3/uL (0.20-1.00); Monocytes % (A) 6.5 %; NRBC Per 100 WBC 0 X 10*3/uL (0.00-0.01); Neutrophils # (A) 3.61 X 10*3/uL (1.80-7.70); Neutrophils % (A) 56.9 %; Platelet Count 155 X 10*3/uL (140-440); RBC 4.81 X 10*6/uL (4.10-5.20); RDW 12.6 % (11.5-14.5); WBC 6.34 X 10*3/uL (4.50-10.00)
[2023-04-15 11:11] LABS: ALT 17 U/L (8-44); AST 21 U/L (13-35); Albumin 4.3 g/dL (3.8-4.9); Albumin/Globulin Ratio 1.87 Ratio (1.60-3.17); Alkaline Phosphatase 70 U/L (41-126); BUN/Creat Ratio 27.75 Ratio (12.00-20.00); Blood Urea Nitrogen 22.2 mg/dL (9.0-27.0); Calcium 9.6 mg/dL (8.7-10.3); Carbon Dioxide 26.7 mmol/L (21.6-31.8); Chloride 103 mmol/L (96-109); Globulin 2.3 g/dL (1.6-3.3); Glucose 105 mg/dL (70-110); LDL Cholesterol,Calculated 66.2 mg/dL (0.0-131.0); Potassium 4.1 mmol/L (3.5-5.5); Sodium 140 mmol/L (135-145); Total Bilirubin 0.7 mg/dL (0.3-1.2); Total Protein 6.6 g/dL (6.2-8.2)
== END | disposition home or self-care (01) ==
LOC: LABWHC1 07:13
PROVIDERS: ATTEND Family Medicine
DX: E11.9 Type 2 diabetes mellitus without complications (principal); E78.5 Hyperlipidemia, unspecified
CPT/HCPCS: 36415; 80053; 80061; 83036; 85025

== ENCOUNTER → 2023-06-14 | Outpatient (CLI) | payer BC ==
--- NOTE | 2023-06-14 15:11 | CT ---
EXAMINATION: CT ABDOMEN AND PELVIS WITH IV CONTRAST DATE OF EXAMINATION: 06/14/2023. COMPARISON: None available. INDICATION: Abdominal pain and diarrhea. PROCEDURE: Axial CT of the abdomen and pelvis was performed with contrast and sagittal and coronal reformatted images were performed. CT dose lowering techniques were used, to include: automated expos ure control, adjustment for patient size, and/or use of iterative reconstruction. 100 mL of Isovue 30 0 was given intravenously. FINDINGS: LOWER CHEST : The visualized lung bases are clear. There are no pleural or pericardial effusions. ABDOMEN: Liver and Biliary system: Normal. Adrenal glands: Normal. Kidneys and ureters: Normal. Spleen: Normal. Pancreas: Normal. Gallbladder: Surgically absent. Lymph nodes, Peritoneum and mesentery: There is no mesenteric or retroperitoneal lymphadenopathy. Gastrointestinal tract: There are no dilated loops of bowel or free intraperitoneal air. There is mild descending colonic and sigmoid colonic diverticulosis without evidence of diverticulitis. Aorta/IVC: There is mild vascular calcification throughout the abdominal aorta without evidence of aneurysmal dilation or dissection. IVC normal. Abdominal wall: Normal. PELVIS: Fluid: There is no free fluid in the pelvis. Lymph Nodes: There is no pelvic or inguinal lymphadenopathy.. Urinary bladder: Normal. BONES: There are no osseous destructive lesions.. ADDITIONAL SIGNIFICANT FINDINGS: None. IMPRESSION: No acute process within the abdomen or pelvis.
== END | disposition home or self-care (01) ==
LOC: RADCTMAIN 13:06
PROVIDERS: ATTEND Family Medicine
DX: R10.9 Unspecified abdominal pain (principal); R19.7 Diarrhea, unspecified
CPT/HCPCS: 74177; Q9967

== ENCOUNTER → 2023-07-22 | Outpatient (CLI) | payer BC ==
[2023-07-22 11:15] LABS: Basophils # (A) 0.04 X 10*3/uL (0.00-0.10); Basophils % (A) 0.7 %; Eosinophils # (A) 0.14 X 10*3/uL (0.04-0.35); Eosinophils % (A) 2.5 %; HCT 43.9 % (37.2-46.3); HGB 14.4 g/dL (12.0-15.0); Lymphocytes # (A) 1.77 X 10*3/uL (0.90-5.00); Lymphocytes % (A) 31.4 %; MCH 31.6 pg (27.0-32.0); MCHC 32.8 g/dL (32.0-37.0); MCV 96.3 FL (80.0-97.0); Mean Platelet Volume 12.5 FL (9.5-12.2); Monocytes % (A) 5.3 %; NRBC Per 100 WBC 0 X 10*3/uL (0.00-0.01); Neutrophils # (A) 3.36 X 10*3/uL (1.80-7.70); Neutrophils % (A) 59.7 %; Platelet Count 162 X 10*3/uL (140-440); RBC 4.56 X 10*6/uL (4.10-5.20); RDW 12.4 % (11.5-14.5); WBC 5.63 X 10*3/uL (4.50-10.00)
[2023-07-22 11:19] LABS: Microalbumin Creatinine Ratio <26 mg/g Cr (0-30); Urine Creatinine 46.9 mg/dL (28.0-217.0)
[2023-07-22 11:23] LABS: Hepatitis B Surface Antigen Nonreactive (Nonreactive); Hepatitis C IgG Antibody Nonreactive (Nonreactive)
[2023-07-22 11:30] LABS: ALT 12 U/L (8-44); AST 20 U/L (13-35); Albumin 4.5 g/dL (3.8-4.9); Albumin/Globulin Ratio 2.05 Ratio (1.60-3.17); Alkaline Phosphatase 77 U/L (41-126); BUN/Creat Ratio 23.89 Ratio (12.00-20.00); Blood Urea Nitrogen 21.5 mg/dL (9.0-27.0); Calcium 9.7 mg/dL (8.7-10.3); Carbon Dioxide 24.4 mmol/L (21.6-31.8); Chloride 101 mmol/L (96-109); Chol/HDL Ratio 4.12 Ratio; Globulin 2.2 g/dL (1.6-3.3); Glucose 116 mg/dL (70-110); LDL Cholesterol,Calculated 85.3 mg/dL (0.0-131.0); Potassium 4.2 mmol/L (3.5-5.5); Sodium 138 mmol/L (135-145); T4, Free (Free Thyroxine) 1.25 ng/dL (0.80-1.80); Total Bilirubin 0.8 mg/dL (0.3-1.2); Total Protein 6.7 g/dL (6.2-8.2); VLDL Calculation 19.16 mg/dL (5.00-40.00)
== END | disposition home or self-care (01) ==
LOC: LABWHC1 07:13
PROVIDERS: ATTEND Family Medicine
DX: Z00.01 Encounter for general adult medical examination with abnormal findings (principal); E78.5 Hyperlipidemia, unspecified; E11.9 Type 2 diabetes mellitus without complications; R74.8 Abnormal levels of other serum enzymes
CPT/HCPCS: 36415; 80053; 80061; 81596; 82043; 82570; 84439; 84443; 85025; 86803; 87340

== ENCOUNTER → 2023-08-06 | Outpatient (CLI) | payer BC ==
--- NOTE | 2023-08-09 19:27 | MM ---
Reason for Exam: Screening (asymptomatic). Last mammogram was performed 1 year(s) and 1 month(s) ago. Patient History: Menarche at age 10. Patient has no children. Postmenopausal. Hormonal Contraceptives, starting at age 18 for 5 years. 10/15/2010, Benign Core Biopsy on the right side. Maternal cousin had breast cancer, age 40. Paternal aunt had breast cancer, age 70. Maternal aunt had breast cancer, age 45. Risk Values: Yaneth 5 year model risk: 2.1%. NCI Lifetime model risk: 8.4%. Prior Study Comparison: 05/08/2020 Bilateral Screening Mammogram, [facility]. 07/21/2021 Bilateral Screening Mammogram, [facility]. 07/22/2022 Bilateral MG screening mammo w CAD, [facility]. Tissue Density: There are scattered areas of fibroglandular density. Findings: Analyzed By CAD. Microclip right breast from prior biopsy. There is no suspicious group of microcalcifications or new suspicious mass in either breast. Overall Assessment: Negative, BI-RAD 1 Management: Screening Mammogram of both breasts in 1 year. . Patient should continue monthly self-breast exams. A clinical breast exam by your physician is recommended on an annual basis. This exam should not preclude additional follow-up of suspicious palpable abnormalities. Note on Yaneth scores and lifetime risk: 1. A Yaneth score greater than 3% is considered moderate risk. If this is the case, consider specialist referral to assess eligibility for a risk reducing agent. 2. If overall lifetime risk for the development of breast cancer is 20% or higher, the patient may qualify for future screening with alternating mammogram and breast MRI. Electronically signed and approved by: Brayden Jansen M.D. Radiologist
== END | disposition home or self-care (01) ==
LOC: RADMAMWWP 08:43
PROVIDERS: ATTEND Family Medicine
DX: Z12.31 Encounter for screening mammogram for malignant neoplasm of breast (principal); Z80.3 Family history of malignant neoplasm of breast; Z78.0 Asymptomatic menopausal state
CPT/HCPCS: 77067

== ENCOUNTER 2023-09-03 20:33 | Emergency (ER) | payer BC ==
[2023-09-03 21:07] LABS: Basophils # (A) 0.1 k/uL (0-0.2); Basophils % (A) 1 %; Eosinophils # (A) 0.3 k/uL (0-0.7); Eosinophils % (A) 4 %; HCT 44.5 % (34.0-46.0); HGB 14.2 gm/dL (11.4-16.0); Lymphocytes # (A) 2.2 k/uL (1.0-4.8); Lymphocytes % (A) 32 %; MCH 31.3 pg (25.0-35.0); MCHC 31.9 g/dL (31.0-37.0); MCV 98.2 fL (80.0-100.0); Monocytes # (A) 0.3 k/uL (0-1.0); Monocytes % (A) 5 %; Neutrophils % (A) 57 %; Platelet Count 169 k/uL (150-450); RBC 4.53 m/uL (3.80-5.40); RDW 12.6 % (11.5-15.5)
[2023-09-03 21:11] VITALS: RESP 18
--- NOTE | 2023-09-03 21:11 | ED ---
Chest Pain HPI - General Source: patient Mode of arrival: ambulatory Limitations: no limitations <Masood Medina - Last Filed: 09/03/23 21:11> <Marisa Pizano - Last Filed: 09/04/23 09:08> - General Chief Complaint: Chest Pain Stated Complaint: chest pain Time Seen by Provider: 09/03/23 21:11 - History of Present Illness Initial Comments: 62-year-old female presenting chief complaint of chest pain. The pain is centralized. States that around 730 this evening she was lifting a box when her chest started to feel "funny". She admits to a tightness. She also felt like her heart was racing. She does feel some pain in the right arm. (Masood Medina) 62-year-old female with past medical history of thoracic aneurysm who presents to the emergency department for chest pain. States that the pain started around 730 this evening when she was lifting a box. States that she had some mild tightness in her chest. She felt as if her heart was racing. Pain slightly radiates to the right arm. She denies history of similar in the past. Denies history of coronary disease. States the pain is much improved at this time. She goes once yearly down to [facility] where they assess her aneurysm. It was last assessed in October of last year which she states that her imaging was stable. She denies a ripping or tearing sensation. No pain that goes into her back. No lightheadedness or dizziness. No shortness of breath. She did not take anything to get rid of her pain. She denies any numbness, tingling or weakness in her extremities. No other alleviating, precipitating or modifying factors (Marisa Pizano) - Related Data Home Medications Medication Instructions Recorded Confirmed Atorvastatin Calcium [Lipitor] 40 mg PO HS 05/11/16 05/01/20 Magnesium 400 mg PO DAILY 05/11/16 05/01/20 Spironolact/Hydrochlorothiazid 1 tab PO DAILY 05/11/16 05/01/20 [Aldactazide 25-25 MG] Fluticasone Nasal [place] [Flonase 1 spr EA NOSTRIL DAILY 11/12/17 05/01/20 Nasal [place]] lisinopriL [Zestril] 10 mg PO DAILY 11/12/17 05/01/20 Ascorbic Acid [Vitamin C] 500 mg PO DAILY 12/04/18 05/01/20 Calcium Carbonate 2,000 mg PO DAILY 12/09/18 05/01/20 Cholecalciferol (Vitamin D3) 2,000 unit PO DAILY 01/01/19 05/01/20 [Vitamin D3] Fish Oil/Dha/Epa [Fish Oil 1,200 1 cap PO DAILY 01/01/19 05/01/20 mg Fish Oil] Glucosamine Sulfate 2,000 mg PO DAILY 11/14/19 05/01/20 Loratadine [Claritin] 10 mg PO DAILY 05/01/20 05/01/20 Metoprolol Tartrate [Lopressor] 12.5 mg PO BID 05/01/20 05/01/20 Zinc 50 mg PO DAILY 05/01/20 05/01/20 Previous Rx's Medication Instructions Recorded Aspirin 81 mg PO DAILY #1 chewable 05/02/20 Naproxen 250 mg PO BID #6 tablet 05/02/20 Allergies Allergy/AdvReac Type Severity Reaction Status Date / Time No Known Allergies Allergy Verified 09/03/23 20:47 Review of Systems ROS Other: All systems not noted in ROS Statement are negative. <Masood Medina - Last Filed: 09/03/23 21:11> ROS Other: All systems not noted in ROS Statement are negative. <Marisa Pizano - Last Filed: 09/04/23 09:08> ROS Statement: Those systems with pertinent positive or pertinent negative responses have been documented in the HPI. Past Medical History Past Medical History: Diabetes Mellitus, Hyperlipidemia, Hypertension, Liver Disease, Osteoarthritis (OA) Additional Past Medical History / Comment(s): Heart murmur, aneursym on the as cending aorta, fatty liver, diet controlled diabetic, POSSIBLE HERNIA, GALLBLADDER DISORDER History of Any Multi-Drug Resistant Organisms: None Reported Past Surgical History: Breast Surgery, Cholecystectomy, Heart Catheterization, Orthopedic Surgery Additional Past Surgical History / Comment(s): rt Breast biopsy, broken Finger, colonoscopy, dental SX, Past Anesthesia/Blood Transfusion Reactions: No Reported Reaction, Motion Sickness Past Psychological History: No Psychological Hx Reported Smoking Status: Former smoker Past Alcohol Use History: None Reported Past Drug Use History: None Reported - Past Family History Father Family Medical History: Cancer, Deep Vein Thrombosis (DVT) Additional Family Medical History / Comment(s): Had leukemia and "heart issues" Mother Additional Family Medical History / Comment(s): Mother of an infection at the age of 89yrs. <Masood Medina - Last Filed: 09/03/23 21:11> General Exam Limitations: no limitations <Masood Medina - Last Filed: 09/03/23 21:11> General appearance: alert, in no apparent distress Head exam: Present: atraumatic, normocephalic, normal inspection Eye exam: Present: normal appearance, PERRL, EOMI. Absent: scleral icterus, conjunctival injection, periorbital swelling ENT exam: Present: normal exam, mucous membranes moist Neck exam: Present: normal inspection. Absent: tenderness, meningismus, lymphadenopathy Respiratory exam: Present: normal lung sounds bilaterally. Absent: respiratory distress, wheezes, rales, rhonchi, stridor Cardiovascular Exam: Present: regular rate, normal rhythm, normal heart sounds. Absent: systolic murmur, diastolic murmur, rubs, gallop, clicks GI/Abdominal exam: Present: soft, normal bowel sounds. Absent: distended, tenderness, guarding, rebound, rigid Extremities exam: Present: normal inspection, full ROM, normal capillary refill. Absent: tenderness, pedal edema, joint swelling, calf tenderness Back exam: Present: normal inspection Neurological exam: Present: alert, oriented X3, CN II-XII intact Psychiatric exam: Present: normal affect, normal mood Skin exam: Present: warm, dry, intact, normal color. Absent: rash <Marisa Pizano - Last Filed: 09/04/23 09:08> - General Exam Comments Initial Comments: Visual Physical Exam Vital signs reviewed General: Well-appearing, nontoxic, no acute distress. Head: Normocephalic, atraumatic Eyes: PERRLA, EOMI ENT: Airway patent Chest: Nonlabored breathing Skin: No visual rash, normal skin tone Neuro: Alert and oriented 3 Musculoskeletal: No gross abnormalities (Masood Medina) Course Vital Signs 09/03/23 09/03/23 09/03/23 20:44 21:52 23:44 Temperature 98.5 F 98.6 F Pulse Rate 67 65 56 L Respiratory 18 18 18 Rate Blood Pressure 112/72 127/67 115/56 O2 Sat by Pulse 98 99 99 Oximetry Chest Pain MDM <Masood Medina - Last Filed: 09/03/23 21:11> <Emmett Pizanoah Emmett - Last Filed: 09/04/23 09:08> - MDM I performed the quick note portion of this visit, electronically signed Masood Medina PA-C (Masood Medina) Was pt. sent in by a medical professional or institution (, PA, COMPOSITE TECHNICIAN, urgent care, hospital, or long-term...) When possible be specific @ -No Did you speak to anyone other than the patient for history (EMS, parent, family, police, friend...)? What history was obtained from this source @ -No Did you review nursing and triage notes (agree or disagree)? Why? @ -I reviewed and agree with nursing and triage notes Were old charts reviewed (outside hosp., previous admission, EMS record, old EKG, old radiological studies, urgent care reports/EKG's, long-term records)? Report findings @ -No old charts were reviewed Differential Diagnosis (chest pain, altered mental status, abdominal pain women, abdominal pain men, vaginal bleeding, weakness, fever, dyspnea, syncope, headache, dizziness, GI bleed, back pain, seizure, CVA, palpatations, mental health, musculoskeletal)? @ -Differential Chest Pain: Stable Angina, Unstable Angina, STEMI, NSTEMI Aortic Dissection, Pneumothorax, Musculoskeletal, Esophageal Spasm GERD, Cholecystitis, Pancreatitis, Zoster, this is not meant to be an all-inclusive list. EKG interpreted by me (3pts min.). @ -Yes and demonstrates sinus rhythm with a rate of 68. NH interval 217. QRS 86. QTc of 415. No acute ST segment elevations or depressions X-rays interpreted by me (1pt min.). @ -Yes and demonstrates no acute process CT interpreted by me (1pt min.). @ -None done U/S interpreted by me (1pt. min.). @ -None done What testing was considered but not performed or refused? (CT, X-rays, U/S, labs)? Why? @ -Echo however patient does not want to be admitted What meds were considered but not given or refused? Why? @ -None Did you discuss the management of the patient with other professionals (professionals i.e. , PA, COMPOSITE TECHNICIAN, lab, RT, psych nurse, social service liaison, paint mixer hand, teacher, chief security officer, hospice case manager)? Give summary @ -No Was smoking cessation discussed for >3mins.? @ -No Was critical care preformed (if so, how long)? @ -No Were there social determinants of health that impacted care today? How? (Homelessness, low income, unemployed, alcoholism, drug addiction, transportation, low edu. Level, literacy, decrease access to med. care, fpc, rehab)? @ -No Was there de-escalation of care discussed even if they declined (Discuss DNR or withdrawal of care, Hospice)? DNR status @ -No What co-morbidities impacted this encounter? (DM, HTN, Smoking, COPD, CAD, Cancer, CVA, ARF, Chemo, Hep., AIDS, mental health diagnosis, sleep apnea, morbid obesity)? @ -Thoracic aneurysm Was patient admitted / discharged? Hospital course, mention meds given and route, prescriptions, significant lab abnormalities, going to OR and other pertinent info. @ -Discharge. Upon arrival patient seen and evaluated in room 11. Thorough history and physical exam was performed. Twelve-lead EKG is obtained. Laboratory studies are conducted. Patient is pain-free at this time. Laboratory results are discussed with patient. Did recommend admission for echo and to trend the patient's troponins. Patient does not want to stay. She was agreeable to a second cardiac enzyme which was performed and continues to be negative. This time patient will be discharged home. She is to follow-up with her primary care doctor. Return for any new or worsening symptoms. Patient was agreeable to this plan she was discharged in stable condition with a guarded prognosis. Undiagnosed new problem with uncertain prognosis? @ -Yes Drug Therapy requiring intensive monitoring for toxicity (Heparin, Nitro, Insulin, Cardizem)? @ -No Were any procedures done? @ -No Diagnosis/symptom? @ -Acute chest pain, history of thoracic aneurysm Acute, or Chronic, or Acute on Chronic? @ -Acute Uncomplicated (without systemic symptoms) or Complicated (systemic symptoms)? @ -Complicated Side effects of treatment? @ -No Exacerbation, Progression, or Severe Exacerbation? @ -No Poses a threat to life or bodily function? How? (Chest pain, [place], [place], pneumonia, PE, COPD, DKA, ARF, appy, cholecystitis, CVA, Diverticulitis, Homicidal, Suicidal, threat to staff... and all critical care pts) @ -No (Marisa Pizano) Disposition <Masood Medina - Last Filed: 09/03/23 21:11> Is patient prescribed a controlled substance at d/c from ED?: No Time of Disposition: 23:39 <Marisa Pizano - Last Filed: 09/04/23 09:08> Clinical Impression: Chest pain Disposition: HOME SELF-CARE Condition: Stable Instructions (If sedation given, give patient instructions): Chest Pain (ED) Additional Instructions: Please follow-up with your primary care doctor because of your symptoms and return for any new or worsening symptoms Referrals: Cade Elliott MD [Primary Care Provider] - 1-2 days
[2023-09-03 21:16] LABS: ALT 14 U/L (4-34); AST 23 U/L (14-36); African American GFR (CKD) >90 (>60 ml/min/1.73 sqM); Albumin 4.4 g/dL (3.5-5.0); Alkaline Phosphatase 111 U/L (38-126); Anion Gap 6 mmol/L; Blood Urea Nitrogen 21 mg/dL (7-17); Calcium 8.9 mg/dL (8.4-10.2); Carbon Dioxide 28 mmol/L (22-30); Chloride 106 mmol/L (98-107); Glucose 113 mg/dL (74-99); INR 0.9 (<1.2); Magnesium 1.7 mg/dL (1.6-2.3); Non-African American GFR(CKD) 78 (>60 ml/min/1.73 sqM); Partial Thromboplastin Time 23.9 sec (22.0-30.0); Prothrombin Time 10.4 sec (10.0-12.5); Sodium 140 mmol/L (137-145); Total Bilirubin 0.4 mg/dL (0.2-1.3); Total Protein 6.8 g/dL (6.3-8.2)
--- NOTE | 2023-09-03 21:49 | XR ---
EXAMINATION TYPE: XR chest 2V DATE OF EXAM: 09/03/2023 9:13 PM CLINICAL INDICATION:Female, 62 years old with history of Chest Pain COMPARISON: Chest radiographs from 08/03/2021 TECHNIQUE: XR chest 2V Frontal and lateral views of the chest. FINDINGS: Lungs/Pleura: There is no evidence of pleural effusion, focal consolidation, or pneumothorax. Pulmonary vascularity: Unremarkable. Heart/mediastinum: Cardiomediastinal silhouette is unremarkable. Musculoskeletal: No acute osseous pathology. IMPRESSION: No acute cardiopulmonary disease/process.
[2023-09-04 00:21] VITALS: BP 115/56; PULSE 56; TEMP 98.6
== END 2023-09-03 23:49 | disposition home or self-care (01) ==
LOC: EC 20:33
DX: I44.0 Atrioventricular block, first degree (principal); Z87.891 Personal history of nicotine dependence
CPT/HCPCS: 36415; 71046; 80053; 83735; 84484; 85025; 85610; 85730; 93005; 99285

== ENCOUNTER → 2023-10-18 | Outpatient (CLI) | payer BC | END | disposition home or self-care (01) | LOC: LABWHC1 07:12 | PROVIDERS: ATTEND Thoracic Surgery (Cardiothoracic Vascular Surgery) | DX: Z01.89 Encounter for other specified special examinations (principal) | CPT/HCPCS: 36415; 82565; 84520 ==

== ENCOUNTER → 2024-02-22 | Outpatient (CLI) | payer BC, MEDICARE ==
[2024-02-22 15:22] LABS: ALT 11 U/L (8-44); AST 19 U/L (13-35); Albumin 4.6 g/dL (3.8-4.9); Albumin/Globulin Ratio 1.84 Ratio (1.60-3.17); Alkaline Phosphatase 84 U/L (41-126); BUN/Creat Ratio 26.11 Ratio (12.00-20.00); Blood Urea Nitrogen 23.5 mg/dL (9.0-27.0); Calcium 9.5 mg/dL (8.7-10.3); Chloride 102 mmol/L (96-109); Chol/HDL Ratio 3.24 Ratio; Globulin 2.5 g/dL (1.6-3.3); Glucose 110 mg/dL (70-110); LDL Cholesterol,Calculated 77.4 mg/dL (0.0-131.0); Potassium 4.1 mmol/L (3.5-5.5); Sodium 139 mmol/L (135-145); Total Bilirubin 0.9 mg/dL (0.3-1.2); Total Protein 7.1 g/dL (6.2-8.2); VLDL Calculation 13.78 mg/dL (5.00-40.00)
[2024-02-22 16:20] LABS: Basophils # (A) 0.03 X 10*3/uL (0.00-0.10); Basophils % (A) 0.4 %; Eosinophils # (A) 0.26 X 10*3/uL (0.04-0.35); Eosinophils % (A) 3.5 %; HCT 46.3 % (37.2-46.3); HGB 14.9 g/dL (12.0-15.0); Lymphocytes # (A) 2.05 X 10*3/uL (0.90-5.00); Lymphocytes % (A) 27.8 %; MCHC 32.2 g/dL (32.0-37.0); MCV 96.5 FL (80.0-97.0); Monocytes # (A) 0.45 X 10*3/uL (0.20-1.00); Monocytes % (A) 6.1 %; NRBC Per 100 WBC 0 X 10*3/uL (0.00-0.01); Neutrophils # (A) 4.58 X 10*3/uL (1.80-7.70); Neutrophils % (A) 62.1 %; Platelet Count 163 X 10*3/uL (140-440); RDW 12.6 % (11.5-14.5); WBC 7.38 X 10*3/uL (4.50-10.00)
== END | disposition home or self-care (01) ==
LOC: LABWHC1 08:18
PROVIDERS: ATTEND Family Medicine
DX: E11.9 Type 2 diabetes mellitus without complications (principal); E78.5 Hyperlipidemia, unspecified
CPT/HCPCS: 36415; 80053; 80061; 83036; 85025

== ENCOUNTER 2024-04-10 11:42 | Emergency (ER) | payer BC, MEDICARE ==
[2024-04-10 12:15] VITALS: TEMP 97.8
--- NOTE | 2024-04-10 13:11 | ED ---
General Adult HPI - General Chief complaint: Chest Pain Stated complaint: Abn Lab Time Seen by Provider: 04/10/24 13:00 Source: patient, RN notes reviewed, old records reviewed Mode of arrival: ambulatory Limitations: no limitations - History of Present Illness Initial comments: This is a 63-year-old female who presents to the emergency department stating that she has some left-sided chest pain that started on Wednesday and some pain underneath her ribs on both sides. Patient states she did push herself up weird with her arms just before this started and thinks that might of caused the pain. Patient states the pain is reproducible to palpation. Patient states it does come and short durations only lasting a few seconds and occasionally lasting a few minutes. Patient denies any difficulty breathing shortness of breath. Patient has any palpitations. Patient any diaphoretic episode. Patient has nausea vomiting. Patient denies abdominal pain patient has any back pain. Patient denies any redness or swelling. - Related Data Home Medications Medication Instructions Recorded Confirmed Atorvastatin Calcium [Lipitor] 40 mg PO HS 05/11/16 04/10/24 Fluticasone Nasal [place] [Flonase 2 spr EA NOSTRIL HS 11/12/17 04/10/24 Nasal [place]] lisinopriL [Zestril] 10 mg PO HS 11/12/17 04/10/24 Loratadine [Claritin] 10 mg PO DAILY 05/01/20 04/10/24 Metoprolol Tartrate [Lopressor] 12.5 mg PO BID 05/01/20 04/10/24 Calcium Carbonate [Calcium] 600 mg PO DAILY 04/10/24 04/10/24 Cholecalciferol [Vitamin D3 (125 125 mcg PO DAILY 04/10/24 04/10/24 Mcg = 5000 Iu)] [place]-3/Dha/Epa/Fish Oil [Fish Oil 1 cap PO DAILY 04/10/24 04/10/24 1,000 mg Softgel] Omeprazole 40 mg PO DAILY 04/10/24 04/10/24 Spironolactone [Aldactone] 25 mg PO DAILY 04/10/24 04/10/24 Turmeric Root Extract [Turmeric] 500 mg PO DAILY 04/10/24 04/10/24 hydroCHLOROthiazide [Hydrodiuril] 25 mg PO DAILY 04/10/24 04/10/24 Allergies Allergy/AdvReac Type Severity Reaction Status Date / Time No Known Allergies Allergy Verified 04/10/24 13:59 Review of Systems ROS Statement: Those systems with pertinent positive or pertinent negative responses have been documented in the HPI. ROS Other: All systems not noted in ROS Statement are negative. 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, fatty liver, diet controlled diabetic, POSSIBLE HERNIA, GALLBLADDER DISORDER History of Any Multi-Drug Resistant Organisms: None Reported Past Surgical History: Breast Surgery, Cholecystectomy, Heart Catheterization, Orthopedic Surgery Additional Past Surgical History / Comment(s): rt Breast biopsy, broken Finger, colonoscopy, dental SX, Past Anesthesia/Blood Transfusion Reactions: No Reported Reaction, Motion Sickness Past Psychological History: No Psychological Hx Reported Smoking Status: Former smoker Past Alcohol Use History: None Reported Past Drug Use History: None Reported - Past Family History Father Family Medical History: Cancer, Deep Vein Thrombosis (DVT) Additional Family Medical History / Comment(s): Had leukemia and "heart issues" Mother Additional Family Medical History / Comment(s): Mother of an infection at the age of 89yrs. General Exam - General Exam Comments Initial Comments: GENERAL: Patient is well-developed and well-nourished. Patient is nontoxic and well- hydrated and is in mild distress. ENT: Neck is soft and supple. No significant lymphadenopathy is noted. Oropharynx is clear. Moist mucous membranes. Neck has full range of motion without eliciting any pain. EYES: The sclera were anicteric and conjunctiva were pink and moist. Extraocular movements were intact and pupils were equal round and reactive to light. Eyelids were unremarkable. PULMONARY: Unlabored respirations. Good breath sounds bilaterally. No audible rales rhonchi or wheezing was noted. CARDIOVASCULAR: There is a regular rate and rhythm without any murmurs gallops or rubs. Pa tient's left-sided chest pain is reproducible to palpation there is no erythema or swelling in the area ABDOMEN: Soft and nontender with normal bowel sounds. SKIN: Skin is clear with no lesions or rashes and otherwise unremarkable. NEUROLOGIC: Patient is alert and oriented x3. Cranial nerves II through XII are grossly intact. Motor and sensory are also intact. Normal speech, volume and content. Symmetrical smile. MUSCULOSKELETAL: Normal extremities with adequate strength and full range of motion. LYMPHATICS: No significant lymphadenopathy is noted PSYCHIATRIC: Normal psychiatric evaluation. Limitations: no limitations Course Vital Signs 04/10/24 04/10/24 12:12 14:39 Temperature 97.8 F Pulse Rate 63 60 Respiratory 22 18 Rate Blood Pressure 142/70 119/67 O2 Sat by Pulse 97 98 Oximetry Medical Decision Making - Medical Decision Making EKG is interpreted by myself but EKG shows a sinus rhythm at 62 bpm NC is 176 QRS is 88 QT interval is 423 QTc is 428. Patient's EKG shows no ST segment elevation or depression Was pt. sent in by a medical professional or institution (, PA, YOUTH DEVELOPMENT PROFESSIONAL, urgent care, hospital, or custodial...) When possible be specific @ -No Did you speak to anyone other than the patient for history (EMS, parent, family, police, friend...)? What history was obtained from this source @ -No Did you review nursing and triage notes (agree or disagree)? Why? @ -I reviewed and agree with nursing and triage notes Were old charts reviewed (outside hosp., previous admission, EMS record, old EKG, old radiological studies, urgent care reports/EKG's, custodial records)? Report findings @ -No old charts were reviewed Differential Diagnosis? @ -Differential Chest Pain: Stable Angina, Unstable Angina, STEMI, NSTEMI Aortic Dissection, Pneumothorax, Musculoskeletal, Esophageal Spasm GERD, Cholecystitis, Pancreatitis, Zoster, this is not meant to be an all-inclusive list. EKG interpreted by me (3pts min.). @ -As above X-rays interpreted by me (1pt min.). @ -Chest x-ray shows no acute abnormality CT interpreted by me (1pt min.). @ -None done U/S interpreted by me (1pt. min.). @ -None done What testing was considered but not performed or refused? (CT, X-rays, U/S, labs)? Why? @ -None What meds were considered but not given or refused? Why? @ -None Did you discuss the management of the patient with other professionals (professionals i.e. , PA, YOUTH DEVELOPMENT PROFESSIONAL, lab, RT, psych nurse, social media senior associate, entertainment lawyer, teacher, credit products officer, rn case manager)? Give summary @ -No Was smoking cessation discussed for >3mins.? @ -No Was critical care preformed (if so, how long)? @ -No Were there social determinants of health that impacted care today? How? (Homelessness, low income, unemployed, alcoholism, drug addiction, transportation, low edu. Level, literacy, decrease access to med. care, assisted, rehab)? @ -No Was there de-escalation of care discussed even if they declined (Discuss DNR or withdrawal of care, Hospice)? DNR status @ -No What co-morbidities impacted this encounter? (DM, HTN, Smoking, COPD, CAD, Canc er, CVA, ARF, Chemo, Hep., AIDS, mental health diagnosis, sleep apnea, morbid obesity)? @ -None Was patient admitted / discharged? Hospital course, mention meds given and route, prescriptions, significant lab abnormalities, going to OR and other pertinent info. @ -Patient had reproducible left-sided chest pain patient was given Toradol and it seemed to reduce her pain. Patient had no elevation in any heart enzymes and x-ray of the chest was normal. Undiagnosed new problem with uncertain prognosis? @ -No Drug Therapy requiring intensive monitoring for toxicity (Heparin, Nitro, Insulin, Cardizem)? @ -No Were any procedures done? @ -No Diagnosis/symptom? @ -Chest wall pain Acute, or Chronic, or Acute on Chronic? @ -Acute Uncomplicated (without systemic symptoms) or Complicated (systemic symptoms)? @ -Complicated Side effects of treatment? @ -No Exacerbation, Progression, or Severe Exacerbation? @ -No Poses a threat to life or bodily function? How? (Chest pain, [place], [place], pneumonia, PE, COPD, DKA, ARF, appy, cholecystitis, CVA, Diverticulitis, Homicidal, Suicidal, threat to staff... and all critical care pts) @ -No - Lab Data Result diagrams: 04/10/24 13:40 04/10/24 13:40 Lab Results 04/10/24 04/10/24 04/10/24 Range/Units 13:40 13:40 13:40 WBC 8.0 (3.8-10.6) k/uL RBC 4.58 (3.80-5.40) m/uL Hgb 14.3 (11.4-16.0) gm/dL Hct 43.4 (34.0-46.0) % MCV 94.6 (80.0-100.0) fL MCH 31.2 (25.0-35.0) pg MCHC 32.9 (31.0-37.0) g/dL RDW 12.8 (11.5-15.5) % Plt Count 177 (150-450) k/uL MPV 8.2 Neutrophils % 66 % Lymphocytes % 25 % Monocytes % 4 % Eosinophils % 3 % Basophils % 1 % Neutrophils # 5.3 (1.3-7.7) k/uL Lymphocytes # 2.0 (1.0-4.8) k/uL Monocytes # 0.3 (0-1.0) k/uL Eosinophils # 0.3 (0-0.7) k/uL Basophils # 0.1 (0-0.2) k/uL PT 10.8 (10.0-12.5) sec INR 1.0 (<1.2) APTT 23.6 (22.0-30.0) sec Sodium 138 (137-145) mmol/L Potassium 4.4 (3.5-5.1) mmol/L Chloride 103 (98-107) mmol/L Carbon Dioxide 26 (22-30) mmol/L Anion Gap 9 mmol/L BUN 24 H (7-17) mg/dL Creatinine 0.86 (0.52-1.04) mg/dL Est GFR (CKD-EPI)AfAm 83 (>60 ml/min/1.73 sqM) Est GFR (CKD-EPI)NonAf 72 (>60 ml/min/1.73 sqM) Glucose 104 H (74-99) mg/dL Calcium 9.4 (8.4-10.2) mg/dL Magnesium 1.9 (1.6-2.3) mg/dL Total Bilirubin 0.8 (0.2-1.3) mg/dL AST 31 (14-36) U/L ALT 19 (4-34) U/L Alkaline Phosphatase 79 (38-126) U/L Troponin I (0.000-0.034) ng/mL Total Protein 6.7 (6.3-8.2) g/dL Albumin 4.4 (3.5-5.0) g/dL 04/10/24 Range/Units 13:40 WBC (3.8-10.6) k/uL RBC (3.80-5.40) m/uL Hgb (11.4-16.0) gm/dL Hct (34.0-46.0) % MCV (80.0-100.0) fL MCH (25.0-35.0) pg MCHC (31.0-37.0) g/dL RDW (11.5-15.5) % Plt Count (150-450) k/uL MPV Neutrophils % % Lymphocytes % % Monocytes % % Eosinophils % % Basophils % % Neutrophils # (1.3-7.7) k/uL Lymphocytes # (1.0-4.8) k/uL Monocytes # (0-1.0) k/uL Eosinophils # (0-0.7) k/uL Basophils # (0-0.2) k/uL PT (10.0-12.5) sec INR (<1.2) APTT (22.0-30.0) sec Sodium (137-145) mmol/L Potassium (3.5-5.1) mmol/L Chloride (98-107) mmol/L Carbon Dioxide (22-30) mmol/L Anion Gap mmol/L BUN (7-17) mg/dL Creatinine (0.52-1.04) mg/dL Est GFR (CKD-EPI)AfAm (>60 ml/min/1.73 sqM) Est GFR (CKD-EPI)NonAf (>60 ml/min/1.73 sqM) Glucose (74-99) mg/dL Calcium (8.4-10.2) mg/dL Magnesium (1.6-2.3) mg/dL Total Bilirubin (0.2-1.3) mg/dL AST (14-36) U/L ALT (4-34) U/L Alkaline Phosphatase (38-126) U/L Troponin I <0.012 (0.000-0.034) ng/mL Total Protein (6.3-8.2) g/dL Albumin (3.5-5.0) g/dL Disposition Clinical Impression: Chest wall pain Disposition: HOME SELF-CARE Condition: Good Instructions (If sedation given, give patient instructions): Chest Wall Pain (ED) Is patient prescribed a controlled substance at d/c from ED?: No Referrals: Cade Elliott MD [Primary Care Provider] - 1-2 days Time of Disposition: 15:21
[2024-04-10 14:00] LABS: Partial Thromboplastin Time 23.6 sec (22.0-30.0); Prothrombin Time 10.8 sec (10.0-12.5)
--- NOTE | 2024-04-10 14:05 | XR ---
EXAMINATION TYPE: XR chest 2V DATE OF EXAM: 04/10/2024 CLINICAL HISTORY: Chest pain TECHNIQUE: Frontal and lateral views of the chest are obtained. COMPARISON: Chest x-ray September 03, 2023 FINDINGS: There is no focal air space opacity, pleural effusion, or pneumothorax seen. The cardiac silhouette size remains within normal limits. The osseous structures are intact. IMPRESSION: No acute process. [facility], , 04/10/2024 2:03 PM
[2024-04-10 14:07] LABS: ALT 19 U/L (4-34); AST 31 U/L (14-36); African American GFR (CKD) 83 (>60 ml/min/1.73 sqM); Albumin 4.4 g/dL (3.5-5.0); Alkaline Phosphatase 79 U/L (38-126); Anion Gap 9 mmol/L; Blood Urea Nitrogen 24 mg/dL (7-17); Calcium 9.4 mg/dL (8.4-10.2); Carbon Dioxide 26 mmol/L (22-30); Chloride 103 mmol/L (98-107); Glucose 104 mg/dL (74-99); Magnesium 1.9 mg/dL (1.6-2.3); Non-African American GFR(CKD) 72 (>60 ml/min/1.73 sqM); Potassium 4.4 mmol/L (3.5-5.1); Sodium 138 mmol/L (137-145); Total Bilirubin 0.8 mg/dL (0.2-1.3); Total Protein 6.7 g/dL (6.3-8.2)
[2024-04-10 14:28] LABS: Basophils # (A) 0.1 k/uL (0-0.2); Basophils % (A) 1 %; Eosinophils # (A) 0.3 k/uL (0-0.7); Eosinophils % (A) 3 %; HCT 43.4 % (34.0-46.0); HGB 14.3 gm/dL (11.4-16.0); Lymphocytes % (A) 25 %; MCH 31.2 pg (25.0-35.0); MCHC 32.9 g/dL (31.0-37.0); MCV 94.6 fL (80.0-100.0); Mean Platelet Volume 8.2; Monocytes # (A) 0.3 k/uL (0-1.0); Monocytes % (A) 4 %; Neutrophils # (A) 5.3 k/uL (1.3-7.7); Neutrophils % (A) 66 %; Platelet Count 177 k/uL (150-450); RBC 4.58 m/uL (3.80-5.40); RDW 12.8 % (11.5-15.5)
[2024-04-10 14:39] VITALS: RESP 18
[2024-04-10] MEDS: KETOROLAC 15 MG/ML 1 ML VIAL IVP STA (15:37)
[2024-04-10 15:42] VITALS: BP 159/71; PULSE 56
== END 2024-04-10 15:42 | disposition home or self-care (01) ==
LOC: EC 11:42
DX: R07.89 Other chest pain (principal); Z87.891 Personal history of nicotine dependence
CPT/HCPCS: 36415; 93005; 80053; 83735; 84484; 85025; 85610; 85730; 71046; 99285; 96374; J1885

== ENCOUNTER → 2024-07-05 | Outpatient (CLI) | payer BC, MEDICARE ==
[2024-07-05 10:42] LABS: Basophils # (A) 0.04 X 10*3/uL (0.00-0.10); Basophils % (A) 0.5 %; Eosinophils # (A) 0.31 X 10*3/uL (0.04-0.35); Eosinophils % (A) 4.1 %; HCT 42.1 % (37.2-46.3); HGB 13.5 g/dL (12.0-15.0); Lymphocytes # (A) 1.98 X 10*3/uL (0.90-5.00); Lymphocytes % (A) 26.3 %; MCH 30.3 pg (27.0-32.0); MCHC 32.1 g/dL (32.0-37.0); MCV 94.4 FL (80.0-97.0); Mean Platelet Volume 12.6 FL (9.5-12.2); Monocytes # (A) 0.46 X 10*3/uL (0.20-1.00); Monocytes % (A) 6.1 %; NRBC Per 100 WBC 0 X 10*3/uL (0.00-0.01); Neutrophils # (A) 4.69 X 10*3/uL (1.80-7.70); Neutrophils % (A) 62.5 %; Platelet Count 174 X 10*3/uL (140-440); RBC 4.46 X 10*6/uL (4.10-5.20); RDW 12.7 % (11.5-14.5); WBC 7.52 X 10*3/uL (4.50-10.00)
[2024-07-05 10:55] LABS: ALT 18 U/L (8-44); AST 20 U/L (13-35); Albumin 4.1 g/dL (3.8-4.9); Albumin/Globulin Ratio 1.86 Ratio (1.60-3.17); Alkaline Phosphatase 84 U/L (41-126); BUN/Creat Ratio 23.88 Ratio (12.00-20.00); Blood Urea Nitrogen 19.1 mg/dL (9.0-27.0); Calcium 8.9 mg/dL (8.7-10.3); Carbon Dioxide 27.6 mmol/L (21.6-31.8); Chloride 100 mmol/L (96-109); Chol/HDL Ratio 2.86 Ratio; Globulin 2.2 g/dL (1.6-3.3); Glucose 115 mg/dL (70-110); LDL Cholesterol,Calculated 59.6 mg/dL (0.0-131.0); Potassium 4.1 mmol/L (3.5-5.5); Sodium 138 mmol/L (135-145); Total Bilirubin 0.7 mg/dL (0.3-1.2); Total Protein 6.3 g/dL (6.2-8.2); VLDL Calculation 11.32 mg/dL (5.00-40.00)
== END | disposition home or self-care (01) ==
LOC: LABWHC1 07:12
PROVIDERS: ATTEND Family Medicine
DX: E78.5 Hyperlipidemia, unspecified (principal)
CPT/HCPCS: 36415; 80053; 80061; 85025

== ENCOUNTER → 2024-09-11 | Outpatient (CLI) | payer BC, MEDICARE ==
--- NOTE | 2024-09-11 10:04 | US ---
EXAMINATION TYPE: US arterial LE single level DATE OF EXAM: 09/11/2024 9:57 AM COMPARISONS: None. CLINICAL INDICATION: Female, 63 years old with history of I73.9 PERIPHERAL VASCULAR DISEASE, UNSPECIF IED; cellulitis TECHNIQUE: Systolic pressures were taken of the upper and lower extremity arteries with ankle-brachia l indices and toe brachial indices calculated bilaterally. History of: Smoker: Yes Hypertension: Takes medication Diabetic: Yes Hyperlipidemia: Yes TIA/CVA: No Previous Vascular Surgery: No CAD: No MS: No Vascular Ulcers: No Claudication: No Gangrene: No FINDINGS: Doppler Waveforms: Right: Multiphasic Left: Multiphasic Brachial Artery systolic pressure: Right: 101 Left: 105 Posterior Tibial artery systolic pressure: Right: 101 Left: 94 Dorsalis Pedis artery systolic pressure: Right: 104 Left: 84 Toe artery systolic pressure: Right: CNO Left: 84 Ankle-Brachial Indices: Right: 0.99 Left: 0.90 Toe Brachial Indices: Right: CNO Left: 0.9 (Normal > 0.6; Mild 0.35 - 0.59, Moderate 0.12 - 0.34, Severe <0.12) IMPRESSION: CHELLE: Right: Normal 0.9 - 1.4, Recommendation: None Left: Normal 0.9 - 1.4, Recommendation: None [facility], , 09/11/2024 10:01 AM
== END | disposition home or self-care (01) ==
LOC: RADUSWWP 08:59
PROVIDERS: ATTEND Family Medicine
DX: I73.9 Peripheral vascular disease, unspecified (principal); E11.51 Type 2 diabetes mellitus with diabetic peripheral angiopathy without gangrene; E78.5 Hyperlipidemia, unspecified; I10 Essential (primary) hypertension; Z87.891 Personal history of nicotine dependence
CPT/HCPCS: 93922

== ENCOUNTER → 2024-09-20 | Outpatient (CLI) | payer BC ==
[~2024-09-20] MED LIST changes: -ACETAMINOPHEN TAB 500 MG TAB PO STA; -DEXAMETHASONE SOD PHOSPHATE 10 MG/ML 1 ML VIAL IV ONE; -GABAPENTIN 300 MG CAP PO STA; -HEPARIN SODIUM,PORCINE 5,000 UNIT/ML 1 ML VIAL SQ ONE; -HYDROmorphone 0.5 MG/0.5 ML SYRINGE IVP PRN; -INDOCYANINE GREEN 25 MG VIAL IV STA; -LACTATED RINGERS 1,000 ML IV SCH; -LIDOCAINE 1% (10MG/ML) FOR IV START INTRADERMA PRN; -ONDANSETRON 4 MG/2 ML VIAL IVP ONE; +REGADENOSON 0.4 MG/5 ML SYRINGE IV PRN; -SCOPOLAMINE 1.5MG/72HR PATCH TRANSDERM ONE; -SCOPOLAMINE 1.5MG/72HR PATCH TRANSDERM STA; -ceFAZolin 3 GM in SODIUM CHLORIDE 0.9% 100 ML IVPB ONE
--- NOTE | 2024-09-20 12:28 | NM ---
EXAMINATION TYPE: NM stress lexiscan cardiolite DATE OF EXAM: 09/20/2024 COMPARISON: 12/16/2018 CLINICAL INDICATION: Female, 63 years old with history of R07.89 OTHER CHEST PAIN, TECHNIQUE: After the intravenous administration of 10.67 mCi Tc 99m Sestamibi - Cardiolite resting S PECT images acquired 45 minutes post injection. At peak stress 25.4 mCi Tc 99m Sestamibi - Stress images obtained 30 minutes post injection The patient was stressed with 0.4mg Lexiscan. FINDINGS: No fixed defects are evident. No reversible stress defects on Spect images. Wall motion is normal. Ejection fraction is calculated to be 73 %. IMPRESSION: 1. No stress-induced ischemic changes. [facility], , 09/20/2024 12:25 PM
--- NOTE | 2024-09-20 19:46 | CA ---
Lexiscan Nuclear Stress Test Report Name: Aimee Quintero Exam Date: 09/20/2024 09:23 Exam Location: [facility] Ht (in): 63 Wt (lb): 243 BSA: 2.10 Ordering Phys: Cade Elliott MD Referring Phys: Charlene Sorensen Technologist: AJ MASON Age: 63 Gender: F : 1960 Procedure CPT: Indications: R07.89 other chest pain ICD-10 Codes: Patient History: CHEST PAIN, DIFFICULTY IN BREATHING, HTN, DIABETIC, HYPERCHOLESTEROLEMIA, FAMILY HX OF HEART DISEASE, PRIOR HEART CATH Medications: Meds past 24 hrs: Pretest Chest Pain: STRESS TEST Lexiscan Protocol Exercise Duration (min:sec): 02:[address] Depressions (mm): Angina Score: Epperson Score: Resting HR (bpm): 56 Peak HR (bpm): 83 Resting BP (mmHg): 114 / 71 Peak BP (mmHg): 114 / 71 MPHR: 155 Target HR: 132 % MPHR: 54 METS: 1.0 Total Dose: Peak Dose: Atropine: Double Product: 9462 BP Response: Stress Termination: INFUSION COMPLETE Stress Symptoms: NO SYMPTOMS Stress Summary: ECG ANALYSIS Resting ECG: Sinus rhythm. Normal conduction. No arrhythmias. Normal repolarization. Stress ECG: No ECG changes from baseline with Lexiscan infusion. CONCLUSIONS No ECG evidence of ischemia with Lexiscan infusion. Nuclear test results to follow. Dr. Carlos Simpson MD (Electronically Signed) Final Date: 20 September 2024 19:45
== END | disposition home or self-care (01) ==
LOC: RADNMMAIN 07:51
PROVIDERS: ATTEND Family Medicine
DX: R07.89 Other chest pain (principal)
CPT/HCPCS: 93017; 78452; A9500; J2785

== ENCOUNTER → 2024-10-20 | Outpatient (CLI) | payer BC, MEDICARE ==
[2024-10-20 10:22] LABS: Basophils # (A) 0.05 X 10*3/uL (0.00-0.10); Basophils % (A) 0.7 %; Eosinophils # (A) 0.49 X 10*3/uL (0.04-0.35); Eosinophils % (A) 6.9 %; HCT 42.9 % (37.2-46.3); HGB 13.7 g/dL (12.0-15.0); Immature Grans, Automated 0.30 %; Lymphocytes # (A) 2.23 X 10*3/uL (0.90-5.00); Lymphocytes % (A) 31.3 %; MCH 30.2 pg (27.0-32.0); MCHC 31.9 g/dL (32.0-37.0); MCV 94.7 FL (80.0-97.0); Monocytes # (A) 0.40 X 10*3/uL (0.20-1.00); Monocytes % (A) 5.6 %; NRBC Per 100 WBC 0 X 10*3/uL (0.00-0.01); Neutrophils # (A) 3.93 X 10*3/uL (1.80-7.70); Neutrophils % (A) 55.2 %; Platelet Count 173 X 10*3/uL (140-440); RBC 4.53 X 10*6/uL (4.10-5.20); RDW 13.1 % (11.5-14.5); WBC 7.12 X 10*3/uL (4.50-10.00)
[2024-10-20 10:51] LABS: ALT 17 U/L (8-44); AST 20 U/L (13-35); Albumin 4.1 g/dL (3.8-4.9); Albumin/Globulin Ratio 2.05 Ratio (1.60-3.17); Alkaline Phosphatase 82 U/L (41-126); Anion Gap 11.40 mmol/L (4.00-12.00); BUN/Creat Ratio 23.12 Ratio (12.00-20.00); Blood Urea Nitrogen 18.5 mg/dL (9.0-27.0); Calcium 8.9 mg/dL (8.7-10.3); Carbon Dioxide 25.6 mmol/L (21.6-31.8); Chloride 106 mmol/L (96-109); Cholesterol 128.00 mg/dL (0.00-200.00); Globulin 2.0 g/dL (1.6-3.3); Glucose 123 mg/dL (70-110); HDL Cholesterol 41.00 mg/dL (40.00-60.00); LDL Cholesterol,Calculated 69.3 mg/dL (0.0-131.0); Potassium 4.0 mmol/L (3.5-5.5); Sodium 143 mmol/L (135-145); T4, Free (Free Thyroxine) 0.97 ng/dL (0.80-1.80); Total Protein 6.1 g/dL (6.2-8.2); Triglycerides 88.50 mg/dL (0.00-149.00); VLDL Calculation 17.70 mg/dL (5.00-40.00)
== END | disposition home or self-care (01) ==
LOC: LABWHC1 07:05
PROVIDERS: ATTEND Nurse Practitioner Family
DX: Z00.01 Encounter for general adult medical examination with abnormal findings (principal); E78.5 Hyperlipidemia, unspecified; E55.9 Vitamin D deficiency, unspecified
CPT/HCPCS: 36415; 80053; 80061; 82306; 84439; 84443; 85025